=== PATIENT | male | born 1945 | race African-American/Black ===

== ENCOUNTER → 2016-09-30 | Outpatient (CLI) | payer OTHER ==
[2016-09-09 11:54] VITALS: BP 122/80
[~2016-09-30] MED LIST: AMLO5TAB2 PO; ASPI-482 PO; ATOR20TA58 PO; BACL10TA PO; BUPR75TA6 PO; CALC200T23 PO; CHOL-5 PO; DOCU100C PO; FINA5TAB4 PO; FOLI1TAB16 PO; LEVE500T56 PO; LIDO700A27 TP; LOSA100T6 PO; MAGN400T3 PO; OMEP20CA9 PO; ONAB200V IJ; OXYC-244 PO; POTA20TA84 PO; SIME180C16 PO; SIMV20TA3 PO; SOFO400T PO; TERA10CA3 PO; THIA100T8 PO; TRAM50TA PO; [UNRECOGNIZED DRUG - CODE] PO
--- NOTE | 2016-09-30 09:55 | CARD ---
APPROVED REPORT EXAM: Two-dimensional and M-mode echocardiogram with Doppler and color Doppler. Other Information Quality : GoodHR: 55bpm Rhythm : NSRBradycardia INDICATION Precordial pain RISK FACTORS Hypertension Smoking 2D DIMENSIONS RVDd2.5 (2.9-3.5cm)Left Atrium(2D)3.6 (1.6-4.0cm) IVSd0.9 (0.7-1.1cm)Aortic Root(2D)3.5 (2.0-3.7cm) LVDd4.6 (3.9-5.9cm)LVOT Diameter2.3 (1.8-2.4cm) PWd1.0 (0.7-1.1cm)LVDs3.1 (2.5-4.0cm) FS (%) 32.9 %SV59.7 ml LVEF(%)61.4 (>50%) Aortic Valve AoV Peak Peter.136.6cm/sAoV VTI28.9cm AO Peak GR.7.5mmHgLVOT Peak Peter.99.9cm/s AO Mean GR.3mmHgAVA (VMAX)2.92cm2 Mitral Valve MV E Ibqexrdw93.8cm/sMV E Peak Gr.3mmHg MV DECEL [id number] A Ydaaoict65.5cm/s MV E Mean Gr.1mmHgE/A Ratio0.6 MV A [id number] Pulmonary Valve PV Peak Nqdugyba42.5cm/s Tricuspid Valve TR P. Xsjeefet275va/sTR Peak Gr.20mmHg Pulmonary Vein S1 Cmbxxpra82.5cm/sD2 Dgsdjjbw90.1cm/s PVa skjipcjm41pjxg LEFT VENTRICLE The left ventricle is normal size. There is normal left ventricular wall thickness. The left ventricu lar systolic function is normal and the ejection fraction is within normal range. The Ejection Fracti on is 60-65%. There is normal LV segmental wall motion. Transmitral Doppler flow pattern is Grade I-a bnormal relaxation pattern. RIGHT VENTRICLE The right ventricle is normal size. There is normal right ventricular wall thickness. The right ventr icular systolic function is normal. ATRIA The left atrium size is normal. The right atrium size is normal. The interatrial septum is intact wit h no evidence for an atrial septal defect or patent foramen ovale as noted on 2-D or Doppler imaging. AORTIC VALVE The aortic valve is mildly thickened. The aortic valve is trileaflet. Doppler and Color Flow revealed no significant aortic regurgitation. There is no significant aortic valvular stenosis. MITRAL VALVE Mitral annular calcification is mild. The mitral valve leaflets are thickened. There is no evidence o f mitral valve prolapse. There is no mitral valve stenosis. Doppler and Color Flow revealed trace chuyita ral regurgitation. TRICUSPID VALVE The tricuspid valve is normal in structure and function. Doppler and Color Flow revealed mild tricusp id regurgitation. The pulmonary artery systolic pressure is estimated at 25 mmHg. There is no pulmona ry hypertension. There is no tricuspid valve stenosis. PULMONIC VALVE Doppler and Color Flow revealed trace pulmonic valvular regurgitation. There is no pulmonic valvular stenosis. GREAT VESSELS The aortic root is normal in size. The ascending aorta is normal in size. The IVC was not visualized due to bowel gas. PERICARDIAL EFFUSION There is no evidence of significant pericardial effusion. Critical Notification Critical Value: No <Conclusion> The left ventricular systolic function is normal and the ejection fraction is within normal range. Th e Ejection Fraction is 60-65%. There is normal LV segmental wall motion.
== END | disposition home or self-care (01) ==
LOC: ECHO 08:15
PROVIDERS: ATTEND Internal Medicine Cardiovascular Disease
DX: R07.2 Precordial pain (principal)
CPT/HCPCS: 93306

== ENCOUNTER → 2016-10-06 | Outpatient (CLI) | payer OTHER ==
[2016-09-09 11:54] VITALS: BP 122/80
[~2016-10-06] MED LIST changes: +REGADENOSON 0.4 MG/5 ML DISP.SYRIN. IV ONE
--- NOTE | 2016-10-06 13:55 | RAD ---
APPROVED REPORT Test Type: Pharmacological Stress Nurse/Tech: Mayela Torres R.N. Test Indications: sob, c/p Cardiac History: htn,copd Medications: See Electronic Medical Record Medical History: See Electronic Medical Record Resting ECG: SB Resting Heart Rate: 53 bpm Resting Blood Pressure: 126/79mmHg Pretest Chest Pain: No chest pain Nurse/Tech Notes S1S2, lungs CTA Consent: The procedure was explained to the patient in lay terms. Informed consent was witnessed. Morgan eout was entered into [employer]. History and Stress Test performed by RT Kareem (R) (N) Pharm. Details Pharmacologic stress testing was performed using 0.4mg per 5ml of regadenoson given intravenously ove r 7-10 seconds. Stress Symptoms SOB which resolved by the end of recovery period POST EXERCISE Reason for Termination: Infusion complete Max HR: 78 bpm Max Blood Pressure: 134/89mmHg Blood Pressure response to exercise: Normal blood pressure response during stress. Heart Rate response to exercise: wnl Chest Pain: No. Arrhythmia: No. ST Change: No. INTERPRETATION Stress EKG Conclusion: No evidence of stress induced EKG changes. Imaging Protocol IMAGE PROTOCOL: Rest Tc-99m/stress Tc-99m 1 day Rest: Stress: Viability: Radiopharm.Tc99m HzbpcgsqpNb80e Sestamibi Dose11.9mCi 35mCi Duration 17min. 12min. Img Date 10/06/2016 10/06/2016 Inj-Img [id number]. 60min. Rest Admin Site:IV - Left HandAdministrator:GHADA Falcon Stress Admin Site: IV - Left HandAdministrator: RT Kareem (R)(N) STRESS DATA End Diast. Vol.99.0mlAv. Heart Rate63.0bpm LVEDV index BSA2.0mlCardiac Output0.1L/min End Syst. Vol.33.0mlCO Index BSA4.2L/min LVESV index BSA1.0mlMyocardial Ivvo461.0g Eject. Ifopdpmp31.0% Stress Rates Pk. Fill Rate2.94EDV/secLVtime Pk. Fill 147.65msec Pk. Empty Rate3.81ESV/secLVtime Pk. Kpaay211.92msec 1/3 Pk. Fill1.85EDV/sec Stress Scores Regional WT0.00Summed WT5.00 Regional WM0.00Summed WM0.00 The rest and stress images show normal perfusion, normal contraction and thickening. LV Perf. Quant 17 Seg. SSS1.00 17 Seg. SRS11.00 17 Seg. SDS0.00 Stress Defect Extent (% LAD)0.00Rest Defect Extent (% LAD)0.00Rev. Defect Extent (% LAD)0.00 Stress Defect Extent (% LCX) 18.80Rest Defect Extent (% LCX)33.80Rev. Defect Extent (% LCX)0.00 Stress Defect Extent (% RCA)0.00Rest Defect Extent (% RCA)36.70Rev. Defect Extent (% RCA)0.00 Stress Defect Extent (% DMITRY)3.30Rest Defect Extent (% DMITRY)19.30Rev. Defect Extent (% DMITRY)0.00 Other Information Quality:Fair Risk Assessment: Low Risk Conclusion 1. No evidence of stress induced EKG changes 2. Normal myocardial perfusion at stress/rest. 3. Subdiaphragmatic activity noted on rest images. 4. Normal EF at > 70% 5. Low risk study
== END | disposition home or self-care (01) ==
LOC: NM 08:14
PROVIDERS: ATTEND Internal Medicine Cardiovascular Disease
DX: R07.2 Precordial pain (principal); J44.9 Chronic obstructive pulmonary disease, unspecified; I10 Essential (primary) hypertension; Z79.01 Long term (current) use of anticoagulants; Z87.891 Personal history of nicotine dependence; Z86.69 Personal history of other diseases of the nervous system and sense organs; R06.02 Shortness of breath
CPT/HCPCS: 78452; 93017; 96374; A9500; J2785

== ENCOUNTER → 2016-11-11 | Outpatient (CLI) | payer OTHER ==
[2016-09-09 11:54] VITALS: BP 122/80
[~2016-11-11] MED LIST changes: -REGADENOSON 0.4 MG/5 ML DISP.SYRIN. IV ONE
--- NOTE | 2016-11-11 12:19 | RAD ---
Right shoulder, 2 views, 11/11/2016: History: Shoulder weakness No fracture or dislocation is identified. There are mild degenerative changes at the glenohumeral and acromioclavicular articulations. The periarticular soft tissues are unremarkable. IMPRESSION: 1. Mild degenerative change. 2. No acute bony abnormality is detected.
== END | disposition home or self-care (01) ==
LOC: RAD 11:18
PROVIDERS: ATTEND Family Medicine
DX: M19.011 Primary osteoarthritis, right shoulder (principal)
CPT/HCPCS: 73030

== ENCOUNTER → 2017-04-18 | Outpatient (CLI) | payer OTHER ==
[2016-09-09 11:54] VITALS: BP 122/80
[~2017-04-18] MED LIST changes: +BUPIVACAINE MPF 0.25% 10 ML VIAL. ONE; +CALC500T54 PO; +CARB15DR3 EACHEYE; +DOCU-150 PO; -DOCU100C PO; +IOHEXOL 180 MG/ML 10 ML VIAL. ONE; +MINE120C TP; -OXYC-244 PO; +OXYC-327 PO; +PSYL0.4C PO; +methylPREDNISolone ACETATE 40 MG/ML VIAL. ONE; +methylPREDNISolone ACETATE 80 MG/ML VIAL. ONE
--- NOTE | 2017-04-18 23:39 | PAIN ---
DATE OF SERVICE: 04/18/2017 INITIAL CONSULTATION CHIEF COMPLAINT: Low back pain. HISTORY OF PRESENT ILLNESS: This is a 71-year-old male who presents with history of pain in low back for several years, worse over the past 2 years. The patient reports he has been recently at the [facility] and had lumbar medial branch facet blocks done as recently as January of this year with good results and decreased pain significantly; however, he reports that it was going to take about 6 months for him to ____ get radiofrequency performed and he wished to find another clinic closer to the home that might be able to get him in sooner. The patient reports increased pain with standing and walking, changing positions, especially getting out of a chair from a sitting position to standing position and getting out of bed in the morning the pain is significant, once he gets moving, pain decreases a bit, but still very significant across the low back, somewhat worse on the left than the right currently, but it can be just as bad on the right side as well. The patient reports no radiation to the lower extremities currently. The patient reports the pain as throbbing, stabbing, sharp, alternating with dull with the aching and burning sensation, also some weakness in the legs, but no radiating pain to the legs. The patient reports it wakes him from sleep about 4 times at night, affects his bowel and bladder control, but does not cause any incontinence. He has been using a walker for several years that he had a stroke years ago, has braces on both of his feet ____ as well. The patient reports his disability rate from 0-10; 10 being the worst, is at 9 with family home responsibilities, 10 with sexual behavior, 4 with recreation and social activity, 5 with occupation and life support activities, and 7 with self-care. The patient did have MRI scan of the lumbar spine dated 03/19/2017, showing transitional vertebrae, multilevel degenerative change in lumbar spine with advanced neural foraminal stenosis narrowing at L5-S1, not significantly changed since prior exam of 03/18/2016. PAST MEDICAL HISTORY: Significant for hypertension, cigarette smoking, arthritis, strokes about 5 years ago with residual pain in the lower extremities, worse on the left. PREVIOUS SURGERY: Include hernia repair in 08/2016 and cervical surgery in the past as well. CURRENT MEDICATIONS: Include omeprazole, docusate, lidocaine patches, thiamine, atorvastatin, daily baby aspirin, folic acid, calcium carbonate, finasteride, cholecalciferol, losartan, terazosin, amlodipine, eyedrops, Eucerin cream, psyllium husk and calcium. ALLERGIES: THE PATIENT IS ALLERGIC TO PENICILLIN. FAMILY HISTORY: Significant for diabetes and cancer. SOCIAL HISTORY: The patient smokes less than a pack of cigarette a day, but smokes for multiple years. Does not drink alcohol, does not use any other illegal illicit drugs or other substances. Lives with his spouse locally in [place], [place]. REVIEW OF SYSTEMS: The patient's review of systems is positive for those items mentioned in history of present illness. All systems reviewed and otherwise negative. It is complete, full and well documented on the patient's chart. PHYSICAL EXAMINATION: VITAL SIGNS: The patient's blood pressure 107/58, pulse 64, respirations 18, temperature 98.3 degrees Fahrenheit, height is 5 feet 11 inches, weight 195 pounds. GENERAL: The patient is awake, alert, oriented, appropriate, very pleasant demeanor. HEENT: Head shows normocephalic, atraumatic. Extraocular movements are intact and symmetrical. Oral cavity shows mucous membranes moist and pink. Dentition is intact. NECK: Shows anterior throat supple without palpable lymphadenopathy noted. Swallow reflex is symmetrical. Neck shows full rotational motion of the cervical spine without difficulty or tenderness including extension and flexion. CHEST: Shows normal on inspection. Breath sounds are clear to auscultation bilaterally. HEART: Shows S1 and S2 clear. No murmurs auscultated. ABDOMEN: Soft, nontender, nondistended. No palpable organomegaly, no rebound or guarding demonstrated. BACK: The patient's back shows spine grossly in the midline. He has normal appearing thoracic kyphosis and lumbar lordotic curvature. Lumbar paraspinous musculature shows symmetrical on inspection. With palpation shows some moderate tenderness with palpation bilaterally, but only diffusely throughout the upper, middle and lower distribution of paraspinous muscles, but equal right and left as is symmetrical right and left as well. No tenderness over the sacrum and sacroiliac regions with palpation. The patient shows good rotation and motion of the lumbar spine with significant tenderness with rotation posteriorly greater than 10 degrees. Right and left lateral rotation is also tender, but not as significantly with greater than 10 degrees rotation right and left. Forward flexion was performed without difficulty or pain reported. EXTREMITIES: Lower extremities show deep tendon reflexes at 1+ in the patellar and tendo calcaneus tendons. Again, the patient is wearing supportive braces on the ankles and lower extremities inhibiting some good evaluation of patient dorsiflexion, extension, but is intact bilaterally. Quadriceps and hamstring flexion is approximately 4 on a scale of 5, but symmetrical and equal. Peripheral pulses are 1+ and palpable in the posterior tibial and dorsalis pedis pulses. No peripheral edema is noted. No clubbing, no cyanosis is demonstrated in either of the lower extremities. They are equal in color and appearance and symmetrical. The patient is able to stand, but has difficulty standing from a sitting position and uses the chair and walker significantly to support his body while he is standing from a sitting position. The patient is walking with a significant shuffling gait, appears to favor his left lower extremity greater than the right, but again both have braces and he is using the walker significantly to support his ambulatory posture. IMPRESSION: 1. This is a 71-year-old male with many year history of low back pain. 2. Status post cerebrovascular accident with impaired motor function in the bilateral lower extremities. 3. Arthritis. 4. Hypertension. 5. Cigarette smoking. PLAN: Options were discussed with the patient including conservative medical management, physical therapy and interventional technique. He would like to pursue interventional techniques as these were started at an outside facility and he did well with these by his report. We discussed the options and will start with lumbar facet injections today at the L4-L5 and L5-S1 levels bilaterally using fluoroscopic guidance. Risks were discussed including but not limited to bleeding, infection, possibility of intravascular injection sequelae, spread of local anesthetic and numbness, side effects of steroid medication, potential epidural hematoma, subsequent neurologic compromise, dural punctures, headaches, spinal cord and/or nerve damage, side effects of steroid medications, exposure to fluoroscopy and poor results regarding pain control. The patient understands and wishes to proceed. The patient will return to clinic in approximately 1 week and was asked to call with a progress report. If significantly improved, may move on to radiofrequency ablation of the medial branches at the L4-L5 and L5-S1 levels bilaterally as patient has done well with these in an outside facility by his report. We will see how he does with today's injection and ____ that later this week. The patient was given counseling as to activity levels as well as side effects to be aware of and follow up as scheduled. DIAGNOSIS: 1. Lumbar and lumbosacral spondylosis. 2. Spinal stenosis. PROCEDURE: Bilateral facet joint injections at L4-L5 and L5-S1 with fluoroscopic guidance under sterile prep and drape using local anesthetic. Medications injected is a total of 4 mL of 0.25% bupivacaine, total of 120 mg of Depo-Medrol and 2 mL of Isovue for contrast. CONDITION ON DISCHARGE: Stable. The patient tolerated the procedure well, had no complications. KEVYN NICOLE MD DR: OLYA/ruth JOB#: [id number] / [id number] RADHA Purdy MD
== END | disposition home or self-care (01) ==
LOC: PNCL 12:49
PROVIDERS: ATTEND Anesthesiology
DX: M47.817 Spondylosis without myelopathy or radiculopathy, lumbosacral region (principal); M48.06 Spinal stenosis, lumbar region; M19.90 Unspecified osteoarthritis, unspecified site; F17.200 Nicotine dependence, unspecified, uncomplicated; F32.9 Major depressive disorder, single episode, unspecified; Z88.0 Allergy status to penicillin; E78.00 Pure hypercholesterolemia, unspecified; Z86.73 Personal history of transient ischemic attack (TIA), and cerebral infarction without residual deficits; Z87.39 Personal history of other diseases of the musculoskeletal system and connective tissue; Z72.0 Tobacco use
CPT/HCPCS: 64493; 64494; J1030; J1040; J3490

== ENCOUNTER → 2017-05-05 | Outpatient (CLI) | payer OTHER ==
[2016-09-09 11:54] VITALS: BP 122/80
[~2017-05-05] MED LIST changes: -IOHEXOL 180 MG/ML 10 ML VIAL. ONE; +LIDOCAINE 1% PF 2 ML VIAL. ONE; +LIDOCAINE 2% PF Vial for OR 5 ML VIAL. ONE
--- NOTE | 2017-05-05 17:47 | PAIN ---
DATE OF SERVICE: PROGRESS NOTE FOR PAIN CLINIC DIAGNOSES: Lumbar spinal stenosis with lumbar and lumbosacral spondylosis. HISTORY OF PRESENT ILLNESS: The patient is a 71-year-old male, who returns for followup, status post bilateral L4-5 and L5-S1 facet joint injections with very good results, about 80% improvement after the injections ____ at an outside facility with similar results. The patient would like to move on with radiofrequency ablation. We discussed this with him in some detail after his last visit and he has had good results again for about 2 weeks. The pain was reduced significantly. The patient reports that the pain is returning now - right side equal to left in the low back, worse with twisting and bending, and extension. It is an aching, dull pain. It is on and off in intensity, better with sitting, but much worse with walking or standing, especially with extension of the spine. The patient reports no new motor or sensory deficits, no new bowel or bladder incontinence, or other complaints, but still significant pain as noted. The patient rates his pain as an 8 on a scale of 10 at its worst, it is a 7 at least, and reports that it does not awaken him from sleep most nights. He feels much better lying down or sitting down. PHYSICAL EXAMINATION: VITAL SIGNS: The patient's blood pressure is 152/77, pulse 67, respirations 18, temperature 98.2 degrees Fahrenheit, height is 5 feet 11 inches, and weight is 195 pounds. GENERAL: The patient is awake, alert, oriented, and appropriate, has very pleasant demeanor. HEENT: Head shows normocephalic and atraumatic. Extraocular movements are intact and symmetrical. Oral cavity, mucous membranes are moist and pink. Dentition is intact. NECK: Shows anterior throat supple without palpable lymphadenopathy noted. Swallow reflex is symmetrical. CHEST: Shows normal on inspection. Breath sounds are clear to auscultation bilaterally. HEART: Shows S1 and S2 clear. ABDOMEN: Soft, nontender, and nondistended. No palpable organomegaly is noted. BACK: The patient's back shows spine grossly midline with normal-appearing thoracic kyphosis and minor flattening of lumbar lordotic curvature. Lumbar paraspinous musculature shows some moderate tenderness with palpation in the lower lumbar distribution bilaterally, but only diffusely without radiation. No tenderness over the spinous processes, sacrum, or sacroiliac regions. The patient does show good rotational motion with some tenderness, both right and left at about 10 degrees in the low back with extension significantly increased past 10 degrees, forward flexion decreased due to pain, and is able to flex forward at 45 degrees without significant difficulty. LOWER EXTREMITIES: Showed deep tendon reflexes at 1+ in the patellar and tendocalcaneus tendons. Motor exam is approximately 4 on a scale of 5 with bilateral dorsiflexion and extension, but are equal and symmetrical. Options were discussed with the patient. The patient's old chart was reviewed, as well as his current medication regimen updated. Current review of systems updated today as well. We will proceed with radiofrequency ablation of the bilateral L4-5 and L5-S1 levels using C-arm fluoroscopic guidance. Risks were again discussed including, but not limited to bleeding, infection, possibility of epidural hematoma and subsequent neurologic compromise, dural punctures, headaches, spinal cord and/or nerve damage, side effects of steroid medication, and potential thermal injury to tissues surrounding the area of the median branch targets, and exposure to fluoroscopy as well as poor results regarding pain control. The patient understands and wishes to proceed. The patient will return to clinic in approximately 2 weeks for followup. He was counseled on return appointment, activity level, and side effects to be aware of. DIAGNOSIS: Lumbar spinal stenosis with spondylosis, both lumbar and lumbosacral. PROCEDURE: Bilateral radiofrequency ablations of the L4-5 and L5-S1 medial branches using local anesthetic under sterile prep and drape using C-arm fluroscopic guidance. MEDICATIONS: A total of 120 mg of Depo-Medrol, a total of 6 mL of 0.25% bupivacaine after negative aspiration at each injection, and a total of 6 mL of 2% lidocaine after motor-sensory testing, but prior to radiofrequency ablation. Bupivacaine and Depo-Medrol was injected after radiofrequency ablation at each level after negative aspiration as well. Please see radiofrequency ____ for levels, times, impedances, duration of temperature, etc. CONDITION AT DISCHARGE: Stable. The patient tolerated the procedure well, had no complications. KEVYN NICOLE MD DR: OLYA/ruth JOB#: [id number] / [id number]
== END | disposition home or self-care (01) ==
LOC: PNCL 10:43
PROVIDERS: ATTEND Anesthesiology
DX: M47.816 Spondylosis without myelopathy or radiculopathy, lumbar region (principal); M48.06 Spinal stenosis, lumbar region; E78.00 Pure hypercholesterolemia, unspecified; I10 Essential (primary) hypertension; K21.9 Gastro-esophageal reflux disease without esophagitis; M19.90 Unspecified osteoarthritis, unspecified site; F32.9 Major depressive disorder, single episode, unspecified; Z86.69 Personal history of other diseases of the nervous system and sense organs; Z86.73 Personal history of transient ischemic attack (TIA), and cerebral infarction without residual deficits; Z87.39 Personal history of other diseases of the musculoskeletal system and connective tissue; Z72.0 Tobacco use; Z88.0 Allergy status to penicillin
CPT/HCPCS: 64635; 64636; J1030; J1040; J3490; J2001

== ENCOUNTER → 2017-06-02 | Outpatient (CLI) | payer OTHER ==
[2016-09-09 11:54] VITALS: BP 122/80
[~2017-06-02] MED LIST changes: -BUPIVACAINE MPF 0.25% 10 ML VIAL. ONE; -LIDOCAINE 1% PF 2 ML VIAL. ONE; -LIDOCAINE 2% PF Vial for OR 5 ML VIAL. ONE; -methylPREDNISolone ACETATE 40 MG/ML VIAL. ONE; -methylPREDNISolone ACETATE 80 MG/ML VIAL. ONE
--- NOTE | 2017-06-02 18:54 | PAIN ---
DATE OF SERVICE: 06/02/2017 DIAGNOSES: Lumbar spinal stenosis, lumbar spondylosis. HISTORY OF PRESENT ILLNESS: The patient is a 71-year-old male who returns for followup status post radiofrequency ablation of the L4-L5 and L5-S1 bilateral ____. The patient reports he did very well, about 80% improvement in his low back pain, still has some significant tightness in the back, though it is dull and achy, rates it at 8 on a scale of 10 at its worst, 6 on average, and is currently 7 today. The patient reports otherwise is doing very well with increased activity with greater ease and comfort, lifting items with greater ease. He has been sleeping well at night, it does not awaken him from sleep, feels very good when he is sitting or lying down. Only when he on his feet he has the stiffness in his back, which is different than pain. He reports it is a different sensation that is just stiff and tight and not painful significantly. The patient reports no new motor or sensory deficits, no new bowel or bladder incontinence or other complaints. PHYSICAL EXAMINATION: VITAL SIGNS: Today, the patient's blood pressure is 135/75, pulse 66, respirations 16, temperature 98.2 degrees Fahrenheit, height is 5 feet 11 inches, weighs 195 pounds. GENERAL: The patient is awake, alert, oriented, appropriate, very pleasant demeanor. HEENT: Head shows normocephalic, atraumatic. Extraocular movements are intact and symmetrical. Oral cavity shows mucous membranes moist and pink. Dentition is intact. NECK: Shows anterior throat supple without palpable lymphadenopathy noted. Swallow reflex is symmetrical. CHEST: Shows normal on inspection. Breath sounds clear to auscultation bilaterally. HEART: Shows S1 and S2 clear. No murmurs auscultated. ABDOMEN: Soft, nontender, nondistended. BACK: Shows spine grossly midline. Lumbar paraspinous musculature shows symmetrical on inspection with palpation. It was very firm, very stiff musculature throughout the upper, middle and lower distribution of the paraspinous muscles bilaterally, slightly more on the left than the right, but symmetrical and tender bilaterally to a moderate extent with very firm, very tender musculature bilaterally. In the thoracic spine, this is much more supple and less tender significantly. The patient shows good rotation and motion of the lumbar spine as well as good extension and forward flexion. Right and left lateral rotation greater than 10 degrees without significant pain reported on exam today. EXTREMITIES: Lower extremities showed deep tendon reflexes 1+ in the patellar and tendo calcaneus tendons. Motor exam is approximately 4 on a scale of 5 with dorsiflexion and extension, but equal. The patient is ambulating with a walker with significant antalgic gait favoring his left lower extremity over the right but with a very significant limp. Options were discussed with the patient and the patient's old chart was reviewed as his current medication regimen updated. Current review of systems updated today as well and we will refer the patient for physical therapy for strengthening and stretching exercises, massage therapy and musculature re-training with ambulation in the lumbar spine. The patient wishes to use his [facility] benefits for this. We will make arrangements to have him seen through [facility]. The patient will follow up once physical therapy is completed and as needed. KEVYN NICOLE MD DR: OLYA/ruth JOB#: [id number] / [id number]
== END | disposition home or self-care (01) ==
LOC: PNCL 10:10
PROVIDERS: ATTEND Anesthesiology
DX: M48.06 Spinal stenosis, lumbar region (principal); M47.896 Other spondylosis, lumbar region
CPT/HCPCS: 99212

== ENCOUNTER 2017-10-03 07:34 | Outpatient (CLI) | payer BC ==
[2017-10-03 08:18] LABS: HEMATOCRIT 38.3 % (39.0-53.0); MEAN CORPUSCULAR HEMOGLOBIN 32 pg (25-35); MEAN CORPUSCULAR HGB CONC 34 g/dL (31-37); MEAN CORPUSCULAR VOLUME 94 fL (79-100); PLATELET COUNT 155 x10^3/uL (140-400); RED BLOOD COUNT 4.08 x10^6/uL (4.30-5.70); RED CELL DISTRIBUTION WIDTH 13.1 % (11.5-14.5); WHITE BLOOD COUNT 6.4 x10^3/uL (4.0-11.0)
[2017-10-03 08:28] LABS: PROTHROMBIN TIME PATIENT 12.4 SEC (11.7-14.0)
[2017-10-03 09:01] LABS: ANION GAP 13 (6-14); BLOOD UREA NITROGEN 23 mg/dL (8-26); CALCIUM 8.9 mg/dL (8.5-10.1); CARBON DIOXIDE 24 mmol/L (21-32); CHLORIDE 106 mmol/L (98-107); CREATININE 1.4 mg/dL (0.7-1.3); GFR 60.6; GLUCOSE 116 mg/dL (70-99); POTASSIUM 3.5 mmol/L (3.5-5.1); SODIUM 143 mmol/L (136-145)
[2017-10-03] MEDS ORDERED: LIDOCAINE 2% 20 ML VIAL. (09:55)
[2017-10-03] MEDS ORDERED: IODIXANOL 320 MG/ML 100 ML VIAL. (09:55)
[2017-10-03] MEDS ORDERED: MIDAZOLAM HCL/PF 2 MG/2 ML VIAL. (10:16)
[2017-10-03] MEDS ORDERED: fentaNYL PF VIAL 100 MCG/2 ML VIAL (10:16)
[2017-10-03] MEDS ORDERED: NITROGLYCERIN 200 MCG/2 ML SYRINGE FOR CATH/VASC LAB. (10:17)
[2017-10-03] MEDS ORDERED: HEPARIN for IV BOLUS 10,000 UNIT/10 ML VIAL. (10:17)
[2017-10-03] MEDS ORDERED: VERAPAMIL 5 MG/2 ML VIAL. (10:17)
[2017-10-03] MEDS: HEPARIN for IV BOLUS 10,000 UNIT/10 ML VIAL. IART (10:30)
[2017-10-03] MEDS: VERAPAMIL 5 MG/2 ML VIAL. IART (10:30)
[2017-10-03] MEDS: MIDAZOLAM HCL/PF 2 MG/2 ML VIAL. IV (10:30)
[2017-10-03] MEDS: LIDOCAINE 2% 20 ML VIAL. IJ (10:30)
[2017-10-03] MEDS: IODIXANOL 320 MG/ML 100 ML VIAL. IART (10:30)
[2017-10-03] MEDS: fentaNYL PF VIAL 100 MCG/2 ML VIAL IV (10:30)
[2017-10-03] MEDS: NITROGLYCERIN 200 MCG/2 ML SYRINGE FOR CATH/VASC LAB. IART (10:30)
[2017-10-03] MEDS ORDERED: IV 1/2 NORMAL SALINE 1,000 ML IV (10:53)
== END 2017-10-03 14:30 | disposition home or self-care (01) ==
LOC: CCL 07:34
DX: I25.110 Atherosclerotic heart disease of native coronary artery with unstable angina pectoris (principal); E78.00 Pure hypercholesterolemia, unspecified; K21.9 Gastro-esophageal reflux disease without esophagitis; M19.90 Unspecified osteoarthritis, unspecified site; F32.9 Major depressive disorder, single episode, unspecified; F17.200 Nicotine dependence, unspecified, uncomplicated; B19.20 Unspecified viral hepatitis C without hepatic coma; Z87.39 Personal history of other diseases of the musculoskeletal system and connective tissue; Z86.69 Personal history of other diseases of the nervous system and sense organs; Z86.73 Personal history of transient ischemic attack (TIA), and cerebral infarction without residual deficits; Z88.0 Allergy status to penicillin; Z72.0 Tobacco use
CPT/HCPCS: 36415; 80048; 85027; 85610; 93458; 99152; 99153; C1769; C1892; J1644; J2250; J3010; J3490

== ENCOUNTER → 2017-11-02 | Outpatient (CLI) | payer BC ==
[2017-11-02] MEDS: GADOBUTROL 10 MMOL/10 ML VIAL IV ×2 (14:09)
== END | disposition home or self-care (01) ==
LOC: MRI 13:38
DX: M51.36 Other intervertebral disc degeneration, lumbar region (principal); M48.061 Spinal stenosis, lumbar region without neurogenic claudication; M25.78 Osteophyte, vertebrae; R60.0 Localized edema; I10 Essential (primary) hypertension; Z87.891 Personal history of nicotine dependence; Z86.69 Personal history of other diseases of the nervous system and sense organs
CPT/HCPCS: 72158; A9585

== ENCOUNTER 2017-11-03 09:43 | Emergency (ER) | payer BC ==
[2017-11-03] MEDS ORDERED: LIDOCAINE 2% JELLY 6ML IN APPLICATOR. (10:12)
[2017-11-03 10:50] LABS: BILIRUBIN,URINE NEGATIVE (NEG); CLARITY,URINE CLEAR; COLOR,URINE YELLOW; GLUCOSE,URINE 100 mg/dL (NEG); NITRITE,URINE NEGATIVE (NEG); PH,URINE 6.5; PROTEIN,URINE NEGATIVE (NEG-TRACE)
[2017-11-03] MEDS: LIDOCAINE 2% JELLY 6ML IN APPLICATOR. MM (11:00)
[2017-11-03 11:06] LABS: BACTERIA,URINE 0 /HPF (0-FEW); WBC,URINE 0 /HPF (0-4)
== END 2017-11-03 11:28 | disposition home or self-care (01) ==
LOC: ER 09:43
DX: R33.9 Retention of urine, unspecified (principal); K21.9 Gastro-esophageal reflux disease without esophagitis; I10 Essential (primary) hypertension; N40.1 Benign prostatic hyperplasia with lower urinary tract symptoms; Z98.1 Arthrodesis status; Z88.0 Allergy status to penicillin
CPT/HCPCS: 51702; 81001; 99284-25

== ENCOUNTER 2018-07-04 13:33 | Inpatient (IN) | payer BC ==
[~2018-07-04] VITALS: Ht 180.3 cm; Wt 86.2 kg
[~2018-07-04 13:33] MED LIST changes: -AMLO5TAB2 PO; +AMLO5TAB7 PO; +LEVO500T59 PO; -LOSA100T6 PO; +LOSA100T7 PO
[2018-07-04] MEDS ORDERED: KETOROLAC 15 MG/ML VIAL. IV ONE (15:00)
--- NOTE | 2018-07-04 15:23 | RAD ---
EXAM: Left knee, 3 views. HISTORY: Pain. COMPARISON: None. FINDINGS: 2 views of the left knee are obtained. There is slight medial compartment joint space narrowing. There is enthesopathy along the superior patella. There is no joint effusion. There is no fracture, dislocation or subluxation. IMPRESSION: No acute osseous finding. Electronically signed by: Doreen Wong MD (07/04/2018 3:20 PM) [facility]
--- NOTE | 2018-07-04 15:29 | RAD ---
EXAM: Right foot, 3 views. HISTORY: Pain. COMPARISON: None. FINDINGS: 3 views of the right foot are obtained. There is no fracture, dislocation or subluxation. There is mild hallux valgus. IMPRESSION: No acute osseous finding. Electronically signed by: Doreen Wong MD (07/04/2018 3:26 PM) [id number]
[2018-07-04 15:36] LABS: BASO # 0.1 x10^3/uL (0.0-0.2); BASO % 1 % (0-3); EOS # 0.1 x10^3/uL (0.0-0.7); EOS % 1 % (0-3); HEMATOCRIT 36.9 % (39.0-53.0); LYMPH # 1.4 x10^3/uL (1.0-4.8); LYMPH % 16 % (24-48); MEAN CORPUSCULAR HEMOGLOBIN 32 pg (25-35); MEAN CORPUSCULAR HGB CONC 35 g/dL (31-37); MEAN CORPUSCULAR VOLUME 92 fL (79-100); MONO # 1.1 x10^3/uL (0.0-1.1); MONO % 13 % (0-9); NEUT # 5.8 x10^3uL (1.8-7.7); NEUT % 69 % (31-73); PLATELET COUNT 126 x10^3/uL (140-400); RED BLOOD COUNT 4.02 x10^6/uL (4.30-5.70); RED CELL DISTRIBUTION WIDTH 13.8 % (11.5-14.5); WHITE BLOOD COUNT 8.5 x10^3/uL (4.0-11.0)
[2018-07-04 15:47] LABS: GFR 89.4; POTASSIUM 3.8 mmol/L (3.5-5.1)
[2018-07-04 15:53] LABS: ALBUMIN 3.2 g/dL (3.4-5.0); ALBUMIN/GLOBULIN RATIO 0.9 (1.0-1.7); C-REACTIVE PROTEIN 77.3 mg/L (0-3.3); TOTAL BILIRUBIN 1.1 mg/dL (0.2-1.0); TOTAL PROTEIN 6.9 g/dL (6.4-8.2)
--- NOTE | 2018-07-04 16:25 | RAD ---
Left leg venous Doppler study: Clinical indications: Left leg swelling and pain. Findings: Duplex sonography (including perez scale evaluation and color flow and waveform spectral analysis) of the proximal aspect of the greater saphenous vein and the proximal aspect of the profunda femoral vein and the entire length of the common femoral and superficial femoral and popliteal veins and the tibioperoneal trunk and the proximal aspect of the posterior tibial and peroneal veins of the left leg was performed. Partial thrombosis is seen within the left common femoral vein. Occlusive thrombosis is seen throughout the left superficial femoral vein down into the left popliteal vein. Impression: DVT of the left common femoral vein and left superficial femoral vein and left popliteal vein. Electronically signed by: Boom Landrum MD (07/04/2018 4:22 PM) [facility]
[2018-07-04] MEDS ORDERED: ONDANSETRON PF 4 MG/2 ML VIAL. IV PRN ×2 (16:45→17:45)
[2018-07-04] MEDS ORDERED: MORPHINE SULFATE 2 MG/ML VIAL. IV PRN ×2 (16:45→17:45)
--- NOTE | 2018-07-04 16:52 | PHYS DOC ---
Past Medical History Past Medical History: Depression, GERD, Hypertension Additional Past Medical Histor: BPH Past Surgical History: Cervical Fusion, Other Additional Past Surgical Histo: HAND, HERNIA Alcohol Use: Occasionally Drug Use: None Adult General Chief Complaint Chief Complaint: LOWER EXT PAIN HPI HPI Patient is a 72 year old male who presents with pain to the left knee with weightbearing. Patient reports this started 2 days ago. He reports he did not have any injury or trauma to the area. He states he was getting up out of his recliner and when he stood up, he had severe pain in the left knee area. He is currently finishing a course of Cipro for UTI. He denies any other complaints at this time. Review of Systems Review of Systems Constitutional: Denies fever or chills [] Respiratory: Denies cough or shortness of breath [] Cardiovascular: No chest pain or palpitations Musculoskeletal: Reports left knee pain and right foot pain with weightbearing Integument: Denies rash or skin lesions [] Neurologic: Denies headache, focal weakness or sensory changes [] All other systems were reviewed and found to be within normal limits, except as documented in this note. Current Medications Current Medications Current Medications Medications (Trade) Dose Ordered Sig/Karan Start Time Stop Time Status Last Admin Dose Admin Ketorolac Tromethamine (Toradol 15mg Vial) 15 mg 1X ONCE 07/04/18 15:00 07/04/18 15:01 DC 07/04/18 15:19 15 MG Morphine Sulfate (Morphine Sulfate) 2 mg PRN Q2HR PRN 07/04/18 16:45 07/05/18 16:44 UNV Ondansetron HCl (Zofran) 4 mg PRN Q8HRS PRN 07/04/18 16:45 07/05/18 16:44 UNV Allergies Allergies Allergies Coded Allergies Type Severity Reaction Last Updated Verified Penicillins Allergy Intermediate 09/09/16 Yes Physical Exam Physical Exam Constitutional: Well developed, well nourished, no acute distress, non-toxic appearance. [] HENT: Normocephalic, atraumatic Eyes: PERRLA, EOMI, conjunctiva normal, no discharge. [] Neck: Normal range of motion, no tenderness, supple, no stridor. [] Cardiovascular:Heart rate regular rhythm, no murmur [] Lungs & Thorax: Bilateral breath sounds clear to auscultation [] Skin: Warm, dry, no erythema, no rash. [] Extremities: Mild swelling to left knee and calf. Tender to palpation over the posterior left knee. Patient also has tenderness over the medial aspect of the right midfoot without swelling. Neurologic: Alert and oriented X 3, normal motor function, normal sensory function, no focal deficits noted. [] Psychologic: Affect normal, judgement normal, mood normal. [] Current Patient Data Vital Signs Vital Signs Date Time Temp Pulse Resp B/P (MAP) Pulse Ox O2 Delivery O2 Flow Rate FiO2 07/04/18 14:12 97.8 97 16 134/75 (94) 98 Room Air 97.8 Lab Values Laboratory Tests Test 07/04/18 15:18 White Blood Count 8.5 x10^3/uL (4.0-11.0) Red Blood Count 4.02 x10^6/uL (4.30-5.70) L Hemoglobin 13.0 g/dL (13.0-17.5) Hematocrit 36.9 % (39.0-53.0) L Mean Corpuscular Volume 92 fL (79-100) Mean Corpuscular Hemoglobin 32 pg (25-35) Mean Corpuscular Hemoglobin Concent 35 g/dL (31-37) Red Cell Distribution Width 13.8 % (11.5-14.5) Platelet Count 126 x10^3/uL (140-400) L Neutrophils (%) (Auto) 69 % (31-73) Lymphocytes (%) (Auto) 16 % (24-48) L Monocytes (%) (Auto) 13 % (0-9) H Eosinophils (%) (Auto) 1 % (0-3) Basophils (%) (Auto) 1 % (0-3) Neutrophils # (Auto) 5.8 x10^3uL (1.8-7.7) Lymphocytes # (Auto) 1.4 x10^3/uL (1.0-4.8) Monocytes # (Auto) 1.1 x10^3/uL (0.0-1.1) Eosinophils # (Auto) 0.1 x10^3/uL (0.0-0.7) Basophils # (Auto) 0.1 x10^3/uL (0.0-0.2) Sodium Level 144 mmol/L (136-145) Potassium Level 3.8 mmol/L (3.5-5.1) Chloride Level 106 mmol/L (98-107) Carbon Dioxide Level 26 mmol/L (21-32) Anion Gap 12 (6-14) Blood Urea Nitrogen 18 mg/dL (8-26) Creatinine 1.0 mg/dL (0.7-1.3) Estimated GFR (Cockcroft-Gault) 89.4 BUN/Creatinine Ratio 18 (6-20) Glucose Level 97 mg/dL (70-99) Calcium Level 9.0 mg/dL (8.5-10.1) Total Bilirubin 1.1 mg/dL (0.2-1.0) H Aspartate Amino Transferase (AST) 10 U/L (15-37) L Alanine Aminotransferase (ALT) 11 U/L (16-63) L Alkaline Phosphatase 59 U/L (46-116) C-Reactive Protein, Quantitative 77.3 mg/L (0-3.3) H Total Protein 6.9 g/dL (6.4-8.2) Albumin 3.2 g/dL (3.4-5.0) L Albumin/Globulin Ratio 0.9 (1.0-1.7) L Laboratory Tests 07/04/18 15:18 Laboratory Tests 07/04/18 15:18 EKG EKG [] Radiology/Procedures Radiology/Procedures PATIENT: JULIAN BROCK ACCOUNT: [id number] : 1945 LOCATION: ER AGE: 72 SEX: M EXAM STATUS: REG ER ORD. PHYSICIAN: LADAN OCASIO APRN REASON: left leg pain, question tendon rupture, pain at the knee with wt bearing PROCEDURE: VENOUS LOWER EXTREMITY LEFT Left leg venous Doppler study: Clinical indications: Left leg swelling and pain. Findings: Duplex sonography (including perez scale evaluation and color flow and waveform spectral analysis) of the proximal aspect of the greater saphenous vein and the proximal aspect of the profunda femoral vein and the entire length of the common femoral and superficial femoral and popliteal veins and the tibioperoneal trunk and the proximal aspect of the posterior tibial and peroneal veins of the left leg was performed. Partial thrombosis is seen within the left common femoral vein. Occlusive thrombosis is seen throughout the left superficial femoral vein down into the left popliteal vein. Impression: DVT of the left common femoral vein and left superficial femoral vein and left popliteal vein. Electronically signed by: Guilherme Landrum MD (07/04/2018 4:22 PM) [facility] DICTATED and SIGNED BY: GUILHERME LANDRUM MD DATE: 07/04/18 1618 PATIENT: JULIAN BROCK B ACCOUNT: [id number] : 1945 LOCATION: ER AGE: 72 SEX: M EXAM STATUS: REG ER ORD. PHYSICIAN: LADAN OCASIO APRN REASON: pain with weight bearing PROCEDURE: FOOT RIGHT 3V EXAM: Right foot, 3 views. HISTORY: Pain. COMPARISON: None. FINDINGS: 3 views of the right foot are obtained. There is no fracture, dislocation or subluxation. There is mild hallux valgus. IMPRESSION: No acute osseous finding. Electronically signed by: Doreen Abdi MD (07/04/2018 3:26 PM) [place] [id number] DICTATED and SIGNED BY: DOREEN ABDI MD DATE: 07/04/18 1526 PATIENT: JULIAN BORCK BACCOUNT: [id number]#: [id number] : 1945 LOCATION: ER AGE: 72 SEX: M EXAM STATUS: REG ER ORD. PHYSICIAN: LADAN OCASIO APRN REASON: pain with weight bearing PROCEDURE: KNEE LEFT 3V EXAM: Left knee, 3 views. HISTORY: Pain. COMPARISON: None. FINDINGS: 2 views of the left knee are obtained. There is slight medial compartment joint space narrowing. There is enthesopathy along the superior patella. There is no joint effusion. There is no fracture, dislocation or subluxation. IMPRESSION: No acute osseous finding. Electronically signed by: Doreen Abdi MD (07/04/2018 3:20 PM) [place] [id number] DICTATED and SIGNED BY: DOREEN ABDI MD DATE: 07/04/18 1519 [] Course & Med Decision Making Course & Med Decision Making Pertinent Labs and Imaging studies reviewed. (See chart for details) Discussed with Dr. Delaney, who accepts patient for admission. Plan: Admit for pain control and initiation of anticoagulation[] Dragon Disclaimer Dragon Disclaimer This electronic medical record was generated, in whole or in part, using a voice recognition dictation system. Departure Departure Impression: Primary Impression: DVT (deep venous thrombosis) Disposition: ADMITTED INPATIENT Admitting Physician: Other (Rhett) Condition: STABLE Referrals: RADHA MARTELL MD (PCP) Problem Qualifiers Primary Impression: DVT (deep venous thrombosis) DVT location: lower extremity Affected thrombotic vein of extremity: femoral Chronicity: acute Laterality: left Qualified Codes: I82.412 - Acute embolism and thrombosis of left femoral vein LADAN OCASIO [employer] Jul 04, 2018 16:52
--- NOTE | 2018-07-04 17:37 | PDOC1 ---
History and Physical Date of Admission Date of Admission DATE: 07/04/18 TIME: 17:25 Identification/Chief Complaint Chief Complaint Unable to walk Left leg pain Acute LLE DVT Source Source: Patient History of Present Illness History of Present Illness Patient is a 72 year old male w/PMHx BPH, HTN who p/w pain to the left knee with weightbearing. Patient reports this started 2 days ago on Monday and he thought was associated with some right leg pain as well. The right leg improved, but his left leg has gotten progressively more painful to the point of being unable to bear weight. No recent falls or trauma, no history of recent long travel. 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 He is currently finishing a course of Cipro apparently for a UTI. He denies any other complaints at this time. Past Medical History Cardiovascular: HTN Pulmonary: No pertinent hx Heme/Onc: No pertinent hx Hepatobiliary: No pertinent hx Psych: No pertinent hx Rheumatologic: No pertinent hx Infectious disease: No pertinent hx ENT: No pertinent hx Renal/: Benign prostatic enlarg. Endocrine: No pertinent hx Dermatology: No pertinent hx Past Surgical History Past Surgical History: Hernia Repair (Left) Family History Family History: Coronary Artery Disease (Mother), Diabetes (Mother) Family History: Parent (Father - Throat cancer) Social History Smoke: <1 pack per day ALCOHOL: rare Drugs: None Current Problem List Problem List Problems Medical Problems: (1) DVT (deep venous thrombosis) Status: Acute Current Medications Current Medications Current Medications Ketorolac Tromethamine (Toradol 15mg Vial) 15 mg 1X ONCE IV Last administered on 07/04/18at 15:19; Start 07/04/18 at 15:00; Stop 07/04/18 at 15:01; Status DC Ondansetron HCl (Zofran) 4 mg PRN Q8HRS PRN IV NAUSEA/VOMITING; Start at 16:45; Stop 07/05/18 at 16:44 Morphine Sulfate (Morphine Sulfate) 2 mg PRN Q2HR PRN IV PAIN; Start 07/04/18 at 16:45; Stop 07/05/18 at 16:44 Enoxaparin Sodium (Lovenox Per Pharmacy Treatment Dosing) 1 each PRN DAILY PRN MC SEE COMMENTS; Start 07/04/18 at 16:45 Enoxaparin Sodium (Lovenox 100mg Syringe) 90 mg Q12HR SQ Last administered on 07/04/18at 17:16; Start 07/04/18 at 16:50 Active Scripts Active Levaquin (Levofloxacin) 500 Mg Tablet 1 Tab PO DAILY Reported Rhea Moore (Mineral Oil/White Petrolatum) 120 Gm Cream..g. 1 [place]riett TP BID Calcium (Calcium Carbonate) 500 Mg Tab.chew 500 Mg PO Refresh Optive Eye Drops (Carboxymethylcellulos/Glycerin) 15 Ml Drops 1 Drop EACHEYE QID Stool Softener (Docusate Sodium) 100 Mg Capsule 100 Mg PO Thiamine Hcl 100 Mg Tablet 100 Mg PO DAILY Folic Acid 1 Mg Tablet 1 Mg PO DAILY Vitamin D3 (Cholecalciferol (Vitamin D3)) 10,000 Unit Tablet 1,000 Unit PO DAILY Atorvastatin Calcium 20 Mg Tablet 20 Mg PO HS Aspir 81 (Aspirin) 81 Mg Tablet.dr 81 Mg PO DAILY Omeprazole 20 Mg Capsule.dr 20 Mg PO DAILY Finasteride 5 Mg Tablet 5 Mg PO DAILY Terazosin Hcl 10 Mg Capsule 10 Mg PO HS Losartan Potassium 100 Mg Tablet 100 Mg PO DAILY Amlodipine Besylate 5 Mg Tablet 5 Mg PO DAILY Allergies Allergies: Coded Allergies: Penicillins (Verified Allergy, Intermediate, 09/09/16) ROS General: No: Chills, Night Sweats, Fatigue, Malaise, Appetite, Other PSYCHOLOGICAL ROS: No: Anxiety, Behavioral Disorder, Concentration difficultie , Decreased libido, Depression, Disorientation, Hallucinations, Hostility, Irritablity, Memory difficulties, Mood Swings, Obsessive thoughts, Physical abuse, Sexual abuse, Sleep disturbances, Suicidal ideation, Other Eyes: No Blurry vision, No Decreased vision, No Double vision, No Dry eyes, No Excessive tearing, No Eye Pain, No Itchy Eyes, No Loss of vision, No Photophobia , No Scotomata, No Uses contacts, No Uses glasses, No Other HEENT: No: Heacaches, Visual Changes, Hearing change, Nasal congestion, Nasal discharge, Oral lesions, Sinus pain, Sore Throat, Epistaxis, Sneezing, Snoring, Tinnitus, Vertigo, Vocal changes, Other ALLERGY AND IMMUNOLOGY: No: Hives, Insect Bite Sensitivity, Itchy/Watery Eyes, Nasal Congestion, Post Nasal Drip, Seasonal Allergies, Other Hematological and Lymphatic: YES: Blood Clots; No: Bleeding Problems, Blood Transfusions, Brusing, Night Sweats, Pallor, Swollen Lymph Nodes, Other ENDOCRINE: No: Breast Changes, Galactorrhea, Hair Pattern Changes, Hot Flashes , Malaise/lethargy, Mood Swings, Palpitations, Polydipsia/polyuria, Skin Changes , Temperature Intolerance, Unexpected Weight Changes, Other Breast: No New/Changing Breast Lumps, No Nipple changes, No Nipple discharge, No Other Respiratory: No: Cough, Hemoptysis, Orthopnea, Pleuritic Pain, Shortness of breath, SOB with excertion, Sputum Changes, Stridor, Tachypnea, Wheezing, Other Cardiovascular: No Chest Pain, No Palpitations, No Orthopnea, No Paroxysmal Noc. Dyspnea, No Edema, No Lt Headedness, No Other Gastrointestinal: No Nausea, No Vomiting, No Abdominal Pain, No Diarrhea, No Constipation, No Melena, No Hematochezia, No Other Genitourinary: YES Dysuria, YES Frequency, YES Retention, YES Urgency Musculoskeletal: Yes Muscle Pain, Yes Pain In: (Left leg) Neurological: No Behavorial Changes, No Bowel/Bladder ControlChng, No Confusion , No Dizziness, No Gait Disturbance, No Headaches, No Impaired Coord/balance, No Memory Loss, No Numbness/Tingling, No Seizures, No Speech Problems, No Tremors, No Visual Changes, No Weakness, No Other Skin: No Dry Skin, No Eczema, No Hair Changes, No Lumps, No Mole Changes, No Mottling, No Nail Changes, No Pruritus, No Rash, No Skin Lesion Changes, No Other, No Acne Physical Exam General: Alert, Oriented X3, Cooperative, No acute distress HEENT: Atraumatic, PERRLA, EOMI, Mucous membr. moist/pink Lungs: Clear to auscultation, Normal air movement Heart: S1S2, RRR, no gallops, no murmurs Abdomen: Normal bowel sounds, Soft, No tenderness, No hepatosplenomegaly, No masses Rectal Exam: not examined Extremities: No clubbing, No cyanosis, No edema, Normal pulses, Other (LLE tender, palpable cord in popliteal fossa and left groin) Skin: No rashes, No breakdown, No significant lesion Neuro: Normal gait, Normal speech, Strength at 5/5 X4 ext, Normal tone, Sensation intact, Cranial nerves 3-12 NL, Reflexes 2+ Psych/Mental Status: Mental status NL, Mood NL Vitals Vitals Vital Signs Date Time Temp Pulse Resp B/P (MAP) Pulse Ox O2 Delivery O2 Flow Rate FiO2 07/04/18 16:23 72 19 108/55 (72) 99 Room Air 07/04/18 14:12 97.8 97.8 Labs Labs Laboratory Tests Test 07/04/18 15:18 White Blood Count 8.5 x10^3/uL (4.0-11.0) Red Blood Count 4.02 x10^6/uL (4.30-5.70) Hemoglobin 13.0 g/dL (13.0-17.5) Hematocrit 36.9 % (39.0-53.0) Mean Corpuscular Volume 92 fL (79-100) Mean Corpuscular Hemoglobin 32 pg (25-35) Mean Corpuscular Hemoglobin Concent 35 g/dL (31-37) Red Cell Distribution Width 13.8 % (11.5-14.5) Platelet Count 126 x10^3/uL (140-400) Neutrophils (%) (Auto) 69 % (31-73) Lymphocytes (%) (Auto) 16 % (24-48) Monocytes (%) (Auto) 13 % (0-9) Eosinophils (%) (Auto) 1 % (0-3) Basophils (%) (Auto) 1 % (0-3) Neutrophils # (Auto) 5.8 x10^3uL (1.8-7.7) Lymphocytes # (Auto) 1.4 x10^3/uL (1.0-4.8) Monocytes # (Auto) 1.1 x10^3/uL (0.0-1.1) Eosinophils # (Auto) 0.1 x10^3/uL (0.0-0.7) Basophils # (Auto) 0.1 x10^3/uL (0.0-0.2) Sodium Level 144 mmol/L (136-145) Potassium Level 3.8 mmol/L (3.5-5.1) Chloride Level 106 mmol/L (98-107) Carbon Dioxide Level 26 mmol/L (21-32) Anion Gap 12 (6-14) Blood Urea Nitrogen 18 mg/dL (8-26) Creatinine 1.0 mg/dL (0.7-1.3) Estimated GFR (Cockcroft-Gault) 89.4 BUN/Creatinine Ratio 18 (6-20) Glucose Level 97 mg/dL (70-99) Calcium Level 9.0 mg/dL (8.5-10.1) Total Bilirubin 1.1 mg/dL (0.2-1.0) Aspartate Amino Transf (AST/SGOT) 10 U/L (15-37) Alanine Aminotransferase (ALT/SGPT) 11 U/L (16-63) Alkaline Phosphatase 59 U/L (46-116) C-Reactive Protein, Quantitative 77.3 mg/L (0-3.3) Total Protein 6.9 g/dL (6.4-8.2) Albumin 3.2 g/dL (3.4-5.0) Albumin/Globulin Ratio 0.9 (1.0-1.7) Laboratory Tests Test 07/04/18 15:18 White Blood Count 8.5 x10^3/uL (4.0-11.0) Red Blood Count 4.02 x10^6/uL (4.30-5.70) Hemoglobin 13.0 g/dL (13.0-17.5) Hematocrit 36.9 % (39.0-53.0) Mean Corpuscular Volume 92 fL (79-100) Mean Corpuscular Hemoglobin 32 pg (25-35) Mean Corpuscular Hemoglobin Concent 35 g/dL (31-37) Red Cell Distribution Width 13.8 % (11.5-14.5) Platelet Count 126 x10^3/uL (140-400) Neutrophils (%) (Auto) 69 % (31-73) Lymphocytes (%) (Auto) 16 % (24-48) Monocytes (%) (Auto) 13 % (0-9) Eosinophils (%) (Auto) 1 % (0-3) Basophils (%) (Auto) 1 % (0-3) Neutrophils # (Auto) 5.8 x10^3uL (1.8-7.7) Lymphocytes # (Auto) 1.4 x10^3/uL (1.0-4.8) Monocytes # (Auto) 1.1 x10^3/uL (0.0-1.1) Eosinophils # (Auto) 0.1 x10^3/uL (0.0-0.7) Basophils # (Auto) 0.1 x10^3/uL (0.0-0.2) Sodium Level 144 mmol/L (136-145) Potassium Level 3.8 mmol/L (3.5-5.1) Chloride Level 106 mmol/L (98-107) Carbon Dioxide Level 26 mmol/L (21-32) Anion Gap 12 (6-14) Blood Urea Nitrogen 18 mg/dL (8-26) Creatinine 1.0 mg/dL (0.7-1.3) Estimated GFR (Cockcroft-Gault) 89.4 BUN/Creatinine Ratio 18 (6-20) Glucose Level 97 mg/dL (70-99) Calcium Level 9.0 mg/dL (8.5-10.1) Total Bilirubin 1.1 mg/dL (0.2-1.0) Aspartate Amino Transf (AST/SGOT) 10 U/L (15-37) Alanine Aminotransferase (ALT/SGPT) 11 U/L (16-63) Alkaline Phosphatase 59 U/L (46-116) C-Reactive Protein, Quantitative 77.3 mg/L (0-3.3) Total Protein 6.9 g/dL (6.4-8.2) Albumin 3.2 g/dL (3.4-5.0) Albumin/Globulin Ratio 0.9 (1.0-1.7) VTE Prophylaxis Ordered VTE Prophylaxis Devices: Yes VTE Pharmacological Prophylaxi: Yes Assessment/Plan Assessment/Plan A/P: Unable to walk - 2/2 DVT, will work with therapy. pain control Acute LLE DVT - large by imaging, will start on lovenox, have vascular surgery to see due to pain and extent of clotting BPH - ongoing on flomax, will continue UTI - unusual in male, will repeat urine studies, concern for prostatitis as possible etiology of his DVT. Cont cipro HTN - will con meds Diet - regular PPX - therapeutic lovenox FULL CODE Wards for at least 2 midnights for inability to walk secondary to acute DVT SULLY DIAZ MD Jul 04, 2018 17:37
[2018-07-04 17:44] VITALS: BP 127/73
[2018-07-04] MEDS ORDERED: KETOROLAC 30 MG/ML VIAL. IV PRN (17:45)
[2018-07-04] MEDS ORDERED: oxyCODONE IR 5 MG TABLET PO PRN (17:45)
[2018-07-04] MEDS ORDERED: MAGNESIUM HYDROXIDE 2,400 MG/30 ML ORAL.SUSP. PO PRN (17:45)
[2018-07-04] MEDS ORDERED: ACETAMINOPHEN 325 MG TABLET. PO PRN (17:45)
[2018-07-04 19:00] VITALS: BP 117/60
[2018-07-04] MEDS: DOCUSATE SODIUM 100 MG CAPSULE. PO SCH (21:00)
[2018-07-04] MEDS: ATORVASTATIN CALCIUM 20 MG TABLET PO SCH (22:04)
[2018-07-04] MEDS: TERAZOSIN 5 MG CAPSULE. PO SCH (22:04)
[2018-07-04] MEDS: SENNOSIDES/DOCUSATE 8.6/50MG TABLET. PO SCH (22:05)
[2018-07-04 23:00] VITALS: BP 126/69
[2018-07-05 03:00] VITALS: BP 123/79
[2018-07-05 07:00] VITALS: BP 122/76
--- NOTE | 2018-07-05 07:57 | PDOC ---
PROGRESS NOTES Chief Complaint Chief Complaint Unable to walk Acute LLE DVT BPH UTI HTN History of Present Illness History of Present Illness Patient is a 72 year old male w/PMHx BPH, HTN who p/w pain to the left knee with weightbearing. Patient reports this started 2 days ago on Monday and he thought was associated with some right leg pain as well. The right leg improved, but his left leg has gotten progressively more painful to the point of being unable to bear weight. No recent falls or trauma, no history of recent long travel. 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 He is currently finishing a course of Cipro apparently for a UTI. He denies any other complaints at this time Overnight felt his pain improved, still pain with toe touch. On further review he notes a TIA previously in his life and cardiac cath that was clean. No N/V/D , no SOB or CP. No dysuria today A/P: Unable to walk - 2/2 DVT, will work with therapy. pain control Acute LLE DVT - large by imaging, on lovenox, have vascular surgery to see due to pain and extent of clotting - thrombolysis today BPH - ongoing on flomax, will continue UTI - unusual in male, will repeat urine studies, concern for prostatitis as possible etiology of his DVT. Cont cipro HTN - will con meds Diet - regular PPX - therapeutic lovenox FULL CODE Wards for at least 2 midnights for inability to walk secondary to acute DVT Vitals Vitals Vital Signs Date Time Temp Pulse Resp B/P (MAP) Pulse Ox O2 Delivery O2 Flow Rate FiO2 07/05/18 03:00 98.4 67 18 123/79 (94) 99 Room Air 98.4 Physical Exam General: Alert, Oriented X3, Cooperative, No acute distress Abdomen: Normal bowel sounds, Soft, No tenderness, No hepatosplenomegaly, No masses Extremities: No clubbing, No cyanosis, No edema, Normal pulses, Other (LLE tender, palpable cord in popliteal fossa and left groin) Skin: No rashes, No breakdown, No significant lesion Labs LABS Laboratory Tests Test 07/04/18 15:18 White Blood Count 8.5 x10^3/uL (4.0-11.0) Red Blood Count 4.02 x10^6/uL (4.30-5.70) Hemoglobin 13.0 g/dL (13.0-17.5) Hematocrit 36.9 % (39.0-53.0) Mean Corpuscular Volume 92 fL (79-100) Mean Corpuscular Hemoglobin 32 pg (25-35) Mean Corpuscular Hemoglobin Concent 35 g/dL (31-37) Red Cell Distribution Width 13.8 % (11.5-14.5) Platelet Count 126 x10^3/uL (140-400) Neutrophils (%) (Auto) 69 % (31-73) Lymphocytes (%) (Auto) 16 % (24-48) Monocytes (%) (Auto) 13 % (0-9) Eosinophils (%) (Auto) 1 % (0-3) Basophils (%) (Auto) 1 % (0-3) Neutrophils # (Auto) 5.8 x10^3uL (1.8-7.7) Lymphocytes # (Auto) 1.4 x10^3/uL (1.0-4.8) Monocytes # (Auto) 1.1 x10^3/uL (0.0-1.1) Eosinophils # (Auto) 0.1 x10^3/uL (0.0-0.7) Basophils # (Auto) 0.1 x10^3/uL (0.0-0.2) Sodium Level 144 mmol/L (136-145) Potassium Level 3.8 mmol/L (3.5-5.1) Chloride Level 106 mmol/L (98-107) Carbon Dioxide Level 26 mmol/L (21-32) Anion Gap 12 (6-14) Blood Urea Nitrogen 18 mg/dL (8-26) Creatinine 1.0 mg/dL (0.7-1.3) Estimated GFR (Cockcroft-Gault) 89.4 BUN/Creatinine Ratio 18 (6-20) Glucose Level 97 mg/dL (70-99) Calcium Level 9.0 mg/dL (8.5-10.1) Total Bilirubin 1.1 mg/dL (0.2-1.0) Aspartate Amino Transf (AST/SGOT) 10 U/L (15-37) Alanine Aminotransferase (ALT/SGPT) 11 U/L (16-63) Alkaline Phosphatase 59 U/L (46-116) C-Reactive Protein, Quantitative 77.3 mg/L (0-3.3) Total Protein 6.9 g/dL (6.4-8.2) Albumin 3.2 g/dL (3.4-5.0) Albumin/Globulin Ratio 0.9 (1.0-1.7) Assessment and Plan Assessmemt and Plan Problems Medical Problems: (1) DVT (deep venous thrombosis) Status: Acute Comment Review of Relevant I have reviewed the following items prince (where applicable) has been applied. Labs Laboratory Tests Test 18 15:18 White Blood Count 8.5 x10^3/uL (4.0-11.0) Red Blood Count 4.02 x10^6/uL (4.30-5.70) Hemoglobin 13.0 g/dL (13.0-17.5) Hematocrit 36.9 % (39.0-53.0) Mean Corpuscular Volume 92 fL (79-100) Mean Corpuscular Hemoglobin 32 pg (25-35) Mean Corpuscular Hemoglobin Concent 35 g/dL (31-37) Red Cell Distribution Width 13.8 % (11.5-14.5) Platelet Count 126 x10^3/uL (140-400) Neutrophils (%) (Auto) 69 % (31-73) Lymphocytes (%) (Auto) 16 % (24-48) Monocytes (%) (Auto) 13 % (0-9) Eosinophils (%) (Auto) 1 % (0-3) Basophils (%) (Auto) 1 % (0-3) Neutrophils # (Auto) 5.8 x10^3uL (1.8-7.7) Lymphocytes # (Auto) 1.4 x10^3/uL (1.0-4.8) Monocytes # (Auto) 1.1 x10^3/uL (0.0-1.1) Eosinophils # (Auto) 0.1 x10^3/uL (0.0-0.7) Basophils # (Auto) 0.1 x10^3/uL (0.0-0.2) Sodium Level 144 mmol/L (136-145) Potassium Level 3.8 mmol/L (3.5-5.1) Chloride Level 106 mmol/L (98-107) Carbon Dioxide Level 26 mmol/L (21-32) Anion Gap 12 (6-14) Blood Urea Nitrogen 18 mg/dL (8-26) Creatinine 1.0 mg/dL (0.7-1.3) Estimated GFR (Cockcroft-Gault) 89.4 BUN/Creatinine Ratio 18 (6-20) Glucose Level 97 mg/dL (70-99) Calcium Level 9.0 mg/dL (8.5-10.1) Total Bilirubin 1.1 mg/dL (0.2-1.0) Aspartate Amino Transf (AST/SGOT) 10 U/L (15-37) Alanine Aminotransferase (ALT/SGPT) 11 U/L (16-63) Alkaline Phosphatase 59 U/L (46-116) C-Reactive Protein, Quantitative 77.3 mg/L (0-3.3) Total Protein 6.9 g/dL (6.4-8.2) Albumin 3.2 g/dL (3.4-5.0) Albumin/Globulin Ratio 0.9 (1.0-1.7) Laboratory Tests Test 07/04/18 15:18 White Blood Count 8.5 x10^3/uL (4.0-11.0) Red Blood Count 4.02 x10^6/uL (4.30-5.70) Hemoglobin 13.0 g/dL (13.0-17.5) Hematocrit 36.9 % (39.0-53.0) Mean Corpuscular Volume 92 fL (79-100) Mean Corpuscular Hemoglobin 32 pg (25-35) Mean Corpuscular Hemoglobin Concent 35 g/dL (31-37) Red Cell Distribution Width 13.8 % (11.5-14.5) Platelet Count 126 x10^3/uL (140-400) Neutrophils (%) (Auto) 69 % (31-73) Lymphocytes (%) (Auto) 16 % (24-48) Monocytes (%) (Auto) 13 % (0-9) Eosinophils (%) (Auto) 1 % (0-3) Basophils (%) (Auto) 1 % (0-3) Neutrophils # (Auto) 5.8 x10^3uL (1.8-7.7) Lymphocytes # (Auto) 1.4 x10^3/uL (1.0-4.8) Monocytes # (Auto) 1.1 x10^3/uL (0.0-1.1) Eosinophils # (Auto) 0.1 x10^3/uL (0.0-0.7) Basophils # (Auto) 0.1 x10^3/uL (0.0-0.2) Sodium Level 144 mmol/L (136-145) Potassium Level 3.8 mmol/L (3.5-5.1) Chloride Level 106 mmol/L (98-107) Carbon Dioxide Level 26 mmol/L (21-32) Anion Gap 12 (6-14) Blood Urea Nitrogen 18 mg/dL (8-26) Creatinine 1.0 mg/dL (0.7-1.3) Estimated GFR (Cockcroft-Gault) 89.4 BUN/Creatinine Ratio 18 (6-20) Glucose Level 97 mg/dL (70-99) Calcium Level 9.0 mg/dL (8.5-10.1) Total Bilirubin 1.1 mg/dL (0.2-1.0) Aspartate Amino Transf (AST/SGOT) 10 U/L (15-37) Alanine Aminotransferase (ALT/SGPT) 11 U/L (16-63) Alkaline Phosphatase 59 U/L (46-116) C-Reactive Protein, Quantitative 77.3 mg/L (0-3.3) Total Protein 6.9 g/dL (6.4-8.2) Albumin 3.2 g/dL (3.4-5.0) Albumin/Globulin Ratio 0.9 (1.0-1.7) Medications Current Medications Ketorolac Tromethamine (Toradol 15mg Vial) 15 mg 1X ONCE IV Last administered on 07/04/18at 15:19; Start 07/04/18 at 15:00; Stop 07/04/18 at 15:01; Status DC Ondansetron HCl (Zofran) 4 mg PRN Q8HRS PRN IV NAUSEA/VOMITING; Start at 16:45; Stop 07/04/18 at 17:46; Status DC Morphine Sulfate (Morphine Sulfate) 2 mg PRN Q2HR PRN IV PAIN; Start 07/04/18 at 16:45; Stop 07/05/18 at 16:44 Enoxaparin Sodium (Lovenox Per Pharmacy Treatment Dosing) 1 each PRN DAILY PRN [facility] SEE COMMENTS; Start 07/04/18 at 16:45 Enoxaparin Sodium (Lovenox 100mg Syringe) 90 mg Q12HR SQ Last administered on 07/04/18at 17:16; Start 07/04/18 at 16:50 Ondansetron HCl (Zofran) 4 mg PRN Q6HRS PRN IV NAUSEA/VOMITING 1ST CHOICE; Start 07/04/18 at 17:45 Oxycodone HCl (Roxicodone) 5 mg PRN Q3HRS PRN PO SEVERE PAIN; Start 07/04/18 at 17:45 Morphine Sulfate (Morphine Sulfate) 2 mg PRN Q3HRS PRN IV PAIN SEVERE; Start 07/04/18 at 17:45 Ketorolac Tromethamine (Toradol 30mg Vial) 30 mg PRN Q6HRS PRN IV INFLAMMATION ; Start 07/04/18 at 17:45; Stop 07/09/18 at 17:44 Acetaminophen (Tylenol) 650 mg PRN Q6HRS PRN PO Headaches, Temp > 101.5F; Start 07/04/18 at 17:45 Senna/Docusate Sodium (Senna Plus) 1 tab BID PO Last administered on at 22:05; Start 07/04/18 at 21:00 Magnesium Hydroxide (Milk Of Magnesia) 2,400 mg PRN Q12HR PRN PO CONSTIPATION 1ST CHOICE; Start 07/04/18 at 17:45 Amlodipine Besylate (Norvasc) 5 mg DAILY PO ; Start 07/05/18 at 09:00 Aspirin (Ecotrin) 81 mg DAILY08 PO ; Start 07/05/18 at 08:00 Atorvastatin Calcium (Lipitor) 20 mg HS PO Last administered on 07/04/18at 22: 04; Start 07/04/18 at 21:00 Docusate Sodium (Colace) 100 mg BID PO ; Start 07/04/18 at 21:00 Finasteride (Proscar) 5 mg DAILY PO ; Start 07/05/18 at 09:00 Folic Acid (Folic Acid) 1 mg DAILY PO ; Start 07/05/18 at 09:00 Vitamin D (Vitamin D3) 1,000 unit DAILY PO ; Start 07/05/18 at 09:00 Levofloxacin (Levaquin) 500 mg QHS PO Last administered on 07/04/18at 22:05; Start 07/04/18 at 21:00 Losartan Potassium (Cozaar) 100 mg DAILY PO ; Start 07/05/18 at 09:00 Pantoprazole Sodium (Protonix) 40 mg DAILYAC PO ; Start 07/05/18 at 07:30 Terazosin HCl (Hytrin) 10 mg QHS PO Last administered on 07/04/18at 22:04; Start 07/04/18 at 21:00 Thiamine Mononitrate (Vitamin B-1) 100 mg DAILY PO ; Start 07/05/18 at 09:00 Active Scripts Active Levaquin (Levofloxacin) 500 Mg Tablet 1 Tab PO DAILY Reported Calcium (Calcium Carbonate) 500 Mg Tab.chew 500 Mg PO Stool Softener (Docusate Sodium) 100 Mg Capsule 100 Mg PO Thiamine Hcl 100 Mg Tablet 100 Mg PO DAILY Folic Acid 1 Mg Tablet 1 Mg PO DAILY Vitamin D3 (Cholecalciferol (Vitamin D3)) 10,000 Unit Tablet 1,000 Unit PO DAILY Atorvastatin Calcium 20 Mg Tablet 20 Mg PO HS Aspir 81 (Aspirin) 81 Mg Tablet.dr 81 Mg PO DAILY Omeprazole 20 Mg Capsule.dr 20 Mg PO DAILY Finasteride 5 Mg Tablet 5 Mg PO DAILY Terazosin Hcl 10 Mg Capsule 10 Mg PO HS Losartan Potassium 100 Mg Tablet 100 Mg PO DAILY Amlodipine Besylate 5 Mg Tablet 5 Mg PO DAILY Vitals/I & O Vital Sign - Last 24 Hours 07/04/18 07/04/18 07/04/18 07/04/18 14:12 14:53 15:23 15:53 Temp 97.8 97.8 Pulse 97 78 74 72 Resp 16 24 25 28 B/P (MAP) 134/75 (94) 123/64 (83) 104/58 (73) 130/67 (88) Pulse Ox 98 99 99 96 O2 Delivery Room Air Room Air Room Air Room Air 07/04/18 07/04/18 07/04/18 07/04/18 16:23 17:44 18:05 19:00 Temp 98.1 98.1 98.1 98.1 Pulse 72 66 80 Resp 19 20 18 B/P (MAP) 108/55 (72) 127/73 (91) 117/60 (79) Pulse Ox 99 99 99 O2 Delivery Room Air Room Air Room Air Room Air 07/04/18 07/04/18 07/04/18 07/05/18 20:00 22:04 23:00 03:00 Temp 98.1 98.4 98.1 98.4 Pulse 80 66 67 Resp 18 18 B/P (MAP) 117/60 126/69 (88) 123/79 (94) Pulse Ox 98 99 O2 Delivery Room Air Room Air Room Air Intake and Output 07/04/18 07/04/18 07/05/18 15:00 23:00 07:00 Intake Total 150 ml Output Total 0 ml Balance 150 ml SULLY DIAZ MD Jul 05, 2018 07:57
[2018-07-05] MEDS: ASPIRIN ENTERIC COATED 81 MG TABLET.DR. PO SCH (08:17)
[2018-07-05] MEDS: LOSARTAN POTASSIUM 50 MG TABLET. PO SCH (08:17)
[2018-07-05] MEDS: SENNOSIDES/DOCUSATE 8.6/50MG TABLET. PO SCH ×2 (08:18→21:53)
[2018-07-05] MEDS: amLODIPine BESYLATE 5 MG TABLET PO SCH (08:18)
[2018-07-05] MEDS: FOLIC ACID 1 MG TABLET. PO SCH (08:21)
[2018-07-05] MEDS: FINASTERIDE 5 MG TABLET. PO SCH (08:21)
[2018-07-05] MEDS: CHOLECALCIFEROL (VITAMIN D3) 1,000 UNIT TABLET PO SCH (08:21)
[2018-07-05] MEDS: DOCUSATE SODIUM 100 MG CAPSULE. PO SCH ×2 (08:21→21:53)
[2018-07-05] MEDS: PANTOPRAZOLE 40 MG TABLET.DR. PO SCH (08:21)
[2018-07-05] MEDS: THIAMINE 100 MG TABLET. PO SCH (08:23)
--- NOTE | 2018-07-05 09:30 | PDOC ---
Provider Note Provider Note See full consult noted dictated by Dr. oRmero. Assessment/Plan: Pt has unprovoked extensive DVTs in L common femoral, SFV and popliteal veins. We recommend thrombolytic therapy, to be NPO starting now, for IR thrombolysis later today. MICHAEL RAPHAEL Jul 05, 2018 09:30
--- NOTE | 2018-07-05 10:10 | PDOC4 ---
IR NOTE: VIR Consult S: 72 yo male with acute unprovoked DVT in the left leg with symptom onset 2 days ago. Pain rapidly progressed to 'excruciating' about the left knee with standing. Since hospitalization, his pain has improved. He notes that he walked to the bathroom and 'had a little bit of pain when I first stood up, but that got better when I started walkin'. No prior history of DVT or PE. No CP or SOB. Baseline activity includes walking daily. O: A & O x 3, NAD. Mucous membranes are moist. Heart and lung exam is normal. Left leg with mild non-pitting edema to the mid thigh. Both limbs are warm and pink and well perfused. 2+ PT and DP pulses on the right with normal capillary refill. Advanced onychomycosis. Imaging: Venous duplex US study shows occlusive thrombus in the left Popliteal and SFV veins, with non-occlusive thrombus in the left CFV. A: Initial episode unproved LLE DVT with debilitating leg pain now improving s/ p initiation of anticoagulation. P: Given the acuity of this clot, the non-occlusive nature of the CFV component , and his rapid improvement following initiation of anticoagulation, a trial of medical management is encouraged prior to initiating thrombolysis. If this gentleman fails to return to full function within 2 weeks of anticoagulation, or demonstrates clinical deterioration or progression of thrombus in spite of anticoagulation, venography and initiation of pharmacomechanical thrombolysis should then be entertained. Follow-up venous duplex US study in 10-14 days is recommended to evaluate for thrombus propagation. Thank you for the opportunity to participate in the care of this gentleman. MARLON WHITTINGTON MD Jul 05, 2018 10:10
[2018-07-05 11:00] VITALS: BP 115/69
[2018-07-05 11:13] LABS: PROTHROMBIN TIME PATIENT 14.8 SEC (11.7-14.0)
[2018-07-05 15:00] VITALS: BP 123/80
[2018-07-05] MEDS: ANTI-COAG MONITOR BY PHARMACY. MC PRN (15:31)
[2018-07-05 19:00] VITALS: BP 113/61
[2018-07-05] MEDS: LACTOBACILLUS RHAMNOSUS GG 1 CAPSULE. PO SCH (21:51)
[2018-07-05] MEDS: ATORVASTATIN CALCIUM 20 MG TABLET PO SCH (21:52)
[2018-07-05] MEDS: TERAZOSIN 5 MG CAPSULE. PO SCH (21:52)
[2018-07-05 23:00] VITALS: BP 121/66
[2018-07-06] VITALS (8 sets, daily range): BP systolic 124–139; BP diastolic 69–83
--- NOTE | 2018-07-06 00:51 | CONS ---
DATE OF CONSULTATION: 07/05/2018 REASON FOR CONSULTATION: DVT, left leg. REFERRING PHYSICIAN: Onesimo Mcrae MD HISTORY OF PRESENT ILLNESS: This is a 72-year-old, otherwise healthy male who usually takes an aspirin a day who suddenly developed trouble walking because of the left leg pain and some swelling. He came to the emergency room where an ultrasound revealed a left common femoral, superficial femoral, and popliteal DVT in the left leg. The patient has no prior history of blood clots, no prior history of clotting problems in his family. Generally does not have any other medical problems. He has no prolonged trips or dependency of that leg. ALLERGIES: PENICILLIN. MEDICATIONS: See his reconciliation list. He states he is taking an aspirin a day. He has a slight history of some smoking. He was given Lovenox in the emergency room this morning. REVIEW OF SYSTEMS: Negative for diabetes. He states he did have some kind of a heat stroke in the past. No history of coronary artery disease. No history of claudication. PHYSICAL EXAMINATION: GENERAL: Pleasant male in no acute distress, 2+ radial pulses, 2+ carotids. CARDIOVASCULAR: Regular heart rate. LUNGS: Nonlabored respirations. ABDOMEN: Soft. He got strong popliteal and pedal pulses. Slight swelling in left leg without discoloration and minimal tenderness. NEUROLOGIC: Intact. IMPRESSION: Left leg deep venous thrombosis, rather acute. Options were discussed with the patient. My recommendation would be for attempted lysis although he had breakfast this morning. We will make him n.p.o. and I have contacted interventional radiology to see if they can start that today. If they are not able to do lysis or after discussion by them with him he refuses, we will continue Lovenox and we will recheck him in 3 months in our vascular lab with another ultrasound. If he does undergo lysis, we will follow him along while here. Thanks for allowing us to see him. KIMBERLY WU MD DR: AC/ruth JOB#: [id number] / [id number]
[2018-07-06] MEDS: PANTOPRAZOLE 40 MG TABLET.DR. PO SCH (07:39)
[2018-07-06] MEDS: LACTOBACILLUS RHAMNOSUS GG 1 CAPSULE. PO SCH ×2 (08:31→21:16)
[2018-07-06] MEDS: DOCUSATE SODIUM 100 MG CAPSULE. PO SCH ×2 (08:31→21:17)
[2018-07-06] MEDS: ASPIRIN ENTERIC COATED 81 MG TABLET.DR. PO SCH (08:31)
[2018-07-06] MEDS: LOSARTAN POTASSIUM 50 MG TABLET. PO SCH (08:32)
[2018-07-06] MEDS: SENNOSIDES/DOCUSATE 8.6/50MG TABLET. PO SCH ×2 (08:32→21:16)
[2018-07-06] MEDS: amLODIPine BESYLATE 5 MG TABLET PO SCH (08:32)
[2018-07-06] MEDS: CHOLECALCIFEROL (VITAMIN D3) 1,000 UNIT TABLET PO SCH (08:33)
[2018-07-06] MEDS: THIAMINE 100 MG TABLET. PO SCH (08:33)
[2018-07-06] MEDS: FINASTERIDE 5 MG TABLET. PO SCH (08:33)
[2018-07-06] MEDS: FOLIC ACID 1 MG TABLET. PO SCH (08:34)
--- NOTE | 2018-07-06 15:06 | PDOC ---
PROGRESS NOTES Chief Complaint Chief Complaint Unable to walk Acute LLE DVT BPH UTI HTN History of Present Illness History of Present Illness acute DVT left leg, unable to ambulate Unable to walk - 2/2 DVT, will work with therapy. pain control Acute LLE DVT - considered thrombolysis - will continue lovenox, plan DC on xarelto or similar BPH - ongoing on flomax, will continue UTI - unusual in male, will repeat urine studies, concern for prostatitis as possible etiology of his DVT. Cont cipro HTN - will con meds Vitals Vitals Vital Signs Date Time Temp Pulse Resp B/P (MAP) Pulse Ox O2 Delivery O2 Flow Rate FiO2 07/06/18 11:00 97.5 61 16 139/74 (95) 95 Room Air 97.5 Physical Exam General: Alert, Oriented X3, Cooperative, No acute distress Heart: Regular rate Lungs: Clear Abdomen: Normal bowel sounds, Soft, No tenderness, No hepatosplenomegaly, No masses Extremities: No clubbing, No cyanosis, No edema, Normal pulses, Other (LLE tender, palpable cord in popliteal fossa and left groin) Skin: No rashes, No breakdown, No significant lesion Review of Systems Review of Systems no n.v.d Assessment and Plan Assessmemt and Plan Problems Medical Problems: (1) DVT (deep venous thrombosis) Status: Acute Comment Review of Relevant I have reviewed the following items prince (where applicable) has been applied. Labs Laboratory Tests Test 07/04/18 15:18 07/05/18 10:40 White Blood Count 8.5 x10^3/uL (4.0-11.0) Red Blood Count 4.02 x10^6/uL (4.30-5.70) Hemoglobin 13.0 g/dL (13.0-17.5) Hematocrit 36.9 % (39.0-53.0) Mean Corpuscular Volume 92 fL (79-100) Mean Corpuscular Hemoglobin 32 pg (25-35) Mean Corpuscular Hemoglobin Concent 35 g/dL (31-37) Red Cell Distribution Width 13.8 % (11.5-14.5) Platelet Count 126 x10^3/uL (140-400) Neutrophils (%) (Auto) 69 % (31-73) Lymphocytes (%) (Auto) 16 % (24-48) Monocytes (%) (Auto) 13 % (0-9) Eosinophils (%) (Auto) 1 % (0-3) Basophils (%) (Auto) 1 % (0-3) Neutrophils # (Auto) 5.8 x10^3uL (1.8-7.7) Lymphocytes # (Auto) 1.4 x10^3/uL (1.0-4.8) Monocytes # (Auto) 1.1 x10^3/uL (0.0-1.1) Eosinophils # (Auto) 0.1 x10^3/uL (0.0-0.7) Basophils # (Auto) 0.1 x10^3/uL (0.0-0.2) Sodium Level 144 mmol/L (136-145) Potassium Level 3.8 mmol/L (3.5-5.1) Chloride Level 106 mmol/L (98-107) Carbon Dioxide Level 26 mmol/L (21-32) Anion Gap 12 (6-14) Blood Urea Nitrogen 18 mg/dL (8-26) Creatinine 1.0 mg/dL (0.7-1.3) Estimated GFR (Cockcroft-Gault) 89.4 BUN/Creatinine Ratio 18 (6-20) Glucose Level 97 mg/dL (70-99) Calcium Level 9.0 mg/dL (8.5-10.1) Total Bilirubin 1.1 mg/dL (0.2-1.0) Aspartate Amino Transf (AST/SGOT) 10 U/L (15-37) Alanine Aminotransferase (ALT/SGPT) 11 U/L (16-63) Alkaline Phosphatase 59 U/L (46-116) C-Reactive Protein, Quantitative 77.3 mg/L (0-3.3) Total Protein 6.9 g/dL (6.4-8.2) Albumin 3.2 g/dL (3.4-5.0) Albumin/Globulin Ratio 0.9 (1.0-1.7) Prothrombin Time 14.8 SEC (11.7-14.0) Prothromb Time International Ratio 1.2 (0.8-1.1) Fibrinogen 550 mg/dL (200-440) Medications Current Medications Ketorolac Tromethamine (Toradol 15mg Vial) 15 mg 1X ONCE IV Last administered on 07/04/18at 15:19; Start 07/04/18 at 15:00; Stop 07/04/18 at 15:01; Status DC Ondansetron HCl (Zofran) 4 mg PRN Q8HRS PRN IV NAUSEA/VOMITING; Start at 16:45; Stop 07/04/18 at 17:46; Status DC Morphine Sulfate (Morphine Sulfate) 2 mg PRN Q2HR PRN IV PAIN; Start 07/04/18 at 16:45; Stop 07/05/18 at 16:44; Status DC Enoxaparin Sodium (Lovenox Per Pharmacy Treatment Dosing) 1 each PRN DAILY PRN MC SEE COMMENTS; Start 07/04/18 at 16:45 Enoxaparin Sodium (Lovenox 100mg Syringe) 90 mg Q12HR SQ Last administered on 07/06/18at 08:33; Start 07/04/18 at 16:50 Ondansetron HCl (Zofran) 4 mg PRN Q6HRS PRN IV NAUSEA/VOMITING 1ST CHOICE; Start 07/04/18 at 17:45 Oxycodone HCl (Roxicodone) 5 mg PRN Q3HRS PRN PO SEVERE PAIN; Start 07/04/18 at 17:45 Morphine Sulfate (Morphine Sulfate) 2 mg PRN Q3HRS PRN IV PAIN SEVERE Last administered on 07/05/18at 11:51; Start 07/04/18 at 17:45 Ketorolac Tromethamine (Toradol 30mg Vial) 30 mg PRN Q6HRS PRN IV INFLAMMATION Last administered on 07/05/18at 08:24; Start 07/04/18 at 17:45; Stop 07/09/18 at 17:44 Acetaminophen (Tylenol) 650 mg PRN Q6HRS PRN PO Headaches, Temp > 101.5F; Start 07/04/18 at 17:45 Senna/Docusate Sodium (Senna Plus) 1 tab BID PO Last administered on at 08:32; Start 07/04/18 at 21:00 Magnesium Hydroxide (Milk Of Magnesia) 2,400 mg PRN Q12HR PRN PO CONSTIPATION 1ST CHOICE; Start 07/04/18 at 17:45 Amlodipine Besylate (Norvasc) 5 mg DAILY PO Last administered on 07/06/18at 08: 32; Start 07/05/18 at 09:00 Aspirin (Ecotrin) 81 mg DAILY08 PO Last administered on 07/06/18 08:31; Start 07/05/18 at 08:00 Atorvastatin Calcium (Lipitor) 20 mg HS PO Last administered on 07/05/18 21: 52; Start 07/04/18 at 21:00 Docusate Sodium (Colace) 100 mg BID PO Last administered on 07/06/18 08:31; Start 07/04/18 at 21:00 Finasteride (Proscar) 5 mg DAILY PO Last administered on 07/06/18 08:33; Start 07/05/18 at 09:00 Folic Acid (Folic Acid) 1 mg DAILY PO Last administered on 07/06/18 08:34; Start 07/05/18 at 09:00 Vitamin D (Vitamin D3) 1,000 unit DAILY PO Last administered on 07/06/18 08: 33; Start 07/05/18 at 09:00 Levofloxacin (Levaquin) 500 mg QHS PO Last administered on 07/05/18 21:52; Start 07/04/18 at 21:00 Losartan Potassium (Cozaar) 100 mg DAILY PO Last administered on 07/06/18 08: 32; Start 07/05/18 at 09:00 Pantoprazole Sodium (Protonix) 40 mg DAILYAC PO Last administered on at 07:39; Start 07/05/18 at 07:30 Terazosin HCl (Hytrin) 10 mg QHS PO Last administered on 07/05/18 21:52; Start 07/04/18 at 21:00 Thiamine Mononitrate (Vitamin B-1) 100 mg DAILY PO Last administered on 08:33; Start 07/05/18 at 09:00 Info (Anti-Coagulation Monitoring By Pharmacy) 1 each PRN DAILY PRN MC SEE COMMENTS Last administered on 07/05/18 15:31; Start 07/05/18 at 15:30 Lactobacillus Rhamnosus (Culturelle) 1 cap BID PO Last administered on at 08:31; Start 07/05/18 at 21:00 Active Scripts Active Levaquin (Levofloxacin) 500 Mg Tablet 1 Tab PO DAILY Reported Calcium (Calcium Carbonate) 500 Mg Tab.chew 500 Mg PO Stool Softener (Docusate Sodium) 100 Mg Capsule 100 Mg PO Thiamine Hcl 100 Mg Tablet 100 Mg PO DAILY Folic Acid 1 Mg Tablet 1 Mg PO DAILY Vitamin D3 (Cholecalciferol (Vitamin D3)) 10,000 Unit Tablet 1,000 Unit PO DAILY Atorvastatin Calcium 20 Mg Tablet 20 Mg PO HS Aspir 81 (Aspirin) 81 Mg Tablet.dr 81 Mg PO DAILY Omeprazole 20 Mg Capsule.dr 20 Mg PO DAILY Finasteride 5 Mg Tablet 5 Mg PO DAILY Terazosin Hcl 10 Mg Capsule 10 Mg PO HS Losartan Potassium 100 Mg Tablet 100 Mg PO DAILY Amlodipine Besylate 5 Mg Tablet 5 Mg PO DAILY Vitals/I & O Vital Sign - Last 24 Hours 07/05/18 07/05/18 07/05/18 07/05/18 19:00 20:00 21:52 23:00 Temp 97.9 97.7 97.9 97.7 Pulse 63 63 79 Resp 18 18 B/P (MAP) 113/61 (78) 113/61 121/66 (84) Pulse Ox 96 96 O2 Delivery Room Air Room Air Room Air 07/06/18 07/06/18 07/06/18 07/06/18 03:00 07:00 07:42 08:32 Temp 97.9 96.4 97.9 96.4 Pulse 76 60 60 Resp 18 18 B/P (MAP) 127/69 (88) 136/79 (98) 136/79 Pulse Ox 96 100 O2 Delivery Room Air Room Air Room Air 07/06/18 07/06/18 08:32 11:00 Temp 97.5 97.5 Pulse 60 61 Resp 16 B/P (MAP) 136/79 139/74 (95) Pulse Ox 95 O2 Delivery Room Air Intake and Output 07/05/18 07/05/18 07/06/18 15:00 23:00 07:00 Intake Total 200 ml Output Total 125 ml 200 ml Balance -125 ml 0 ml MEKA WARE MD Jul 06, 2018 15:06
[2018-07-06] MEDS: ATORVASTATIN CALCIUM 20 MG TABLET PO SCH (21:16)
[2018-07-06] MEDS: TERAZOSIN 5 MG CAPSULE. PO SCH (21:16)
[2018-07-07 03:00] VITALS: BP 124/80
[2018-07-07 05:19] LABS: CREATININE 0.9 mg/dL (0.7-1.3); GFR 100.9
[2018-07-07] MEDS: PANTOPRAZOLE 40 MG TABLET.DR. PO SCH (06:23)
[2018-07-07 07:00] VITALS: BP 146/77
--- NOTE | 2018-07-07 07:47 | PDOC ---
PROGRESS NOTES Chief Complaint Chief Complaint Unable to walk Acute LLE DVT BPH UTI HTN History of Present Illness History of Present Illness Admitted for acute DVT left leg, unable to ambulate. Was seen by vascular surgery and IR to consider thrombolysis, was started on therapeutic lovenox immediately. Given the acuity of this clot, the non-occlusive nature of the CFV component, and his rapid improvement following initiation of anticoagulation, a trial of medical management is encouraged prior to initiating thrombolysis. If this gentleman fails to return to full function within 2 weeks of anticoagulation, or demonstrates clinical deterioration or progression of thrombus in spite of anticoagulation, venography and initiation of pharmacomechanical thrombolysis should then be entertained. Follow-up venous duplex US study in 10-14 days is recommended to evaluate for thrombus propagation. Feeling much better today, able to walk at his apparent baseline, though difficult with PT. He is insistent he is at his baseline and does not wish for home health services A/P: Unable to walk - Has resolved, was likely 2/2 DVT, will work with therapy. pain control Acute LLE DVT - considered thrombolysis though he improved quickly with lovenox , plan DC on Eliquis 10mg BID for 7 days, then 5mg BID thereafter BPH - ongoing on flomax, will continue UTI - unusual in male, will repeat urine studies, concern for prostatitis as possible etiology of his DVT. Cont quinolone for 14 days total HTN - will con meds Ok for d/c today Vitals Vitals Vital Signs Date Time Temp Pulse Resp B/P (MAP) Pulse Ox O2 Delivery O2 Flow Rate FiO2 07/07/18 03:00 98.1 67 14 124/80 (95) 98 Room Air 98.1 Physical Exam General: Alert, Oriented X3, Cooperative, No acute distress Heart: Regular rate Lungs: Clear Abdomen: Normal bowel sounds, Soft, No tenderness, No hepatosplenomegaly, No masses Extremities: No clubbing, No cyanosis, No edema, Normal pulses, Other (LLE tender, palpable cord in popliteal fossa and left groin) Skin: No rashes, No breakdown, No significant lesion Labs LABS Laboratory Tests Test 07/07/18 03:50 Platelet Count 151 x10^3/uL (140-400) Creatinine 0.9 mg/dL (0.7-1.3) Estimated GFR (Cockcroft-Gault) 100.9 Assessment and Plan Assessmemt and Plan Problems Medical Problems: (1) DVT (deep venous thrombosis) Status: Acute Comment Review of Relevant I have reviewed the following items prince (where applicable) has been applied. Labs Laboratory Tests Test 07/05/18 10:40 07/07/18 03:50 Prothrombin Time 14.8 SEC (11.7-14.0) Prothromb Time International Ratio 1.2 (0.8-1.1) Fibrinogen 550 mg/dL (200-440) Platelet Count 151 x10^3/uL (140-400) Creatinine 0.9 mg/dL (0.7-1.3) Estimated GFR (Cockcroft-Gault) 100.9 Laboratory Tests Test 07/07/18 03:50 Platelet Count 151 x10^3/uL (140-400) Creatinine 0.9 mg/dL (0.7-1.3) Estimated GFR (Cockcroft-Gault) 100.9 Medications Current Medications Ketorolac Tromethamine (Toradol 15mg Vial) 15 mg 1X ONCE IV Last administered on 07/04/18at 15:19; Start 07/04/18 at 15:00; Stop 07/04/18 at 15:01; Status DC Ondansetron HCl (Zofran) 4 mg PRN Q8HRS PRN IV NAUSEA/VOMITING; Start at 16:45; Stop 07/04/18 at 17:46; Status DC Morphine Sulfate (Morphine Sulfate) 2 mg PRN Q2HR PRN IV PAIN; Start 07/04/18 at 16:45; Stop 07/05/18 at 16:44; Status DC Enoxaparin Sodium (Lovenox Per Pharmacy Treatment Dosing) 1 each PRN DAILY PRN MC SEE COMMENTS; Start 07/04/18 at 16:45 Enoxaparin Sodium (Lovenox 100mg Syringe) 90 mg Q12HR SQ Last administered on 07/06/18at 21:16; Start 07/04/18 at 16:50 Ondansetron HCl (Zofran) 4 mg PRN Q6HRS PRN IV NAUSEA/VOMITING 1ST CHOICE; Start 07/04/18 at 17:45 Oxycodone HCl (Roxicodone) 5 mg PRN Q3HRS PRN PO SEVERE PAIN; Start 07/04/18 at 17:45 Morphine Sulfate (Morphine Sulfate) 2 mg PRN Q3HRS PRN IV PAIN SEVERE Last administered on 07/05/18 11:51; Start 07/04/18 at 17:45 Ketorolac Tromethamine (Toradol 30mg Vial) 30 mg PRN Q6HRS PRN IV INFLAMMATION Last administered on 07/05/18 08:24; Start 07/04/18 at 17:45; Stop 07/09/18 at 17:44 Acetaminophen (Tylenol) 650 mg PRN Q6HRS PRN PO Headaches, Temp > 101.5F; Start 07/04/18 at 17:45 Senna/Docusate Sodium (Senna Plus) 1 tab BID PO Last administered on 21:16; Start 07/04/18 at 21:00 Magnesium Hydroxide (Milk Of Magnesia) 2,400 mg PRN Q12HR PRN PO CONSTIPATION 1ST CHOICE; Start 07/04/18 at 17:45 Amlodipine Besylate (Norvasc) 5 mg DAILY PO Last administered on 07/06/18at 08: 32; Start 07/05/18 at 09:00 Aspirin (Ecotrin) 81 mg DAILY08 PO Last administered on 07/06/18 08:31; Start 07/05/18 at 08:00 Atorvastatin Calcium (Lipitor) 20 mg HS PO Last administered on 07/06/18 21: 16; Start 07/04/18 at 21:00 Docusate Sodium (Colace) 100 mg BID PO Last administered on 07/06/18 21:17; Start 07/04/18 at 21:00 Finasteride (Proscar) 5 mg DAILY PO Last administered on 07/06/18 08:33; Start 07/05/18 at 09:00 Folic Acid (Folic Acid) 1 mg DAILY PO Last administered on 07/06/18 08:34; Start 07/05/18 at 09:00 Vitamin D (Vitamin D3) 1,000 unit DAILY PO Last administered on 07/06/18 08: 33; Start 07/05/18 at 09:00 Levofloxacin (Levaquin) 500 mg QHS PO Last administered on 07/06/18 21:16; Start 07/04/18 at 21:00 Losartan Potassium (Cozaar) 100 mg DAILY PO Last administered on 10/19/18at 08: 32; Start 07/05/18 at 09:00 Pantoprazole Sodium (Protonix) 40 mg DAILYAC PO Last administered on at 06:23; Start 07/05/18 at 07:30 Terazosin HCl (Hytrin) 10 mg QHS PO Last administered on 07/06/18at 21:16; Start 07/04/18 at 21:00 Thiamine Mononitrate (Vitamin B-1) 100 mg DAILY PO Last administered on at 08:33; Start 07/05/18 at 09:00 Info (Anti-Coagulation Monitoring By Pharmacy) 1 each PRN DAILY PRN MC SEE COMMENTS Last administered on 07/05/18at 15:31; Start 07/05/18 at 15:30 Lactobacillus Rhamnosus (Culturelle) 1 cap BID PO Last administered on at 21:16; Start 07/05/18 at 21:00 Active Scripts Active Levaquin (Levofloxacin) 500 Mg Tablet 1 Tab PO DAILY Reported Calcium (Calcium Carbonate) 500 Mg Tab.chew 500 Mg PO Stool Softener (Docusate Sodium) 100 Mg Capsule 100 Mg PO Thiamine Hcl 100 Mg Tablet 100 Mg PO DAILY Folic Acid 1 Mg Tablet 1 Mg PO DAILY Vitamin D3 (Cholecalciferol (Vitamin D3)) 10,000 Unit Tablet 1,000 Unit PO DAILY Atorvastatin Calcium 20 Mg Tablet 20 Mg PO HS Aspir 81 (Aspirin) 81 Mg Tablet.dr 81 Mg PO DAILY Omeprazole 20 Mg Capsule.dr 20 Mg PO DAILY Finasteride 5 Mg Tablet 5 Mg PO DAILY Terazosin Hcl 10 Mg Capsule 10 Mg PO HS Losartan Potassium 100 Mg Tablet 100 Mg PO DAILY Amlodipine Besylate 5 Mg Tablet 5 Mg PO DAILY Vitals/I & O Vital Sign - Last 24 Hours 07/06/18 07/06/18 07/06/18 07/06/18 08:32 08:32 11:00 15:00 Temp 97.5 98.1 97.5 98.1 Pulse 60 60 61 69 Resp 16 18 B/P (MAP) 136/79 136/79 139/74 (95) 136/74 (94) Pulse Ox 95 98 O2 Delivery Room Air Room Air 07/06/18 07/06/18 07/06/18 07/06/18 15:05 15:10 19:00 20:00 Temp 98.7 98.7 Pulse 85 91 73 Resp 14 B/P (MAP) 131/83 (99) 124/82 (96) 135/75 (95) Pulse Ox 98 O2 Delivery Room Air Room Air Room Air Room Air 07/06/18 07/06/18 07/07/18 21:16 23:00 03:00 Temp 97.9 98.1 97.9 98.1 Pulse 73 63 67 Resp 14 14 B/P (MAP) 135/75 136/74 (94) 124/80 (95) Pulse Ox 98 98 O2 Delivery Room Air Room Air Intake and Output 07/06/18 07/06/18 07/07/18 15:00 23:00 07:00 Intake Total 100 ml 200 ml 300 ml Output Total 800 ml Balance -700 ml 200 ml 300 ml SULLY DIAZ MD Jul 07, 2018 07:47
[2018-07-07] MEDS: SENNOSIDES/DOCUSATE 8.6/50MG TABLET. PO SCH (09:00)
[2018-07-07] MEDS: DOCUSATE SODIUM 100 MG CAPSULE. PO SCH (09:00)
[2018-07-07] MEDS: ASPIRIN ENTERIC COATED 81 MG TABLET.DR. PO SCH (09:28)
[2018-07-07] MEDS: FINASTERIDE 5 MG TABLET. PO SCH (09:29)
[2018-07-07] MEDS: LACTOBACILLUS RHAMNOSUS GG 1 CAPSULE. PO SCH (09:29)
[2018-07-07] MEDS: FOLIC ACID 1 MG TABLET. PO SCH (09:29)
[2018-07-07] MEDS: LOSARTAN POTASSIUM 50 MG TABLET. PO SCH (09:29)
[2018-07-07] MEDS: amLODIPine BESYLATE 5 MG TABLET PO SCH (09:29)
[2018-07-07] MEDS: THIAMINE 100 MG TABLET. PO SCH (09:30)
[2018-07-07] MEDS: CHOLECALCIFEROL (VITAMIN D3) 1,000 UNIT TABLET PO SCH (09:30)
[2018-07-07 11:00] VITALS: BP 126/68
[2018-07-07] MEDS: ANTI-COAG MONITOR BY PHARMACY. MC PRN (11:40)
[2018-07-07] MEDS ORDERED: APIX5TAB PO (12:58)
[2018-07-07] MEDS ORDERED: APIXABAN 5 MG TABLET. PO SCH (13:00)
[2018-07-07 15:00] VITALS: BP 128/75
--- NOTE | 2018-07-07 15:38 | PDOC3 ---
Discharge Summary Visit Information Date of Admission: Jul 04, 2018 Date of Discharge: Jul 07, 2018 Admitting Diagnosis: LLE DVT, Unable to walk Final Diagnosis Problems Medical Problems: (1) DVT (deep venous thrombosis) Status: Acute Brief Hospital Course Allergies Allergies Coded Allergies Type Severity Reaction Last Updated Verified Penicillins Allergy Intermediate 09/09/16 Yes Vital Signs Vital Signs Date Time Temp Pulse Resp B/P (MAP) Pulse Ox O2 Delivery O2 Flow Rate FiO2 07/07/18 11:00 98.1 64 18 126/68 (87) 98 Room Air 98.1 Lab Results Laboratory Tests Test 07/07/18 03:50 Platelet Count 151 x10^3/uL (140-400) Creatinine 0.9 mg/dL (0.7-1.3) Estimated GFR (Cockcroft-Gault) 100.9 Laboratory Tests Test 07/07/18 03:50 Platelet Count 151 x10^3/uL (140-400) Creatinine 0.9 mg/dL (0.7-1.3) Estimated GFR (Cockcroft-Gault) 100.9 Brief Hospital Course Admitted for acute DVT left leg, unable to ambulate. Was seen by vascular surgery and IR to consider thrombolysis, was started on therapeutic lovenox immediately. Given the acuity of this clot, the non-occlusive nature of the CFV component, and his rapid improvement following initiation of anticoagulation, a trial of medical management is encouraged prior to initiating thrombolysis. If this gentleman fails to return to full function within 2 weeks of anticoagulation, or demonstrates clinical deterioration or progression of thrombus in spite of anticoagulation, venography and initiation of pharmacomechanical thrombolysis should then be entertained. Follow-up venous duplex US study in 10-14 days is recommended to evaluate for thrombus propagation. Feeling much better today, able to walk at his apparent baseline, though difficult with PT. He is insistent he is at his baseline and does not wish for home health services A/P: Unable to walk - Has resolved, was likely 2/2 DVT, will work with therapy. pain control Acute LLE DVT - considered thrombolysis though he improved quickly with lovenox , plan DC on Eliquis 10mg BID for 7 days, then 5mg BID thereafter BPH - ongoing on flomax, will continue UTI - unusual in male, will repeat urine studies, concern for prostatitis as possible etiology of his DVT. Cont quinolone for 14 days total HTN - will con meds Ok for d/c today Discharge Information Condition at Discharge: Improved Follow Up: Weeks (2) Disposition/Orders: D/C to Home Scheduled Amlodipine Besylate (Amlodipine Besylate) 5 Mg Tablet, 5 MG PO DAILY, (Reported) Entered as Reported by: BENEDICTO AMOS on 02/24/141822 Last Action: Continued on 07/04/181742 by SULLY DIAZ MD Apixaban (Eliquis) 5 Mg Tablet, 5 MG PO BID for 30 Days, #74 10mg BID for 7 days, then 5mg BID therafter Prescribed by: SULLY DIAZ MD on 07/07/18 1258 Aspirin (Aspir 81) 81 Mg Tablet.dr, 81 MG PO DAILY, (Reported) Entered as Reported by: FARHEEN BLOCK on 05/06/161530 Last Action: Continued on 07/04/181742 by SULLY DIAZ MD Atorvastatin Calcium (Atorvastatin Calcium) 20 Mg Tablet, 20 MG PO HS for FOR CHOLESTEROL, #30 Ref 0 (Reported) Entered as Reported by: FARHEEN BLOCK on 05/06/161530 Last Action: Continued on 07/04/181742 by SULLY DIAZ MD Cholecalciferol (Vitamin D3) (Vitamin D3) 10,000 Unit Tablet, 1,000 UNIT PO DAILY, (Reported) Entered as Reported by: FARHEEN BLOCK on 05/06/161530 Last Action: Converted on 07/04/181742 by SULLY DIAZ MD Finasteride (Finasteride) 5 Mg Tablet, 5 MG PO DAILY, (Reported) Entered as Reported by: BENEDICTO AMOS on 02/24/141822 Last Action: Continued on 07/04/181742 by SULLY DIAZ MD Folic Acid (Folic Acid) 1 Mg Tablet, 1 MG PO DAILY, (Reported) Entered as Reported by: FARHEEN BLOCK on 05/06/161530 Last Action: Continued on 07/04/181742 by SULLY DIAZ MD Levofloxacin (Levaquin) 500 Mg Tablet, 1 TAB PO DAILY, #7 Prescribed by: SHENG MUNOZ on 11/03/17 1119 Last Action: Converted on 07/04/181742 by SULLY DIAZ MD Losartan Potassium (Losartan Potassium) 100 Mg Tablet, 100 MG PO DAILY, ( Reported) Entered as Reported by: BENEDICTO AMOS on 02/24/141822 Last Action: Converted on 07/04/181742 by SULLY DIAZ MD Omeprazole (Omeprazole) 20 Mg Capsule.dr, 20 MG PO DAILY, (Reported) Entered as Reported by: BENEDICTO AMOS on 02/24/141822 Last Action: Converted on 07/04/181742 by SULLY DIAZ MD Terazosin Hcl (Terazosin Hcl) 10 Mg Capsule, 10 MG PO HS, (Reported) Entered as Reported by: BENEDICTO AMOS on 02/24/141822 Last Action: Converted on 07/04/181742 by SULLY DIAZ MD Thiamine Hcl (Thiamine Hcl) 100 Mg Tablet, 100 MG PO DAILY, (Reported) Entered as Reported by: FARHEEN BLOCK on 05/06/161530 Last Action: Converted on 07/04/181742 by SULLY DIAZ MD Miscellaneous Medications Calcium Carbonate (Calcium) 500 Mg Tab.chew, 500 MG PO, (Reported) Entered as Reported by: KAYCE FONSECA on 04/18/171336 Last Action: HELD on 07/04/181742 by SULLY DIAZ MD Docusate Sodium (Stool Softener) 100 Mg Capsule, 100 MG PO, (Reported) Entered as Reported by: NORMA BLACKBURN RN on 05/16/16 1301 Last Action: Continued on 07/04/181742 by SULLY DIAZ MD Discontinued Medications Carboxymethylcellulos/Glycerin (Refresh Optive Eye Drops) 15 Ml Drops, 1 DROP EACHEYE QID, #30 Ref 6 (Reported) Entered as Reported by: KAYCE FONSECA on 04/18/171336 Last Action: Discontinued on 07/04/181738 by AGNES DONALDSON Mineral Oil/Petrolatum,White (Eucerin Creme ) 120 Gm Cream..g., 1 JUN TP BID for WOUND CARE, #1 (Reported) Entered as Reported by: KAYCE FONSECA on 04/18/171336 Last Action: Discontinued on 07/04/181738 by SULLY GORDON MD Jul 07, 2018 15:38
== END 2018-07-07 16:39 | disposition home or self-care (01) | DRG 300 ==
LOC: ER 13:33 → 4 NORTH 16:45
PROVIDERS: ADMIT Internal Medicine; ATTEND Internal Medicine
PROC: 3E033GC Introduction of Other Therapeutic Substance into Peripheral Vein, Percutaneous Approach (ICD-10-PCS; principal; 2018-07-04)
PROC: B54CZZZ Ultrasonography of Left Lower Extremity Veins (ICD-10-PCS; 2018-07-04)
DX: I82.412 Acute embolism and thrombosis of left femoral vein (principal); N39.0 Urinary tract infection, site not specified; N41.9 Inflammatory disease of prostate, unspecified; I82.432 Acute embolism and thrombosis of left popliteal vein; B35.1 Tinea unguium; F32.9 Major depressive disorder, single episode, unspecified; F17.210 Nicotine dependence, cigarettes, uncomplicated; K21.9 Gastro-esophageal reflux disease without esophagitis; I10 Essential (primary) hypertension; N40.0 Benign prostatic hyperplasia without lower urinary tract symptoms; Z79.899 Other long term (current) drug therapy; Z88.0 Allergy status to penicillin; Z86.73 Personal history of transient ischemic attack (TIA), and cerebral infarction without residual deficits; Z83.3 Family history of diabetes mellitus; Z82.49 Family history of ischemic heart disease and other diseases of the circulatory system; Z80.8 Family history of malignant neoplasm of other organs or systems
CPT/HCPCS: 36415; 73562; 73630; 80053; 82565; 85025; 85049; 85384; 85610; 86140; 93971; 96374; J1650; J1885; J2270; 97110; 97116; 99285-25

== ENCOUNTER → 2018-07-26 | Outpatient (CLI) | payer BC ==
[2018-07-07 15:00] VITALS: BP 128/75
[~2018-07-26] MED LIST changes: +APIX5TAB PO
[2018-07-26 13:30] LABS: BILIRUBIN,URINE NEGATIVE (NEG); CLARITY,URINE CLEAR; COLOR,URINE YELLOW; NITRITE,URINE NEGATIVE (NEG); PROTEIN,URINE NEGATIVE (NEG-TRACE)
[2018-07-26 13:41] LABS: BACTERIA,URINE 0 /HPF (0-FEW); RBC,URINE 0 /HPF (0-2); SQUAMOUS EPITHELIAL CELL,UR FEW /LPF; WBC,URINE 0 /HPF (0-4)
== END | disposition home or self-care (01) ==
LOC: SPEC 13:20
PROVIDERS: ATTEND Family Medicine
DX: Z12.5 Encounter for screening for malignant neoplasm of prostate (principal); I82.412 Acute embolism and thrombosis of left femoral vein; N39.8 Other specified disorders of urinary system; R97.20 Elevated prostate specific antigen [PSA]
CPT/HCPCS: 36415; 81001; G0103

== ENCOUNTER → 2018-08-08 | Outpatient (CLI) | payer BC ==
--- NOTE | 2018-08-08 17:07 | RAD ---
Left leg venous Doppler study: Clinical indications: Follow-up of DVT. Patient on anticoagulant therapy. COMPARISON: July 04, 2018.. Findings: Duplex sonography (including perez scale evaluation and color flow and waveform spectral analysis) of the proximal aspect of the greater saphenous vein and the proximal aspect of the profunda femoral vein and the entire length of the common femoral and superficial femoral and popliteal veins and the tibioperoneal trunk and the proximal aspect of the posterior tibial and peroneal veins of the left leg was performed. Previously seen partial nonocclusive thrombosis of the left femoral vein is not evident today. There is persistent occlusive thrombosis of the superficial femoral vein and popliteal vein. This starts within the inferior aspect of the proximal superficial femoral vein extending throughout the length of the mid and distal superficial femoral vein down into the left popliteal vein. The calf veins appear patent. Impression: Persistent DVT of the left lower extremity. Resolution of previously seen left common femoral vein thrombosis. So, mild improvement since the previous study. Electronically signed by: Boom Landrum MD (08/08/2018 5:03 PM) [facility]
== END | disposition home or self-care (01) ==
LOC: US 15:53
PROVIDERS: ATTEND Family Medicine
DX: I82.412 Acute embolism and thrombosis of left femoral vein (principal); Z79.01 Long term (current) use of anticoagulants; F17.210 Nicotine dependence, cigarettes, uncomplicated
CPT/HCPCS: 93971

== ENCOUNTER 2019-01-19 09:29 | Inpatient (IN) | payer BC ==
[~2019-01-19] VITALS: Ht 180.3 cm; Wt 76.9 kg
[~2019-01-19 09:29] MED LIST changes: +AMLO5TAB10 PO; -AMLO5TAB7 PO; +LOSA100T14 PO; -LOSA100T7 PO; +OMEP20CA10 PO; -OMEP20CA9 PO; -OXYC-327 PO; +OXYC1TAB19 PO
[2019-01-19] MEDS ORDERED: LIDOCAINE 2% VISCOUS 15 ML SOLUTION. ONE (09:45)
[2019-01-19 10:09] LABS: BASO % 1 % (0-3); EOS # 0.2 x10^3/uL (0.0-0.7); EOS % 3 % (0-3); HEMATOCRIT 40.2 % (39.0-53.0); HEMOGLOBIN 13.2 g/dL (13.0-17.5); LYMPH # 1.2 x10^3/uL (1.0-4.8); LYMPH % 16 % (24-48); MEAN CORPUSCULAR HEMOGLOBIN 30 pg (25-35); MEAN CORPUSCULAR HGB CONC 33 g/dL (31-37); MEAN CORPUSCULAR VOLUME 93 fL (79-100); MONO # 0.8 x10^3/uL (0.0-1.1); MONO % 10 % (0-9); NEUT # 5.3 x10^3uL (1.8-7.7); NEUT % 71 % (31-73); PLATELET COUNT 147 x10^3/uL (140-400); RED BLOOD COUNT 4.35 x10^6/uL (4.30-5.70); RED CELL DISTRIBUTION WIDTH 14.5 % (11.5-14.5); WHITE BLOOD COUNT 7.5 x10^3/uL (4.0-11.0)
[2019-01-19] MEDS ORDERED: LIDOCAINE 2% VISCOUS 15 ML SOLUTION. SWSW ONE (10:15)
[2019-01-19 10:19] LABS: CALCIUM 9.8 mg/dL (8.5-10.1); CREATININE 1.3 mg/dL (0.7-1.3); GFR 65.8; POTASSIUM 3.8 mmol/L (3.5-5.1)
[2019-01-19 10:25] LABS: ALBUMIN/GLOBULIN RATIO 1.1 (1.0-1.7); TOTAL PROTEIN 7.5 g/dL (6.4-8.2)
[2019-01-19 10:25] LABS: BILIRUBIN,URINE NEGATIVE (NEG); CLARITY,URINE CLEAR; COLOR,URINE YELLOW; NITRITE,URINE NEGATIVE (NEG); PH,URINE 6.5; PROTEIN,URINE NEGATIVE (NEG-TRACE)
[2019-01-19 10:36] LABS: BACTERIA,URINE FEW /HPF (0-FEW); HYALINE CASTS, URINE OCCASIONAL /HPF; RBC,URINE 20-40 /HPF (0-2); SQUAMOUS EPITHELIAL CELL,UR OCC /LPF; WBC,URINE OCC /HPF (0-4)
--- NOTE | 2019-01-19 10:49 | PHYS DOC ---
Past Medical History Past Medical History: Depression, GERD, Hypertension, Other Additional Past Medical Histor: BPH Past Surgical History: Cervical Fusion, Other Additional Past Surgical Histo: HAND, HERNIA Alcohol Use: None Drug Use: None Adult General Chief Complaint Chief Complaint: URINARY RETENTION HPI HPI 73-year-old male presents to ER via EMS for complaints of urinary retention and abdominal pain. Patient states he was seen by his urologist 2 days ago and they wanted to place a Diamond catheter due urinary dribbling and difficulty urinating. Patient states he has prostate issues which has caused urinary problems. Patient states he did not want the catheter 2 days ago with increased abdominal distention and pain today he came to the ER and is agreeable with the catheter placement. Patient states he also has concerns as he hasn't had bowel movement today. Patient is denying any other symptoms. Patient denies fever, nausea or vomiting, or any blood in his urine yesterday. Patient states yesterday was the last time he voided. Review of Systems Review of Systems Constitutional: Denies fever or chills [] Eyes: Denies change in visual acuity, redness, or eye pain [] HENT: Denies nasal congestion or sore throat [] Respiratory: Denies cough or shortness of breath [] Cardiovascular: No additional information not addressed in HPI [] GI: Denies nausea, vomiting, bloody stools or diarrhea. Reports lower abd pain/distention : Denies hematuria. Reports urinary retention Musculoskeletal: Denies back pain or joint pain [] Integument: Denies rash or skin lesions [] Neurologic: Denies headache, focal weakness or sensory changes [] Endocrine: Denies polyuria or polydipsia [] All other systems were reviewed and found to be within normal limits, except as documented in this note. Current Medications Current Medications Current Medications Medications (Trade) Dose Ordered Sig/Karan Start Time Stop Time Status Last Admin Dose Admin Lidocaine HCl (Viscous Lidocaine) 15 ml 1X ONCE 01/19/19 10:15 01/19/19 10:16 DC 01/19/19 10:15 15 ML Allergies Allergies Allergies Coded Allergies Type Severity Reaction Last Updated Verified Penicillins Allergy Intermediate 09/09/16 Yes Physical Exam Physical Exam Constitutional: Well developed, well nourished, no acute distress, non-toxic appearance. [] HENT: Normocephalic, atraumatic, mucous membranes pink/dry, nose normal. [] Eyes: Pupils equal, conjunctiva normal, no discharge. [] Neck: Normal range of motion, supple, no stridor. [] Cardiovascular: Heart rate regular rhythm, no murmur [] Lungs & Thorax: Bilateral breath sounds clear to auscultation- resp. equal/nonlabored Abdomen: Bowel sounds normal, distended abd diffuse tenderness in all abd, no masses, no pulsatile masses. [] Skin: Warm, dry, no erythema, no rash. [] Back: No tenderness, no CVA tenderness. [] Extremities: No tenderness, no cyanosis, no clubbing, ROM intact, no edema. [] Neurologic: Alert and oriented X 3, normal motor function, normal sensory function, no focal deficits noted. [] Psychologic: Affect normal, judgement normal, mood normal. [] Current Patient Data Vital Signs Vital Signs Date Time Temp Pulse Resp B/P (MAP) Pulse Ox O2 Delivery O2 Flow Rate FiO2 01/19/19 12:00 80 20 97 01/19/19 09:29 97.4 132/78 (96) Room Air 97.4 Lab Values Laboratory Tests Test 01/19/19 09:53 01/19/19 10:15 White Blood Count 7.5 x10^3/uL (4.0-11.0) Red Blood Count 4.35 x10^6/uL (4.30-5.70) Hemoglobin 13.2 g/dL (13.0-17.5) Hematocrit 40.2 % (39.0-53.0) Mean Corpuscular Volume 93 fL (79-100) Mean Corpuscular Hemoglobin 30 pg (25-35) Mean Corpuscular Hemoglobin Concent 33 g/dL (31-37) Red Cell Distribution Width 14.5 % (11.5-14.5) Platelet Count 147 x10^3/uL (140-400) Neutrophils (%) (Auto) 71 % (31-73) Lymphocytes (%) (Auto) 16 % (24-48) L Monocytes (%) (Auto) 10 % (0-9) H Eosinophils (%) (Auto) 3 % (0-3) Basophils (%) (Auto) 1 % (0-3) Neutrophils # (Auto) 5.3 x10^3uL (1.8-7.7) Lymphocytes # (Auto) 1.2 x10^3/uL (1.0-4.8) Monocytes # (Auto) 0.8 x10^3/uL (0.0-1.1) Eosinophils # (Auto) 0.2 x10^3/uL (0.0-0.7) Basophils # (Auto) 0.0 x10^3/uL (0.0-0.2) Sodium Level 141 mmol/L (136-145) Potassium Level 3.8 mmol/L (3.5-5.1) Chloride Level 103 mmol/L (98-107) Carbon Dioxide Level 25 mmol/L (21-32) Anion Gap 13 (6-14) Blood Urea Nitrogen 24 mg/dL (8-26) Creatinine 1.3 mg/dL (0.7-1.3) Estimated GFR (Cockcroft-Gault) 65.8 BUN/Creatinine Ratio 18 (6-20) Glucose Level 90 mg/dL (70-99) Calcium Level 9.8 mg/dL (8.5-10.1) Total Bilirubin 1.0 mg/dL (0.2-1.0) Aspartate Amino Transferase (AST) 15 U/L (15-37) Alanine Aminotransferase (ALT) 13 U/L (16-63) L Alkaline Phosphatase 47 U/L (46-116) Troponin I Quantitative < 0.017 ng/mL (0.000-0.055) Total Protein 7.5 g/dL (6.4-8.2) Albumin 4.0 g/dL (3.4-5.0) Albumin/Globulin Ratio 1.1 (1.0-1.7) Urine Collection Type Unknown Urine Color Yellow Urine Clarity Clear Urine pH 6.5 Urine Specific [place] 1.010 Urine Protein Negative mg/dL (NEG-TRACE) Urine Glucose (UA) Negative mg/dL (NEG) Urine Ketones (Stick) Negative mg/dL (NEG) Urine Blood Moderate (NEG) Urine Nitrite Negative (NEG) Urine Bilirubin Negative (NEG) Urine Urobilinogen Dipstick 1.0 mg/dL (0.2 mg/dL) Urine Leukocyte Esterase Negative (NEG) Urine RBC 20-40 /HPF (0-2) Urine WBC Occ /HPF (0-4) Urine Squamous Epithelial Cells Occ /LPF Urine Bacteria Few /HPF (0-FEW) Urine Hyaline Casts Occasional /HPF Laboratory Tests 01/19/19 09:53 Laboratory Tests 01/19/19 09:53 EKG EKG EKG obtained 01/19/19 at [address] Herrera Sinus rhythm Rate 75 No STEMI Radiology/Procedures Radiology/Procedures PROCEDURE: ACUTE ABDOMEN SERIES EXAM: Abdomen acute complete. HISTORY: Pain. Constipation. COMPARISON: None. FINDINGS: A frontal view of the chest and frontal upright and supine views of abdomen are obtained. There is suspected basilar atelectasis. There is no consolidation, pleural effusion or pneumothorax. The heart is normal in size. There is gas and stool within the colon. There is a large amount stool within the rectal vault. There are nonspecific air-filled loops of small bowel within the midabdomen. There is no free air. There is a catheter overlying the pelvis. IMPRESSION: 1. Large amount of formed stool within the rectal vault. Correlate for constipation or impaction. 2. No acute pulmonary finding. Electronically signed by: Doreen Abdi MD (01/19/2019 11:38 AM) [id number] DICTATED and SIGNED BY: DOREEN ABDI MD DATE: 01/19/19 1138 Course & Med Decision Making Course & Med Decision Making Pertinent Labs and Imaging studies reviewed. (See chart for details) 1030: On arrival patient had abdominal distention reporting he had had urinary retention since yesterday. RN reports following catheter was easily placed and patient had approximately 500 mL of clear yellow urine output. On reexamination patient's abdomen is soft and nontender. Patient states he is feeling better. Patient still voices concerns of constipation so will obtain x-ray prior to discharge home. 1150: Isa patient's arrived to bedside and reports patient had a mechanical fall yesterday in which he struck the back of his head and possibly had short loss of consciousness. Patient reports he did fall and he lost his balance while walking with his walker. Patient denied any prior symptoms. Patient states she did strike the back of his head on the wall as he was falling and feels he did have brief loss of consciousness. Patient denies headache or dizziness currently. Patient is on daily aspirin. Will obtain CT head and C- spine for further evaluation. Discussed x-ray results with patient and his with x-ray reporting patient has stool in rectal vault. Will have pt ambulated to bathroom when he returns from CT. RN reports he has had some BM after diamond cath placed. 1355: She was evaluated in the ER for complaints of urinary retention and after his arrived she added additional information. She had reported patient had fallen yesterday and struck the back of his head and she had concerns for patient being discharged home as he has had increased and generalized weakness. Patient has denied any head or neck pain, chest pain, or palpitations. Patient had improved abdominal distention following Diamond catheter placement with init ial 500cc output. Patient had x-ray of abdomen obtained showing large amount of stool in rectal vault. Patient ambulated to the bathroom with staff assist and had large bowel movement reporting rectal discomfort had subsided. Patient had head and C-spine CT with patient reporting he had brief loss of consciousness he thought during the fall yesterday. Head and C-spine CT negative for acute findings. Pt has remained alert and oriented 3 and has been in no visible distress. Pt states he had increased weakness when he ambulated to the bathroom again voicing concerns of patient's weakness. EKG and troponin were added to tests. Will speak with patient's primary care physician and admit patient for further monitoring and care. 1410: Spoke with Dr. Art, who is logistics loss prevention manager for pt's PCP Dr. Rushing and discussed pt's case and admit plan. Will consult PT/OT with admit orders. EKG with no acute ST elevation/STEMI and troponin was <0.017. Dragon Disclaimer Dragon Disclaimer This electronic medical record was generated, in whole or in part, using a voice recognition dictation system. Departure Departure Impression: Primary Impression: Weakness Additional Impression: Urinary retention Disposition: ADMITTED INPATIENT Admitting Physician: Jessica Rushing Condition: STABLE Referrals: JESSICA RUSHING MD (PCP) Problem Qualifiers CHRISTEL FISHER OUTSEWER January 19, 2019 10:49
--- NOTE | 2019-01-19 11:41 | RAD ---
EXAM: Abdomen acute complete. HISTORY: Pain. Constipation. COMPARISON: None. FINDINGS: A frontal view of the chest and frontal upright and supine views of abdomen are obtained. There is suspected basilar atelectasis. There is no consolidation, pleural effusion or pneumothorax. The heart is normal in size. There is gas and stool within the colon. There is a large amount stool within the rectal vault. There are nonspecific air-filled loops of small bowel within the midabdomen. There is no free air. There is a catheter overlying the pelvis. IMPRESSION: 1. Large amount of formed stool within the rectal vault. Correlate for constipation or impaction. 2. No acute pulmonary finding. Electronically signed by: Doreen Wong MD (01/19/2019 11:38 AM) [facility]
--- NOTE | 2019-01-19 12:58 | RAD ---
EXAM: Head and cervical spine CT without contrast. HISTORY: Fall. TECHNIQUE: Computed tomographic images the head and cervical spine were obtained without contrast. *One or more of the following individualized dose reduction techniques were utilized for this examination: 1. Automated exposure control. 2. Adjustment of the mA and/or kV according to patient size. 3. Use of iterative reconstruction technique. COMPARISON: None. FINDINGS: Head: There is no hemorrhage. There is no mass effect or midline shift. There is no hydrocephalus. There is decreased attenuation within the cerebral white matter, primarily within the posterior distribution. The perez-white matter differentiation pattern is intact. No calvarial lesion is seen. The mastoid air cells are clear. The orbits are unremarkable. Cervical spine: There is instrumented interbody fusion at C3-C4 and noninstrumented interbody fusion at C4-C5 and C5-C6. There is straightening of cervical lordosis at the fused levels. There is minimal retrolisthesis of C2 on C3. There is cervical curvature due to thoracic scoliosis. There is multilevel degenerative endplate remodeling with disc space narrowing and osteophytosis. There is multilevel facet arthropathy. No displaced fracture is seen. At C2-C3, there is a disc bulge and endplate osteophytosis. There is uncovertebral arthropathy. There is moderate bilateral foraminal and central canal stenosis. At C3-C4, there is a left posterior lateral disc osteophyte complex superimposed on endplate osteophytosis. There is mild bilateral facet arthropathy. There is left greater than right uncovertebral arthropathy. There is moderate right and severe left foraminal stenosis. At C4-C5, there is a disc bulge and endplate osteophytosis. There is mild bilateral facet arthropathy. There is bilateral uncovertebral arthropathy. There is hygn-ag-lumpcsus bilateral foraminal stenosis. There is moderate central canal stenosis. At C5-C6, there is a left paracentral disc osteophyte complex superimposed on a disc bulge and endplate osteophytosis. There is mild bilateral facet arthropathy. There is uncovertebral arthropathy. There is moderate bilateral foraminal stenosis. There is moderate central canal stenosis. At C6-C7, there is a left paracentral to foraminal disc osteophyte complex superimposed on a disc bulge and endplate osteophytosis. There is uncovertebral arthropathy. There is mild left greater than right foraminal stenosis. IMPRESSION: 1. No acute intracranial finding or evidence of acute cervical spine trauma. 2. Posterior predominant decreased attenuation within the cerebral white matter. This is a nonspecific finding which is most commonly due to chronic small vessel disease. 3. Multilevel degenerative changes throughout the cervical spine and postoperative changes involving the cervical spine, described in detail above. There is associated stenosis at the aforementioned levels. Electronically signed by: Doreen Wong MD (01/19/2019 12:55 PM) [facility]
[2019-01-19] MEDS ORDERED: IV NORMAL SALINE 500ML BAG 500 ML IV ONE (14:00)
[2019-01-19 15:33] VITALS: BP 149/84
[2019-01-19 19:00] VITALS: BP 131/75
[2019-01-19 23:00] VITALS: BP 144/81
[2019-01-20 03:00] VITALS: BP 142/78
[2019-01-20 07:00] VITALS: BP 131/86
--- NOTE | 2019-01-20 09:55 | EKG ---
[facility] [address] [place] [address] Test Date: 2019-01-19 Test Time: 14:25:07 Pat Name: JULIAN BROCK Department: Room: 646 1 Gender: M Network Support Specialist: : [id number] Requested By: CHRISTEL FISHER Order Number: [id number] Reading MD: Frantz Hurley MD Measurements Intervals [place] Rate: 75 P: 34 OK: 138 QRS: 17 QRSD: 76 T: 41 QT: 370 QTc: 416 Interpretive Statements SINUS RHYTHM Electronically Signed On 01-22-2019 14:09:44 CDT by Frantz Hurley MD
[2019-01-20] MEDS: DICLOFENAC SODIUM 25 MG TABLET.DR PO SCH ×2 (11:00→20:26)
--- NOTE | 2019-01-20 11:09 | HP ---
ADMIT DATE: 01/19/2019 CHIEF COMPLAINT: Abdominal pain. HISTORY OF PRESENT ILLNESS: This patient is a 73-year-old -[place] male who is a very poor historian, brought to the Emergency Room by EMS. He states he had acute pain while watching TV. Reviewing hospital chart, Emergency Room documented that the patient had declined Miner catheter from Urology. The patient denies this. The patient also apparently had a fall, which reported when arriving to the ER after EMS brought the patient in, she states she had a mechanical fall 2 days prior to this. He did strike his head. He had a CAT scan in the Emergency Room with negative findings except for arthritis noted in his C-spine. He also had a CAT scan of his abdomen due to abdominal pain showing significant constipation. The patient did have a bowel movement during ER evaluation and his symptoms improved, but he continued to have significant weakness and was unable to care for himself. The patient also required Miner catheter due to urinary retention. Due to these findings, he was admitted to the hospital for further evaluation, PT and OT modalities, Urology consultation. PAST MEDICAL HISTORY: Significant for: 1. Previous DVT, finishing Eliquis in 11/2018. 2. Benign prostatic hypertrophy with elevated PSA, recently followed by Urology. 3. History of anemia with hemoglobin down to 10.6, now corrected. 4. Vitamin D deficiency. 5. Reflux disease. 6. Hepatitis C, status post treatment. 7. Hypertension. 8. Hyperlipidemia. 9. Osteoarthritis of the C-spine. PAST SURGICAL HISTORY: Significant for left inguinal hernia repair in 1979 and again in 2016. FAMILY HISTORY: His mother with complications of diabetes, alcoholism and hypertension. Father with complications of cancer and alcoholism. SOCIAL HISTORY: The patient continues to smoke 1-1/2 packs per day. The patient does not use alcohol. The patient apparently lives with his . ALLERGIES: PENICILLIN. REVIEW OF SYSTEMS: The patient was doing well until acute abdominal pain and urinary retention. Apparently on the day of admission, the patient did have a fall, which she did not describe to ER, but was documented by , but has no sequela. He has no cough, congestion, nausea, vomiting. He has been constipated with a good bowel movement prior to admission. PHYSICAL EXAMINATION: GENERAL: This is a well-nourished, well-developed -[place] male in no apparent distress on my exam. He is alert and oriented, but a poor historian. HEENT: Benign. NECK: Supple. CARDIAC: Regular rate and rhythm. LUNGS: Clear. ABDOMEN: Soft, nontender, without masses. EXTREMITIES: There are 2+ pulses without significant edema. NEUROLOGIC: Showed no unilateral findings. ASSESSMENT: 1. Urinary retention. 2. Debilitation. 3. Underlying hypertension. 4. Benign prostatic hypertrophy with elevated PSA. PLAN: To proceed with PT and OT modalities, consult Urology. Consider senior care if unable to ambulate and take care of himself. KIMBERLY GALVAN MD DR: ATIYA/ruth JOB#: [id number] / [id number]
[2019-01-20] MEDS: ASPIRIN ENTERIC COATED 81 MG TABLET.DR. PO SCH (13:33)
[2019-01-20] MEDS: POTASSIUM CHLORIDE 20 MEQ TABLET.ER. PO SCH (13:33)
[2019-01-20] MEDS: CYANOCOBALAMIN (VITAMIN B-12) 1,000 MCG TABLET. PO SCH (13:33)
[2019-01-20] MEDS: BACLOFEN 10 MG TABLET. PO SCH ×3 (13:33→20:26)
[2019-01-20] MEDS: FOLIC ACID 1 MG TABLET. PO SCH (13:33)
[2019-01-20] MEDS: FINASTERIDE 5 MG TABLET. PO SCH (13:33)
[2019-01-20] MEDS: CHOLECALCIFEROL (VITAMIN D3) 1,000 UNIT TABLET PO SCH (13:34)
[2019-01-20] MEDS: THIAMINE 100 MG TABLET. PO SCH (13:34)
[2019-01-20] MEDS: PANTOPRAZOLE 40 MG TABLET.DR. PO SCH (13:34)
[2019-01-20] MEDS: DOCUSATE SODIUM 100 MG CAPSULE. PO SCH ×2 (13:34→20:26)
[2019-01-20] MEDS: amLODIPine BESYLATE 5 MG TABLET PO SCH (13:35)
[2019-01-20] MEDS: LOSARTAN POTASSIUM 50 MG TABLET. PO SCH (13:35)
[2019-01-20] MEDS: ENOXAPARIN 40 MG/0.4 ML SYRINGE. SQ SCH (13:36)
[2019-01-20 15:00] VITALS: BP 131/86
[2019-01-20 19:00] VITALS: BP 143/77
[2019-01-20] MEDS ORDERED: TERAZOSIN 5 MG CAPSULE. PO SCH (21:00)
[2019-01-20] MEDS ORDERED: ATORVASTATIN CALCIUM 20 MG TABLET PO SCH (21:00)
[2019-01-20 23:48] VITALS: BP 146/78
[2019-01-21 03:53] VITALS: BP 148/79
[2019-01-21 04:33] LABS: BASO % 0 % (0-3); EOS # 0.3 x10^3/uL (0.0-0.7); EOS % 5 % (0-3); HEMATOCRIT 33.9 % (39.0-53.0); HEMOGLOBIN 11.4 g/dL (13.0-17.5); LYMPH # 1.6 x10^3/uL (1.0-4.8); LYMPH % 29 % (24-48); MEAN CORPUSCULAR HEMOGLOBIN 31 pg (25-35); MEAN CORPUSCULAR HGB CONC 34 g/dL (31-37); MEAN CORPUSCULAR VOLUME 93 fL (79-100); MONO # 0.7 x10^3/uL (0.0-1.1); MONO % 12 % (0-9); NEUT # 3.1 x10^3uL (1.8-7.7); NEUT % 55 % (31-73); PLATELET COUNT 115 x10^3/uL (140-400); RED BLOOD COUNT 3.65 x10^6/uL (4.30-5.70); RED CELL DISTRIBUTION WIDTH 14.2 % (11.5-14.5); WHITE BLOOD COUNT 5.6 x10^3/uL (4.0-11.0)
[2019-01-21 05:26] LABS: GFR 89.1; POTASSIUM 3.4 mmol/L (3.5-5.1)
[2019-01-21 07:00] VITALS: BP 112/74
[2019-01-21] MEDS: POTASSIUM CHLORIDE 20 MEQ TABLET.ER. PO SCH (08:14)
[2019-01-21] MEDS: DOCUSATE SODIUM 100 MG CAPSULE. PO SCH (08:14)
[2019-01-21] MEDS: CYANOCOBALAMIN (VITAMIN B-12) 1,000 MCG TABLET. PO SCH (08:14)
[2019-01-21] MEDS: THIAMINE 100 MG TABLET. PO SCH (08:14)
[2019-01-21] MEDS: CHOLECALCIFEROL (VITAMIN D3) 1,000 UNIT TABLET PO SCH (08:14)
[2019-01-21] MEDS: DICLOFENAC SODIUM 25 MG TABLET.DR PO SCH (08:14)
[2019-01-21] MEDS: BACLOFEN 10 MG TABLET. PO SCH (08:14)
[2019-01-21] MEDS: PANTOPRAZOLE 40 MG TABLET.DR. PO SCH (08:14)
[2019-01-21 08:15] VITALS: BP 112/74
[2019-01-21] MEDS: LOSARTAN POTASSIUM 50 MG TABLET. PO SCH (08:15)
[2019-01-21] MEDS: ASPIRIN ENTERIC COATED 81 MG TABLET.DR. PO SCH (08:15)
[2019-01-21] MEDS: ENOXAPARIN 40 MG/0.4 ML SYRINGE. SQ SCH (08:15)
[2019-01-21] MEDS: amLODIPine BESYLATE 5 MG TABLET PO SCH (08:15)
[2019-01-21] MEDS: FOLIC ACID 1 MG TABLET. PO SCH (08:15)
[2019-01-21] MEDS: FINASTERIDE 5 MG TABLET. PO SCH (08:15)
--- NOTE | 2019-01-21 09:02 | PDOC2 ---
UROLOGY CONSULT Date of Consult Date of Consult DATE: 01/21/19 TIME: 08:57 Reason for Consult Reason for Consult: Urinary Retention Identification/Chief Complaint Chief Complaint Urinary Retention Source Source: Chart review, Patient History of Present Illness Reason for Visit: This pleasant 73 year old male is well known to us and is a patient of Dr. Canales's. He was seen on 01/17/19 for BPH and elevated PSA. At that time Dr. Canales advised a prostate biopsy and cystoscopy be scheduled and the patient thinks he is already set up for the or for both of these procedures at the same time. His PVR at the clinic was just 109, incomplete bladder emptying but no true retention so he did not get a diamond catheter at that time. Then, on 01/19/19 he arrived at the ER with lower abd pain and retention. A Diamond catheter was placed and 500 came out; this stayed in for two days and then was removed yesterday morning. Since then, the patient reports a large BM and the ability to urinate with no problems at all. He also denies abd pain, dysuria or hematuria. He would really like to go home if possible. Past Medical History Cardiovascular: HTN Pulmonary: No pertinent hx Heme/Onc: No pertinent hx Hepatobiliary: No pertinent hx Psych: No pertinent hx Rheumatologic: No pertinent hx Infectious disease: No pertinent hx Renal/: Benign prostatic enlarg. Endocrine: No pertinent hx Past Surgical History Past Surgical History: Hernia Repair Family History Family History: Coronary Artery Disease, Diabetes Social History Social History: Parent ALCOHOL: rare Drugs: None Current Problem List Problems: (1) Urinary retention Current Medications Current Medications Current Medications Amlodipine Besylate (Norvasc) 5 mg DAILY PO Last administered on 01/21/19at 08:15; Start 01/20/19 at 11:00 Aspirin (Ecotrin) 81 mg DAILY PO Last administered on 01/21/19at 08:15; Start 01/20/19 at 11:00 Atorvastatin Calcium (Lipitor) 20 mg HS PO Last administered on 01/20/19at 20:25; Start 01/20/19 at 21:00 Baclofen (Lioresal) 10 mg TID PO Last administered on 01/21/19at 08:14; Start 01/20/19 at 11:00 Cyanocobalamin (Vitamin B-12) 1,000 mcg DAILY PO Last administered on 01/21/19 08:14; Start 01/20/19 at 11:00 Diclofenac Sodium (Voltaren) 75 mg BID PO Last administered on 01/21/19 08:14; Start 01/20/19 at 11:00 Docusate Sodium (Colace) 100 mg BID PO Last administered on 01/21/19 08:14; Start 01/20/19 at 11:00 Enoxaparin Sodium (Lovenox 40mg Syringe) 40 mg Q24H SQ Last administered on 01/21/19 08:15; Start 01/20/19 at 11:00 Finasteride (Proscar) 5 mg DAILY PO Last administered on 01/21/19 08:15; Start 01/20/19 at 11:00 Folic Acid (Folic Acid) 1 mg DAILY PO Last administered on 01/21/19 08:15; Start 01/20/19 at 11:00 Losartan Potassium (Cozaar) 100 mg DAILY PO Last administered on 01/21/19 08:15; Start 01/20/19 at 11:00 Pantoprazole Sodium (Protonix) 40 mg DAILYAC PO Last administered on 01/21/19 08:14; Start 01/20/19 at 11:30 Potassium Chloride (Klor-Con) 20 meq DAILYWBKFT PO Last administered on 01/21/19 08:14; Start 01/20/19 at 11:00 Terazosin HCl (Hytrin) 10 mg QHS PO Last administered on 01/20/19 20:27; Start 01/20/19 at 21:00 Thiamine Mononitrate (Vitamin B-1) 100 mg DAILY PO Last administered on 01/21/19 08:14; Start 01/20/19 at 11:00 Vitamin D (Vitamin D3) 1,000 unit DAILY PO Last administered on 01/21/19 08:14; Start 01/20/19 at 11:00 Allergies Allergies: Coded Allergies: Penicillins (Verified Allergy, Intermediate, 09/09/16) ROS Review Of Systems: CONSTITUTIONAL: No fever or chills EYES: No recent changes SKIN: No rash or itching CARDIOVASCULAR: No chest pain, syncope, palpitations, or edema RESPIRATORY: No SOB or cough GASTROINTESTINAL: No nausea, vomiting or abdominal pain, no constipation. NEUROLOGICAL: No headaches or weakness ENDOCRINE: No cold or heat intolerance GENITOURINARY: + Urinating well , no hematuria, dysuria or retention. MUSCULOSKELETAL: No back pain or joint pain LYMPHATICS: No enlarged lymph nodes PSYCHIATRIC: No anxiety or depression Physical Exam Physical Exam: General: Pleasant, no acute distress, well groomed Eyes: conjunctiva anicteric, eyes full range of motion ENT: moist oral mucosa, normal dentition Neck: Trachea midline, no masses Respiratory: unlabored breathing, not using accessory muscles, Back: no pain bilaterally Abdomen: nontender, nondistended, no hepatosplenomegaly, no masses Skin: no rashes or skin lesions on visualized skin Psych: normal mood, affect. Alert and oriented x 3. Vitals VITALS Vital Signs Date Time Temp Pulse Resp B/P (MAP) Pulse Ox O2 Delivery O2 Flow Rate FiO2 01/21/19 08:15 67 112/74 01/21/19 07:19 Room Air 01/21/19 07:00 98.1 18 96 98.1 Labs Labs Laboratory Tests Test 01/19/19 09:53 01/19/19 10:15 01/21/19 03:15 White Blood Count 7.5 x10^3/uL (4.0-11.0) 5.6 x10^3/uL (4.0-11.0) Red Blood Count 4.35 x10^6/uL (4.30-5.70) 3.65 x10^6/uL (4.30-5.70) Hemoglobin 13.2 g/dL (13.0-17.5) 11.4 g/dL (13.0-17.5) Hematocrit 40.2 % (39.0-53.0) 33.9 % (39.0-53.0) Mean Corpuscular Volume 93 fL (79-100) 93 fL (79-100) Mean Corpuscular Hemoglobin 30 pg (25-35) 31 pg (25-35) Mean Corpuscular Hemoglobin Concent 33 g/dL (31-37) 34 g/dL (31-37) Red Cell Distribution Width 14.5 % (11.5-14.5) 14.2 % (11.5-14.5) Platelet Count 147 x10^3/uL (140-400) 115 x10^3/uL (140-400) Neutrophils (%) (Auto) 71 % (31-73) 55 % (31-73) Lymphocytes (%) (Auto) 16 % (24-48) 29 % (24-48) Monocytes (%) (Auto) 10 % (0-9) 12 % (0-9) Eosinophils (%) (Auto) 3 % (0-3) 5 % (0-3) Basophils (%) (Auto) 1 % (0-3) 0 % (0-3) Neutrophils # (Auto) 5.3 x10^3uL (1.8-7.7) 3.1 x10^3uL (1.8-7.7) Lymphocytes # (Auto) 1.2 x10^3/uL (1.0-4.8) 1.6 x10^3/uL (1.0-4.8) Monocytes # (Auto) 0.8 x10^3/uL (0.0-1.1) 0.7 x10^3/uL (0.0-1.1) Eosinophils # (Auto) 0.2 x10^3/uL (0.0-0.7) 0.3 x10^3/uL (0.0-0.7) Basophils # (Auto) 0.0 x10^3/uL (0.0-0.2) 0.0 x10^3/uL (0.0-0.2) Sodium Level 141 mmol/L (136-145) 144 mmol/L (136-145) Potassium Level 3.8 mmol/L (3.5-5.1) 3.4 mmol/L (3.5-5.1) Chloride Level 103 mmol/L (98-107) 109 mmol/L (98-107) Carbon Dioxide Level 25 mmol/L (21-32) 27 mmol/L (21-32) Anion Gap 13 (6-14) 8 (6-14) Blood Urea Nitrogen 24 mg/dL (8-26) 19 mg/dL (8-26) Creatinine 1.3 mg/dL (0.7-1.3) 1.0 mg/dL (0.7-1.3) Estimated GFR (Cockcroft-Gault) 65.8 89.1 BUN/Creatinine Ratio 18 (6-20) Glucose Level 90 mg/dL (70-99) 109 mg/dL (70-99) Calcium Level 9.8 mg/dL (8.5-10.1) 9.0 mg/dL (8.5-10.1) Total Bilirubin 1.0 mg/dL (0.2-1.0) Aspartate Amino Transf (AST/SGOT) 15 U/L (15-37) Alanine Aminotransferase (ALT/SGPT) 13 U/L (16-63) Alkaline Phosphatase 47 U/L (46-116) Troponin I Quantitative < 0.017 ng/mL (0.000-0.055) Total Protein 7.5 g/dL (6.4-8.2) Albumin 4.0 g/dL (3.4-5.0) Albumin/Globulin Ratio 1.1 (1.0-1.7) Urine Collection Type Unknown Urine Color Yellow Urine Clarity Clear Urine pH 6.5 Urine Specific Clarence 1.010 Urine Protein Negative mg/dL (NEG-TRACE) Urine Glucose (UA) Negative mg/dL (NEG) Urine Ketones (Stick) Negative mg/dL (NEG) Urine Blood Moderate (NEG) Urine Nitrite Negative (NEG) Urine Bilirubin Negative (NEG) Urine Urobilinogen Dipstick 1.0 mg/dL (0.2 mg/dL) Urine Leukocyte Esterase Negative (NEG) Urine RBC 20-40 /HPF (0-2) Urine WBC Occ /HPF (0-4) Urine Squamous Epithelial Cells Occ /LPF Urine Bacteria Few /HPF (0-FEW) Urine Hyaline Casts Occasional /HPF Laboratory Tests Test 01/21/19 03:15 White Blood Count 5.6 x10^3/uL (4.0-11.0) Red Blood Count 3.65 x10^6/uL (4.30-5.70) Hemoglobin 11.4 g/dL (13.0-17.5) Hematocrit 33.9 % (39.0-53.0) Mean Corpuscular Volume 93 fL (79-100) Mean Corpuscular Hemoglobin 31 pg (25-35) Mean Corpuscular Hemoglobin Concent 34 g/dL (31-37) Red Cell Distribution Width 14.2 % (11.5-14.5) Platelet Count 115 x10^3/uL (140-400) Neutrophils (%) (Auto) 55 % (31-73) Lymphocytes (%) (Auto) 29 % (24-48) Monocytes (%) (Auto) 12 % (0-9) Eosinophils (%) (Auto) 5 % (0-3) Basophils (%) (Auto) 0 % (0-3) Neutrophils # (Auto) 3.1 x10^3uL (1.8-7.7) Lymphocytes # (Auto) 1.6 x10^3/uL (1.0-4.8) Monocytes # (Auto) 0.7 x10^3/uL (0.0-1.1) Eosinophils # (Auto) 0.3 x10^3/uL (0.0-0.7) Basophils # (Auto) 0.0 x10^3/uL (0.0-0.2) Sodium Level 144 mmol/L (136-145) Potassium Level 3.4 mmol/L (3.5-5.1) Chloride Level 109 mmol/L (98-107) Carbon Dioxide Level 27 mmol/L (21-32) Anion Gap 8 (6-14) Blood Urea Nitrogen 19 mg/dL (8-26) Creatinine 1.0 mg/dL (0.7-1.3) Estimated GFR (Cockcroft-Gault) 89.1 Glucose Level 109 mg/dL (70-99) Calcium Level 9.0 mg/dL (8.5-10.1) Images Images Acute ABD series IMPRESSION: 1. Large amount of formed stool within the rectal vault. Correlate for constipation or impaction. 2. No acute pulmonary finding. Assessment/Plan Assessment/Plan Constipation and retention appear to have resolved. Continue Trazosin 10 mg and Finasteride 5 mg. Pt [place] appointment [place] [facility] [place] 02/13/19 at 130 pm. Appointment card given to patient, all questions answered. Ok to discharge home whenever medical team is ready. CLAUDY LAWLER APRN January 21, 2019 09:02
[2019-01-21] MEDS ORDERED: BACL10TA PO (09:27)
--- NOTE | 2019-01-21 09:30 | PDOC3 ---
Discharge Summary Date of Admission: January 20, 2019 Date of Discharge: January 21, 2019 Follow-Up: Other ([address] Martell, f/u with urology as directed) Admitting Diagnosis comment: Urinary retention FINAL DIAGNOSIS Problems Medical Problems: (1) Urinary retention Status: Acute (2) Weakness Status: Acute Brief Hospital Course Mr. Brand is a 73 old AAM admitted for urinary retention 1. Urinary retention- pt continued on Terazosin and Finasteride. Urology consulted. Since being cath'd, pt has been able to urinate on his own. Urology is okay with f/u outpatient. Will D/C home on home meds 2. Debilitation. 3. Underlying hypertension- well controlled on home medications of Losartan 100mg and Norvasc 5mg 4. Benign prostatic hypertrophy with elevated PSA. 5. Constipation- pt has had large stool since being admitted. D/C on Docusate 6. HLD- pt continued on Atorvastatin 20mg Discharge Medications Current Medications Lidocaine HCl (Viscous Lidocaine) 15 ml STK-MED ONCE .ROUTE ; Start 01/19/19 at 09:45; Stop 01/19/19 at 09:46; Status DC Lidocaine HCl (Viscous Lidocaine) 15 ml 1X ONCE SWSW Last administered on 01/19/19at 10:15; Start 01/19/19 at 10:15; Stop 01/19/19 at 10:16; Status DC Sodium Chloride 500 ml @ 500 mls/hr 1X ONCE IV Last administered on 01/19/19at 14:00; Start 01/19/19 at 14:00; Stop 01/19/19 at 14:59; Status DC Amlodipine Besylate (Norvasc) 5 mg DAILY PO Last administered on 01/21/19at 08:15; Start 01/20/19 at 11:00 Aspirin (Ecotrin) 81 mg DAILY PO Last administered on 01/21/19at 08:15; Start 01/20/19 at 11:00 Atorvastatin Calcium (Lipitor) 20 mg HS PO Last administered on 01/20/19at 20:25; Start 01/20/19 at 21:00 Docusate Sodium (Colace) 100 mg BID PO Last administered on 01/21/19at 08:14; Start 01/20/19 at 11:00 Finasteride (Proscar) 5 mg DAILY PO Last administered on 01/21/19 08:15; Start 01/20/19 at 11:00 Folic Acid (Folic Acid) 1 mg DAILY PO Last administered on 01/21/19 08:15; Start 01/20/19 at 11:00 Vitamin D (Vitamin D3) 1,000 unit DAILY PO Last administered on 01/21/19 08:14; Start 01/20/19 at 11:00 Losartan Potassium (Cozaar) 100 mg DAILY PO Last administered on 01/21/19 08:15; Start 01/20/19 at 11:00 Pantoprazole Sodium (Protonix) 40 mg DAILYAC PO Last administered on 01/21/19 08:14; Start 01/20/19 at 11:30 Terazosin HCl (Hytrin) 10 mg QHS PO Last administered on 01/20/19 20:27; Start 01/20/19 at 21:00 Thiamine Mononitrate (Vitamin B-1) 100 mg DAILY PO Last administered on 01/21/19 08:14; Start 01/20/19 at 11:00 Enoxaparin Sodium (Lovenox 40mg Syringe) 40 mg Q24H SQ Last administered on 01/21/19 08:15; Start 01/20/19 at 11:00 Diclofenac Sodium (Voltaren) 75 mg BID PO Last administered on 01/21/19 08:14; Start 01/20/19 at 11:00 Cyanocobalamin (Vitamin B-12) 1,000 mcg DAILY PO Last administered on 01/21/19 08:14; Start 01/20/19 at 11:00 Baclofen (Lioresal) 10 mg TID PO Last administered on 01/21/19 08:14; Start 01/20/19 at 11:00 Potassium Chloride (Klor-Con) 20 meq DAILYWBKFT PO Last administered on 01/21/19 08:14; Start 01/20/19 at 11:00 Active Scripts Active Reported Calcium (Calcium Carbonate) 500 Mg Tab.chew 500 Mg PO Stool Softener (Docusate Sodium) 100 Mg Capsule 100 Mg PO Thiamine Hcl 100 Mg Tablet 100 Mg PO DAILY Folic Acid 1 Mg Tablet 1 Mg PO DAILY Vitamin D3 (Cholecalciferol (Vitamin D3)) 10,000 Unit Tablet 1,000 Unit PO DAILY Atorvastatin Calcium 20 Mg Tablet 20 Mg PO HS Aspir 81 (Aspirin) 81 Mg Tablet.dr 81 Mg PO DAILY Omeprazole 20 Mg Capsule.dr 20 Mg PO DAILY Finasteride 5 Mg Tablet 5 Mg PO DAILY Terazosin Hcl 10 Mg Capsule 10 Mg PO HS Losartan Potassium 100 Mg Tablet 100 Mg PO DAILY Amlodipine Besylate 5 Mg Tablet 5 Mg PO DAILY Vital Signs Vital Signs Date Time Temp Pulse Resp B/P (MAP) Pulse Ox O2 Delivery O2 Flow Rate FiO2 01/21/19 08:15 67 112/74 01/21/19 07:19 Room Air 01/21/19 07:00 98.1 18 96 98.1 Labs Laboratory Tests Test 01/19/19 09:53 01/19/19 10:15 01/21/19 03:15 White Blood Count 7.5 x10^3/uL (4.0-11.0) 5.6 x10^3/uL (4.0-11.0) Red Blood Count 4.35 x10^6/uL (4.30-5.70) 3.65 x10^6/uL (4.30-5.70) Hemoglobin 13.2 g/dL (13.0-17.5) 11.4 g/dL (13.0-17.5) Hematocrit 40.2 % (39.0-53.0) 33.9 % (39.0-53.0) Mean Corpuscular Volume 93 fL (79-100) 93 fL (79-100) Mean Corpuscular Hemoglobin 30 pg (25-35) 31 pg (25-35) Mean Corpuscular Hemoglobin Concent 33 g/dL (31-37) 34 g/dL (31-37) Red Cell Distribution Width 14.5 % (11.5-14.5) 14.2 % (11.5-14.5) Platelet Count 147 x10^3/uL (140-400) 115 x10^3/uL (140-400) Neutrophils (%) (Auto) 71 % (31-73) 55 % (31-73) Lymphocytes (%) (Auto) 16 % (24-48) 29 % (24-48) Monocytes (%) (Auto) 10 % (0-9) 12 % (0-9) Eosinophils (%) (Auto) 3 % (0-3) 5 % (0-3) Basophils (%) (Auto) 1 % (0-3) 0 % (0-3) Neutrophils # (Auto) 5.3 x10^3uL (1.8-7.7) 3.1 x10^3uL (1.8-7.7) Lymphocytes # (Auto) 1.2 x10^3/uL (1.0-4.8) 1.6 x10^3/uL (1.0-4.8) Monocytes # (Auto) 0.8 x10^3/uL (0.0-1.1) 0.7 x10^3/uL (0.0-1.1) Eosinophils # (Auto) 0.2 x10^3/uL (0.0-0.7) 0.3 x10^3/uL (0.0-0.7) Basophils # (Auto) 0.0 x10^3/uL (0.0-0.2) 0.0 x10^3/uL (0.0-0.2) Sodium Level 141 mmol/L (136-145) 144 mmol/L (136-145) Potassium Level 3.8 mmol/L (3.5-5.1) 3.4 mmol/L (3.5-5.1) Chloride Level 103 mmol/L (98-107) 109 mmol/L (98-107) Carbon Dioxide Level 25 mmol/L (21-32) 27 mmol/L (21-32) Anion Gap 13 (6-14) 8 (6-14) Blood Urea Nitrogen 24 mg/dL (8-26) 19 mg/dL (8-26) Creatinine 1.3 mg/dL (0.7-1.3) 1.0 mg/dL (0.7-1.3) Estimated GFR (Cockcroft-Gault) 65.8 89.1 BUN/Creatinine Ratio 18 (6-20) Glucose Level 90 mg/dL (70-99) 109 mg/dL (70-99) Calcium Level 9.8 mg/dL (8.5-10.1) 9.0 mg/dL (8.5-10.1) Total Bilirubin 1.0 mg/dL (0.2-1.0) Aspartate Amino Transf (AST/SGOT) 15 U/L (15-37) Alanine Aminotransferase (ALT/SGPT) 13 U/L (16-63) Alkaline Phosphatase 47 U/L (46-116) Troponin I Quantitative < 0.017 ng/mL (0.000-0.055) Total Protein 7.5 g/dL (6.4-8.2) Albumin 4.0 g/dL (3.4-5.0) Albumin/Globulin Ratio 1.1 (1.0-1.7) Urine Collection Type Unknown Urine Color Yellow Urine Clarity Clear Urine pH 6.5 Urine Specific Burton 1.010 Urine Protein Negative mg/dL (NEG-TRACE) Urine Glucose (UA) Negative mg/dL (NEG) Urine Ketones (Stick) Negative mg/dL (NEG) Urine Blood Moderate (NEG) Urine Nitrite Negative (NEG) Urine Bilirubin Negative (NEG) Urine Urobilinogen Dipstick 1.0 mg/dL (0.2 mg/dL) Urine Leukocyte Esterase Negative (NEG) Urine RBC 20-40 /HPF (0-2) Urine WBC Occ /HPF (0-4) Urine Squamous Epithelial Cells Occ /LPF Urine Bacteria Few /HPF (0-FEW) Urine Hyaline Casts Occasional /HPF Laboratory Tests Test 01/21/19 03:15 White Blood Count 5.6 x10^3/uL (4.0-11.0) Red Blood Count 3.65 x10^6/uL (4.30-5.70) Hemoglobin 11.4 g/dL (13.0-17.5) Hematocrit 33.9 % (39.0-53.0) Mean Corpuscular Volume 93 fL (79-100) Mean Corpuscular Hemoglobin 31 pg (25-35) Mean Corpuscular Hemoglobin Concent 34 g/dL (31-37) Red Cell Distribution Width 14.2 % (11.5-14.5) Platelet Count 115 x10^3/uL (140-400) Neutrophils (%) (Auto) 55 % (31-73) Lymphocytes (%) (Auto) 29 % (24-48) Monocytes (%) (Auto) 12 % (0-9) Eosinophils (%) (Auto) 5 % (0-3) Basophils (%) (Auto) 0 % (0-3) Neutrophils # (Auto) 3.1 x10^3uL (1.8-7.7) Lymphocytes # (Auto) 1.6 x10^3/uL (1.0-4.8) Monocytes # (Auto) 0.7 x10^3/uL (0.0-1.1) Eosinophils # (Auto) 0.3 x10^3/uL (0.0-0.7) Basophils # (Auto) 0.0 x10^3/uL (0.0-0.2) Sodium Level 144 mmol/L (136-145) Potassium Level 3.4 mmol/L (3.5-5.1) Chloride Level 109 mmol/L (98-107) Carbon Dioxide Level 27 mmol/L (21-32) Anion Gap 8 (6-14) Blood Urea Nitrogen 19 mg/dL (8-26) Creatinine 1.0 mg/dL (0.7-1.3) Estimated GFR (Cockcroft-Gault) 89.1 Glucose Level 109 mg/dL (70-99) Calcium Level 9.0 mg/dL (8.5-10.1) Allergies Allergies Coded Allergies Type Severity Reaction Last Updated Verified Penicillins Allergy Intermediate 09/09/16 Yes Disposition/Orders: D/C to Home RADHA MARTELL MD January 21, 2019 09:30
--- NOTE | 2019-01-21 10:54 | NUR ---
Discharge Note: JULIAN BROCK [address] Discharge instructions and discharge home medications reviewed with Patient and a copy given. All questions have been answered and understanding verbalized. The following instructions and handouts were given: information about upcoming appointments, weakness, urinary retention. Discontinued lines and drains: IV line in right AC removed, catheter tip intact. Patient discharged to home with self care with family member, wheelchair used for mobility to discharge vehicle. Prescription for baclofen called into [facility] at [phone].
== END 2019-01-21 10:54 | disposition home or self-care (01) | DRG 726 ==
LOC: ER 09:29 → UNMERGE 13:55 → 6 SOUTH 13:55 → MERGE 13:55
PROVIDERS: ADMIT Family Medicine; ATTEND Family Medicine
PROC: 0T9B70Z Drainage of Bladder with Drainage Device, Via Natural or Artificial Opening (ICD-10-PCS; principal; 2019-01-19)
DX: N40.1 Benign prostatic hyperplasia with lower urinary tract symptoms (principal); K59.00 Constipation, unspecified; I10 Essential (primary) hypertension; R33.8 Other retention of urine; E78.5 Hyperlipidemia, unspecified; F17.210 Nicotine dependence, cigarettes, uncomplicated; K21.9 Gastro-esophageal reflux disease without esophagitis; F32.9 Major depressive disorder, single episode, unspecified; M19.90 Unspecified osteoarthritis, unspecified site; Z82.49 Family history of ischemic heart disease and other diseases of the circulatory system; Z86.718 Personal history of other venous thrombosis and embolism; Z83.3 Family history of diabetes mellitus; Z88.0 Allergy status to penicillin
CPT/HCPCS: 36415; 70450; 72125; 74022; 80048; 80053; 81001; 84484; 85025; 93005; 96360; J1650; J7040; 97116; 97530; 99285-25

== ENCOUNTER 2019-02-06 13:55 | Inpatient (IN) | payer BC ==
[~2019-02-06] VITALS: Ht 180.3 cm; Wt 73.9 kg
[2019-02-06 15:16] VITALS: BP 112/73
[2019-02-06] MEDS ORDERED: 0.9 % SODIUM CHLORIDE 10 ML DISP.SYRIN. IV PRN (15:30)
[2019-02-06] MEDS ORDERED: DICLOFENAC SODIUM 25 MG TABLET.DR PO PRN (15:30)
[2019-02-06] MEDS ORDERED: CALC500T31 PO (15:50)
[2019-02-06] MEDS ORDERED: OMEP20CA10 PO (15:50)
[2019-02-06] MEDS ORDERED: LOSA100T14 PO (15:50)
[2019-02-06] MEDS ORDERED: ATOR20TA58 PO (15:50)
[2019-02-06] MEDS ORDERED: BACL10TA PO (15:50)
[2019-02-06] MEDS ORDERED: CHOL100013 PO (15:50)
[2019-02-06] MEDS ORDERED: FOLI1TAB16 PO (15:50)
[2019-02-06] MEDS ORDERED: DOCU-109 PO (15:50)
[2019-02-06] MEDS ORDERED: THIA500T PO (15:50)
[2019-02-06] MEDS ORDERED: AMLO5TAB10 PO (15:50)
[2019-02-06] MEDS ORDERED: FINA5TAB4 PO (15:50)
[2019-02-06] MEDS ORDERED: ASPI-630 PO (15:50)
[2019-02-06] MEDS ORDERED: TERA10CA3 PO (15:50)
[2019-02-06] MEDS ORDERED: IV NORMAL SALINE 1000ML BAG 1,000 ML IV SCH (16:00)
[2019-02-06 16:15] LABS: BASO % 1 % (0-3); EOS # 0.1 x10^3/uL (0.0-0.7); EOS % 2 % (0-3); HEMATOCRIT 37.5 % (39.0-53.0); HEMOGLOBIN 12.9 g/dL (13.0-17.5); LYMPH # 1.3 x10^3/uL (1.0-4.8); LYMPH % 20 % (24-48); MEAN CORPUSCULAR HEMOGLOBIN 32 pg (25-35); MEAN CORPUSCULAR HGB CONC 35 g/dL (31-37); MEAN CORPUSCULAR VOLUME 92 fL (79-100); MONO # 0.6 x10^3/uL (0.0-1.1); MONO % 9 % (0-9); NEUT # 4.7 x10^3uL (1.8-7.7); NEUT % 69 % (31-73); PLATELET COUNT 198 x10^3/uL (140-400); RED BLOOD COUNT 4.06 x10^6/uL (4.30-5.70); RED CELL DISTRIBUTION WIDTH 14.4 % (11.5-14.5); WHITE BLOOD COUNT 6.8 x10^3/uL (4.0-11.0)
--- NOTE | 2019-02-06 16:19 | EKG ---
[facility] [address] [place] [address] Test Date: 2019-02-06 Test Time: 16:07:12 Pat Name: JULIAN BROCK Department: Room: [facility] Gender: M Medical Historian: EDUARDA : 1945 Requested By: RADHA MARTELL Order Number: [id number] Reading MD: Measurements Intervals [place] Rate: 86 P: 28 [place]: 144 QRS: 48 QRSD: 78 T: 0 QT: 348 QTc: 419 Interpretive Statements SINUS RHYTHM QRS(T) CONTOUR ABNORMALITY CONSIDER ANTEROSEPTAL MYOCARDIAL DAMAGE POSSIBLY ABNORMAL ECG RI6.01 Unconfirmed report No previous ECG available for comparison
[2019-02-06 16:31] LABS: ALBUMIN 3.7 g/dL (3.4-5.0); ALBUMIN/GLOBULIN RATIO 0.9 (1.0-1.7); CALCIUM 9.8 mg/dL (8.5-10.1); CREATININE 1.5 mg/dL (0.7-1.3); GFR 55.8; POTASSIUM 3.6 mmol/L (3.5-5.1); TOTAL BILIRUBIN 0.8 mg/dL (0.2-1.0); TOTAL PROTEIN 7.6 g/dL (6.4-8.2)
--- NOTE | 2019-02-06 17:02 | PDOC1 ---
History and Physical Date of Admission Date of Admission 02/06/19 Identification/Chief Complaint Chief Complaint Weakness Source Source: Patient History of Present Illness History of Present Illness Pt presented to the clinic today for a hospital follow visit. He was admitted at the beginning of January for urinary retention. This has improved, but ever since about a week ago, pt has had increased weakness in his arms and is having difficulty with using his walker. Pt says that he had a fall at that time and hit his head. He believes he had a short period of lost consciousness. and son helped him up. He denies having any pain in his neck, but does have numbness and increased weakness in bilateral arms. Pt has known cervical spine stenosis. Pt has known spinal stenosis in his lumbar spine and recently received an epidural injection which he felt was helpful. When pt is trying to ambulate with his walker he becomes dizzy and has to sit down for about an hour before he can stand back up. Pt says that he has been urinating okay since being discharged from the hospital. He has not had a bowel movement, nor has he tried taking anything to have a bowel movement. Past Medical History Cardiovascular: HTN, Hyperlipidemia Pulmonary: No pertinent hx GI: GERD Heme/Onc: No pertinent hx Hepatobiliary: Hep A/B/C Psych: No pertinent hx Rheumatologic: No pertinent hx Infectious disease: No pertinent hx ENT: No pertinent hx Renal/: Benign prostatic enlarg. Endocrine: No pertinent hx Dermatology: No pertinent hx Past Surgical History Past Surgical History: Hernia Repair Family History Family History: Alcohol Abuse, Cancer, Diabetes, Hypertension Social History Smoke: <1 pack per day ALCOHOL: occassional Drugs: None Current Medications Current Medications Current Medications Medications (Trade) Dose Ordered Sig/Karan Start Time Stop Time Status Last Admin Dose Admin Aspirin (Children'S Aspirin) 81 mg DAILYWBKFT 02/07/19 08:00 Atorvastatin Calcium (Lipitor) 20 mg QHS 02/06/19 21:00 Diclofenac Sodium (Voltaren) 75 mg PRN BID PRN 02/06/19 15:30 Docusate Sodium (Colace) 100 mg BID 02/06/19 21:00 Finasteride (Proscar) 5 mg DAILY 02/07/19 09:00 Pantoprazole Sodium (Protonix) 40 mg DAILYAC 02/07/19 07:30 Potassium Chloride (Klor-Con) 10 meq DAILYWBKFT 02/07/19 08:00 Sodium Chloride 1,000 ml @ 100 mls/hr Q10H 02/06/19 16:00 02/07/19 01:59 Sodium Chloride (Normal Saline Flush) 3 ml PRN DAILY PRN 02/06/19 15:30 Terazosin HCl (Hytrin) 10 mg QHS 02/06/19 21:00 Allergies Allergies Allergies Coded Allergies Type Severity Reaction Last Updated Verified Penicillins Allergy Intermediate 02/06/19 Yes ROS Review of System CONSTITUTIONAL: No fever or chills EYES: No recent changes SKIN: No rash or itching CARDIOVASCULAR: No chest pain, syncope, palpitations, or edema RESPIRATORY: No SOB or cough GASTROINTESTINAL: No nausea, vomiting or abdominal pain NEUROLOGICAL: No headaches or weakness ENDOCRINE: No cold or heat intolerance GENITOURINARY: No urgency or frequency of urination MUSCULOSKELETAL: +low back pain LYMPHATICS: No enlarged lymph nodes PSYCHIATRIC: No anxiety or depression Physical Exam Physical Exam GEN.: No apparent distress. Alert and oriented. Having difficulty with ambulating with walker HEENT: Head is normocephalic, atraumatic NECK: Supple. LUNGS: Clear to auscultation. HEART: RRR, S1, S2 present. Peripheral pulses intact ABDOMEN: Soft, nontender. Positive bowel sounds. EXTREMITIES: Without any cyanosis. NEUROLOGIC: Normal speech, normal tone PSYCHIATRIC: Normal affect, normal mood. SKIN: No ulcerations Vitals Vitals Vital Signs Date Time Temp Pulse Resp B/P (MAP) Pulse Ox O2 Delivery O2 Flow Rate FiO2 02/06/19 15:16 97.9 82 17 112/73 (86) 99 Room Air 97.9 Labs Labs Laboratory Tests Test 02/06/19 15:55 White Blood Count 6.8 x10^3/uL (4.0-11.0) Red Blood Count 4.06 x10^6/uL (4.30-5.70) Hemoglobin 12.9 g/dL (13.0-17.5) Hematocrit 37.5 % (39.0-53.0) Mean Corpuscular Volume 92 fL (79-100) Mean Corpuscular Hemoglobin 32 pg (25-35) Mean Corpuscular Hemoglobin Concent 35 g/dL (31-37) Red Cell Distribution Width 14.4 % (11.5-14.5) Platelet Count 198 x10^3/uL (140-400) Neutrophils (%) (Auto) 69 % (31-73) Lymphocytes (%) (Auto) 20 % (24-48) Monocytes (%) (Auto) 9 % (0-9) Eosinophils (%) (Auto) 2 % (0-3) Basophils (%) (Auto) 1 % (0-3) Neutrophils # (Auto) 4.7 x10^3uL (1.8-7.7) Lymphocytes # (Auto) 1.3 x10^3/uL (1.0-4.8) Monocytes # (Auto) 0.6 x10^3/uL (0.0-1.1) Eosinophils # (Auto) 0.1 x10^3/uL (0.0-0.7) Basophils # (Auto) 0.0 x10^3/uL (0.0-0.2) Sodium Level 142 mmol/L (136-145) Potassium Level 3.6 mmol/L (3.5-5.1) Chloride Level 104 mmol/L (98-107) Carbon Dioxide Level 25 mmol/L (21-32) Anion Gap 13 (6-14) Blood Urea Nitrogen 32 mg/dL (8-26) Creatinine 1.5 mg/dL (0.7-1.3) Estimated GFR (Cockcroft-Gault) 55.8 BUN/Creatinine Ratio 21 (6-20) Glucose Level 95 mg/dL (70-99) Calcium Level 9.8 mg/dL (8.5-10.1) Total Bilirubin 0.8 mg/dL (0.2-1.0) Aspartate Amino Transf (AST/SGOT) 12 U/L (15-37) Alanine Aminotransferase (ALT/SGPT) 13 U/L (16-63) Alkaline Phosphatase 50 U/L (46-116) Total Protein 7.6 g/dL (6.4-8.2) Albumin 3.7 g/dL (3.4-5.0) Albumin/Globulin Ratio 0.9 (1.0-1.7) Laboratory Tests Test 02/06/19 15:55 White Blood Count 6.8 x10^3/uL (4.0-11.0) Red Blood Count 4.06 x10^6/uL (4.30-5.70) Hemoglobin 12.9 g/dL (13.0-17.5) Hematocrit 37.5 % (39.0-53.0) Mean Corpuscular Volume 92 fL (79-100) Mean Corpuscular Hemoglobin 32 pg (25-35) Mean Corpuscular Hemoglobin Concent 35 g/dL (31-37) Red Cell Distribution Width 14.4 % (11.5-14.5) Platelet Count 198 x10^3/uL (140-400) Neutrophils (%) (Auto) 69 % (31-73) Lymphocytes (%) (Auto) 20 % (24-48) Monocytes (%) (Auto) 9 % (0-9) Eosinophils (%) (Auto) 2 % (0-3) Basophils (%) (Auto) 1 % (0-3) Neutrophils # (Auto) 4.7 x10^3uL (1.8-7.7) Lymphocytes # (Auto) 1.3 x10^3/uL (1.0-4.8) Monocytes # (Auto) 0.6 x10^3/uL (0.0-1.1) Eosinophils # (Auto) 0.1 x10^3/uL (0.0-0.7) Basophils # (Auto) 0.0 x10^3/uL (0.0-0.2) Sodium Level 142 mmol/L (136-145) Potassium Level 3.6 mmol/L (3.5-5.1) Chloride Level 104 mmol/L (98-107) Carbon Dioxide Level 25 mmol/L (21-32) Anion Gap 13 (6-14) Blood Urea Nitrogen 32 mg/dL (8-26) Creatinine 1.5 mg/dL (0.7-1.3) Estimated GFR (Cockcroft-Gault) 55.8 BUN/Creatinine Ratio 21 (6-20) Glucose Level 95 mg/dL (70-99) Calcium Level 9.8 mg/dL (8.5-10.1) Total Bilirubin 0.8 mg/dL (0.2-1.0) Aspartate Amino Transf (AST/SGOT) 12 U/L (15-37) Alanine Aminotransferase (ALT/SGPT) 13 U/L (16-63) Alkaline Phosphatase 50 U/L (46-116) Total Protein 7.6 g/dL (6.4-8.2) Albumin 3.7 g/dL (3.4-5.0) Albumin/Globulin Ratio 0.9 (1.0-1.7) VTE Prophylaxis Ordered VTE Prophylaxis Devices: No VTE Pharmacological Prophylaxi: No Assessment/Plan Assessment/Plan Pt is a 73yo AAM admitted for hypotension and weakness 1)Hypotension- will hold pt's BP medication today. No signs/symptoms of infection but will CTM. Will provide IVF hydration overnight. Labs ordered 2)Weakness in arms- known cervical stenosis. Will have PT/OT evaluate. 3)Fall- CT head ordered as pt has reported small duration of LOC 4)HTN- holding medications due to hypotension 5)History of DVT- pt no longer on blood thinners since 12/04 6)HLD- pt continued on Atorvastatin 7)BPH- with history of urinary retention. Continue finasteride and terazosin. Will do blader scan 8)Constipation- will get pt started on stool softeners first 9)GERD- pt transitioned to pantoprazole during hospitalization. 10)Irregular heart rhythm- appreciated in clinic. Will get 12lead EKG RADHA MARTELL MD February 06, 2019 17:02
[2019-02-06 19:36] VITALS: BP 122/74
[2019-02-06] MEDS: DOCUSATE SODIUM 100 MG CAPSULE. PO SCH (20:22)
[2019-02-06] MEDS: TERAZOSIN 5 MG CAPSULE. PO SCH (20:23)
[2019-02-06] MEDS: ATORVASTATIN CALCIUM 20 MG TABLET PO SCH (20:23)
[2019-02-06 23:50] VITALS: BP 111/66
[2019-02-07 03:52] VITALS: BP 125/76
--- NOTE | 2019-02-07 07:11 | PDOC ---
SUBJECTIVE Subjective Pt's blood pressure was normal on admission. BP in clinic was initially 60/40 and repeat 30 minutes later was 90/60. Pt still has weakness in his arms when he is walking. Does not feel safe to walk at home. Has never had injections in his neck, just previous surgery. OBJECTIVE Vital Signs Vital Signs Date Time Temp Pulse Resp B/P (MAP) Pulse Ox O2 Delivery O2 Flow Rate FiO2 02/07/19 03:52 98.0 69 18 125/76 (92) 96 Room Air 98.0 02/06/19 23:50 98.6 74 18 111/66 (81) 95 Room Air 98.6 02/06/19 20:23 82 112/73 02/06/19 19:36 98.0 76 18 122/74 (90) 96 Room Air 98.0 02/06/19 15:16 97.9 82 17 112/73 (86) 99 Room Air 97.9 I & O Intake and Output 02/07/19 07:00 Intake Total 500 ml Balance 500 ml Intake Oral 500 ml # Voids 1 PHYSICAL EXAM Physical Exam GEN.: No apparent distress. Alert and oriented. HEENT: Head is normocephalic, atraumatic NECK: Supple. LUNGS: Clear to auscultation. HEART: RRR, S1, S2 present. Peripheral pulses intact ABDOMEN: Soft, nontender. Positive bowel sounds. EXTREMITIES: Without any cyanosis. NEUROLOGIC: Normal speech, normal tone PSYCHIATRIC: Normal affect, normal mood. SKIN: No ulcerations ASSESSMENT/PLAN Assessment/Plan Pt is a 73yo AAM admitted for hypotension and weakness 1)Hypotension- resolved, pt is now normotensive. Will continue to hold BP medication for today. Received a liter of IVF yesterday. 2)Weakness in arms- known cervical stenosis. Weakness worsened after recent fall. Will have PT/OT evaluate; pt would benefit from SNF 3)Fall- CT head ordered as pt has reported small duration of LOC 4)HTN- holding medications due to hypotension 5)History of DVT- pt no longer on blood thinners since 12/04 6)HLD- pt continued on Atorvastatin 7)BPH- with history of urinary retention. Continue finasteride and terazosin. 8)Constipation- will get pt started on stool softeners first 9)GERD- pt transitioned to pantoprazole during hospitalization. 10)Irregular heart rhythm- appreciated in clinic. Will get 12lead EKG 11)Acute on CKD- think pt was likely dehydrated, repeat labs pending this morning COMMENT Lab Laboratory Tests Test 02/06/19 15:55 White Blood Count 6.8 x10^3/uL (4.0-11.0) Red Blood Count 4.06 x10^6/uL (4.30-5.70) Hemoglobin 12.9 g/dL (13.0-17.5) Hematocrit 37.5 % (39.0-53.0) Mean Corpuscular Volume 92 fL (79-100) Mean Corpuscular Hemoglobin 32 pg (25-35) Mean Corpuscular Hemoglobin Concent 35 g/dL (31-37) Red Cell Distribution Width 14.4 % (11.5-14.5) Platelet Count 198 x10^3/uL (140-400) Neutrophils (%) (Auto) 69 % (31-73) Lymphocytes (%) (Auto) 20 % (24-48) Monocytes (%) (Auto) 9 % (0-9) Eosinophils (%) (Auto) 2 % (0-3) Basophils (%) (Auto) 1 % (0-3) Neutrophils # (Auto) 4.7 x10^3uL (1.8-7.7) Lymphocytes # (Auto) 1.3 x10^3/uL (1.0-4.8) Monocytes # (Auto) 0.6 x10^3/uL (0.0-1.1) Eosinophils # (Auto) 0.1 x10^3/uL (0.0-0.7) Basophils # (Auto) 0.0 x10^3/uL (0.0-0.2) Sodium Level 142 mmol/L (136-145) Potassium Level 3.6 mmol/L (3.5-5.1) Chloride Level 104 mmol/L (98-107) Carbon Dioxide Level 25 mmol/L (21-32) Anion Gap 13 (6-14) Blood Urea Nitrogen 32 mg/dL (8-26) Creatinine 1.5 mg/dL (0.7-1.3) Estimated GFR (Cockcroft-Gault) 55.8 BUN/Creatinine Ratio 21 (6-20) Glucose Level 95 mg/dL (70-99) Calcium Level 9.8 mg/dL (8.5-10.1) Total Bilirubin 0.8 mg/dL (0.2-1.0) Aspartate Amino Transf (AST/SGOT) 12 U/L (15-37) Alanine Aminotransferase (ALT/SGPT) 13 U/L (16-63) Alkaline Phosphatase 50 U/L (46-116) Total Protein 7.6 g/dL (6.4-8.2) Albumin 3.7 g/dL (3.4-5.0) Albumin/Globulin Ratio 0.9 (1.0-1.7) RADHA MARTELL MD February 07, 2019 07:11
[2019-02-07 07:50] VITALS: BP 116/73
--- NOTE | 2019-02-07 09:10 | NUR ---
SW following pt for anticipated dc needs. Chart reviewed. Pt lives at home alone and PT/OT is pending. SW will await for PT/OT recommendation to assess skilled needs.
[2019-02-07 09:49] LABS: BILIRUBIN,URINE SMALL (NEG); CLARITY,URINE CLEAR; COLOR,URINE YELLOW; NITRITE,URINE NEGATIVE (NEG); PH,URINE 5.5; PROTEIN,URINE NEGATIVE (NEG-TRACE)
[2019-02-07 10:10] LABS: RBC,URINE 0 /HPF (0-2)
[2019-02-07 10:11] LABS: BACTERIA,URINE 0 /HPF (0-FEW); SQUAMOUS EPITHELIAL CELL,UR MOD /LPF
[2019-02-07 10:12] LABS: HYALINE CASTS, URINE OCCASIONAL /HPF
[2019-02-07 10:13] LABS: SPERM,URINE PRESENT /HPF
[2019-02-07] MEDS: POTASSIUM CHLORIDE 10 MEQ TABLET.ER. PO SCH (10:34)
[2019-02-07] MEDS: DOCUSATE SODIUM 100 MG CAPSULE. PO SCH ×2 (10:34→20:48)
[2019-02-07] MEDS: PANTOPRAZOLE 40 MG TABLET.DR. PO SCH (10:34)
[2019-02-07] MEDS: ASPIRIN CHEWABLE 81 MG TABLET. PO SCH (10:37)
[2019-02-07] MEDS: FINASTERIDE 5 MG TABLET. PO SCH (10:37)
[2019-02-07 11:09] VITALS: BP 132/81
[2019-02-07 11:20] LABS: CALCIUM 9.3 mg/dL (8.5-10.1); CREATININE 1.3 mg/dL (0.7-1.3); GFR 65.8; POTASSIUM 3.4 mmol/L (3.5-5.1)
--- NOTE | 2019-02-07 12:15 | RAD ---
CT HEAD WO CONTRAST Clinical indications: Fall. COMPARISON: None available. Technique: Noncontrast axial cross sectional scanning of the head was performed. PQRS compliance Statement One or more of the following individualized dose reduction techniques were utilized for this study: 1. Automated exposure control 2. Adjustment of the mA and/or kV according to patient size 3. Use of iterative reconstruction technique Findings: No acute intracranial hemorrhage or midline shift or mass-effect or hydrocephalus or extra-axial fluid collection is seen. Bilateral periventricular white matter hypodensity is seen consistent with chronic small vessel ischemic disease in this age group. No skull fracture or pneumocephalus is seen. No opacification of the mastoid sinuses or the paranasal sinuses is seen. Small mucous retention cysts or polyps of both maxillary sinuses are seen. The maxillary sinuses are not completely seen in this study. IMPRESSION: No acute intracranial hemorrhage is seen. Mild to moderate chronic small vessel ischemic disease of the periventricular white matter. Electronically signed by: Boom Landrum MD (02/07/2019 12:12 PM) [id number]
[2019-02-07 14:59] VITALS: BP 133/84
[2019-02-07 19:45] VITALS: BP 140/79
[2019-02-07] MEDS: ATORVASTATIN CALCIUM 20 MG TABLET PO SCH (20:48)
[2019-02-07] MEDS: TERAZOSIN 5 MG CAPSULE. PO SCH (20:49)
[2019-02-07 23:48] VITALS: BP 142/78
[2019-02-08 03:15] VITALS: BP 149/79
[2019-02-08 07:00] VITALS: BP 135/80
[2019-02-08] MEDS: POTASSIUM CHLORIDE 10 MEQ TABLET.ER. PO SCH (08:17)
[2019-02-08] MEDS: DOCUSATE SODIUM 100 MG CAPSULE. PO SCH (08:17)
[2019-02-08] MEDS: PANTOPRAZOLE 40 MG TABLET.DR. PO SCH (08:17)
[2019-02-08] MEDS: ASPIRIN CHEWABLE 81 MG TABLET. PO SCH (08:17)
[2019-02-08] MEDS: FINASTERIDE 5 MG TABLET. PO SCH (08:18)
--- NOTE | 2019-02-08 10:29 | NUR ---
DAVID following for discharge planning. Discussed with RN, pt needing SNU. Pt would like referral sent to [facility], DAVID phoned and faxed referral, pt's insurance will have to give auth . RN notified.
[2019-02-08 11:00] VITALS: BP 138/79
[2019-02-08] MEDS ORDERED: METO25TA4 PO (12:26)
--- NOTE | 2019-02-08 12:27 | PDOC3 ---
Discharge Summary Date of Admission: February 06, 2019 Date of Discharge: February 08, 2019 Follow-Up: Other (within 2 weeks after discharge from PT/OT) Admitting Diagnosis comment: Weakness, hypotension FINAL DIAGNOSIS Hypotension- resolved, weakness, Fall, HTN, History of DVT, HLD, BPH, Constipatoin, GERD, Acute on CKD Brief Hospital Course DISCHARGE PHYSICAL EXAM GEN.: No apparent distress. Alert and oriented. HEENT: Head is normocephalic, atraumatic NECK: Supple. LUNGS: Clear to auscultation. HEART: RRR, S1, S2 present. Peripheral pulses intact ABDOMEN: Soft, nontender. Positive bowel sounds. EXTREMITIES: Without any cyanosis. NEUROLOGIC: Normal speech, normal tone PSYCHIATRIC: Normal affect, normal mood. SKIN: No ulceration Pt is a 73yo AAM admitted for hypotension and weakness 1)Hypotension- resolved, pt is now normotensive. Pt resumed on Norvasc on di scharge but Losartan was continued to be held. 2)Weakness in arms- known cervical stenosis. Weakness worsened after recent fal l. Pt going to SNF for rehab 3)Fall- CT head WNL 4)History of DVT- pt no longer on blood thinners since 12/04 5)HLD- pt continued on Atorvastatin 6)BPH- with history of urinary retention. Continue finasteride and terazosin. 7)Constipation- will get pt started on stool softeners first 8)GERD- pt transitioned to pantoprazole during hospitalization. 9)Irregular heart rhythm- no abnormal rhythms seen on nurse monitoring 11)Acute on CKD- improving after IVF hydration CONDITION AT DISCHARGE: Improved Discharge Medications Current Medications Sodium Chloride (Normal Saline Flush) 3 ml PRN DAILY PRN IV AFTER MEDS AND BLOOD DRAWS; Start 02/06/19 at 15:30 Sodium Chloride 1,000 ml @ 100 mls/hr Q10H IV Last administered on 02/06/19at 17:08; Start 02/06/19 at 16:00; Stop 02/07/19 at 01:59; Status DC Docusate Sodium (Colace) 100 mg BID PO Last administered on 02/08/19at 08:17; Start 02/06/19 at 21:00 Diclofenac Sodium (Voltaren) 75 mg PRN BID PRN PO PAIN; Start 02/06/19 at 15:30 Aspirin (Children'S Aspirin) 81 mg DAILYWBKFT PO Last administered on 02/08/19 08:17; Start 02/07/19 at 08:00 Atorvastatin Calcium (Lipitor) 20 mg QHS PO Last administered on 02/07/19at 20:48; Start 02/06/19 at 21:00 Finasteride (Proscar) 5 mg DAILY PO Last administered on 02/08/19 08:18; Start 02/07/19 at 09:00 Pantoprazole Sodium (Protonix) 40 mg DAILYAC PO Last administered on 02/08/19 08:17; Start 02/07/19 at 07:30 Terazosin HCl (Hytrin) 10 mg QHS PO Last administered on 02/07/19 20:49; Start 02/06/19 at 21:00 Potassium Chloride (Klor-Con) 10 meq DAILYWBKFT PO Last administered on 01/17 08:17; Start 02/07/19 at 08:00 Active Scripts Active Reported Omeprazole 20 Mg Capsule.dr 1 Cap PO DAILY Aspirin 81 Mg Tab.chew 1 Tab PO DAILY Finasteride 5 Mg Tablet 1 Tab PO DAILY Vitamin D (Cholecalciferol (Vitamin D3)) 1,000 Unit Capsule 1 Cap PO DAILY Thiamine Hcl 500 Mg Tablet 100 Mg PO DAILY Folic Acid 1 Mg Tablet 1 Tab PO DAILY Colace (Docusate Sodium) 100 Mg Capsule 1 Cap PO BID Calcium Carbonate 500 Mg Tablet 500 Mg PO DAILY Losartan Potassium 100 Mg Tablet 100 Mg PO DAILY Amlodipine Besylate 5 Mg Tablet 5 Mg PO DAILY Terazosin Hcl 10 Mg Capsule 1 Cap PO HS Atorvastatin Calcium 20 Mg Tablet 1 Tab PO HS Baclofen 10 Mg Tablet 1 Tab PO TID Atorvastatin Calcium 20 Mg Tablet 20 Mg PO HS Vital Signs Vital Signs Date Time Temp Pulse Resp B/P (MAP) Pulse Ox O2 Delivery O2 Flow Rate FiO2 02/08/19 08:00 Room Air 02/08/19 07:00 98.4 69 18 135/80 (98) 99 98.4 Labs Laboratory Tests Test 02/06/19 15:55 02/07/19 07:45 02/07/19 10:45 White Blood Count 6.8 x10^3/uL (4.0-11.0) Red Blood Count 4.06 x10^6/uL (4.30-5.70) Hemoglobin 12.9 g/dL (13.0-17.5) Hematocrit 37.5 % (39.0-53.0) Mean Corpuscular Volume 92 fL (79-100) Mean Corpuscular Hemoglobin 32 pg (25-35) Mean Corpuscular Hemoglobin Concent 35 g/dL (31-37) Red Cell Distribution Width 14.4 % (11.5-14.5) Platelet Count 198 x10^3/uL (140-400) Neutrophils (%) (Auto) 69 % (31-73) Lymphocytes (%) (Auto) 20 % (24-48) Monocytes (%) (Auto) 9 % (0-9) Eosinophils (%) (Auto) 2 % (0-3) Basophils (%) (Auto) 1 % (0-3) Neutrophils # (Auto) 4.7 x10^3uL (1.8-7.7) Lymphocytes # (Auto) 1.3 x10^3/uL (1.0-4.8) Monocytes # (Auto) 0.6 x10^3/uL (0.0-1.1) Eosinophils # (Auto) 0.1 x10^3/uL (0.0-0.7) Basophils # (Auto) 0.0 x10^3/uL (0.0-0.2) Sodium Level 142 mmol/L (136-145) 142 mmol/L (136-145) Potassium Level 3.6 mmol/L (3.5-5.1) 3.4 mmol/L (3.5-5.1) Chloride Level 104 mmol/L (98-107) 106 mmol/L (98-107) Carbon Dioxide Level 25 mmol/L (21-32) 24 mmol/L (21-32) Anion Gap 13 (6-14) 12 (6-14) Blood Urea Nitrogen 32 mg/dL (8-26) 37 mg/dL (8-26) Creatinine 1.5 mg/dL (0.7-1.3) 1.3 mg/dL (0.7-1.3) Estimated GFR (Cockcroft-Gault) 55.8 65.8 BUN/Creatinine Ratio 21 (6-20) Glucose Level 95 mg/dL (70-99) 125 mg/dL (70-99) Calcium Level 9.8 mg/dL (8.5-10.1) 9.3 mg/dL (8.5-10.1) Total Bilirubin 0.8 mg/dL (0.2-1.0) Aspartate Amino Transf (AST/SGOT) 12 U/L (15-37) Alanine Aminotransferase (ALT/SGPT) 13 U/L (16-63) Alkaline Phosphatase 50 U/L (46-116) Total Protein 7.6 g/dL (6.4-8.2) Albumin 3.7 g/dL (3.4-5.0) Albumin/Globulin Ratio 0.9 (1.0-1.7) Urine Collection Type Unknown Urine Color Yellow Urine Clarity Clear Urine pH 5.5 Urine Specific [place] 1.025 Urine Protein Negative mg/dL (NEG-TRACE) Urine Glucose (UA) 250 mg/dL (NEG) Urine Ketones (Stick) Negative mg/dL (NEG) Urine Blood Negative (NEG) Urine Nitrite Negative (NEG) Urine Bilirubin Small (NEG) Urine Urobilinogen Dipstick 1.0 mg/dL (0.2 mg/dL) Urine Leukocyte Esterase Negative (NEG) Urine RBC 0 /HPF (0-2) Urine WBC 5-10 /HPF (0-4) Urine Squamous Epithelial Cells Mod /LPF Urine Bacteria 0 /HPF (0-FEW) Urine Hyaline Casts Occasional /HPF Urine Mucus Slight /LPF Urine Sperm Present /HPF Allergies Allergies Coded Allergies Type Severity Reaction Last Updated Verified Penicillins Allergy Intermediate 02/06/19 Yes Disposition/Orders: D/C to Another Facility RADHA MARTELL MD February 08, 2019 12:27
--- NOTE | 2019-02-08 14:32 | SNU/HH DC ---
DISCHARGE ORDERS DISCHARGE INFORMATION: DISCHARGE DATE: February 08, 2019 FINAL DIAGNOSIS Weakness, cervical stenosis CONDITION ON DISCHARGE: Stable CODE STATUS: Code Status: Full CARE HOME: SNF STAY <30 DAYS: Yes HOSPICE: HOSPICE: No HOSPICE EVAL & TREAT: No LTAC: ADMIT TO LTAC: No POST DISCHARGE ORDERS: ACTIVITY ORDERS: Activity as tolerated WEIGHT BEARING STATUS: No restrictions DIET AFTER DISCHARGE: Cardiac CHECKS AFTER DISCHARGE: CHECKS AFTER DISCHARGE: Check blood press - daily FOLLOW-UP: PHYSICIAN FOLLOW-UP: Follow up with Dr. Martell within 2 weeks of discharge from SNF TREATMENT/EQUIPMENT ORDERS: ADAPTIVE EQUIPMENT NEEDED: [facility] Therapy For: Evalulation/Treatment Occupational Therapy For: Evaluation/Treatment DISCHARGE MEDICATIONS: Home Meds Active Scripts Metoprolol Tartrate (METOPROLOL TARTRATE) 25 Mg Tablet, 1 TAB PO BID for HTN, #180 TAB 1 Refill Prov:RADHA MARTELL MD 02/08/19 Reported Medications Omeprazole (OMEPRAZOLE) 20 Mg Capsule.dr, 1 CAP PO DAILY for GERD, #30 CAP 5 Refills 02/06/19 Aspirin (ASPIRIN) 81 Mg Tab.chew, 1 TAB PO DAILY for HH, #30 TAB 3 Refills 02/06/19 Finasteride (FINASTERIDE) 5 Mg Tablet, 1 TAB PO DAILY for BPH, #30 TAB 11 Refills 02/06/19 Cholecalciferol (Vitamin D3) (VITAMIN D) 1,000 Unit Capsule, 1 CAP PO DAILY for supplement, #30 CAP 3 Refills 02/06/19 Thiamine Hcl (THIAMINE HCL) 500 Mg Tablet, 100 MG PO DAILY for supplement, TAB 02/06/19 Folic Acid (FOLIC ACID) 1 Mg Tablet, 1 TAB PO DAILY for Supplement, #90 TAB 1 Refill 02/06/19 Docusate Sodium (COLACE) 100 Mg Capsule, 1 CAP PO BID for Constipation , #30 CAP 02/06/19 Calcium Carbonate (CALCIUM CARBONATE) 500 Mg Tablet, 500 MG PO DAILY for Supplement, TAB 02/06/19 Terazosin Hcl (TERAZOSIN HCL) 10 Mg Capsule, 1 CAP PO HS for BPH, #90 CAP 1 Refill 02/06/19 Atorvastatin Calcium (ATORVASTATIN CALCIUM) 20 Mg Tablet, 1 TAB PO HS for HLD, #30 TAB 5 Refills 02/06/19 Baclofen (BACLOFEN) 10 Mg Tablet, 1 TAB PO TID for muscle spams , #90 TAB 2 Refills 02/06/19 Atorvastatin Calcium (ATORVASTATIN CALCIUM) 20 Mg Tablet, 20 MG PO HS for FOR CHOLESTEROL, #30 TAB 0 Refills 05/06/16 Discontinued Reported Medications Losartan Potassium (LOSARTAN POTASSIUM) 100 Mg Tablet, 100 MG PO DAILY for HYPERTENSION, TAB 02/06/19 Amlodipine Besylate (AMLODIPINE BESYLATE) 5 Mg Tablet, 5 MG PO DAILY for HTN, TAB 02/06/19 Calcium Carbonate (CALCIUM) 500 Mg Tab.chew, 500 MG PO, TAB.CHEW 04/18/17 Docusate Sodium (STOOL SOFTENER) 100 Mg Capsule, 100 MG PO 05/16/16 Thiamine Hcl (THIAMINE HCL) 100 Mg Tablet, 100 MG PO DAILY 05/06/16 Folic Acid (FOLIC ACID) 1 Mg Tablet, 1 MG PO DAILY, TAB 05/06/16 Cholecalciferol (Vitamin D3) (Vitamin D3) 10,000 Unit Tablet, 1000 UNIT PO DAILY 05/06/16 Aspirin (ASPIR 81) 81 Mg Tablet.dr, 81 MG PO DAILY, TAB 05/06/16 Omeprazole (OMEPRAZOLE) 20 Mg Capsule.dr, 20 MG PO DAILY, CAP 02/24/14 Finasteride (FINASTERIDE) 5 Mg Tablet, 5 MG PO DAILY, TAB 02/24/14 Terazosin Hcl (TERAZOSIN HCL) 10 Mg Capsule, 10 MG PO HS, CAP 02/24/14 Losartan Potassium (LOSARTAN POTASSIUM) 100 Mg Tablet, 100 MG PO DAILY, TAB 02/24/14 Amlodipine Besylate (AMLODIPINE BESYLATE) 5 Mg Tablet, 5 MG PO DAILY, TAB 02/24/14 Discontinued Scripts Baclofen (BACLOFEN) 10 Mg Tablet, 10 MG PO TID for muscle spasms for 30 Days, #90 TAB Prov:RADHA MARTELL MD 01/21/19 RADHA MARTELL MD February 08, 2019 14:32
[2019-02-08 15:00] VITALS: BP 137/74
--- NOTE | 2019-02-08 17:03 | NUR ---
Patient will be discharged to [facility] for rehab. Clarified with Dr. Rushing the thiamine dose, 100 mg daily. This nurse called report to Ruthy TORRES of [facility] at 1650.
--- NOTE | 2019-02-08 17:27 | NUR ---
Discharge Note: RUDY BROCK [facility] Discharge instructions and discharge home medications reviewed with Ruthy RN of [facility] and a copy given. All questions have been answered and understanding verbalized. Discontinued lines and drains: peripheral IV intact, patient tolerated removal, no complications noted. patient is awake, alert oriented x4 with stable VS. he was discharged to [facility] via wheelchair accompanied by transport personnel at 1715.
== END 2019-02-08 17:19 | DRG 684 ==
LOC: 6 SOUTH 14:21 → MERGE 14:21
PROVIDERS: ADMIT Family Medicine; ATTEND Family Medicine
DX: N17.9 Acute kidney failure, unspecified (principal); K21.9 Gastro-esophageal reflux disease without esophagitis; I95.9 Hypotension, unspecified; I12.9 Hypertensive chronic kidney disease with stage 1 through stage 4 chronic kidney disease, or unspecified chronic kidney disease; N18.9 Chronic kidney disease, unspecified; E78.5 Hyperlipidemia, unspecified; F17.210 Nicotine dependence, cigarettes, uncomplicated; K59.00 Constipation, unspecified; M48.02 Spinal stenosis, cervical region; W18.39XA Other fall on same level, initial encounter; N40.1 Benign prostatic hyperplasia with lower urinary tract symptoms; Z82.49 Family history of ischemic heart disease and other diseases of the circulatory system; Z86.718 Personal history of other venous thrombosis and embolism; Z83.3 Family history of diabetes mellitus; Y93.89 Activity, other specified; Y92.89 Other specified places as the place of occurrence of the external cause; Y99.8 Other external cause status; Z88.0 Allergy status to penicillin
CPT/HCPCS: 36415; 70450; 80048; 80053; 81001; 85025; 87040; 93005; J7030; 97110; 97530; 97535

== ENCOUNTER 2019-05-19 17:49 | Emergency (ER) | payer BC ==
[~2019-05-19] VITALS: Ht 180.3 cm; Wt 81.6 kg
[~2019-05-19 17:49] MED LIST changes: +ASPI-630 PO; +CALC500T31 PO; +CHOL100013 PO; +DOCU-109 PO; +METO25TA4 PO; +THIA500T PO
[2019-05-19] MEDS ORDERED: IV NORMAL SALINE 1000ML BAG 1,000 ML IV ONE (18:30)
[2019-05-19] MEDS ORDERED: FAMOTIDINE 20 MG/2 ML VIAL IVP ONE (18:30)
[2019-05-19] MEDS ORDERED: ONDANSETRON PF 4 MG/2 ML VIAL. IV ONE (18:30)
[2019-05-19 19:00] LABS: BASO % 1 % (0-3); EOS # 0.2 x10^3/uL (0.0-0.7); EOS % 3 % (0-3); HEMOGLOBIN 12.5 g/dL (13.0-17.5); LYMPH # 1.4 x10^3/uL (1.0-4.8); LYMPH % 23 % (24-48); MEAN CORPUSCULAR HEMOGLOBIN 32 pg (25-35); MEAN CORPUSCULAR HGB CONC 34 g/dL (31-37); MEAN CORPUSCULAR VOLUME 94 fL (79-100); MONO # 0.5 x10^3/uL (0.0-1.1); MONO % 8 % (0-9); NEUT # 3.9 x10^3/uL (1.8-7.7); NEUT % 65 % (31-73); PLATELET COUNT 154 x10^3/uL (140-400); RED BLOOD COUNT 3.95 x10^6/uL (4.30-5.70); RED CELL DISTRIBUTION WIDTH 13.4 % (11.5-14.5)
[2019-05-19 19:09] LABS: CALCIUM 8.8 mg/dL (8.5-10.1); CREATININE 1.8 mg/dL (0.7-1.3); GFR 45.2; POTASSIUM 3.7 mmol/L (3.5-5.1)
[2019-05-19 19:17] LABS: ALBUMIN 3.9 g/dL (3.4-5.0); ALBUMIN/GLOBULIN RATIO 1.3 (1.0-1.7); MAGNESIUM 1.1 mg/dL (1.8-2.4); TOTAL BILIRUBIN 0.4 mg/dL (0.2-1.0); TOTAL PROTEIN 6.9 g/dL (6.4-8.2)
[2019-05-19 19:24] LABS: CREATINE KINASE 50 U/L (39-308)
[2019-05-19 20:48] LABS: BILIRUBIN,URINE NEGATIVE (NEG); CLARITY,URINE CLEAR; COLOR,URINE YELLOW; NITRITE,URINE NEGATIVE (NEG); PH,URINE 6.5; PROTEIN,URINE NEGATIVE (NEG-TRACE)
[2019-05-19 20:55] LABS: BACTERIA,URINE 0 /HPF (0-FEW); HYALINE CASTS, URINE MANY /HPF; RBC,URINE OCC /HPF (0-2); SQUAMOUS EPITHELIAL CELL,UR FEW /LPF
[2019-05-19] MEDS ORDERED: MAGNESIUM SULFATE 2GM 50 ML IV ONE (21:00)
[2019-05-19] MEDS ORDERED: MAGN400C PO (21:09)
--- NOTE | 2019-05-19 21:09 | PHYS DOC ---
Past Medical History Past Medical History: Depression, GERD, Hypertension, Other Additional Past Medical Histor: BPH Past Surgical History: Cervical Fusion, Other Additional Past Surgical Histo: HAND, HERNIA Alcohol Use: None Additional Information: DRANK ONE BEER TODAY - BEFORE VOMITING Drug Use: None Adult General Chief Complaint Chief Complaint: NAUSEA/VOMITING/DIARRHA HPI HPI Patient is a 73 year old [f__sex] who presents with [] Review of Systems Review of Systems Constitutional: Denies fever or chills [] Eyes: Denies change in visual acuity, redness, or eye pain [] HENT: Denies nasal congestion or sore throat [] Respiratory: Denies cough or shortness of breath [] Cardiovascular: No additional information not addressed in HPI [] GI: Denies abdominal pain, nausea, vomiting, bloody stools or diarrhea [] : Denies dysuria or hematuria [] Musculoskeletal: Denies back pain or joint pain [] Integument: Denies rash or skin lesions [] Neurologic: Denies headache, focal weakness or sensory changes [] Endocrine: Denies polyuria or polydipsia [] All other systems were reviewed and found to be within normal limits, except as documented in this note. Current Medications Current Medications Current Medications Medications (Trade) Dose Ordered Sig/Karan Start Time Stop Time Status Last Admin Dose Admin Famotidine (Pepcid Vial) 20 mg 1X ONCE 05/19/19 18:30 05/19/19 18:43 DC 05/19/19 18:48 20 MG Magnesium Sulfate 50 ml @ 50 mls/hr 1X ONCE 05/19/19 21:00 05/19/19 21:58 DC 05/19/19 20:48 50 MLS/HR Ondansetron HCl (Zofran) 4 mg 1X ONCE 05/19/19 18:30 05/19/19 18:44 DC 05/19/19 18:48 4 MG Sodium Chloride 1,000 ml @ 1,000 mls/hr 1X ONCE 05/19/19 18:30 05/19/19 19:29 DC 05/19/19 18:48 1,000 MLS/HR Allergies Allergies Allergies Coded Allergies Type Severity Reaction Last Updated Verified Penicillins Allergy Intermediate 09/09/16 Yes Physical Exam Physical Exam Constitutional: Well developed, well nourished, no acute distress, non-toxic appearance. [] HENT: Normocephalic, atraumatic, bilateral external ears normal, oropharynx moist, no oral exudates, nose normal. [] Eyes: PERRLA, EOMI, conjunctiva normal, no discharge. [] Neck: Normal range of motion, no tenderness, supple, no stridor. [] Cardiovascular:Heart rate regular rhythm, no murmur [] Lungs & Thorax: Bilateral breath sounds clear to auscultation [] Abdomen: Bowel sounds normal, soft, no tenderness, no masses, no pulsatile masses. [] Skin: Warm, dry, no erythema, no rash. [] Back: No tenderness, no CVA tenderness. [] Extremities: No tenderness, no cyanosis, no clubbing, ROM intact, no edema. [] Neurologic: Alert and oriented X 3, normal motor function, normal sensory function, no focal deficits noted. [] Psychologic: Affect normal, judgement normal, mood normal. [] Current Patient Data Vital Signs Vital Signs Date Time Temp Pulse Resp B/P (MAP) Pulse Ox O2 Delivery O2 Flow Rate FiO2 05/19/19 21:57 66 22 110/72 (85) 98 Room Air 05/19/19 17:49 97.8 97.8 Lab Values Laboratory Tests Test 05/19/19 18:50 05/19/19 20:40 White Blood Count 6.0 x10^3/uL (4.0-11.0) Red Blood Count 3.95 x10^6/uL (4.30-5.70) L Hemoglobin 12.5 g/dL (13.0-17.5) L Hematocrit 37.0 % (39.0-53.0) L Mean Corpuscular Volume 94 fL (79-100) Mean Corpuscular Hemoglobin 32 pg (25-35) Mean Corpuscular Hemoglobin Concent 34 g/dL (31-37) Red Cell Distribution Width 13.4 % (11.5-14.5) Platelet Count 154 x10^3/uL (140-400) Neutrophils (%) (Auto) 65 % (31-73) Lymphocytes (%) (Auto) 23 % (24-48) L Monocytes (%) (Auto) 8 % (0-9) Eosinophils (%) (Auto) 3 % (0-3) Basophils (%) (Auto) 1 % (0-3) Neutrophils # (Auto) 3.9 x10^3/uL (1.8-7.7) Lymphocytes # (Auto) 1.4 x10^3/uL (1.0-4.8) Monocytes # (Auto) 0.5 x10^3/uL (0.0-1.1) Eosinophils # (Auto) 0.2 x10^3/uL (0.0-0.7) Basophils # (Auto) 0.0 x10^3/uL (0.0-0.2) Prothrombin Time 14.0 SEC (11.7-14.0) Prothrombin Time INR 1.1 (0.8-1.1) Activated Partial Thromboplast Time 22 SEC (24-38) L Sodium Level 145 mmol/L (136-145) Potassium Level 3.7 mmol/L (3.5-5.1) Chloride Level 107 mmol/L (98-107) Carbon Dioxide Level 22 mmol/L (21-32) Anion Gap 16 (6-14) H Blood Urea Nitrogen 21 mg/dL (8-26) Creatinine 1.8 mg/dL (0.7-1.3) H Estimated GFR (Cockcroft-Gault) 45.2 BUN/Creatinine Ratio 12 (6-20) Glucose Level 119 mg/dL (70-99) H Calcium Level 8.8 mg/dL (8.5-10.1) Magnesium Level 1.1 mg/dL (1.8-2.4) L Total Bilirubin 0.4 mg/dL (0.2-1.0) Aspartate Amino Transferase (AST) 13 U/L (15-37) L Alanine Aminotransferase (ALT) 11 U/L (16-63) L Alkaline Phosphatase 42 U/L (46-116) L Creatine Kinase 50 U/L (39-308) Creatine Kinase MB (Mass) < 0.5 ng/mL (0.0-3.6) Creatine Kinase MB Relative Index % (0-4) Troponin I Quantitative < 0.017 ng/mL (0.000-0.055) Total Protein 6.9 g/dL (6.4-8.2) Albumin 3.9 g/dL (3.4-5.0) Albumin/Globulin Ratio 1.3 (1.0-1.7) Lipase 100 U/L (73-393) Urine Collection Type Unknown Urine Color Yellow Urine Clarity Clear Urine pH 6.5 Urine Specific [place] 1.020 Urine Protein Negative mg/dL (NEG-TRACE) Urine Glucose (UA) 100 mg/dL (NEG) Urine Ketones (Stick) Negative mg/dL (NEG) Urine Blood Negative (NEG) Urine Nitrite Negative (NEG) Urine Bilirubin Negative (NEG) Urine Urobilinogen Dipstick 1.0 mg/dL (0.2 mg/dL) Urine Leukocyte Esterase Trace (NEG) Urine RBC Occ /HPF (0-2) Urine WBC 1-4 /HPF (0-4) Urine Squamous Epithelial Cells Few /LPF Urine Bacteria 0 /HPF (0-FEW) Urine Hyaline Casts Many /HPF Urine Mucus Marked /LPF Laboratory Tests 05/19/19 18:50 Laboratory Tests 05/19/19 18:50 EKG EKG @1838 NSR at 65bpm, NO ST elevation, baseline artifact noted Radiology/Procedures Radiology/Procedures [] Course & Med Decision Making Course & Med Decision Making Pertinent Labs and Imaging studies reviewed. (See chart for details) [] Dragon Disclaimer Dragon Disclaimer This electronic medical record was generated, in whole or in part, using a voice recognition dictation system. Departure Departure Impression: Primary Impression: Nausea & vomiting Additional Impressions: Hypomagnesemia Renal insufficiency Disposition: 01 HOME, SELF-CARE Condition: STABLE Referrals: RADHA MARTELL MD (PCP) Patient Instructions: Hypomagnesemia, Nausea and Vomiting, [id number] Additional Instructions: Please follow closely with your doctor to have your magnesium and renal function rechecked. Scripts Ondansetron (ONDANSETRON ODT) 4 Mg Tab.rapdis 1 TAB PO PRN Q6-8HRS PRN for NAUSEA, #16 TAB Prov: KIMBERLY ZELAYA DO 05/19/19 Magnesium Oxide (MAGNESIUM) 400 Mg Capsule 1 CAP PO DAILY for 10 Days, #10 CAP Prov: KIMBERLY ZELAYA DO 05/19/19 Problem Qualifiers Primary Impression: Nausea & vomiting Vomiting type: unspecified Vomiting Intractability: non-intractable Qu alified Codes: R11.2 - Nausea with vomiting, unspecified KIMBERLY ZELAYA DO May 19, 2019 21:09
[2019-05-19] MEDS ORDERED: ONDA4TAB12 PO (21:11)
[2019-05-19 21:57] VITALS: BP 110/72
--- NOTE | 2019-05-21 06:34 | EKG ---
[facility] [address] [place] [address] Test Date: 2019-05-19 Test Time: 18:38:01 Pat Name: JULIAN BROCK Department: Room: Gender: M Manager Of Financial: : 1945 Requested By: KIMBERLY ZELAYA Order Number: [id number] Reading MD: Measurements Intervals [place] Rate: 65 P: 26 AR: 152 QRS: -3 QRSD: 80 T: 38 QT: 400 QTc: 421 Interpretive Statements SINUS RHYTHM LEFT ATRIAL ABNORMALITY LEFTWARD AXIS QRS(T) CONTOUR ABNORMALITY CONSIDER INFERIOR MYOCARDIAL DAMAGE ABNORMAL ECG RI6.01 No previous ECG available for comparison
== END 2019-05-19 21:58 | disposition home or self-care (01) ==
LOC: ER 17:49
DX: R11.2 Nausea with vomiting, unspecified (principal); E83.42 Hypomagnesemia; N28.9 Disorder of kidney and ureter, unspecified; I10 Essential (primary) hypertension; K21.9 Gastro-esophageal reflux disease without esophagitis; Z98.890 Other specified postprocedural states; Z88.0 Allergy status to penicillin
CPT/HCPCS: 36415; 80053; 81001; 82553; 83690; 83735; 84484; 85025; 85610; 85730; 87086; 93005; 96361; 96365; 96375; 99285; J2405; J3475; J3490; J7030

== ENCOUNTER → 2019-05-23 | Outpatient (CLI) | payer BC ==
[2019-05-19 21:57] VITALS: BP 110/72
[~2019-05-23] MED LIST changes: +DOXY100T PO; +MAGN400C PO; +ONDA4TAB12 PO
--- NOTE | 2019-05-23 15:33 | CARD ---
MR#: [id number] Date of Study: 05/23/2019 Ordering Physician: LING FERRIS, Referring Physician: LING FERRIS Tech: Sindi Warren RDCS APPROVED REPORT EXAM: Two-dimensional and M-mode echocardiogram with Doppler and color Doppler. Other Information Quality : Fair INDICATION Chest Pain 2D DIMENSIONS RVDd2.4 (2.9-3.5cm)Left Atrium(2D)2.7 (1.6-4.0cm) IVSd1.0 (0.7-1.1cm)Aortic Root(2D)2.9 (2.0-3.7cm) LVDd3.7 (3.9-5.9cm)LVOT Diameter2.2 (1.8-2.4cm) PWd1.0 (0.7-1.1cm)LVDs2.3 (2.5-4.0cm) FS (%) 30.0 %SV20.6 ml LVEF(%)60.0 (>50%) Aortic Valve AoV Peak Peter.90.4cm/sAoV VTI12.5cm AO Peak GR.3.3mmHgLVOT Peak Peter.73.8cm/s LVOT VTI 18.34cmAO Mean GR.2mmHg ASHIA (VMAX)3.18sl3EVA (VTI)5.60cm2 Mitral Valve MV E Axjicfff76.0cm/sMV DECEL [id number] MV A Hyeconul58.6cm/sMV [id number] E/A Ratio0.5MVA (PHT)1.62cm2 TDI E/Lateral E'7.9E/Medial E'10.6 Tricuspid Valve TR P. Fsmodkec262ut/sRAP [id number] TR Peak Gr.46trVdRBTQ36gpMn Pulmonary Vein S1 Mdzscdbx42.4cm/sD2 Cejqyzso92.1cm/s LEFT VENTRICLE The left ventricle is normal size. There is normal left ventricular wall thickness. The left ventricu lar systolic function is normal and the ejection fraction is within normal range. The Ejection Fracti on is 55-60%. There is normal LV segmental wall motion. Transmitral Doppler flow pattern is Grade I-a bnormal relaxation pattern. RIGHT VENTRICLE The right ventricle is normal size. The right ventricular systolic function is normal. ATRIA The left atrium size is normal. The right atrium size is normal. The interatrial septum is intact wit h no evidence for an atrial septal defect or patent foramen ovale as noted on 2-D or Doppler imaging. AORTIC VALVE The aortic valve is calcified but opens well. Doppler and Color Flow revealed no significant aortic r egurgitation. There is no significant aortic valvular stenosis. MITRAL VALVE The mitral valve is calcified but opens well. Mitral annular calcification is mild. There is no evide nce of mitral valve prolapse. There is no mitral valve stenosis. Doppler and Color-flow revealed trac e mitral regurgitation. TRICUSPID VALVE The tricuspid valve is normal in structure and function. Doppler and Color Flow revealed trace tricus pid regurgitation. The PA pressure was estimated at 26 mmHg. There is no tricuspid valve stenosis. PULMONIC VALVE The pulmonic valve is not well visualized. Doppler and Color Flow revealed no pulmonic valvular regur gitation. There is no pulmonic valvular stenosis. GREAT VESSELS The aortic root is normal in size. The ascending aorta is normal in size. The IVC is normal in size a nd collapses >50% with inspiration. PERICARDIAL EFFUSION There is no evidence of significant pericardial effusion. Critical Notification Critical Value: No <Conclusion> The left ventricle is normal size. The left ventricular systolic function is normal and the ejection fraction is within normal range. The Ejection Fraction is 55-60%. There is no significant aortic valvular stenosis. Doppler and Color Flow revealed no significant aortic regurgitation. Doppler and Color-flow revealed trace mitral regurgitation. Doppler and Color Flow revealed trace tricuspid regurgitation. The PA pressure was estimated at 26 mmHg. Signed by : Warner Chen MD Electronically Approved : 05/23/2019 15:33:15
== END | disposition home or self-care (01) ==
LOC: MERGE 13:00 → UNMERGE 13:00 → ECHO 13:28
PROVIDERS: ATTEND Internal Medicine Cardiovascular Disease
DX: I08.0 Rheumatic disorders of both mitral and aortic valves (principal)
CPT/HCPCS: 93306

== ENCOUNTER 2019-05-25 12:08 | Emergency (ER) | payer BC ==
[~2019-05-25] VITALS: Ht 180.3 cm; Wt 81.6 kg
[~2019-05-25 12:08] MED LIST changes: -DOXY100T PO
--- NOTE | 2019-05-25 13:45 | PHYS DOC ---
Past Medical History Past Medical History: Depression, GERD, Hypertension, Other Additional Past Medical Histor: BPH Past Surgical History: Cervical Fusion, Other Additional Past Surgical Histo: HAND, HERNIA Alcohol Use: None Drug Use: None Adult General Chief Complaint Chief Complaint: URINARY RETENTION HPI HPI Patient is a 73 year old male presented to ER today for evaluation of decreased urination, dripping at the end of the stream since yesterday. Patient has urinated prior to arrival here. Patient denied any fever, no pelvic pain, no abdominal pain. He has history of PROSTRATE ENLARGEMENT. Review of Systems Review of Systems Constitutional: Denies fever or chills [] Eyes: Denies change in visual acuity, redness, or eye pain [] HENT: Denies nasal congestion or sore throat [] Respiratory: Denies cough or shortness of breath [] Cardiovascular: No additional information not addressed in HPI [] GI: Denies abdominal pain, nausea, vomiting, bloody stools or diarrhea [] : Denies dysuria or hematuria, DECREASED URINATING WITH DRIPPING AT THE END OF THE STREAM, Musculoskeletal: Denies back pain or joint pain [] Integument: Denies rash or skin lesions [] Neurologic: Denies headache, focal weakness or sensory changes [] Endocrine: Denies polyuria or polydipsia [] All other systems were reviewed and found to be within normal limits, except as documented in this note. Allergies Allergies Allergies Coded Allergies Type Severity Reaction Last Updated Verified Penicillins Allergy Intermediate 09/09/16 Yes Physical Exam Physical Exam Constitutional: Well developed, well nourished, no acute distress, non-toxic appearance. [] HENT: Normocephalic, atraumatic, bilateral external ears normal, oropharynx moist, no oral exudates, nose normal. [] Eyes: PERRLA, EOMI, conjunctiva normal, no discharge. [] Neck: Normal range of motion, no tenderness, supple, no stridor. [] Cardiovascular:Heart rate regular rhythm, no murmur [] Lungs & Thorax: Bilateral breath sounds clear to auscultation [] Abdomen: Bowel sounds normal, soft, no tenderness, no masses, no pulsatile masses. [] Skin: Warm, dry, no erythema, no rash. [] Back: No tenderness, no CVA tenderness. [] Extremities: No tenderness, no cyanosis, no clubbing, ROM intact, no edema. [] Neurologic: Alert and oriented X 3, normal motor function, normal sensory function, no focal deficits noted. [] Psychologic: Affect normal, judgement normal, mood normal. [] : NORMAL CIRCUMZISED PENIS, NO DISCHARGE, NO SWELLING, NO RASH. Current Patient Data Vital Signs Vital Signs Date Time Temp Pulse Resp B/P (MAP) Pulse Ox O2 Delivery O2 Flow Rate FiO2 05/25/19 12:31 98.6 88 16 123/84 (97) 98 Room Air 98.6 Lab Values Laboratory Tests Test 05/25/19 13:59 Urine Collection Type Unknown Urine Color Yellow Urine Clarity Cloudy Urine pH 7.5 Urine Specific [place] 1.015 Urine Protein Negative mg/dL (NEG-TRACE) Urine Glucose (UA) Negative mg/dL (NEG) Urine Ketones (Stick) Negative mg/dL (NEG) Urine Blood Negative (NEG) Urine Nitrite Negative (NEG) Urine Bilirubin Negative (NEG) Urine Urobilinogen Dipstick 1.0 mg/dL (0.2 mg/dL) Urine Leukocyte Esterase Moderate (NEG) Urine RBC 0 /HPF (0-2) Urine WBC 5-10 /HPF (0-4) Urine Amorphous Sediment Present /HPF Urine Bacteria Moderate /HPF (0-FEW) EKG EKG [] Radiology/Procedures Radiology/Procedures [] Course & Med Decision Making Course & Med Decision Making Pertinent Labs and Imaging studies reviewed. (See chart for details) [] Dragon Disclaimer Dragon Disclaimer This electronic medical record was generated, in whole or in part, using a voice recognition dictation system. Departure Departure Impression: Primary Impression: UTI (urinary tract infection) Disposition: 01 HOME, SELF-CARE Condition: STABLE Referrals: RADHA MARTELL MD (PCP) follow up with your family doctor next week. Patient Instructions: Urinary Tract Infection Scripts Doxycycline Hyclate (DOXYCYCLINE HYCLATE) 100 Mg Tablet 1 TAB PO BID, #20 TAB Prov: ERIC BRIZUELA DO 05/25/19 ERIC BRIZUELA DO May 25, 2019 13:45
[2019-05-25 14:05] LABS: BILIRUBIN,URINE NEGATIVE (NEG); CLARITY,URINE CLOUDY; COLOR,URINE YELLOW; NITRITE,URINE NEGATIVE (NEG); PH,URINE 7.5; PROTEIN,URINE NEGATIVE (NEG-TRACE)
[2019-05-25 14:14] LABS: BACTERIA,URINE MODERATE /HPF (0-FEW); RBC,URINE 0 /HPF (0-2)
[2019-05-25 14:15] LABS: AMORPHOUS SEDIMENT,UR PRESENT /HPF
[2019-05-25] MEDS ORDERED: DOXY100T PO (14:23)
[2019-05-25 14:30] VITALS: BP 141/80
== END 2019-05-25 15:08 | disposition home or self-care (01) ==
LOC: ER 12:08
DX: N39.0 Urinary tract infection, site not specified (principal); F32.9 Major depressive disorder, single episode, unspecified; K21.9 Gastro-esophageal reflux disease without esophagitis; I10 Essential (primary) hypertension; Z88.0 Allergy status to penicillin
CPT/HCPCS: 81001; 87086; 99284

== ENCOUNTER 2019-06-10 13:20 | Inpatient (IN) | payer BC ==
[~2019-06-10] VITALS: Ht 180.3 cm; Wt 75.9 kg
[~2019-06-10 13:20] MED LIST changes: +DOXY100T PO
--- NOTE | 2019-06-10 13:51 | PHYS DOC ---
Past Medical History Past Medical History: Depression, GERD, Hypertension, Other Additional Past Medical Histor: BPH Past Surgical History: Cervical Fusion, Other Additional Past Surgical Histo: HAND, HERNIA Alcohol Use: None Drug Use: None Adult General Chief Complaint Chief Complaint: PAIN ON URINATION [facility] HPI Patient is a 73 year old [male] who presents with [urinary dripping and lower back pain. Patient reports for the past several weeks, he has not been able to urinate completely. Reports he frequently has a strong stream for one to two seconds, and then just dripping and leaking. Reports this has been going on bad like this for the past week or so. Reports he has had several issues in the past for this and has had a catheter placed multiple times, reports last catheter was in December 2018. States he seems to do fine for 3-4 months after he has had a catheter but shortly afterwards he has urinary problems again. Reports he does follow a urologist, as his next appointment in June. States he does have some lower back pain, which is had frequently for years. States he thinks his abdomen is a little more swollen usual. Reports last bowel movement this mor ken. Also reports his urine has been darker than usual over the last month or so. Does report he has had problems with his prostate, has been taking his medications] Review of Systems Review of Systems Constitutional: Denies fever or chills [] Respiratory: Denies cough or shortness of breath [] Cardiovascular: No additional information not addressed in [facility] [] GI: Denies abdominal pain, nausea, vomiting, bloody stools or diarrhea [] : Reports inability to urinate completely, reports only a small amount of urine is coming out each time, and has a lot of drooling with his urination. Does report he has some burning when he urinates.[] Musculoskeletal: Denies back pain or joint pain [] All other systems were reviewed and found to be within normal limits, except as documented in this note. Allergies Allergies Allergies Coded Allergies Type Severity Reaction Last Updated Verified Penicillins Allergy Intermediate 09/09/16 Yes Physical Exam Physical Exam Constitutional: Well developed, well nourished, no acute distress, non-toxic appearance. [] Eyes: PERRLA, EOMI, conjunctiva normal, no discharge. [] Neck: Normal range of motion, no tenderness, supple, no stridor. [] Cardiovascular:Heart rate regular rhythm, no murmur [] Lungs & Thorax: Bilateral breath sounds clear to auscultation [] Abdomen: Bowel sounds normal, soft, no tenderness, no masses, no pulsatile masses. [] Skin: Warm, dry, no erythema, no rash. [] Back: No tenderness, no CVA tenderness. [] Extremities: No tenderness, no cyanosis, no clubbing, ROM intact, no edema. [] Neurologic: Alert and oriented X 3, normal motor function, normal sensory function, no focal deficits noted. [] Psychologic: Affect normal, judgement normal, mood normal. [] Current Patient Data Vital Signs Vital Signs Date Time Temp Pulse Resp B/P (MAP) Pulse Ox O2 Delivery O2 Flow Rate FiO2 06/10/19 15:14 67 148/84 (105) 06/10/19 14:44 90 06/10/19 13:28 Room Air 06/10/19 13:22 98.1 16 98.1 Lab Values Laboratory Tests Test 06/10/19 14:20 06/10/19 15:45 White Blood Count 7.7 x10^3/uL (4.0-11.0) Red Blood Count 4.60 x10^6/uL (4.30-5.70) Hemoglobin 14.3 g/dL (13.0-17.5) Hematocrit 42.4 % (39.0-53.0) Mean Corpuscular Volume 92 fL (79-100) Mean Corpuscular Hemoglobin 31 pg (25-35) Mean Corpuscular Hemoglobin Concent 34 g/dL (31-37) Red Cell Distribution Width 13.0 % (11.5-14.5) Platelet Count 199 x10^3/uL (140-400) Neutrophils (%) (Auto) 69 % (31-73) Lymphocytes (%) (Auto) 18 % (24-48) L Monocytes (%) (Auto) 11 % (0-9) H Eosinophils (%) (Auto) 1 % (0-3) Basophils (%) (Auto) 1 % (0-3) Neutrophils # (Auto) 5.4 x10^3/uL (1.8-7.7) Lymphocytes # (Auto) 1.4 x10^3/uL (1.0-4.8) Monocytes # (Auto) 0.8 x10^3/uL (0.0-1.1) Eosinophils # (Auto) 0.1 x10^3/uL (0.0-0.7) Basophils # (Auto) 0.1 x10^3/uL (0.0-0.2) Sodium Level 141 mmol/L (136-145) Potassium Level 3.8 mmol/L (3.5-5.1) Chloride Level 104 mmol/L (98-107) Carbon Dioxide Level 29 mmol/L (21-32) Anion Gap 8 (6-14) Blood Urea Nitrogen 25 mg/dL (8-26) Creatinine 1.9 mg/dL (0.7-1.3) H Estimated GFR (Cockcroft-Gault) 42.5 BUN/Creatinine Ratio 13 (6-20) Glucose Level 115 mg/dL (70-99) H Calcium Level 10.6 mg/dL (8.5-10.1) H Total Bilirubin 0.6 mg/dL (0.2-1.0) Aspartate Amino Transferase (AST) 16 U/L (15-37) Alanine Aminotransferase (ALT) 15 U/L (16-63) L Alkaline Phosphatase 54 U/L (46-116) Total Protein 8.0 g/dL (6.4-8.2) Albumin 4.3 g/dL (3.4-5.0) Albumin/Globulin Ratio 1.2 (1.0-1.7) Urine Collection Type Unknown Urine Color Dk yellow Urine Clarity Turbid Urine pH 7.5 Urine Specific [place] 1.025 Urine Protein 30 mg/dL (NEG-TRACE) Urine Glucose (UA) 100 mg/dL (NEG) Urine Ketones (Stick) Trace mg/dL (NEG) Urine Blood Negative (NEG) Urine Nitrite Negative (NEG) Urine Bilirubin Small (NEG) Urine Urobilinogen Dipstick 0.2 mg/dL (0.2 mg/dL) Urine Leukocyte Esterase Small (NEG) Urine RBC 0 /HPF (0-2) Urine WBC 1-4 /HPF (0-4) Urine Squamous Epithelial Cells Many /LPF Urine Bacteria Few /HPF (0-FEW) Urine Hyaline Casts Moderate /HPF Urine Mucus Marked /LPF Laboratory Tests 06/10/19 14:20 Laboratory Tests 06/10/19 14:20 EKG EKG [] Radiology/Procedures Radiology/Procedures [] Course & Med Decision Making Course & Med Decision Making Pertinent Labs and Imaging studies reviewed. (See chart for details) [On Bladder scan, <100 ml urine noted. Patient only able to urinate small amount of concentrated urine. Patient does report he had completed his antibiotics he had been given 2 weeks ago for his UTI. States he continues to have a little discomfort when he urinates. Discussed findings with patient Discussed admission with Dr jerry, agrees to admit observation, will fluid hydrate and attempt to improve renal function.] Dragon Disclaimer Dragon Disclaimer This electronic medical record was generated, in whole or in part, using a voice recognition dictation system. Departure Departure Impression: Primary Impression: Acute on chronic kidney failure Additional Impression: Urinary retention Disposition: ADMITTED INPATIENT Admitting Physician: AGUS Condition: STABLE Referrals: RADHA MARTELL MD (PCP) Problem Qualifiers Primary Impression: Acute on chronic kidney failure Acute renal failure type: unspecified Chronic kidney disease stage: unspecified stage Qualified Codes: N17.9 - Acute kidney failure, unspecified; N18.9 - Chronic kidney disease, unspecified MARLON BRAMBILA DIRECTOR OF EVENT MANAGEMENT Jun 10, 2019 13:51
[2019-06-10 14:31] LABS: BASO # 0.1 x10^3/uL (0.0-0.2); BASO % 1 % (0-3); EOS # 0.1 x10^3/uL (0.0-0.7); EOS % 1 % (0-3); HEMATOCRIT 42.4 % (39.0-53.0); HEMOGLOBIN 14.3 g/dL (13.0-17.5); LYMPH # 1.4 x10^3/uL (1.0-4.8); LYMPH % 18 % (24-48); MEAN CORPUSCULAR HEMOGLOBIN 31 pg (25-35); MEAN CORPUSCULAR HGB CONC 34 g/dL (31-37); MEAN CORPUSCULAR VOLUME 92 fL (79-100); MONO # 0.8 x10^3/uL (0.0-1.1); MONO % 11 % (0-9); NEUT # 5.4 x10^3/uL (1.8-7.7); NEUT % 69 % (31-73); PLATELET COUNT 199 x10^3/uL (140-400); WHITE BLOOD COUNT 7.7 x10^3/uL (4.0-11.0)
[2019-06-10 14:42] LABS: CALCIUM 10.6 mg/dL (8.5-10.1); CREATININE 1.9 mg/dL (0.7-1.3); GFR 42.5; POTASSIUM 3.8 mmol/L (3.5-5.1)
[2019-06-10 14:48] LABS: ALBUMIN 4.3 g/dL (3.4-5.0); ALBUMIN/GLOBULIN RATIO 1.2 (1.0-1.7); TOTAL BILIRUBIN 0.6 mg/dL (0.2-1.0)
[2019-06-10 15:56] LABS: BILIRUBIN,URINE SMALL (NEG); CLARITY,URINE TURBID; NITRITE,URINE NEGATIVE (NEG); PH,URINE 7.5; PROTEIN,URINE 30 mg/dL (NEG-TRACE); UROBILINOGEN,URINE 0.2 mg/dL (0.2 mg/dL)
[2019-06-10 16:04] LABS: COLOR,URINE DK YELLOW
[2019-06-10 16:07] LABS: BACTERIA,URINE FEW /HPF (0-FEW); RBC,URINE 0 /HPF (0-2); SQUAMOUS EPITHELIAL CELL,UR MANY /LPF
[2019-06-10 16:08] LABS: HYALINE CASTS, URINE MODERATE /HPF
[2019-06-10] MEDS ORDERED: MORPHINE SULFATE 2 MG/ML VIAL. IV PRN (16:30)
[2019-06-10] MEDS ORDERED: ONDANSETRON PF 4 MG/2 ML VIAL. IV PRN (16:30)
[2019-06-10] MEDS: IV NORMAL SALINE 1000ML BAG 1,000 ML IV SCH ×2 (16:40→17:17)
[2019-06-10] MEDS ORDERED: FLU VAX QS 2019-20 (36MOS+)/PF 0.5 ML SYRINGE. VAX IM ONE (18:15)
[2019-06-10 19:00] VITALS: BP 124/80
--- NOTE | 2019-06-10 21:17 | PDOC1 ---
History and Physical Date of Admission Date of Admission DATE: 06/10/19 TIME: 21:16 Source Source: Chart review, Patient History of Present Illness History of Present Illness Mr. Brand, is a 73 year old admit with inability to void completely. He has only small amout of urine when he tries to void, and he has long history of BPH, no known cancer, he cannot recall his outpatient URO team. Patient reports for the past several weeks, he has not been able to urinate completely. Reports he frequently has a strong stream for one to two seconds, and then just dripping and leaking. Recently has had a catheter placed multiple times, reports last catheter was in December 2018. he feels like he has problems every few months. . States he does have some lower back pain, which is had frequently for years, Dr. Toure has helped before. Also reports his urine has been darker than usual over the last month or so. D Past Medical History Cardiovascular: HTN Pulmonary: No pertinent hx Heme/Onc: No pertinent hx Hepatobiliary: No pertinent hx Psych: No pertinent hx Rheumatologic: No pertinent hx Infectious disease: No pertinent hx Renal/: Benign prostatic enlarg. Endocrine: No pertinent hx Past Surgical History Past Surgical History: Hernia Repair Family History Family History: Coronary Artery Disease, Diabetes Family History: Parent Social History Smoke: No ALCOHOL: rare Drugs: None Current Problem List Problem List Problems Medical Problems: (1) Acute on chronic kidney failure Status: Acute (2) Urinary retention Status: Acute Current Medications Current Medications Current Medications Ondansetron HCl (Zofran) 4 mg PRN Q8HRS PRN IV NAUSEA/VOMITING; Start 06/10/19 at 16:30; Stop 06/11/19 at 16:29 Morphine Sulfate (Morphine Sulfate) 2 mg PRN Q2HR PRN IV PAIN; Start 06/10/19 at 16:30; Stop 06/11/19 at 16:29 Sodium Chloride 1,000 ml @ 150 mls/hr Q6H40M IV Last administered on 06/10/19at 17:17; Start 06/10/19 at 16:21; Stop 06/11/19 at 16:20 Influenza Virus Vaccine Quadrival (Afluria Quad 2019-20 (3yr Up) Syringe) 0.5 ml ONCE ONCE VAX IM Last administered on 06/10/19at 20:28; Start 06/10/19 at 18:15; Stop 06/10/19 at 18:18; Status DC Active Scripts Active Magnesium (Magnesium Oxide) 400 Mg Capsule 1 Cap PO DAILY 10 Days Metoprolol Tartrate 25 Mg Tablet 1 Tab PO BID Reported Omeprazole 20 Mg Capsule.dr 1 Cap PO DAILY Aspirin 81 Mg Tab.chew 1 Tab PO DAILY Finasteride 5 Mg Tablet 1 Tab PO DAILY Vitamin D (Cholecalciferol (Vitamin D3)) 1,000 Unit Capsule 1 Cap PO DAILY Thiamine Hcl 500 Mg Tablet 100 Mg PO DAILY Folic Acid 1 Mg Tablet 1 Tab PO DAILY Colace (Docusate Sodium) 100 Mg Capsule 1 Cap PO BID Calcium Carbonate 500 Mg Tablet 500 Mg PO DAILY Terazosin Hcl 10 Mg Capsule 1 Cap PO HS Baclofen 10 Mg Tablet 1 Tab PO TID Atorvastatin Calcium 20 Mg Tablet 20 Mg PO HS Allergies Allergies: Coded Allergies: Penicillins (Verified Allergy, Intermediate, 09/09/16) ROS General: YES: Fatigue, Malaise PSYCHOLOGICAL ROS: YES: Sleep disturbances; No: Anxiety, Behavioral Disorder, Concentration difficultie, Decreased libido, Depression, Disorientation, Hallucinations, Hostility, Irritablity, Memory difficulties, Mood Swings, Obsessive thoughts, Other Cardiovascular: No Chest Pain, No Palpitations, No Orthopnea, No Paroxysmal Noc. Dyspnea, No Edema, No Lt Headedness, No Other Gastrointestinal: Yes Nausea; No Vomiting, No Abdominal Pain, No Diarrhea, No Constipation, No Melena, No Hematochezia, No Other Genitourinary: YES Frequency, YES Retention, YES Pain, YES Other Musculoskeletal: Yes Joint Stiffness, Yes Pain In: (back), Yes Other; No Gait Disturbance, No Joint Pain, No Joint Swelling, No Muscle Pain, No Muscular Weakness, No Swelling In: Neurological: No Behavorial Changes, No Bowel/Bladder ControlChng, No Confusion, No Dizziness, No Gait Disturbance, No Headaches, No Impaired Coord/balance, No Memory Loss, No Numbness/Tingling, No Seizures, No Speech Problems, No Tremors, No Visual Changes, No Weakness, No Other Skin: No Dry Skin, No Eczema, No Hair Changes, No Lumps, No Mole Changes, No Mottling, No Nail Changes, No Pruritus, No Rash, No Skin Lesion Changes, No Other, No Acne Physical Exam General: Alert, Oriented X3, Cooperative, mild distress HEENT: PERRLA, Mucous membr. moist/pink Lungs: Clear to auscultation, Normal air movement Heart: no gallops, no murmurs Abdomen: Normal bowel sounds, Soft Extremities: No clubbing, No edema Skin: No rashes Neuro: Normal speech, Normal tone, Sensation intact, Cranial nerves 3-12 NL Psych/Mental Status: Mental status NL, Mood NL Vitals Vitals Vital Signs Date Time Temp Pulse Resp B/P (MAP) Pulse Ox O2 Delivery O2 Flow Rate FiO2 06/10/19 19:00 97.7 72 18 124/80 (95) 98 Room Air 97.7 Labs Labs Laboratory Tests Test 06/10/19 14:20 06/10/19 15:45 06/10/19 20:20 White Blood Count 7.7 x10^3/uL (4.0-11.0) Red Blood Count 4.60 x10^6/uL (4.30-5.70) Hemoglobin 14.3 g/dL (13.0-17.5) Hematocrit 42.4 % (39.0-53.0) Mean Corpuscular Volume 92 fL (79-100) Mean Corpuscular Hemoglobin 31 pg (25-35) Mean Corpuscular Hemoglobin Concent 34 g/dL (31-37) Red Cell Distribution Width 13.0 % (11.5-14.5) Platelet Count 199 x10^3/uL (140-400) Neutrophils (%) (Auto) 69 % (31-73) Lymphocytes (%) (Auto) 18 % (24-48) Monocytes (%) (Auto) 11 % (0-9) Eosinophils (%) (Auto) 1 % (0-3) Basophils (%) (Auto) 1 % (0-3) Neutrophils # (Auto) 5.4 x10^3/uL (1.8-7.7) Lymphocytes # (Auto) 1.4 x10^3/uL (1.0-4.8) Monocytes # (Auto) 0.8 x10^3/uL (0.0-1.1) Eosinophils # (Auto) 0.1 x10^3/uL (0.0-0.7) Basophils # (Auto) 0.1 x10^3/uL (0.0-0.2) Sodium Level 141 mmol/L (136-145) Potassium Level 3.8 mmol/L (3.5-5.1) Chloride Level 104 mmol/L (98-107) Carbon Dioxide Level 29 mmol/L (21-32) Anion Gap 8 (6-14) Blood Urea Nitrogen 25 mg/dL (8-26) Creatinine 1.9 mg/dL (0.7-1.3) Estimated GFR (Cockcroft-Gault) 42.5 BUN/Creatinine Ratio 13 (6-20) Glucose Level 115 mg/dL (70-99) Calcium Level 10.6 mg/dL (8.5-10.1) Total Bilirubin 0.6 mg/dL (0.2-1.0) Aspartate Amino Transf (AST/SGOT) 16 U/L (15-37) Alanine Aminotransferase (ALT/SGPT) 15 U/L (16-63) Alkaline Phosphatase 54 U/L (46-116) Total Protein 8.0 g/dL (6.4-8.2) Albumin 4.3 g/dL (3.4-5.0) Albumin/Globulin Ratio 1.2 (1.0-1.7) Urine Collection Type Unknown Urine Color Dk yellow Urine Clarity Turbid Urine pH 7.5 Urine Specific [place] 1.025 Urine Protein 30 mg/dL (NEG-TRACE) Urine Glucose (UA) 100 mg/dL (NEG) Urine Ketones (Stick) Trace mg/dL (NEG) Urine Blood Negative (NEG) Urine Nitrite Negative (NEG) Urine Bilirubin Small (NEG) Urine Urobilinogen Dipstick 0.2 mg/dL (0.2 mg/dL) Urine Leukocyte Esterase Small (NEG) Urine RBC 0 /HPF (0-2) Urine WBC 1-4 /HPF (0-4) Urine Squamous Epithelial Cells Many /LPF Urine Bacteria Few /HPF (0-FEW) Urine Hyaline Casts Moderate /HPF Urine Mucus Marked /LPF Glucose (Fingerstick) 109 mg/dL (70-99) Laboratory Tests Test 06/10/19 14:20 06/10/19 15:45 06/10/19 20:20 White Blood Count 7.7 x10^3/uL (4.0-11.0) Red Blood Count 4.60 x10^6/uL (4.30-5.70) Hemoglobin 14.3 g/dL (13.0-17.5) Hematocrit 42.4 % (39.0-53.0) Mean Corpuscular Volume 92 fL (79-100) Mean Corpuscular Hemoglobin 31 pg (25-35) Mean Corpuscular Hemoglobin Concent 34 g/dL (31-37) Red Cell Distribution Width 13.0 % (11.5-14.5) Platelet Count 199 x10^3/uL (140-400) Neutrophils (%) (Auto) 69 % (31-73) Lymphocytes (%) (Auto) 18 % (24-48) Monocytes (%) (Auto) 11 % (0-9) Eosinophils (%) (Auto) 1 % (0-3) Basophils (%) (Auto) 1 % (0-3) Neutrophils # (Auto) 5.4 x10^3/uL (1.8-7.7) Lymphocytes # (Auto) 1.4 x10^3/uL (1.0-4.8) Monocytes # (Auto) 0.8 x10^3/uL (0.0-1.1) Eosinophils # (Auto) 0.1 x10^3/uL (0.0-0.7) Basophils # (Auto) 0.1 x10^3/uL (0.0-0.2) Sodium Level 141 mmol/L (136-145) Potassium Level 3.8 mmol/L (3.5-5.1) Chloride Level 104 mmol/L (98-107) Carbon Dioxide Level 29 mmol/L (21-32) Anion Gap 8 (6-14) Blood Urea Nitrogen 25 mg/dL (8-26) Creatinine 1.9 mg/dL (0.7-1.3) Estimated GFR (Cockcroft-Gault) 42.5 BUN/Creatinine Ratio 13 (6-20) Glucose Level 115 mg/dL (70-99) Calcium Level 10.6 mg/dL (8.5-10.1) Total Bilirubin 0.6 mg/dL (0.2-1.0) Aspartate Amino Transf (AST/SGOT) 16 U/L (15-37) Alanine Aminotransferase (ALT/SGPT) 15 U/L (16-63) Alkaline Phosphatase 54 U/L (46-116) Total Protein 8.0 g/dL (6.4-8.2) Albumin 4.3 g/dL (3.4-5.0) Albumin/Globulin Ratio 1.2 (1.0-1.7) Urine Collection Type Unknown Urine Color Dk yellow Urine Clarity Turbid Urine pH 7.5 Urine Specific [place] 1.025 Urine Protein 30 mg/dL (NEG-TRACE) Urine Glucose (UA) 100 mg/dL (NEG) Urine Ketones (Stick) Trace mg/dL (NEG) Urine Blood Negative (NEG) Urine Nitrite Negative (NEG) Urine Bilirubin Small (NEG) Urine Urobilinogen Dipstick 0.2 mg/dL (0.2 mg/dL) Urine Leukocyte Esterase Small (NEG) Urine RBC 0 /HPF (0-2) Urine WBC 1-4 /HPF (0-4) Urine Squamous Epithelial Cells Many /LPF Urine Bacteria Few /HPF (0-FEW) Urine Hyaline Casts Moderate /HPF Urine Mucus Marked /LPF Glucose (Fingerstick) 109 mg/dL (70-99) VTE Prophylaxis Ordered VTE Prophylaxis Devices: No VTE Pharmacological Prophylaxi: Yes Assessment/Plan Assessment/Plan acute obstructive uropathy bladder scan protocol, ISC PRN, consult uro acute on CKD 2 or 3 back pain, lidoderm, flexeril, consult Dr. Toure, he has seen before. MEKA WARE MD Jun 10, 2019 21:17
[2019-06-10] MEDS ORDERED: CYCLOBENZAPRINE 10 MG TABLET. PO ONE (21:30)
[2019-06-10] MEDS: LIDOCAINE (700MG/PATCH) PATCH. TD SCH (22:21)
[2019-06-10 22:42] VITALS: BP 147/81
--- NOTE | 2019-06-10 22:52 | RAD ---
Single view abdomen dated 06/10/2019. No comparison available. Clinical data indication: Abdominal pain. Constipation. FINDINGS: Single supine portable exam performed. Nondilated gas-filled loops of bowel throughout. No abnormal calcification. Some mild gaseous distention of the stomach. No significant stool within the colon. IMPRESSION: Nonobstructive bowel gas pattern. Electronically signed by: Elmer Isidro MD (06/10/2019 10:49 PM) [id number]
[2019-06-11 02:47] VITALS: BP 131/76
[2019-06-11 05:04] LABS: BASO # 0.1 x10^3/uL (0.0-0.2); BASO % 1 % (0-3); EOS # 0.2 x10^3/uL (0.0-0.7); EOS % 2 % (0-3); HEMATOCRIT 36.8 % (39.0-53.0); HEMOGLOBIN 12.6 g/dL (13.0-17.5); LYMPH # 1.7 x10^3/uL (1.0-4.8); LYMPH % 24 % (24-48); MEAN CORPUSCULAR HEMOGLOBIN 31 pg (25-35); MEAN CORPUSCULAR HGB CONC 34 g/dL (31-37); MEAN CORPUSCULAR VOLUME 92 fL (79-100); MONO # 0.9 x10^3/uL (0.0-1.1); MONO % 12 % (0-9); NEUT # 4.3 x10^3/uL (1.8-7.7); NEUT % 61 % (31-73); PLATELET COUNT 175 x10^3/uL (140-400); RED BLOOD COUNT 4.02 x10^6/uL (4.30-5.70); RED CELL DISTRIBUTION WIDTH 13.2 % (11.5-14.5); WHITE BLOOD COUNT 7.1 x10^3/uL (4.0-11.0)
[2019-06-11 05:25] LABS: ALBUMIN 3.4 g/dL (3.4-5.0); ALBUMIN/GLOBULIN RATIO 1.1 (1.0-1.7); CALCIUM 9.4 mg/dL (8.5-10.1); CREATININE 1.3 mg/dL (0.7-1.3); GFR 65.8; POTASSIUM 3.4 mmol/L (3.5-5.1); TOTAL BILIRUBIN 0.4 mg/dL (0.2-1.0); TOTAL PROTEIN 6.5 g/dL (6.4-8.2)
[2019-06-11 06:31] VITALS: BP 119/68
[2019-06-11] MEDS: LIDOCAINE (700MG/PATCH) PATCH. TD SCH (09:12)
--- NOTE | 2019-06-11 09:16 | PDOC ---
PROGRESS NOTES History of Present Illness History of Present Illness VTE Prophylaxis Ordered VTE Prophylaxis Devices: No VTE Pharmacological Prophylaxi: Yes Assessment/Plan Assessment/Plan acute obstructive uropathy acute renal failure, vasomotor nephropathy bladder scan protocol, ISC PRN, consulted urology back pain, lidoderm, flexeril, consult Dr. Atkins, hydrate iv follow renal fx 28 min pt exam, chart review, > 50% of time spent with exam, chart review, pt care coordination Vitals Vitals Vital Signs Date Time Temp Pulse Resp B/P (MAP) Pulse Ox O2 Delivery O2 Flow Rate FiO2 06/11/19 06:31 97.9 65 17 119/68 (85) 98 Room Air 97.9 Physical Exam Physical Exam Physical Exam General: Alert, Oriented X3, Cooperative, mild distress HEENT: PERRLA, Mucous membr. moist/pink Lungs: Clear to auscultation, Normal air movement Heart: no gallops, no murmurs Abdomen: Normal bowel sounds, Soft Extremities: No clubbing, No edema Skin: No rashes Neuro: Normal speech, Normal tone, Sensation intact, Cranial nerves 3-12 NL Psych/Mental Status: Mental status NL, Mood NL General: Alert, Cooperative Lungs: Clear Extremities: No cyanosis Labs LABS Single view abdomen dated 06/10/2019. No comparison available. Clinical data indication: Abdominal pain. Constipation. FINDINGS: Single supine portable exam performed. Nondilated gas-filled loops of bowel throughout. No abnormal calcification. Some mild gaseous distention of the stomach. No significant stool within the colon. IMPRESSION: Nonobstructive bowel gas pattern. Electronically signed by: Elmer Isidro MD (06/10/2019 10:49 PM) [facility] Laboratory Tests Test 06/10/19 14:20 06/10/19 15:45 06/10/19 20:20 06/11/19 03:45 White Blood Count 7.7 x10^3/uL (4.0-11.0) 7.1 x10^3/uL (4.0-11.0) Red Blood Count 4.60 x10^6/uL (4.30-5.70) 4.02 x10^6/uL (4.30-5.70) Hemoglobin 14.3 g/dL (13.0-17.5) 12.6 g/dL (13.0-17.5) Hematocrit 42.4 % (39.0-53.0) 36.8 % (39.0-53.0) Mean Corpuscular Volume 92 fL (79-100) 92 fL (79-100) Mean Corpuscular Hemoglobin 31 pg (25-35) 31 pg (25-35) Mean Corpuscular Hemoglobin Concent 34 g/dL (31-37) 34 g/dL (31-37) Red Cell Distribution Width 13.0 % (11.5-14.5) 13.2 % (11.5-14.5) Platelet Count 199 x10^3/uL (140-400) 175 x10^3/uL (140-400) Neutrophils (%) (Auto) 69 % (31-73) 61 % (31-73) Lymphocytes (%) (Auto) 18 % (24-48) 24 % (24-48) Monocytes (%) (Auto) 11 % (0-9) 12 % (0-9) Eosinophils (%) (Auto) 1 % (0-3) 2 % (0-3) Basophils (%) (Auto) 1 % (0-3) 1 % (0-3) Neutrophils # (Auto) 5.4 x10^3/uL (1.8-7.7) 4.3 x10^3/uL (1.8-7.7) Lymphocytes # (Auto) 1.4 x10^3/uL (1.0-4.8) 1.7 x10^3/uL (1.0-4.8) Monocytes # (Auto) 0.8 x10^3/uL (0.0-1.1) 0.9 x10^3/uL (0.0-1.1) Eosinophils # (Auto) 0.1 x10^3/uL (0.0-0.7) 0.2 x10^3/uL (0.0-0.7) Basophils # (Auto) 0.1 x10^3/uL (0.0-0.2) 0.1 x10^3/uL (0.0-0.2) Sodium Level 141 mmol/L (136-145) 142 mmol/L (136-145) Potassium Level 3.8 mmol/L (3.5-5.1) 3.4 mmol/L (3.5-5.1) Chloride Level 104 mmol/L (98-107) 105 mmol/L (98-107) Carbon Dioxide Level 29 mmol/L (21-32) 29 mmol/L (21-32) Anion Gap 8 (6-14) 8 (6-14) Blood Urea Nitrogen 25 mg/dL (8-26) 22 mg/dL (8-26) Creatinine 1.9 mg/dL (0.7-1.3) 1.3 mg/dL (0.7-1.3) Estimated GFR (Cockcroft-Gault) 42.5 65.8 BUN/Creatinine Ratio 13 (6-20) 17 (6-20) Glucose Level 115 mg/dL (70-99) 84 mg/dL (70-99) Calcium Level 10.6 mg/dL (8.5-10.1) 9.4 mg/dL (8.5-10.1) Total Bilirubin 0.6 mg/dL (0.2-1.0) 0.4 mg/dL (0.2-1.0) Aspartate Amino Transf (AST/SGOT) 16 U/L (15-37) 16 U/L (15-37) Alanine Aminotransferase (ALT/SGPT) 15 U/L (16-63) 15 U/L (16-63) Alkaline Phosphatase 54 U/L (46-116) 49 U/L (46-116) Total Protein 8.0 g/dL (6.4-8.2) 6.5 g/dL (6.4-8.2) Albumin 4.3 g/dL (3.4-5.0) 3.4 g/dL (3.4-5.0) Albumin/Globulin Ratio 1.2 (1.0-1.7) 1.1 (1.0-1.7) Urine Collection Type Unknown Urine Color Dk yellow Urine Clarity Turbid Urine pH 7.5 Urine Specific [place] 1.025 Urine Protein 30 mg/dL (NEG-TRACE) Urine Glucose (UA) 100 mg/dL (NEG) Urine Ketones (Stick) Trace mg/dL (NEG) Urine Blood Negative (NEG) Urine Nitrite Negative (NEG) Urine Bilirubin Small (NEG) Urine Urobilinogen Dipstick 0.2 mg/dL (0.2 mg/dL) Urine Leukocyte Esterase Small (NEG) Urine RBC 0 /HPF (0-2) Urine WBC 1-4 /HPF (0-4) Urine Squamous Epithelial Cells Many /LPF Urine Bacteria Few /HPF (0-FEW) Urine Hyaline Casts Moderate /HPF Urine Mucus Marked /LPF Glucose (Fingerstick) 109 mg/dL (70-99) Ionized Calcium 1.24 mmol/L (1.13-1.32) Assessment and Plan Assessmemt and Plan Problems Medical Problems: (1) Acute on chronic kidney failure Status: Acute (2) Back pain Status: Chronic (3) Obstructive uropathy Status: Acute (4) Urinary retention Status: Acute Comment Review of Relevant I have reviewed the following items prince (where applicable) has been applied. Labs Laboratory Tests Test 06/10/19 14:20 06/10/19 15:45 06/10/19 20:20 06/11/19 03:45 White Blood Count 7.7 x10^3/uL (4.0-11.0) 7.1 x10^3/uL (4.0-11.0) Red Blood Count 4.60 x10^6/uL (4.30-5.70) 4.02 x10^6/uL (4.30-5.70) Hemoglobin 14.3 g/dL (13.0-17.5) 12.6 g/dL (13.0-17.5) Hematocrit 42.4 % (39.0-53.0) 36.8 % (39.0-53.0) Mean Corpuscular Volume 92 fL (79-100) 92 fL (79-100) Mean Corpuscular Hemoglobin 31 pg (25-35) 31 pg (25-35) Mean Corpuscular Hemoglobin Concent 34 g/dL (31-37) 34 g/dL (31-37) Red Cell Distribution Width 13.0 % (11.5-14.5) 13.2 % (11.5-14.5) Platelet Count 199 x10^3/uL (140-400) 175 x10^3/uL (140-400) Neutrophils (%) (Auto) 69 % (31-73) 61 % (31-73) Lymphocytes (%) (Auto) 18 % (24-48) 24 % (24-48) Monocytes (%) (Auto) 11 % (0-9) 12 % (0-9) Eosinophils (%) (Auto) 1 % (0-3) 2 % (0-3) Basophils (%) (Auto) 1 % (0-3) 1 % (0-3) Neutrophils # (Auto) 5.4 x10^3/uL (1.8-7.7) 4.3 x10^3/uL (1.8-7.7) Lymphocytes # (Auto) 1.4 x10^3/uL (1.0-4.8) 1.7 x10^3/uL (1.0-4.8) Monocytes # (Auto) 0.8 x10^3/uL (0.0-1.1) 0.9 x10^3/uL (0.0-1.1) Eosinophils # (Auto) 0.1 x10^3/uL (0.0-0.7) 0.2 x10^3/uL (0.0-0.7) Basophils # (Auto) 0.1 x10^3/uL (0.0-0.2) 0.1 x10^3/uL (0.0-0.2) Sodium Level 141 mmol/L (136-145) 142 mmol/L (136-145) Potassium Level 3.8 mmol/L (3.5-5.1) 3.4 mmol/L (3.5-5.1) Chloride Level 104 mmol/L (98-107) 105 mmol/L (98-107) Carbon Dioxide Level 29 mmol/L (21-32) 29 mmol/L (21-32) Anion Gap 8 (6-14) 8 (6-14) Blood Urea Nitrogen 25 mg/dL (8-26) 22 mg/dL (8-26) Creatinine 1.9 mg/dL (0.7-1.3) 1.3 mg/dL (0.7-1.3) Estimated GFR (Cockcroft-Gault) 42.5 65.8 BUN/Creatinine Ratio 13 (6-20) 17 (6-20) Glucose Level 115 mg/dL (70-99) 84 mg/dL (70-99) Calcium Level 10.6 mg/dL (8.5-10.1) 9.4 mg/dL (8.5-10.1) Total Bilirubin 0.6 mg/dL (0.2-1.0) 0.4 mg/dL (0.2-1.0) Aspartate Amino Transf (AST/SGOT) 16 U/L (15-37) 16 U/L (15-37) Alanine Aminotransferase (ALT/SGPT) 15 U/L (16-63) 15 U/L (16-63) Alkaline Phosphatase 54 U/L (46-116) 49 U/L (46-116) Total Protein 8.0 g/dL (6.4-8.2) 6.5 g/dL (6.4-8.2) Albumin 4.3 g/dL (3.4-5.0) 3.4 g/dL (3.4-5.0) Albumin/Globulin Ratio 1.2 (1.0-1.7) 1.1 (1.0-1.7) Urine Collection Type Unknown Urine Color Dk yellow Urine Clarity Turbid Urine pH 7.5 Urine Specific [place] 1.025 Urine Protein 30 mg/dL (NEG-TRACE) Urine Glucose (UA) 100 mg/dL (NEG) Urine Ketones (Stick) Trace mg/dL (NEG) Urine Blood Negative (NEG) Urine Nitrite Negative (NEG) Urine Bilirubin Small (NEG) Urine Urobilinogen Dipstick 0.2 mg/dL (0.2 mg/dL) Urine Leukocyte Esterase Small (NEG) Urine RBC 0 /HPF (0-2) Urine WBC 1-4 /HPF (0-4) Urine Squamous Epithelial Cells Many /LPF Urine Bacteria Few /HPF (0-FEW) Urine Hyaline Casts Moderate /HPF Urine Mucus Marked /LPF Glucose (Fingerstick) 109 mg/dL (70-99) Ionized Calcium 1.24 mmol/L (1.13-1.32) Laboratory Tests Test 06/10/19 14:20 06/10/19 15:45 06/10/19 20:20 06/11/19 03:45 White Blood Count 7.7 x10^3/uL (4.0-11.0) 7.1 x10^3/uL (4.0-11.0) Red Blood Count 4.60 x10^6/uL (4.30-5.70) 4.02 x10^6/uL (4.30-5.70) Hemoglobin 14.3 g/dL (13.0-17.5) 12.6 g/dL (13.0-17.5) Hematocrit 42.4 % (39.0-53.0) 36.8 % (39.0-53.0) Mean Corpuscular Volume 92 fL (79-100) 92 fL (79-100) Mean Corpuscular Hemoglobin 31 pg (25-35) 31 pg (25-35) Mean Corpuscular Hemoglobin Concent 34 g/dL (31-37) 34 g/dL (31-37) Red Cell Distribution Width 13.0 % (11.5-14.5) 13.2 % (11.5-14.5) Platelet Count 199 x10^3/uL (140-400) 175 x10^3/uL (140-400) Neutrophils (%) (Auto) 69 % (31-73) 61 % (31-73) Lymphocytes (%) (Auto) 18 % (24-48) 24 % (24-48) Monocytes (%) (Auto) 11 % (0-9) 12 % (0-9) Eosinophils (%) (Auto) 1 % (0-3) 2 % (0-3) Basophils (%) (Auto) 1 % (0-3) 1 % (0-3) Neutrophils # (Auto) 5.4 x10^3/uL (1.8-7.7) 4.3 x10^3/uL (1.8-7.7) Lymphocytes # (Auto) 1.4 x10^3/uL (1.0-4.8) 1.7 x10^3/uL (1.0-4.8) Monocytes # (Auto) 0.8 x10^3/uL (0.0-1.1) 0.9 x10^3/uL (0.0-1.1) Eosinophils # (Auto) 0.1 x10^3/uL (0.0-0.7) 0.2 x10^3/uL (0.0-0.7) Basophils # (Auto) 0.1 x10^3/uL (0.0-0.2) 0.1 x10^3/uL (0.0-0.2) Sodium Level 141 mmol/L (136-145) 142 mmol/L (136-145) Potassium Level 3.8 mmol/L (3.5-5.1) 3.4 mmol/L (3.5-5.1) Chloride Level 104 mmol/L (98-107) 105 mmol/L (98-107) Carbon Dioxide Level 29 mmol/L (21-32) 29 mmol/L (21-32) Anion Gap 8 (6-14) 8 (6-14) Blood Urea Nitrogen 25 mg/dL (8-26) 22 mg/dL (8-26) Creatinine 1.9 mg/dL (0.7-1.3) 1.3 mg/dL (0.7-1.3) Estimated GFR (Cockcroft-Gault) 42.5 65.8 BUN/Creatinine Ratio 13 (6-20) 17 (6-20) Glucose Level 115 mg/dL (70-99) 84 mg/dL (70-99) Calcium Level 10.6 mg/dL (8.5-10.1) 9.4 mg/dL (8.5-10.1) Total Bilirubin 0.6 mg/dL (0.2-1.0) 0.4 mg/dL (0.2-1.0) Aspartate Amino Transf (AST/SGOT) 16 U/L (15-37) 16 U/L (15-37) Alanine Aminotransferase (ALT/SGPT) 15 U/L (16-63) 15 U/L (16-63) Alkaline Phosphatase 54 U/L (46-116) 49 U/L (46-116) Total Protein 8.0 g/dL (6.4-8.2) 6.5 g/dL (6.4-8.2) Albumin 4.3 g/dL (3.4-5.0) 3.4 g/dL (3.4-5.0) Albumin/Globulin Ratio 1.2 (1.0-1.7) 1.1 (1.0-1.7) Urine Collection Type Unknown Urine Color Dk yellow Urine Clarity Turbid Urine pH 7.5 Urine Specific [place] 1.025 Urine Protein 30 mg/dL (NEG-TRACE) Urine Glucose (UA) 100 mg/dL (NEG) Urine Ketones (Stick) Trace mg/dL (NEG) Urine Blood Negative (NEG) Urine Nitrite Negative (NEG) Urine Bilirubin Small (NEG) Urine Urobilinogen Dipstick 0.2 mg/dL (0.2 mg/dL) Urine Leukocyte Esterase Small (NEG) Urine RBC 0 /HPF (0-2) Urine WBC 1-4 /HPF (0-4) Urine Squamous Epithelial Cells Many /LPF Urine Bacteria Few /HPF (0-FEW) Urine Hyaline Casts Moderate /HPF Urine Mucus Marked /LPF Glucose (Fingerstick) 109 mg/dL (70-99) Ionized Calcium 1.24 mmol/L (1.13-1.32) Medications Current Medications Ondansetron HCl (Zofran) 4 mg PRN Q8HRS PRN IV NAUSEA/VOMITING; Start 06/10/19 at 16:30; Stop 06/11/19 at 16:29 Morphine Sulfate (Morphine Sulfate) 2 mg PRN Q2HR PRN IV PAIN Last administered on 06/10/19at 22:12; Start 06/10/19 at 16:30; Stop 06/11/19 at 16:29 Sodium Chloride 1,000 ml @ 150 mls/hr Q6H40M IV Last administered on 06/10/19at 17:17; Start 06/10/19 at 16:21; Stop 06/10/19 at 21:16; Status DC Influenza Virus Vaccine Quadrival (Afluria Quad 2019-20 (3yr Up) Syringe) 0.5 ml ONCE ONCE VAX IM Last administered on 06/10/19at 20:28; Start 06/10/19 at 18:15; Stop 06/10/19 at 18:18; Status DC Lidocaine (Lidoderm) 1 patch DAILY TD Last administered on 06/11/19at 09:12; Start 06/10/19 at 21:15 Miscellaneous (Lidoderm Patch Removal) 1 ea QHS MC ; Start 06/11/19 at 21:00 Cyclobenzaprine HCl (Flexeril) 10 mg 1X ONCE PO Last administered on 06/10/19at 22:12; Start 06/10/19 at 21:30; Stop 06/10/19 at 21:31; Status DC Cyclobenzaprine HCl (Flexeril) 10 mg PRN Q6HRS PRN PO MUSCLE SPASMS; Start 06/10/19 at 21:30 Active Scripts Active Magnesium (Magnesium Oxide) 400 Mg Capsule 1 Cap PO DAILY 10 Days Metoprolol Tartrate 25 Mg Tablet 1 Tab PO BID Reported Omeprazole 20 Mg Capsule. 1 Cap PO DAILY Aspirin 81 Mg Tab.chew 1 Tab PO DAILY Finasteride 5 Mg Tablet 1 Tab PO DAILY Vitamin D (Cholecalciferol (Vitamin D3)) 1,000 Unit Capsule 1 Cap PO DAILY Thiamine Hcl 500 Mg Tablet 100 Mg PO DAILY Folic Acid 1 Mg Tablet 1 Tab PO DAILY Colace (Docusate Sodium) 100 Mg Capsule 1 Cap PO BID Calcium Carbonate 500 Mg Tablet 500 Mg PO DAILY Terazosin Hcl 10 Mg Capsule 1 Cap PO HS Baclofen 10 Mg Tablet 1 Tab PO TID Atorvastatin Calcium 20 Mg Tablet 20 Mg PO HS Vitals/I & O Vital Sign - Last 24 Hours 06/10/19 06/10/19 06/10/19 06/10/19 13:22 13:28 13:44 14:14 Temp 98.1 98.1 Pulse 78 75 73 69 Resp 16 B/P (MAP) 139/79 (99) 139/79 (99) 140/80 (100) 147/90 (109) Pulse Ox 92 84 96 97 O2 Delivery Room Air Room Air 06/10/19 06/10/19 06/10/19 06/10/19 14:44 15:14 15:44 16:14 Pulse 70 67 66 67 B/P (MAP) 132/77 (95) 148/84 (105) 144/86 (105) 151/85 (107) Pulse Ox 90 06/10/19 06/10/19 06/10/19 06/10/19 16:37 16:44 17:14 17:19 Pulse 70 72 76 Resp 14 B/P (MAP) 122/83 (96) 141/82 (101) 143/80 (101) 143/80 (101) Pulse Ox 96 89 O2 Delivery Room Air Room Air 06/10/19 06/10/19 06/10/19 06/10/19 19:00 20:00 22:12 22:42 Temp 97.7 98.1 97.7 98.1 Pulse 72 69 Resp 18 16 B/P (MAP) 124/80 (95) 147/81 (103) Pulse Ox 98 98 O2 Delivery Room Air Room Air Room Air Room Air 9/23/19 9/24/19 9/24/19 23:18 02:47 06:31 Temp 98.1 97.9 98.1 97.9 Pulse 63 65 Resp 17 17 B/P (MAP) 131/76 (94) 119/68 (85) Pulse Ox 97 98 O2 Delivery Room Air Room Air Room Air Intake and Output 06/10/19 06/11/19 06/11/19 16:59 00:59 08:59 Intake Total 300 ml 500 ml Output Total 200 ml 900 ml Balance 100 ml -400 ml LAUREN SINGH MD Jun 11, 2019 09:16
[2019-06-11] MEDS ORDERED: BUPIVACAINE MPF 0.25% 10 ML VIAL. IJ ONE (09:45)
[2019-06-11] MEDS ORDERED: methylPREDNISolone ACETATE 40 MG/ML VIAL. IM ONE (09:45)
[2019-06-11] MEDS ORDERED: methylPREDNISolone ACETATE 40 MG/ML VIAL. ONE (10:00)
[2019-06-11] MEDS ORDERED: BUPIVACAINE MPF 0.25% 10 ML VIAL. ONE (10:00)
--- NOTE | 2019-06-11 10:45 | PDOC2 ---
MISSY WEBBER 06/11/19 1045: UROLOGY CONSULT Date of Consult Date of Consult DATE: 06/11/19 TIME: 10:15 Identification/Chief Complaint Chief Complaint urinary retention Source Source: Caregiver, Chart review, Patient History of Present Illness Reason for Visit: 73yo male presented to ER for low back pain, urinary incontinence and weak urine stream. He was admitted for DAMARIS with Cr of 1.9 yesterday, 1.3 today. He was treated for UTI within the past couple weeks. His PVR in the ER was 63mL and this morning it was 86mL. He states he has burning bladder pain that radiates upward when he urinates. He complains of weak stream when urinating and per RN he has had episodes of incontinence. Denies fevers, nausea, vomiting, hematuria, weight loss. He is known to [facility], having seen Dr. Johnston for BPH and elevated PSA of 8.5 (12/12/18). It was recommended that he undergo cystoscopy and prostate biopsy, but he was unable to keep his appointment. He has still been taking terazosin and finasteride, and states he's been having urinary bother for several months. He states he doesn't have transportation to [facility] offices so he has an appointment next month with Urology at . Past Medical History Cardiovascular: HTN Pulmonary: No pertinent hx Heme/Onc: No pertinent hx Hepatobiliary: No pertinent hx Psych: No pertinent hx Rheumatologic: No pertinent hx Infectious disease: No pertinent hx Renal/: Benign prostatic enlarg. Endocrine: No pertinent hx Past Surgical History Past Surgical History: Hernia Repair Family History Family History: Coronary Artery Disease, Diabetes Social History Social History: Parent ALCOHOL: rare Drugs: None Current Medications Current Medications Current Medications Ascorbic Acid (Vitamin C) 500 mg BID PO ; Start 06/11/19 at 21:00 Bupivacaine HCl (Sensorcaine-Mpf 0.25%) 10 ml 1X ONCE IJ ; Start 06/11/19 at 09:45; Stop 06/11/19 at 09:50; Status DC Cyclobenzaprine HCl (Flexeril) 10 mg 1X ONCE PO Last administered on 06/10/19at 22:12; Start 06/10/19 at 21:30; Stop 06/10/19 at 21:31; Status DC Cyclobenzaprine HCl (Flexeril) 10 mg PRN Q6HRS PRN PO MUSCLE SPASMS; Start 06/10/19 at 21:30 Influenza Virus Vaccine Quadrival (Afluria Quad 2019-20 (3yr Up) Syringe) 0.5 ml ONCE ONCE VAX IM Last administered on 06/10/19at 20:28; Start 06/10/19 at 18:15; Stop 06/10/19 at 18:18; Status DC Lidocaine (Lidoderm) 1 patch DAILY TD Last administered on 06/11/19at 09:12; Start 06/10/19 at 21:15 Methylprednisolone Acetate (DEPO-Medrol 40MG VIAL) 40 mg 1X ONCE IM ; Start 06/11/19 at 09:45; Stop 06/11/19 at 09:50; Status DC Miscellaneous (Lidoderm Patch Removal) 1 ea QHS ; Start 06/11/19 at 21:00 Morphine Sulfate (Morphine Sulfate) 2 mg PRN Q2HR PRN IV PAIN Last administered on 06/10/19at 22:12; Start 06/10/19 at 16:30; Stop 06/11/19 at 16:29 Ondansetron HCl (Zofran) 4 mg PRN Q8HRS PRN IV NAUSEA/VOMITING; Start 06/10/19 at 16:30; Stop 06/11/19 at 16:29 Phenazopyridine HCl (Pyridium) 200 mg PRN TID PRN PO URINARY PAIN; Start 06/11/19 at 09:45 Sodium Chloride 1,000 ml @ 150 mls/hr Q6H40M IV Last administered on 06/10/19at 17:17; Start 06/10/19 at 16:21; Stop 06/10/19 at 21:16; Status DC Trimethoprim/ Sulfamethoxazole (Bactrim Ds) 1 tab BID PO ; Start 06/11/19 at 10:00 Allergies Allergies: Coded Allergies: Penicillins (Verified Allergy, Intermediate, 09/09/16) ROS Review Of Systems: CONSTITUTIONAL: No fever or chills EYES: No recent changes SKIN: No rash or itching CARDIOVASCULAR: No chest pain, syncope, palpitations, or edema RESPIRATORY: No SOB or cough GASTROINTESTINAL: No nausea, vomiting or abdominal pain NEUROLOGICAL: No headaches or weakness ENDOCRINE: No cold or heat intolerance GENITOURINARY: As in HPI MUSCULOSKELETAL: + low back pain LYMPHATICS: No enlarged lymph nodes PSYCHIATRIC: No anxiety or depression Physical Exam Physical Exam: General: Pleasant, no acute distress, well groomed Eyes: conjunctiva anicteric, eyes full range of motion ENT: moist oral mucosa, normal dentition Neck: Trachea midline, no masses Respiratory: unlabored breathing, not using accessory muscles Cardiovascular: Regular rate and rhythm, no peripheral edema Abdomen: nontender, nondistended, no hepatosplenomegaly, no masses : normal penis, urethral meatus Skin: no rashes or skin lesions on visualized skin Psych: normal mood, affect. Alert and oriented x 3. Vitals VITALS Vital Signs Date Time Temp Pulse Resp B/P (MAP) Pulse Ox O2 Delivery O2 Flow Rate FiO2 06/11/19 07:45 Room Air 06/11/19 06:31 97.9 65 17 119/68 (85) 98 97.9 Labs Labs Laboratory Tests Test 06/10/19 14:20 06/10/19 15:45 06/10/19 20:20 06/11/19 03:45 White Blood Count 7.7 x10^3/uL (4.0-11.0) 7.1 x10^3/uL (4.0-11.0) Red Blood Count 4.60 x10^6/uL (4.30-5.70) 4.02 x10^6/uL (4.30-5.70) Hemoglobin 14.3 g/dL (13.0-17.5) 12.6 g/dL (13.0-17.5) Hematocrit 42.4 % (39.0-53.0) 36.8 % (39.0-53.0) Mean Corpuscular Volume 92 fL (79-100) 92 fL (79-100) Mean Corpuscular Hemoglobin 31 pg (25-35) 31 pg (25-35) Mean Corpuscular Hemoglobin Concent 34 g/dL (31-37) 34 g/dL (31-37) Red Cell Distribution Width 13.0 % (11.5-14.5) 13.2 % (11.5-14.5) Platelet Count 199 x10^3/uL (140-400) 175 x10^3/uL (140-400) Neutrophils (%) (Auto) 69 % (31-73) 61 % (31-73) Lymphocytes (%) (Auto) 18 % (24-48) 24 % (24-48) Monocytes (%) (Auto) 11 % (0-9) 12 % (0-9) Eosinophils (%) (Auto) 1 % (0-3) 2 % (0-3) Basophils (%) (Auto) 1 % (0-3) 1 % (0-3) Neutrophils # (Auto) 5.4 x10^3/uL (1.8-7.7) 4.3 x10^3/uL (1.8-7.7) Lymphocytes # (Auto) 1.4 x10^3/uL (1.0-4.8) 1.7 x10^3/uL (1.0-4.8) Monocytes # (Auto) 0.8 x10^3/uL (0.0-1.1) 0.9 x10^3/uL (0.0-1.1) Eosinophils # (Auto) 0.1 x10^3/uL (0.0-0.7) 0.2 x10^3/uL (0.0-0.7) Basophils # (Auto) 0.1 x10^3/uL (0.0-0.2) 0.1 x10^3/uL (0.0-0.2) Sodium Level 141 mmol/L (136-145) 142 mmol/L (136-145) Potassium Level 3.8 mmol/L (3.5-5.1) 3.4 mmol/L (3.5-5.1) Chloride Level 104 mmol/L (98-107) 105 mmol/L (98-107) Carbon Dioxide Level 29 mmol/L (21-32) 29 mmol/L (21-32) Anion Gap 8 (6-14) 8 (6-14) Blood Urea Nitrogen 25 mg/dL (8-26) 22 mg/dL (8-26) Creatinine 1.9 mg/dL (0.7-1.3) 1.3 mg/dL (0.7-1.3) Estimated GFR (Cockcroft-Gault) 42.5 65.8 BUN/Creatinine Ratio 13 (6-20) 17 (6-20) Glucose Level 115 mg/dL (70-99) 84 mg/dL (70-99) Calcium Level 10.6 mg/dL (8.5-10.1) 9.4 mg/dL (8.5-10.1) Total Bilirubin 0.6 mg/dL (0.2-1.0) 0.4 mg/dL (0.2-1.0) Aspartate Amino Transf (AST/SGOT) 16 U/L (15-37) 16 U/L (15-37) Alanine Aminotransferase (ALT/SGPT) 15 U/L (16-63) 15 U/L (16-63) Alkaline Phosphatase 54 U/L (46-116) 49 U/L (46-116) Total Protein 8.0 g/dL (6.4-8.2) 6.5 g/dL (6.4-8.2) Albumin 4.3 g/dL (3.4-5.0) 3.4 g/dL (3.4-5.0) Albumin/Globulin Ratio 1.2 (1.0-1.7) 1.1 (1.0-1.7) Urine Collection Type Unknown Urine Color Dk yellow Urine Clarity Turbid Urine pH 7.5 Urine Specific [place] 1.025 Urine Protein 30 mg/dL (NEG-TRACE) Urine Glucose (UA) 100 mg/dL (NEG) Urine Ketones (Stick) Trace mg/dL (NEG) Urine Blood Negative (NEG) Urine Nitrite Negative (NEG) Urine Bilirubin Small (NEG) Urine Urobilinogen Dipstick 0.2 mg/dL (0.2 mg/dL) Urine Leukocyte Esterase Small (NEG) Urine RBC 0 /HPF (0-2) Urine WBC 1-4 /HPF (0-4) Urine Squamous Epithelial Cells Many /LPF Urine Bacteria Few /HPF (0-FEW) Urine Hyaline Casts Moderate /HPF Urine Mucus Marked /LPF Glucose (Fingerstick) 109 mg/dL (70-99) Ionized Calcium 1.24 mmol/L (1.13-1.32) Laboratory Tests Test 06/10/19 14:20 06/10/19 15:45 06/10/19 20:20 06/11/19 03:45 White Blood Count 7.7 x10^3/uL (4.0-11.0) 7.1 x10^3/uL (4.0-11.0) Red Blood Count 4.60 x10^6/uL (4.30-5.70) 4.02 x10^6/uL (4.30-5.70) Hemoglobin 14.3 g/dL (13.0-17.5) 12.6 g/dL (13.0-17.5) Hematocrit 42.4 % (39.0-53.0) 36.8 % (39.0-53.0) Mean Corpuscular Volume 92 fL (79-100) 92 fL (79-100) Mean Corpuscular Hemoglobin 31 pg (25-35) 31 pg (25-35) Mean Corpuscular Hemoglobin Concent 34 g/dL (31-37) 34 g/dL (31-37) Red Cell Distribution Width 13.0 % (11.5-14.5) 13.2 % (11.5-14.5) Platelet Count 199 x10^3/uL (140-400) 175 x10^3/uL (140-400) Neutrophils (%) (Auto) 69 % (31-73) 61 % (31-73) Lymphocytes (%) (Auto) 18 % (24-48) 24 % (24-48) Monocytes (%) (Auto) 11 % (0-9) 12 % (0-9) Eosinophils (%) (Auto) 1 % (0-3) 2 % (0-3) Basophils (%) (Auto) 1 % (0-3) 1 % (0-3) Neutrophils # (Auto) 5.4 x10^3/uL (1.8-7.7) 4.3 x10^3/uL (1.8-7.7) Lymphocytes # (Auto) 1.4 x10^3/uL (1.0-4.8) 1.7 x10^3/uL (1.0-4.8) Monocytes # (Auto) 0.8 x10^3/uL (0.0-1.1) 0.9 x10^3/uL (0.0-1.1) Eosinophils # (Auto) 0.1 x10^3/uL (0.0-0.7) 0.2 x10^3/uL (0.0-0.7) Basophils # (Auto) 0.1 x10^3/uL (0.0-0.2) 0.1 x10^3/uL (0.0-0.2) Sodium Level 141 mmol/L (136-145) 142 mmol/L (136-145) Potassium Level 3.8 mmol/L (3.5-5.1) 3.4 mmol/L (3.5-5.1) Chloride Level 104 mmol/L (98-107) 105 mmol/L (98-107) Carbon Dioxide Level 29 mmol/L (21-32) 29 mmol/L (21-32) Anion Gap 8 (6-14) 8 (6-14) Blood Urea Nitrogen 25 mg/dL (8-26) 22 mg/dL (8-26) Creatinine 1.9 mg/dL (0.7-1.3) 1.3 mg/dL (0.7-1.3) Estimated GFR (Cockcroft-Gault) 42.5 65.8 BUN/Creatinine Ratio 13 (6-20) 17 (6-20) Glucose Level 115 mg/dL (70-99) 84 mg/dL (70-99) Calcium Level 10.6 mg/dL (8.5-10.1) 9.4 mg/dL (8.5-10.1) Total Bilirubin 0.6 mg/dL (0.2-1.0) 0.4 mg/dL (0.2-1.0) Aspartate Amino Transf (AST/SGOT) 16 U/L (15-37) 16 U/L (15-37) Alanine Aminotransferase (ALT/SGPT) 15 U/L (16-63) 15 U/L (16-63) Alkaline Phosphatase 54 U/L (46-116) 49 U/L (46-116) Total Protein 8.0 g/dL (6.4-8.2) 6.5 g/dL (6.4-8.2) Albumin 4.3 g/dL (3.4-5.0) 3.4 g/dL (3.4-5.0) Albumin/Globulin Ratio 1.2 (1.0-1.7) 1.1 (1.0-1.7) Urine Collection Type Unknown Urine Color Dk yellow Urine Clarity Turbid Urine pH 7.5 Urine Specific [place] 1.025 Urine Protein 30 mg/dL (NEG-TRACE) Urine Glucose (UA) 100 mg/dL (NEG) Urine Ketones (Stick) Trace mg/dL (NEG) Urine Blood Negative (NEG) Urine Nitrite Negative (NEG) Urine Bilirubin Small (NEG) Urine Urobilinogen Dipstick 0.2 mg/dL (0.2 mg/dL) Urine Leukocyte Esterase Small (NEG) Urine RBC 0 /HPF (0-2) Urine WBC 1-4 /HPF (0-4) Urine Squamous Epithelial Cells Many /LPF Urine Bacteria Few /HPF (0-FEW) Urine Hyaline Casts Moderate /HPF Urine Mucus Marked /LPF Glucose (Fingerstick) 109 mg/dL (70-99) Ionized Calcium 1.24 mmol/L (1.13-1.32) Assessment/Plan Assessment/Plan BPH with LUTS, Elevated PSA Continue terazosin and finasteride Discussed importance of following up with [facility] after discharge for eval of elevated PSA UA contaminated, recheck with straight cath specimen Will add oxybutynin for bladder spasms MARLON JOHNSTON MD 06/13/19 1637: UROLOGY CONSULT Assessment/Plan Assessment/Plan Agree with assessment and plan. MISSY WEBBER Jun 11, 2019 10:45 MARLON JOHNSTON MD Jun 13, 2019 16:37
[2019-06-11 11:00] VITALS: BP 136/66
[2019-06-11 11:17] LABS: BILIRUBIN,URINE NEGATIVE (NEG); CLARITY,URINE CLOUDY; COLOR,URINE YELLOW; NITRITE,URINE NEGATIVE (NEG); PH,URINE 7.5; PROTEIN,URINE NEGATIVE (NEG-TRACE); UROBILINOGEN,URINE 0.2 mg/dL (0.2 mg/dL)
[2019-06-11 11:35] LABS: AMORPHOUS SEDIMENT,UR PRESENT /HPF; HYALINE CASTS, URINE MANY /HPF
[2019-06-11 11:36] LABS: BACTERIA,URINE FEW /HPF (0-FEW)
[2019-06-11] MEDS: CYCLOBENZAPRINE 10 MG TABLET. PO PRN (12:40)
[2019-06-11] MEDS: SMZ/TMP 800/160MG TABLET. PO SCH ×2 (12:40→22:56)
[2019-06-11] MEDS ORDERED: ALBUTEROL SULFATE 2.5 MG/3 ML NEBU. NEB PRN (13:15)
[2019-06-11] MEDS ORDERED: cloNIDine HCL 0.1 MG TABLET PO PRN (13:15)
[2019-06-11] MEDS ORDERED: DOCUSATE SODIUM 100 MG CAPSULE. PO PRN (13:15)
[2019-06-11] MEDS ORDERED: ONDANSETRON PF 4 MG/2 ML VIAL. IV PRN (13:15)
[2019-06-11] MEDS ORDERED: ACETAMINOPHEN 325 MG TABLET. PO PRN (13:15)
[2019-06-11] MEDS ORDERED: 0.9 % SODIUM CHLORIDE 10 ML DISP.SYRIN. IV PRN (13:15)
--- NOTE | 2019-06-11 14:31 | PDOC4 ---
PROCEDURE Procedure At his request,I have injected painful left sacroiliac joint under aseptic skin technique with alcohol skin prep using 2 ml of 0.25% bupivacaine solution mixed with 1 ml of methylprednisone 40 mg?1 ml solution and he tolerated the procedure satisfactorily without any side effects. SANTINO WICK MD Jun 11, 2019 14:31
[2019-06-11 15:00] VITALS: BP 134/71
[2019-06-11] MEDS: OXYBUTYNIN CHLORIDE 5 MG TABLET PO SCH (17:25)
[2019-06-11 19:00] VITALS: BP 147/75
[2019-06-11] MEDS: PATCH REMOVAL. MC SCH (21:00)
[2019-06-11] MEDS: ASCORBIC ACID 500 MG TABLET PO SCH (22:56)
[2019-06-11] MEDS: LACTOBACILLUS RHAMNOSUS GG 1 CAPSULE. PO SCH (22:56)
[2019-06-11 23:00] VITALS: BP 142/85
--- NOTE | 2019-06-11 23:11 | CONS ---
DATE OF CONSULTATION: 06/11/2019 ATTENDING PHYSICIAN: Dr. Gonzales. REASON FOR CONSULTATION: The patient was seen at the request of Dr. Gonzales for rehabilitation evaluation. HISTORY OF PRESENT ILLNESS: This is a 73-year-old right-handed male, known to me, admitted on 06/10/2019 with urine dripping and lower back pain. He is having difficulty to urinate. He feels like he is not emptying the bladder completely. He frequently has strong stream for 1 or 2 seconds, then just dripping and leaking. This is an ongoing problem. He had these issues before requiring indwelling Miner catheter placement multiple times, last time in December of this year. The patient is being followed by Urology. The patient admits some lower back pain. He admits burning sensation while trying to urinate. The patient had problems with prostate. PAST MEDICAL/SURGICAL HISTORY: Includes hypertension, status post hernia repair. FAMILY HISTORY: Coronary artery disease and diabetes with parents. ALLERGIES: HE IS KNOWN ALLERGIC TO PENICILLIN. SOCIAL HISTORY: He lives with his ; nurse stays for him to manage. He uses a walker to get around. PHYSICAL EXAMINATION: Today revealed an elderly male. He is alert and oriented to time, place, person, and circumstance; follows commands appropriately; moves all 4 extremities voluntarily. He had 4+/5 grade muscle strength with relatively increased weakness in hand intrinsic muscles and dorsiflexor muscles of both feet. Deep tendon reflexes are absent at both ankles. He had equal perception of touch and pinprick sensation bilaterally. He had crepitus on range of motion of his knee joints, some stiffness of his hip joints. He had painful limited movements of lumbar spine without any paraspinal muscle spasm and tenderness to palpation over left sacroiliac joint area and straight leg raising test is negative bilaterally. His skin is intact at this time. He is independent with rolling from side to side. I have not tested his ambulation skills at this time. ASSESSMENT: An elderly male with recent onset increased problems with urinary hesitation. Apparently, post-voiding residual is 80 mL; that means, he is emptying the bladder well. The patient probably had some urinary tract infection. He also had chronic lower back pain from degenerative disk disease of lumbar vertebrae and degenerative joint disease of his knees and clinical evidence of peripheral neuropathy; the patient with known hypertension. RECOMMENDATIONS: To proceed with injecting painful left sacroiliac joint area; to start him on Levaquin, Pyridium, and vitamin C; home when medically stable with outpatient followup. Dr. Gonzales, I appreciate asking me to participate in the care of this interesting patient. I will be glad to see him for followup with you on as needed basis. SANTINO WICK MD DR: ALEXEI/ruth JOB#: [id number] / [id number]
[2019-06-12 02:31] VITALS: BP 136/77
[2019-06-12 04:04] LABS: BASO % 0 % (0-3); EOS # 0.1 x10^3/uL (0.0-0.7); EOS % 2 % (0-3); HEMATOCRIT 35.2 % (39.0-53.0); HEMOGLOBIN 12.1 g/dL (13.0-17.5); LYMPH # 1.2 x10^3/uL (1.0-4.8); LYMPH % 19 % (24-48); MEAN CORPUSCULAR HEMOGLOBIN 32 pg (25-35); MEAN CORPUSCULAR HGB CONC 34 g/dL (31-37); MEAN CORPUSCULAR VOLUME 92 fL (79-100); MONO # 0.7 x10^3/uL (0.0-1.1); MONO % 11 % (0-9); NEUT # 4.4 x10^3/uL (1.8-7.7); NEUT % 68 % (31-73); PLATELET COUNT 167 x10^3/uL (140-400); RED BLOOD COUNT 3.82 x10^6/uL (4.30-5.70); RED CELL DISTRIBUTION WIDTH 12.9 % (11.5-14.5); WHITE BLOOD COUNT 6.5 x10^3/uL (4.0-11.0)
[2019-06-12] MEDS: OXYBUTYNIN CHLORIDE 5 MG TABLET PO SCH (04:52)
[2019-06-12 05:08] LABS: ALBUMIN 3.2 g/dL (3.4-5.0); ALBUMIN/GLOBULIN RATIO 0.9 (1.0-1.7); CALCIUM 9.3 mg/dL (8.5-10.1); CREATININE 1.4 mg/dL (0.7-1.3); GFR 60.4; POTASSIUM 3.9 mmol/L (3.5-5.1); TOTAL BILIRUBIN 0.3 mg/dL (0.2-1.0); TOTAL PROTEIN 6.6 g/dL (6.4-8.2)
[2019-06-12 07:00] VITALS: BP 123/74
[2019-06-12] MEDS: LIDOCAINE (700MG/PATCH) PATCH. TD SCH (08:52)
[2019-06-12] MEDS: ASCORBIC ACID 500 MG TABLET PO SCH ×2 (08:53→21:21)
[2019-06-12] MEDS: LACTOBACILLUS RHAMNOSUS GG 1 CAPSULE. PO SCH ×2 (08:53→21:20)
[2019-06-12] MEDS: SMZ/TMP 800/160MG TABLET. PO SCH ×2 (08:53→21:20)
[2019-06-12] MEDS: ENOXAPARIN 40 MG/0.4 ML SYRINGE. SQ SCH (08:57)
[2019-06-12] MEDS: PHENAZOPYRIDINE 200 MG TABLET. PO PRN ×3 (08:57→21:21)
[2019-06-12] MEDS ORDERED: OXYB5TAB7 PO (09:01)
[2019-06-12] MEDS ORDERED: LIDO700A21 TD (09:01)
[2019-06-12] MEDS ORDERED: SULF-143 PO (09:01)
[2019-06-12] MEDS ORDERED: PHEN-444 PO (09:01)
[2019-06-12] MEDS ORDERED: ALBU2.5V8 NEB (09:01)
--- NOTE | 2019-06-12 09:02 | SNU/HH DC ---
DISCHARGE ORDERS DISCHARGE INFORMATION: DISCHARGE DATE: Jun 12, 2019 FINAL DIAGNOSIS Problems Medical Problems: (1) Acute on chronic kidney failure Status: Acute (2) Back pain Status: Chronic (3) Obstructive uropathy Status: Acute (4) Urinary retention Status: Acute CONDITION ON DISCHARGE: Stable CODE STATUS: Code Status: Full FCI: SNF STAY <30 DAYS: Yes HOSPICE: HOSPICE: No HOSPICE EVAL & TREAT: No LTAC: ADMIT TO LTAC: No POST DISCHARGE ORDERS: ACTIVITY ORDERS: Activity as tolerated WEIGHT BEARING STATUS: As tolerated BATHING ORDERS: Shower-keep dressing dry DIET AFTER DISCHARGE: Regular WOUND/INCISION CARE: No wound care needed CHECKS AFTER DISCHARGE: CHECKS AFTER DISCHARGE: Check blood press - daily, Check your Temp as needed FOLLOW-UP: PHYSICIAN FOLLOW-UP: [facility] PSA TREATMENT/EQUIPMENT ORDERS: ADAPTIVE EQUIPMENT NEEDED: None, Brace/splint Physical Therapy For: Evalulation/Treatment Occupational Therapy For: Evaluation/Treatment DISCHARGE MEDICATIONS: Home Meds Active Scripts Oxybutynin Chloride (OXYBUTYNIN CHLORIDE) 5 Mg Tablet, 5 MG PO [id number] for urinary issues, #60 TAB Prov:EFRA MADRIGAL MD 06/12/19 Phenazopyridine Hcl (PHENAZOPYRIDINE HCL) 200 Mg Tablet, 200 MG PO PRN TID PRN for URINARY PAIN, #30 TAB Prov:EFRA MADRIGAL MD 06/12/19 Lidocaine (Lidocaine PATCH ) 1 Each Adh..patch, 1 PATCH TD DAILY for back pain, #14 PATCH Prov:EFRA MADRIGAL MD 06/12/19 Albuterol Sulfate (Proair Hfa) 8.5 Gm Hfa.aer.ad, 2.5 MG NEB PRN Q4HRS PRN for SHORTNESS OF BREATH for 30 Days, INHALER Prov:EFRA MADRIGAL MD 06/12/19 Sulfamethoxazole/Trimethoprim (SULFAMETHOXAZOLE-TMP DS TABLET) 1 Each Tablet, 1 TAB PO BID for uti for 7 Days, #14 TAB Prov:EFRA MADRIGAL MD 06/12/19 Magnesium Oxide (MAGNESIUM) 400 Mg Capsule, 1 CAP PO DAILY for 10 Days, #10 CAP Prov:KIMBERLY ZELAYA DO 05/19/19 Metoprolol Tartrate (METOPROLOL TARTRATE) 25 Mg Tablet, 1 TAB PO BID for HTN, #180 TAB 1 Refill Prov:RADHA MARTELL MD 02/08/19 Reported Medications Omeprazole (OMEPRAZOLE) 20 Mg Capsule.dr, 1 CAP PO DAILY for GERD, #30 CAP 5 Refills 02/06/19 Aspirin (ASPIRIN) 81 Mg Tab.chew, 1 TAB PO DAILY for HH, #30 TAB 3 Refills 02/06/19 Finasteride (FINASTERIDE) 5 Mg Tablet, 1 TAB PO DAILY for BPH, #30 TAB 11 R efills 02/06/19 Cholecalciferol (Vitamin D3) (VITAMIN D) 1,000 Unit Capsule, 1 CAP PO DAILY for supplement, #30 CAP 3 Refills 02/06/19 Thiamine Hcl (THIAMINE HCL) 500 Mg Tablet, 100 MG PO DAILY for supplement, TAB 02/06/19 Folic Acid (FOLIC ACID) 1 Mg Tablet, 1 TAB PO DAILY for Supplement, #90 TAB 1 Refill 02/06/19 Docusate Sodium (COLACE) 100 Mg Capsule, 1 CAP PO BID for Constipation , #30 CAP 02/06/19 Calcium Carbonate (CALCIUM CARBONATE) 500 Mg Tablet, 500 MG PO DAILY for Supplement, TAB 02/06/19 Terazosin Hcl (TERAZOSIN HCL) 10 Mg Capsule, 1 CAP PO HS for BPH, #90 CAP 1 Refill 02/06/19 Baclofen (BACLOFEN) 10 Mg Tablet, 1 TAB PO TID for muscle spams , #90 TAB 2 Refills 02/06/19 Atorvastatin Calcium (ATORVASTATIN CALCIUM) 20 Mg Tablet, 20 MG PO HS for FOR CHOLESTEROL, #30 TAB 0 Refills 05/06/16 EFRA MADRIGAL MD Jun 12, 2019 09:02
--- NOTE | 2019-06-12 09:41 | PDOC ---
PROGRESS NOTES Subjective Subjective He c/o continued radicular pain and low back pain is less from injection. Objective Objective Vital Signs Date Time Temp Pulse Resp B/P (MAP) Pulse Ox O2 Delivery O2 Flow Rate FiO2 06/12/19 07:00 98.6 69 19 123/74 (90) 95 Room Air 98.6 Intake and Output 06/12/19 06:59 Intake Total 960 ml Output Total 700 ml Balance 260 ml Intake Oral 960 ml Output Urine Total 700 ml # Voids 2 Physical Exam Physical Exam He is alert,comfortable in bed and he continues with urinary incontinence.Physical and occupational therapy are working with him. Assessment Assessment Problems Medical Problems: (1) Acute on chronic kidney failure Status: Acute (2) Back pain Status: Chronic (3) Obstructive uropathy Status: Acute (4) Urinary retention Status: Acute Plan Plan of Care He agrees to go to SNF. Comment Review of Relevant I have reviewed the following items prince (where applicable) has been applied. Labs Laboratory Tests Test 06/10/19 14:20 06/10/19 15:45 06/10/19 20:20 06/11/19 03:45 White Blood Count 7.7 x10^3/uL (4.0-11.0) 7.1 x10^3/uL (4.0-11.0) Red Blood Count 4.60 x10^6/uL (4.30-5.70) 4.02 x10^6/uL (4.30-5.70) Hemoglobin 14.3 g/dL (13.0-17.5) 12.6 g/dL (13.0-17.5) Hematocrit 42.4 % (39.0-53.0) 36.8 % (39.0-53.0) Mean Corpuscular Volume 92 fL (79-100) 92 fL (79-100) Mean Corpuscular Hemoglobin 31 pg (25-35) 31 pg (25-35) Mean Corpuscular Hemoglobin Concent 34 g/dL (31-37) 34 g/dL (31-37) Red Cell Distribution Width 13.0 % (11.5-14.5) 13.2 % (11.5-14.5) Platelet Count 199 x10^3/uL (140-400) 175 x10^3/uL (140-400) Neutrophils (%) (Auto) 69 % (31-73) 61 % (31-73) Lymphocytes (%) (Auto) 18 % (24-48) 24 % (24-48) Monocytes (%) (Auto) 11 % (0-9) 12 % (0-9) Eosinophils (%) (Auto) 1 % (0-3) 2 % (0-3) Basophils (%) (Auto) 1 % (0-3) 1 % (0-3) Neutrophils # (Auto) 5.4 x10^3/uL (1.8-7.7) 4.3 x10^3/uL (1.8-7.7) Lymphocytes # (Auto) 1.4 x10^3/uL (1.0-4.8) 1.7 x10^3/uL (1.0-4.8) Monocytes # (Auto) 0.8 x10^3/uL (0.0-1.1) 0.9 x10^3/uL (0.0-1.1) Eosinophils # (Auto) 0.1 x10^3/uL (0.0-0.7) 0.2 x10^3/uL (0.0-0.7) Basophils # (Auto) 0.1 x10^3/uL (0.0-0.2) 0.1 x10^3/uL (0.0-0.2) Sodium Level 141 mmol/L (136-145) 142 mmol/L (136-145) Potassium Level 3.8 mmol/L (3.5-5.1) 3.4 mmol/L (3.5-5.1) Chloride Level 104 mmol/L (98-107) 105 mmol/L (98-107) Carbon Dioxide Level 29 mmol/L (21-32) 29 mmol/L (21-32) Anion Gap 8 (6-14) 8 (6-14) Blood Urea Nitrogen 25 mg/dL (8-26) 22 mg/dL (8-26) Creatinine 1.9 mg/dL (0.7-1.3) 1.3 mg/dL (0.7-1.3) Estimated GFR (Cockcroft-Gault) 42.5 65.8 BUN/Creatinine Ratio 13 (6-20) 17 (6-20) Glucose Level 115 mg/dL (70-99) 84 mg/dL (70-99) Calcium Level 10.6 mg/dL (8.5-10.1) 9.4 mg/dL (8.5-10.1) Total Bilirubin 0.6 mg/dL (0.2-1.0) 0.4 mg/dL (0.2-1.0) Aspartate Amino Transf (AST/SGOT) 16 U/L (15-37) 16 U/L (15-37) Alanine Aminotransferase (ALT/SGPT) 15 U/L (16-63) 15 U/L (16-63) Alkaline Phosphatase 54 U/L (46-116) 49 U/L (46-116) Total Protein 8.0 g/dL (6.4-8.2) 6.5 g/dL (6.4-8.2) Albumin 4.3 g/dL (3.4-5.0) 3.4 g/dL (3.4-5.0) Albumin/Globulin Ratio 1.2 (1.0-1.7) 1.1 (1.0-1.7) Urine Collection Type Unknown Urine Color Dk yellow Urine Clarity Turbid Urine pH 7.5 Urine Specific [place] 1.025 Urine Protein 30 mg/dL (NEG-TRACE) Urine Glucose (UA) 100 mg/dL (NEG) Urine Ketones (Stick) Trace mg/dL (NEG) Urine Blood Negative (NEG) Urine Nitrite Negative (NEG) Urine Bilirubin Small (NEG) Urine Urobilinogen Dipstick 0.2 mg/dL (0.2 mg/dL) Urine Leukocyte Esterase Small (NEG) Urine RBC 0 /HPF (0-2) Urine WBC 1-4 /HPF (0-4) Urine Squamous Epithelial Cells Many /LPF Urine Bacteria Few /HPF (0-FEW) Urine Hyaline Casts Moderate /HPF Urine Mucus Marked /LPF Glucose (Fingerstick) 109 mg/dL (70-99) Ionized Calcium 1.24 mmol/L (1.13-1.32) Test 06/11/19 10:20 06/12/19 03:05 Urine Collection Type U cath Urine Color Yellow Urine Clarity Cloudy Urine pH 7.5 Urine Specific [place] 1.015 Urine Protein Negative mg/dL (NEG-TRACE) Urine Glucose (UA) 250 mg/dL (NEG) Urine Ketones (Stick) Negative mg/dL (NEG) Urine Blood Negative (NEG) Urine Nitrite Negative (NEG) Urine Bilirubin Negative (NEG) Urine Urobilinogen Dipstick 0.2 mg/dL (0.2 mg/dL) Urine Leukocyte Esterase Negative (NEG) Urine RBC 1-2 /HPF (0-2) Urine WBC 1-4 /HPF (0-4) Urine Renal Epithelial Cells Occ /LPF Urine Amorphous Sediment Present /HPF Urine Bacteria Few /HPF (0-FEW) Urine Hyaline Casts Many /HPF Urine Mucus Marked /LPF White Blood Count 6.5 x10^3/uL (4.0-11.0) Red Blood Count 3.82 x10^6/uL (4.30-5.70) Hemoglobin 12.1 g/dL (13.0-17.5) Hematocrit 35.2 % (39.0-53.0) Mean Corpuscular Volume 92 fL (79-100) Mean Corpuscular Hemoglobin 32 pg (25-35) Mean Corpuscular Hemoglobin Concent 34 g/dL (31-37) Red Cell Distribution Width 12.9 % (11.5-14.5) Platelet Count 167 x10^3/uL (140-400) Neutrophils (%) (Auto) 68 % (31-73) Lymphocytes (%) (Auto) 19 % (24-48) Monocytes (%) (Auto) 11 % (0-9) Eosinophils (%) (Auto) 2 % (0-3) Basophils (%) (Auto) 0 % (0-3) Neutrophils # (Auto) 4.4 x10^3/uL (1.8-7.7) Lymphocytes # (Auto) 1.2 x10^3/uL (1.0-4.8) Monocytes # (Auto) 0.7 x10^3/uL (0.0-1.1) Eosinophils # (Auto) 0.1 x10^3/uL (0.0-0.7) Basophils # (Auto) 0.0 x10^3/uL (0.0-0.2) Sodium Level 141 mmol/L (136-145) Potassium Level 3.9 mmol/L (3.5-5.1) Chloride Level 105 mmol/L (98-107) Carbon Dioxide Level 28 mmol/L (21-32) Anion Gap 8 (6-14) Blood Urea Nitrogen 25 mg/dL (8-26) Creatinine 1.4 mg/dL (0.7-1.3) Estimated GFR (Cockcroft-Gault) 60.4 BUN/Creatinine Ratio 18 (6-20) Glucose Level 104 mg/dL (70-99) Calcium Level 9.3 mg/dL (8.5-10.1) Total Bilirubin 0.3 mg/dL (0.2-1.0) Aspartate Amino Transf (AST/SGOT) 13 U/L (15-37) Alanine Aminotransferase (ALT/SGPT) 11 U/L (16-63) Alkaline Phosphatase 60 U/L (46-116) Total Protein 6.6 g/dL (6.4-8.2) Albumin 3.2 g/dL (3.4-5.0) Albumin/Globulin Ratio 0.9 (1.0-1.7) Laboratory Tests Test 06/11/19 10:20 06/12/19 03:05 Urine Collection Type U cath Urine Color Yellow Urine Clarity Cloudy Urine pH 7.5 Urine Specific [place] 1.015 Urine Protein Negative mg/dL (NEG-TRACE) Urine Glucose (UA) 250 mg/dL (NEG) Urine Ketones (Stick) Negative mg/dL (NEG) Urine Blood Negative (NEG) Urine Nitrite Negative (NEG) Urine Bilirubin Negative (NEG) Urine Urobilinogen Dipstick 0.2 mg/dL (0.2 mg/dL) Urine Leukocyte Esterase Negative (NEG) Urine RBC 1-2 /HPF (0-2) Urine WBC 1-4 /HPF (0-4) Urine Renal Epithelial Cells Occ /LPF Urine Amorphous Sediment Present /HPF Urine Bacteria Few /HPF (0-FEW) Urine Hyaline Casts Many /HPF Urine Mucus Marked /LPF White Blood Count 6.5 x10^3/uL (4.0-11.0) Red Blood Count 3.82 x10^6/uL (4.30-5.70) Hemoglobin 12.1 g/dL (13.0-17.5) Hematocrit 35.2 % (39.0-53.0) Mean Corpuscular Volume 92 fL (79-100) Mean Corpuscular Hemoglobin 32 pg (25-35) Mean Corpuscular Hemoglobin Concent 34 g/dL (31-37) Red Cell Distribution Width 12.9 % (11.5-14.5) Platelet Count 167 x10^3/uL (140-400) Neutrophils (%) (Auto) 68 % (31-73) Lymphocytes (%) (Auto) 19 % (24-48) Monocytes (%) (Auto) 11 % (0-9) Eosinophils (%) (Auto) 2 % (0-3) Basophils (%) (Auto) 0 % (0-3) Neutrophils # (Auto) 4.4 x10^3/uL (1.8-7.7) Lymphocytes # (Auto) 1.2 x10^3/uL (1.0-4.8) Monocytes # (Auto) 0.7 x10^3/uL (0.0-1.1) Eosinophils # (Auto) 0.1 x10^3/uL (0.0-0.7) Basophils # (Auto) 0.0 x10^3/uL (0.0-0.2) Sodium Level 141 mmol/L (136-145) Potassium Level 3.9 mmol/L (3.5-5.1) Chloride Level 105 mmol/L (98-107) Carbon Dioxide Level 28 mmol/L (21-32) Anion Gap 8 (6-14) Blood Urea Nitrogen 25 mg/dL (8-26) Creatinine 1.4 mg/dL (0.7-1.3) Estimated GFR (Cockcroft-Gault) 60.4 BUN/Creatinine Ratio 18 (6-20) Glucose Level 104 mg/dL (70-99) Calcium Level 9.3 mg/dL (8.5-10.1) Total Bilirubin 0.3 mg/dL (0.2-1.0) Aspartate Amino Transf (AST/SGOT) 13 U/L (15-37) Alanine Aminotransferase (ALT/SGPT) 11 U/L (16-63) Alkaline Phosphatase 60 U/L (46-116) Total Protein 6.6 g/dL (6.4-8.2) Albumin 3.2 g/dL (3.4-5.0) Albumin/Globulin Ratio 0.9 (1.0-1.7) Medications Current Medications Ondansetron HCl (Zofran) 4 mg PRN Q8HRS PRN IV NAUSEA/VOMITING; Start 06/10/19 at 16:30; Stop 06/11/19 at 16:29; Status DC Morphine Sulfate (Morphine Sulfate) 2 mg PRN Q2HR PRN IV PAIN Last administered on 06/10/19 22:12; Start 06/10/19 at 16:30; Stop 06/11/19 at 16:29; Status DC Sodium Chloride 1,000 ml @ 150 mls/hr Q6H40M IV Last administered on 06/10/19at 17:17; Start 06/10/19 at 16:21; Stop 06/10/19 at 21:16; Status DC Influenza Virus Vaccine Quadrival (Afluria Quad 2019-20 (3yr Up) Syringe) 0.5 ml ONCE ONCE VAX IM Last administered on 06/10/19 20:28; Start 06/10/19 at 18:15; Stop 06/10/19 at 18:18; Status DC Lidocaine (Lidoderm) 1 patch DAILY TD Last administered on 06/12/19 09:02; Start 06/10/19 at 21:15 Miscellaneous (Lidoderm Patch Removal) 1 ea QHS MC Last administered on 06/11/19 22:57; Start 06/11/19 at 21:00 Cyclobenzaprine HCl (Flexeril) 10 mg 1X ONCE PO Last administered on 06/10/19at 22:12; Start 06/10/19 at 21:30; Stop 06/10/19 at 21:31; Status DC Cyclobenzaprine HCl (Flexeril) 10 mg PRN Q6HRS PRN PO MUSCLE SPASMS Last administered on 06/11/19at 12:42; Start 06/10/19 at 21:30 Methylprednisolone Acetate (DEPO-Medrol 40MG VIAL) 40 mg 1X ONCE IM ; Start 06/11/19 at 09:45; Stop 06/11/19 at 09:50; Status DC Bupivacaine HCl (Sensorcaine-Mpf 0.25%) 10 ml 1X ONCE IJ ; Start 06/11/19 at 09:45; Stop 06/11/19 at 09:50; Status DC Ascorbic Acid (Vitamin C) 500 mg BID PO Last administered on 06/12/19at 09:02; Start 06/11/19 at 21:00 Phenazopyridine HCl (Pyridium) 200 mg PRN TID PRN PO URINARY PAIN Last administered on 06/12/19 09:02; Start 06/11/19 at 09:45 Trimethoprim/ Sulfamethoxazole (Bactrim Ds) 1 tab BID PO Last administered on 06/12/19 09:02; Start 06/11/19 at 10:00 Oxybutynin Chloride (Ditropan) 5 mg BID66 PO Last administered on 06/12/19at 04:52; Start 06/11/19 at 18:00 Lactobacillus Rhamnosus (Culturelle) 1 cap BID PO Last administered on 06/12/19at 09:02; Start 06/11/19 at 21:00 Sodium Chloride (Normal Saline Flush) 3 ml QSHIFT PRN IV AFTER MEDS AND BLOOD DRAWS; Start 06/11/19 at 13:15 Ondansetron HCl (Zofran) 4 mg PRN Q4HRS PRN IV NAUSEA/VOMITING; Start 06/11/19 at 13:15 Acetaminophen (Tylenol) 650 mg PRN Q4HRS PRN PO TEMP OVER 100.4F OR MILD PAIN; Start 06/11/19 at 13:15 Clonidine HCl (Catapres) 0.1 mg PRN Q6HRS PRN PO SBP>160 OR DBP>90; Start 06/11/19 at 13:15 Docusate Sodium (Colace) 100 mg PRN BID PRN PO CONSTIPATION; Start 06/11/19 at 13:15 Albuterol Sulfate (Ventolin Neb Soln) 2.5 mg PRN Q4HRS PRN NEB SHORTNESS OF BREATH; Start 06/11/19 at 13:15 Lorazepam (Ativan) 0.5 mg PRN Q4HRS PRN PO ANXIETY / AGITATION; Start 06/11/19 at 13:15 Enoxaparin Sodium (Lovenox 40mg Syringe) 40 mg DAILY SQ Last administered on 06/12/19at 09:02; Start 06/12/19 at 09:00 Active Scripts Active Oxybutynin Chloride 5 Mg Tablet 5 Mg PO BID66 Phenazopyridine Hcl 200 Mg Tablet 200 Mg PO PRN TID PRN Lidocaine PATCH (Lidocaine) 1 Each Adh..patch 1 Patch TD DAILY Proair Hfa (Albuterol Sulfate) 8.5 Gm Hfa.aer.ad 2.5 Mg NEB PRN Q4HRS PRN 30 Days Sulfamethoxazole-Tmp Ds Tablet (Sulfamethoxazole/Trimethoprim) 1 Each Tablet 1 Tab PO BID 7 Days Magnesium (Magnesium Oxide) 400 Mg Capsule 1 Cap PO DAILY 10 Days Metoprolol Tartrate 25 Mg Tablet 1 Tab PO BID Reported Omeprazole 20 Mg Capsule.dr 1 Cap PO DAILY Aspirin 81 Mg Tab.chew 1 Tab PO DAILY Finasteride 5 Mg Tablet 1 Tab PO DAILY Vitamin D (Cholecalciferol (Vitamin D3)) 1,000 Unit Capsule 1 Cap PO DAILY Thiamine Hcl 500 Mg Tablet 100 Mg PO DAILY Folic Acid 1 Mg Tablet 1 Tab PO DAILY Colace (Docusate Sodium) 100 Mg Capsule 1 Cap PO BID Calcium Carbonate 500 Mg Tablet 500 Mg PO DAILY Terazosin Hcl 10 Mg Capsule 1 Cap PO HS Baclofen 10 Mg Tablet 1 Tab PO TID Atorvastatin Calcium 20 Mg Tablet 20 Mg PO HS Vitals/I & O Vital Sign - Last 24 Hours 06/11/19 06/11/19 06/11/19 06/11/19 11:00 15:00 19:00 20:00 Temp 98.4 98.3 98.2 98.4 98.3 98.2 Pulse 68 66 71 Resp B/P (MAP) 136/66 (89) 134/71 (92) 147/75 (99) Pulse Ox 99 98 96 O2 Delivery Room Air Room Air Room Air Room Air 06/11/19 06/12/19 06/12/19 23:00 02:31 07:00 Temp 98.4 98.2 98.6 98.4 98.2 98.6 Pulse 65 66 69 Resp 18 B/P (MAP) 142/85 (104) 136/77 (96) 123/74 (90) Pulse Ox 97 98 95 O2 Delivery Room Air Room Air Room Air Intake and Output 06/11/19 06/11/19 06/12/19 14:59 22:59 06:59 Intake Total 540 ml 180 ml 240 ml Output Total 350 ml 350 ml Balance 190 ml 180 ml -110 ml SANTINO WICK MD Jun 12, 2019 09:40
--- NOTE | 2019-06-12 10:38 | PDOC ---
MISSY WEBBER 06/12/19 1038: SUBJECTIVE Subjective States the pain/burning over his bladder is still consistent, no improvement Still having episodes of incontinence mostly unaware of leakage, some urge incontinence States he came to the hospital because he wanted his weak stream fixed OBJECTIVE Objective Physical Exam Alert, NAD, Pleasant Unlabored breathing Abdomen nontender nondistended Vital Signs Vital Signs Date Time Temp Pulse Resp B/P (MAP) Pulse Ox O2 Delivery O2 Flow Rate FiO2 06/12/19 07:00 98.6 69 19 123/74 (90) 95 Room Air 98.6 06/12/19 02:31 98.2 66 19 136/77 (96) 98 Room Air 98.2 06/11/19 23:00 98.4 65 18 142/85 (104) 97 Room Air 98.4 06/11/19 20:00 Room Air 06/11/19 19:00 98.2 71 18 147/75 (99) 96 Room Air 98.2 06/11/19 15:00 98.3 66 16 134/71 (92) 98 Room Air 98.3 06/11/19 11:00 98.4 68 18 136/66 (89) 99 Room Air 98.4 I & O Intake and Output 06/12/19 07:00 Intake Total 960 ml Output Total 700 ml Balance 260 ml Intake Oral 960 ml Output Urine Total 700 ml # Voids 2 ASSESSMENT/PLAN Assessment/Plan UA neg leuk est, neg nitrite, few bacteria BPH with LUTS, Elevated PSA Continue terazosin and finasteride from home medications D/c oxybutynin, PVR 268 this AM Discussed importance of following up with [facility] after discharge for eval of elevated PSA and obstructive urinary symptoms - medications not effective COMMENT Lab Laboratory Tests Test 06/12/19 03:05 White Blood Count 6.5 x10^3/uL (4.0-11.0) Red Blood Count 3.82 x10^6/uL (4.30-5.70) Hemoglobin 12.1 g/dL (13.0-17.5) Hematocrit 35.2 % (39.0-53.0) Mean Corpuscular Volume 92 fL (79-100) Mean Corpuscular Hemoglobin 32 pg (25-35) Mean Corpuscular Hemoglobin Concent 34 g/dL (31-37) Red Cell Distribution Width 12.9 % (11.5-14.5) Platelet Count 167 x10^3/uL (140-400) Neutrophils (%) (Auto) 68 % (31-73) Lymphocytes (%) (Auto) 19 % (24-48) Monocytes (%) (Auto) 11 % (0-9) Eosinophils (%) (Auto) 2 % (0-3) Basophils (%) (Auto) 0 % (0-3) Neutrophils # (Auto) 4.4 x10^3/uL (1.8-7.7) Lymphocytes # (Auto) 1.2 x10^3/uL (1.0-4.8) Monocytes # (Auto) 0.7 x10^3/uL (0.0-1.1) Eosinophils # (Auto) 0.1 x10^3/uL (0.0-0.7) Basophils # (Auto) 0.0 x10^3/uL (0.0-0.2) Sodium Level 141 mmol/L (136-145) Potassium Level 3.9 mmol/L (3.5-5.1) Chloride Level 105 mmol/L (98-107) Carbon Dioxide Level 28 mmol/L (21-32) Anion Gap 8 (6-14) Blood Urea Nitrogen 25 mg/dL (8-26) Creatinine 1.4 mg/dL (0.7-1.3) Estimated GFR (Cockcroft-Gault) 60.4 BUN/Creatinine Ratio 18 (6-20) Glucose Level 104 mg/dL (70-99) Calcium Level 9.3 mg/dL (8.5-10.1) Total Bilirubin 0.3 mg/dL (0.2-1.0) Aspartate Amino Transf (AST/SGOT) 13 U/L (15-37) Alanine Aminotransferase (ALT/SGPT) 11 U/L (16-63) Alkaline Phosphatase 60 U/L (46-116) Total Protein 6.6 g/dL (6.4-8.2) Albumin 3.2 g/dL (3.4-5.0) Albumin/Globulin Ratio 0.9 (1.0-1.7) MARLON JOHNSTON MD 06/13/19 1638: ASSESSMENT/PLAN Assessment/Plan Agree with assessment and plan. MISSY WEBBER Jun 12, 2019 10:38 MARLON JOHNSTON MD Jun 13, 2019 16:38
[2019-06-12 11:46] VITALS: BP 142/80
--- NOTE | 2019-06-12 12:43 | PDOC ---
PROGRESS NOTES Chief Complaint Chief Complaint acute obstructive uropathy acute renal failure, vasomotor nephropathy back pain GEn weakness - SNU candidate History of Present Illness History of Present Illness Seen by physiatry Also urology, levaquin, pyroidum, bladder scan protocol PT recs SNU - I consulted SW - dc tmr, I had to help him cut his lunch food today PLAN: Pyridium, levaquin, bladder scan protocol DNR Medically ready All rx on chart MAR done electronically pt seen and examined Vitals Vitals Vital Signs Date Time Temp Pulse Resp B/P (MAP) Pulse Ox O2 Delivery O2 Flow Rate FiO2 06/12/19 11:46 97.5 64 21 142/80 (100) 96 97.5 06/12/19 08:00 Room Air Physical Exam Physical Exam Physical Exam General: Alert, Oriented X3, Cooperative, mild distress HEENT: PERRLA, Mucous membr. moist/pink Lungs: Clear to auscultation, Normal air movement Heart: no gallops, no murmurs Abdomen: Normal bowel sounds, Soft Extremities: No clubbing, No edema Skin: No rashes Neuro: Normal speech, Normal tone, Sensation intact, Cranial nerves 3-12 NL Psych/Mental Status: Mental status NL, Mood NL General: Alert, Cooperative Heart: Regular rate, Normal S1 Lungs: Clear Abdomen: Normal bowel sounds, Soft Extremities: No cyanosis Skin: No rashes Labs LABS Laboratory Tests Test 06/12/19 03:05 White Blood Count 6.5 x10^3/uL (4.0-11.0) Red Blood Count 3.82 x10^6/uL (4.30-5.70) Hemoglobin 12.1 g/dL (13.0-17.5) Hematocrit 35.2 % (39.0-53.0) Mean Corpuscular Volume 92 fL (79-100) Mean Corpuscular Hemoglobin 32 pg (25-35) Mean Corpuscular Hemoglobin Concent 34 g/dL (31-37) Red Cell Distribution Width 12.9 % (11.5-14.5) Platelet Count 167 x10^3/uL (140-400) Neutrophils (%) (Auto) 68 % (31-73) Lymphocytes (%) (Auto) 19 % (24-48) Monocytes (%) (Auto) 11 % (0-9) Eosinophils (%) (Auto) 2 % (0-3) Basophils (%) (Auto) 0 % (0-3) Neutrophils # (Auto) 4.4 x10^3/uL (1.8-7.7) Lymphocytes # (Auto) 1.2 x10^3/uL (1.0-4.8) Monocytes # (Auto) 0.7 x10^3/uL (0.0-1.1) Eosinophils # (Auto) 0.1 x10^3/uL (0.0-0.7) Basophils # (Auto) 0.0 x10^3/uL (0.0-0.2) Sodium Level 141 mmol/L (136-145) Potassium Level 3.9 mmol/L (3.5-5.1) Chloride Level 105 mmol/L (98-107) Carbon Dioxide Level 28 mmol/L (21-32) Anion Gap 8 (6-14) Blood Urea Nitrogen 25 mg/dL (8-26) Creatinine 1.4 mg/dL (0.7-1.3) Estimated GFR (Cockcroft-Gault) 60.4 BUN/Creatinine Ratio 18 (6-20) Glucose Level 104 mg/dL (70-99) Calcium Level 9.3 mg/dL (8.5-10.1) Total Bilirubin 0.3 mg/dL (0.2-1.0) Aspartate Amino Transf (AST/SGOT) 13 U/L (15-37) Alanine Aminotransferase (ALT/SGPT) 11 U/L (16-63) Alkaline Phosphatase 60 U/L (46-116) Total Protein 6.6 g/dL (6.4-8.2) Albumin 3.2 g/dL (3.4-5.0) Albumin/Globulin Ratio 0.9 (1.0-1.7) Review of Systems Review of Systems neg 14 pt reviewed with him Assessment and Plan Assessmemt and Plan Problems Medical Problems: (1) Acute on chronic kidney failure Status: Acute (2) Back pain Status: Chronic (3) Obstructive uropathy Status: Acute (4) Urinary retention Status: Acute Comment Review of Relevant I have reviewed the following items prince (where applicable) has been applied. Labs Laboratory Tests Test 06/10/19 14:20 06/10/19 15:45 06/10/19 20:06/11/19 03:45 White Blood Count 7.7 x10^3/uL (4.0-11.0) 7.1 x10^3/uL (4.0-11.0) Red Blood Count 4.60 x10^6/uL (4.30-5.70) 4.02 x10^6/uL (4.30-5.70) Hemoglobin 14.3 g/dL (13.0-17.5) 12.6 g/dL (13.0-17.5) Hematocrit 42.4 % (39.0-53.0) 36.8 % (39.0-53.0) Mean Corpuscular Volume 92 fL (79-100) 92 fL (79-100) Mean Corpuscular Hemoglobin 31 pg (25-35) 31 pg (25-35) Mean Corpuscular Hemoglobin Concent 34 g/dL (31-37) 34 g/dL (31-37) Red Cell Distribution Width 13.0 % (11.5-14.5) 13.2 % (11.5-14.5) Platelet Count 199 x10^3/uL (140-400) 175 x10^3/uL (140-400) Neutrophils (%) (Auto) 69 % (31-73) 61 % (31-73) Lymphocytes (%) (Auto) 18 % (24-48) 24 % (24-48) Monocytes (%) (Auto) 11 % (0-9) 12 % (0-9) Eosinophils (%) (Auto) 1 % (0-3) 2 % (0-3) Basophils (%) (Auto) 1 % (0-3) 1 % (0-3) Neutrophils # (Auto) 5.4 x10^3/uL (1.8-7.7) 4.3 x10^3/uL (1.8-7.7) Lymphocytes # (Auto) 1.4 x10^3/uL (1.0-4.8) 1.7 x10^3/uL (1.0-4.8) Monocytes # (Auto) 0.8 x10^3/uL (0.0-1.1) 0.9 x10^3/uL (0.0-1.1) Eosinophils # (Auto) 0.1 x10^3/uL (0.0-0.7) 0.2 x10^3/uL (0.0-0.7) Basophils # (Auto) 0.1 x10^3/uL (0.0-0.2) 0.1 x10^3/uL (0.0-0.2) Sodium Level 141 mmol/L (136-145) 142 mmol/L (136-145) Potassium Level 3.8 mmol/L (3.5-5.1) 3.4 mmol/L (3.5-5.1) Chloride Level 104 mmol/L (98-107) 105 mmol/L (98-107) Carbon Dioxide Level 29 mmol/L (21-32) 29 mmol/L (21-32) Anion Gap 8 (6-14) 8 (6-14) Blood Urea Nitrogen 25 mg/dL (8-26) 22 mg/dL (8-26) Creatinine 1.9 mg/dL (0.7-1.3) 1.3 mg/dL (0.7-1.3) Estimated GFR (Cockcroft-Gault) 42.5 65.8 BUN/Creatinine Ratio 13 (6-20) 17 (6-20) Glucose Level 115 mg/dL (70-99) 84 mg/dL (70-99) Calcium Level 10.6 mg/dL (8.5-10.1) 9.4 mg/dL (8.5-10.1) Total Bilirubin 0.6 mg/dL (0.2-1.0) 0.4 mg/dL (0.2-1.0) Aspartate Amino Transf (AST/SGOT) 16 U/L (15-37) 16 U/L (15-37) Alanine Aminotransferase (ALT/SGPT) 15 U/L (16-63) 15 U/L (16-63) Alkaline Phosphatase 54 U/L (46-116) 49 U/L (46-116) Total Protein 8.0 g/dL (6.4-8.2) 6.5 g/dL (6.4-8.2) Albumin 4.3 g/dL (3.4-5.0) 3.4 g/dL (3.4-5.0) Albumin/Globulin Ratio 1.2 (1.0-1.7) 1.1 (1.0-1.7) Urine Collection Type Unknown Urine Color Dk yellow Urine Clarity Turbid Urine pH 7.5 Urine Specific [place] 1.025 Urine Protein 30 mg/dL (NEG-TRACE) Urine Glucose (UA) 100 mg/dL (NEG) Urine Ketones (Stick) Trace mg/dL (NEG) Urine Blood Negative (NEG) Urine Nitrite Negative (NEG) Urine Bilirubin Small (NEG) Urine Urobilinogen Dipstick 0.2 mg/dL (0.2 mg/dL) Urine Leukocyte Esterase Small (NEG) Urine RBC 0 /HPF (0-2) Urine WBC 1-4 /HPF (0-4) Urine Squamous Epithelial Cells Many /LPF Urine Bacteria Few /HPF (0-FEW) Urine Hyaline Casts Moderate /HPF Urine Mucus Marked /LPF Glucose (Fingerstick) 109 mg/dL (70-99) Ionized Calcium 1.24 mmol/L (1.13-1.32) Test 06/11/19 10:20 06/12/19 03:05 Urine Collection Type U cath Urine Color Yellow Urine Clarity Cloudy Urine pH 7.5 Urine Specific [place] 1.015 Urine Protein Negative mg/dL (NEG-TRACE) Urine Glucose (UA) 250 mg/dL (NEG) Urine Ketones (Stick) Negative mg/dL (NEG) Urine Blood Negative (NEG) Urine Nitrite Negative (NEG) Urine Bilirubin Negative (NEG) Urine Urobilinogen Dipstick 0.2 mg/dL (0.2 mg/dL) Urine Leukocyte Esterase Negative (NEG) Urine RBC 1-2 /HPF (0-2) Urine WBC 1-4 /HPF (0-4) Urine Renal Epithelial Cells Occ /LPF Urine Amorphous Sediment Present /HPF Urine Bacteria Few /HPF (0-FEW) Urine Hyaline Casts Many /HPF Urine Mucus Marked /LPF White Blood Count 6.5 x10^3/uL (4.0-11.0) Red Blood Count 3.82 x10^6/uL (4.30-5.70) Hemoglobin 12.1 g/dL (13.0-17.5) Hematocrit 35.2 % (39.0-53.0) Mean Corpuscular Volume 92 fL (79-100) Mean Corpuscular Hemoglobin 32 pg (25-35) Mean Corpuscular Hemoglobin Concent 34 g/dL (31-37) Red Cell Distribution Width 12.9 % (11.5-14.5) Platelet Count 167 x10^3/uL (140-400) Neutrophils (%) (Auto) 68 % (31-73) Lymphocytes (%) (Auto) 19 % (24-48) Monocytes (%) (Auto) 11 % (0-9) Eosinophils (%) (Auto) 2 % (0-3) Basophils (%) (Auto) 0 % (0-3) Neutrophils # (Auto) 4.4 x10^3/uL (1.8-7.7) Lymphocytes # (Auto) 1.2 x10^3/uL (1.0-4.8) Monocytes # (Auto) 0.7 x10^3/uL (0.0-1.1) Eosinophils # (Auto) 0.1 x10^3/uL (0.0-0.7) Basophils # (Auto) 0.0 x10^3/uL (0.0-0.2) Sodium Level 141 mmol/L (136-145) Potassium Level 3.9 mmol/L (3.5-5.1) Chloride Level 105 mmol/L (98-107) Carbon Dioxide Level 28 mmol/L (21-32) Anion Gap 8 (6-14) Blood Urea Nitrogen 25 mg/dL (8-26) Creatinine 1.4 mg/dL (0.7-1.3) Estimated GFR (Cockcroft-Gault) 60.4 BUN/Creatinine Ratio 18 (6-20) Glucose Level 104 mg/dL (70-99) Calcium Level 9.3 mg/dL (8.5-10.1) Total Bilirubin 0.3 mg/dL (0.2-1.0) Aspartate Amino Transf (AST/SGOT) 13 U/L (15-37) Alanine Aminotransferase (ALT/SGPT) 11 U/L (16-63) Alkaline Phosphatase 60 U/L (46-116) Total Protein 6.6 g/dL (6.4-8.2) Albumin 3.2 g/dL (3.4-5.0) Albumin/Globulin Ratio 0.9 (1.0-1.7) Laboratory Tests Test 06/12/19 03:05 White Blood Count 6.5 x10^3/uL (4.0-11.0) Red Blood Count 3.82 x10^6/uL (4.30-5.70) Hemoglobin 12.1 g/dL (13.0-17.5) Hematocrit 35.2 % (39.0-53.0) Mean Corpuscular Volume 92 fL (79-100) Mean Corpuscular Hemoglobin 32 pg (25-35) Mean Corpuscular Hemoglobin Concent 34 g/dL (31-37) Red Cell Distribution Width 12.9 % (11.5-14.5) Platelet Count 167 x10^3/uL (140-400) Neutrophils (%) (Auto) 68 % (31-73) Lymphocytes (%) (Auto) 19 % (24-48) Monocytes (%) (Auto) 11 % (0-9) Eosinophils (%) (Auto) 2 % (0-3) Basophils (%) (Auto) 0 % (0-3) Neutrophils # (Auto) 4.4 x10^3/uL (1.8-7.7) Lymphocytes # (Auto) 1.2 x10^3/uL (1.0-4.8) Monocytes # (Auto) 0.7 x10^3/uL (0.0-1.1) Eosinophils # (Auto) 0.1 x10^3/uL (0.0-0.7) Basophils # (Auto) 0.0 x10^3/uL (0.0-0.2) Sodium Level 141 mmol/L (136-145) Potassium Level 3.9 mmol/L (3.5-5.1) Chloride Level 105 mmol/L (98-107) Carbon Dioxide Level 28 mmol/L (21-32) Anion Gap 8 (6-14) Blood Urea Nitrogen 25 mg/dL (8-26) Creatinine 1.4 mg/dL (0.7-1.3) Estimated GFR (Cockcroft-Gault) 60.4 BUN/Creatinine Ratio 18 (6-20) Glucose Level 104 mg/dL (70-99) Calcium Level 9.3 mg/dL (8.5-10.1) Total Bilirubin 0.3 mg/dL (0.2-1.0) Aspartate Amino Transf (AST/SGOT) 13 U/L (15-37) Alanine Aminotransferase (ALT/SGPT) 11 U/L (16-63) Alkaline Phosphatase 60 U/L (46-116) Total Protein 6.6 g/dL (6.4-8.2) Albumin 3.2 g/dL (3.4-5.0) Albumin/Globulin Ratio 0.9 (1.0-1.7) Medications Current Medications Ondansetron HCl (Zofran) 4 mg PRN Q8HRS PRN IV NAUSEA/VOMITING; Start 06/10/19 at 16:30; Stop 06/11/19 at 16:29; Status DC Morphine Sulfate (Morphine Sulfate) 2 mg PRN Q2HR PRN IV PAIN Last administered on 06/10/19at 22:12; Start 06/10/19 at 16:30; Stop 06/11/19 at 16:29; Status DC Sodium Chloride 1,000 ml @ 150 mls/hr Q6H40M IV Last administered on 06/10/19at 17:17; Start 06/10/19 at 16:21; Stop 06/10/19 at 21:16; Status DC Influenza Virus Vaccine Quadrival (Afluria Quad 2019-20 (3yr Up) Syringe) 0.5 ml ONCE ONCE VAX IM Last administered on 06/10/19at 20:28; Start 06/10/19 at 18:15; Stop 06/10/19 at 18:18; Status DC Lidocaine (Lidoderm) 1 patch DAILY TD Last administered on 06/12/19at 09:02; Start 06/10/19 at 21:15 Miscellaneous (Lidoderm Patch Removal) 1 ea QHS MC Last administered on 06/11/19at 22:57; Start 06/11/19 at 21:00 Cyclobenzaprine HCl (Flexeril) 10 mg 1X ONCE PO Last administered on 06/10/19at 22:12; Start 06/10/19 at 21:30; Stop 06/10/19 at 21:31; Status DC Cyclobenzaprine HCl (Flexeril) 10 mg PRN Q6HRS PRN PO MUSCLE SPASMS Last administered on 06/11/19at 12:42; Start 06/10/19 at 21:30 Methylprednisolone Acetate (DEPO-Medrol 40MG VIAL) 40 mg 1X ONCE IM ; Start 06/11/19 at 09:45; Stop 06/11/19 at 09:50; Status DC Bupivacaine HCl (Sensorcaine-Mpf 0.25%) 10 ml 1X ONCE IJ ; Start 06/11/19 at 09:45; Stop 06/11/19 at 09:50; Status DC Ascorbic Acid (Vitamin C) 500 mg BID PO Last administered on 06/12/19at 09:02; Start 06/11/19 at 21:00 Phenazopyridine HCl (Pyridium) 200 mg PRN TID PRN PO URINARY PAIN Last administered on 06/12/19at 09:02; Start 06/11/19 at 09:45 Trimethoprim/ Sulfamethoxazole (Bactrim Ds) 1 tab BID PO Last administered on 06/12/19at 09:02; Start 06/11/19 at 10:00 Oxybutynin Chloride (Ditropan) 5 mg [id number] PO Last administered on 06/12/19at 04:52; Start 06/11/19 at 18:00; Stop 06/12/19 at 11:06; Status DC Lactobacillus Rhamnosus (Culturelle) 1 cap BID PO Last administered on 06/12/19at 09:02; Start 06/11/19 at 21:00 Sodium Chloride (Normal Saline Flush) 3 ml QSHIFT PRN IV AFTER MEDS AND BLOOD DRAWS; Start 06/11/19 at 13:15 Ondansetron HCl (Zofran) 4 mg PRN Q4HRS PRN IV NAUSEA/VOMITING; Start 06/11/19 at 13:15 Acetaminophen (Tylenol) 650 mg PRN Q4HRS PRN PO TEMP OVER 100.4F OR MILD PAIN; Start 06/11/19 at 13:15 Clonidine HCl (Catapres) 0.1 mg PRN Q6HRS PRN PO SBP>160 OR DBP>90; Start 06/11/19 at 13:15 Docusate Sodium (Colace) 100 mg PRN BID PRN PO CONSTIPATION; Start 06/11/19 at 13:15 Albuterol Sulfate (Ventolin Neb Soln) 2.5 mg PRN Q4HRS PRN NEB SHORTNESS OF BREATH; Start 06/11/19 at 13:15 Lorazepam (Ativan) 0.5 mg PRN Q4HRS PRN PO ANXIETY / AGITATION; Start 06/11/19 at 13:15 Enoxaparin Sodium (Lovenox 40mg Syringe) 40 mg DAILY SQ Last administered on 06/12/19at 09:02; Start 06/12/19 at 09:00 Terazosin HCl (Hytrin) 10 mg QHS PO ; Start 06/12/19 at 21:00 Finasteride (Proscar) 5 mg DAILY PO ; Start 06/12/19 at 11:00 Active Scripts Active Oxybutynin Chloride 5 Mg Tablet 5 Mg PO [id number] Phenazopyridine Hcl 200 Mg Tablet 200 Mg PO PRN TID PRN Lidocaine PATCH (Lidocaine) 1 Each Adh..patch 1 Patch TD DAILY Proair Hfa (Albuterol Sulfate) 8.5 Gm Hfa.aer.ad 2.5 Mg NEB PRN Q4HRS PRN 30 Days Sulfamethoxazole-Tmp Ds Tablet (Sulfamethoxazole/Trimethoprim) 1 Each Tablet 1 Tab PO BID 7 Days Magnesium (Magnesium Oxide) 400 Mg Capsule 1 Cap PO DAILY 10 Days Metoprolol Tartrate 25 Mg Tablet 1 Tab PO BID Reported Omeprazole 20 Mg Capsule.dr 1 Cap PO DAILY Aspirin 81 Mg Tab.chew 1 Tab PO DAILY Finasteride 5 Mg Tablet 1 Tab PO DAILY Vitamin D (Cholecalciferol (Vitamin D3)) 1,000 Unit Capsule 1 Cap PO DAILY Thiamine Hcl 500 Mg Tablet 100 Mg PO DAILY Folic Acid 1 Mg Tablet 1 Tab PO DAILY Colace (Docusate Sodium) 100 Mg Capsule 1 Cap PO BID Calcium Carbonate 500 Mg Tablet 500 Mg PO DAILY Terazosin Hcl 10 Mg Capsule 1 Cap PO HS Baclofen 10 Mg Tablet 1 Tab PO TID Atorvastatin Calcium 20 Mg Tablet 20 Mg PO HS Vitals/I & O Vital Sign - Last 24 Hours 06/11/19 06/11/19 06/11/19 06/11/19 15:00 19:00 20:00 23:00 Temp 98.3 98.2 98.4 98.3 98.2 98.4 Pulse 66 71 65 Resp 16 18 18 B/P (MAP) 134/71 (92) 147/75 (99) 142/85 (104) Pulse Ox 98 96 97 O2 Delivery Room Air Room Air Room Air Room Air 06/12/19 06/12/19 06/12/19 06/12/19 02:31 07:00 08:00 11:46 Temp 98.2 98.6 97.5 98.2 98.6 97.5 Pulse 66 69 64 Resp 19 19 21 B/P (MAP) 136/77 (96) 123/74 (90) 142/80 (100) Pulse Ox 98 95 96 O2 Delivery Room Air Room Air Room Air Intake and Output 06/11/19 06/11/19 06/12/19 15:00 23:00 07:00 Intake Total 540 ml 180 ml 240 ml Output Total 350 ml 350 ml Balance 190 ml 180 ml -110 ml EFRA MADRIGAL MD Jun 12, 2019 12:42
[2019-06-12 14:58] VITALS: BP 145/81
[2019-06-12] MEDS: FINASTERIDE 5 MG TABLET. PO SCH (17:23)
[2019-06-12] MEDS: LORazepam 0.5 MG TABLET PO PRN ×2 (17:23→21:20)
[2019-06-12] MEDS: CYCLOBENZAPRINE 10 MG TABLET. PO PRN ×2 (17:31→21:20)
[2019-06-12 19:00] VITALS: BP 146/75
[2019-06-12] MEDS ORDERED: TERAZOSIN 5 MG CAPSULE. PO SCH (21:00)
[2019-06-12] MEDS: PATCH REMOVAL. MC SCH (21:00)
[2019-06-12 22:47] VITALS: BP 131/70
[2019-06-13 03:00] VITALS: BP 152/86
[2019-06-13] MEDS: LORazepam 0.5 MG TABLET PO PRN (03:53)
[2019-06-13 07:43] VITALS: BP 126/86
[2019-06-13] MEDS ORDERED: PHENAZOPYRIDINE 200 MG TABLET. PO SCH (09:00)
--- NOTE | 2019-06-13 09:40 | PDOC ---
MISSY WEBBER 06/13/19 0940: SUBJECTIVE Subjective Pt asleep, confused upon waking OBJECTIVE Objective PVR 06/13/2019 - 500mL, straight cath initial output 600mL Physical Exam Asleep, NAD Unlabored breathing Abdomen nontender nondistended Catheter draining clear orange urine Vital Signs Vital Signs Date Time Temp Pulse Resp B/P (MAP) Pulse Ox O2 Delivery O2 Flow Rate FiO2 06/13/19 07:43 97.9 99 21 126/86 (99) Room Air 97.9 06/13/19 03:00 98.2 69 17 152/86 (108) 95 Room Air 98.2 06/12/19 22:47 98.3 71 17 131/70 (90) 95 Room Air 98.3 06/12/19 21:21 76 146/75 06/12/19 19:30 Room Air 06/12/19 19:00 98.2 76 18 146/75 (98) 96 Room Air 98.2 06/12/19 14:58 98.1 102 20 145/81 (102) 98 Room Air 98.1 06/12/19 11:46 97.5 64 21 142/80 (100) 96 97.5 I & O Intake and Output 06/13/19 06:59 Output Total 660 ml Balance -660 ml Output Urine Total 660 ml Bladder Scan Volume Amount # Voids 7 ASSESSMENT/PLAN Assessment/Plan BPH, Elevated PSA, Urinary retention continue terazosin and finasteride. continue pyridium for dysuria Placed catheter today after PVR of 500mL Maintain until voiding trial in 5 days at long term facility Recommend f/u with Urology as pt states he does [place] [facility] [place] He states he is able to get to and has an appointment next month for evaluation. UTI - culture >100K E. coli on Bactrim MARLON JOHNSTON MD 06/14/19 1654: ASSESSMENT/PLAN Assessment/Plan Agree with assessment and plan. MISSY WEBBER Jun 13, 2019 09:40 MARLON JOHNSTON MD Jun 14, 2019 16:54
[2019-06-13] MEDS: SMZ/TMP 800/160MG TABLET. PO SCH (09:43)
[2019-06-13] MEDS: LACTOBACILLUS RHAMNOSUS GG 1 CAPSULE. PO SCH (09:45)
[2019-06-13] MEDS: FINASTERIDE 5 MG TABLET. PO SCH ×2 (09:46→11:34)
[2019-06-13] MEDS: ASCORBIC ACID 500 MG TABLET PO SCH (09:46)
[2019-06-13] MEDS: LIDOCAINE (700MG/PATCH) PATCH. TD SCH ×2 (09:47→11:35)
[2019-06-13] MEDS: ENOXAPARIN 40 MG/0.4 ML SYRINGE. SQ SCH (09:48)
--- NOTE | 2019-06-13 10:01 | PDOC3 ---
Discharge Summary Visit Information Date of Admission: Jun 10, 2019 Date of Discharge: Jun 13, 2019 Admitting Diagnosis Comment: acute obstructive uropathy acute renal failure, vasomotor nephropathy back pain GEn weakness - SNU candidate Final Diagnosis Problems Medical Problems: (1) Acute on chronic kidney failure Status: Acute (2) Back pain Status: Chronic (3) Obstructive uropathy Status: Acute (4) Urinary retention Status: Acute Brief Hospital Course Allergies Allergies Coded Allergies Type Severity Reaction Last Updated Verified Penicillins Allergy Intermediate 09/09/16 Yes Vital Signs Vital Signs Date Time Temp Pulse Resp B/P (MAP) Pulse Ox O2 Delivery O2 Flow Rate FiO2 06/13/19 07:43 97.9 99 21 126/86 (99) Room Air 97.9 06/13/19 03:00 95 Lab Results Laboratory Tests Test 06/11/19 10:20 06/12/19 03:05 Urine Collection Type U cath Urine Color Yellow Urine Clarity Cloudy Urine pH 7.5 Urine Specific [place] 1.015 Urine Protein Negative mg/dL (NEG-TRACE) Urine Glucose (UA) 250 mg/dL (NEG) Urine Ketones (Stick) Negative mg/dL (NEG) Urine Blood Negative (NEG) Urine Nitrite Negative (NEG) Urine Bilirubin Negative (NEG) Urine Urobilinogen Dipstick 0.2 mg/dL (0.2 mg/dL) Urine Leukocyte Esterase Negative (NEG) Urine RBC 1-2 /HPF (0-2) Urine WBC 1-4 /HPF (0-4) Urine Renal Epithelial Cells Occ /LPF Urine Amorphous Sediment Present /HPF Urine Bacteria Few /HPF (0-FEW) Urine Hyaline Casts Many /HPF Urine Mucus Marked /LPF White Blood Count 6.5 x10^3/uL (4.0-11.0) Red Blood Count 3.82 x10^6/uL (4.30-5.70) Hemoglobin 12.1 g/dL (13.0-17.5) Hematocrit 35.2 % (39.0-53.0) Mean Corpuscular Volume 92 fL (79-100) Mean Corpuscular Hemoglobin 32 pg (25-35) Mean Corpuscular Hemoglobin Concent 34 g/dL (31-37) Red Cell Distribution Width 12.9 % (11.5-14.5) Platelet Count 167 x10^3/uL (140-400) Neutrophils (%) (Auto) 68 % (31-73) Lymphocytes (%) (Auto) 19 % (24-48) Monocytes (%) (Auto) 11 % (0-9) Eosinophils (%) (Auto) 2 % (0-3) Basophils (%) (Auto) 0 % (0-3) Neutrophils # (Auto) 4.4 x10^3/uL (1.8-7.7) Lymphocytes # (Auto) 1.2 x10^3/uL (1.0-4.8) Monocytes # (Auto) 0.7 x10^3/uL (0.0-1.1) Eosinophils # (Auto) 0.1 x10^3/uL (0.0-0.7) Basophils # (Auto) 0.0 x10^3/uL (0.0-0.2) Sodium Level 141 mmol/L (136-145) Potassium Level 3.9 mmol/L (3.5-5.1) Chloride Level 105 mmol/L (98-107) Carbon Dioxide Level 28 mmol/L (21-32) Anion Gap 8 (6-14) Blood Urea Nitrogen 25 mg/dL (8-26) Creatinine 1.4 mg/dL (0.7-1.3) Estimated GFR (Cockcroft-Gault) 60.4 BUN/Creatinine Ratio 18 (6-20) Glucose Level 104 mg/dL (70-99) Calcium Level 9.3 mg/dL (8.5-10.1) Total Bilirubin 0.3 mg/dL (0.2-1.0) Aspartate Amino Transf (AST/SGOT) 13 U/L (15-37) Alanine Aminotransferase (ALT/SGPT) 11 U/L (16-63) Alkaline Phosphatase 60 U/L (46-116) Total Protein 6.6 g/dL (6.4-8.2) Albumin 3.2 g/dL (3.4-5.0) Albumin/Globulin Ratio 0.9 (1.0-1.7) Brief Hospital Course Mr. Beach is a 73 old aa male who came from home and admitted with BPH sxs, co managed with urology. Urinary pain and spasms was his biggest sxs. NOw on pyridium and oxybutynin and pT recs SNU so we are sending to snu today FULL CODE FF up urology upon snu dc Discharge Information Condition at Discharge: Improved, Stable Disposition/Orders: Other (SNU) Scheduled Aspirin (Aspirin) 81 Mg Tab.chew, 1 TAB PO DAILY for HH, #30 Ref 3 (Reported) Entered as Reported by: HAKAN GOMES on 02/06/191549 Last Action: Reviewed on 06/10/191821 by HAKAN GOMES Atorvastatin Calcium (Atorvastatin Calcium) 20 Mg Tablet, 20 MG PO HS for FOR CHOLESTEROL, #30 Ref 0 (Reported) Entered as Reported by: FARHEEN BLOCK on 05/06/161530 Last Action: Reviewed on 06/10/191821 by HAKAN GOMES Baclofen (Baclofen) 10 Mg Tablet, 1 TAB PO TID for muscle spams , #90 Ref 2 (Reported) Entered as Reported by: HAKAN GOMES on 02/06/191549 Last Action: Reviewed on 06/10/191821 by HAKAN GOMES Calcium Carbonate (Calcium Carbonate) 500 Mg Tablet, 500 MG PO DAILY for Supplement, (Reported) Entered as Reported by: HAKAN GOMES on 02/06/191549 Last Action: Reviewed on 06/10/191821 by HAKAN GOMES Cholecalciferol (Vitamin D3) (Vitamin D) 1,000 Unit Capsule, 1 CAP PO DAILY for supplement, #30 Ref 3 (Reported) Entered as Reported by: HAKAN GOMES on 02/06/191549 Last Action: Reviewed on 06/10/191821 by HAKAN GOMES Docusate Sodium (Colace) 100 Mg Capsule, 1 CAP PO BID for Constipation , #30 (Reported) Entered as Reported by: HAKAN GOMES on 02/06/191549 Last Action: Reviewed on 06/10/191821 by HAKAN GOMES Finasteride (Finasteride) 5 Mg Tablet, 1 TAB PO DAILY for BPH, #30 Ref 11 (Reported) Entered as Reported by: HAKAN GOMES on 02/06/191549 Last Action: Reviewed on 06/10/191821 by HAKAN GOMES Folic Acid (Folic Acid) 1 Mg Tablet, 1 TAB PO DAILY for Supplement, #90 Ref 1 (Reported) Entered as Reported by: HAKAN GOMES on 02/06/191549 Last Action: Reviewed on 06/10/191821 by HAKAN GOMES Lidocaine (Lidocaine PATCH ) 1 Each Adh..patch, 1 PATCH TD DAILY for back pain, #14 Prescribed by: EFRA MADRIGAL on 06/12/19900 Magnesium Oxide (Magnesium) 400 Mg Capsule, 1 CAP PO DAILY for 10 Days, #10 Prescribed by: KIMBERLY ZELAYA D.O. on 05/19/192108 Last Action: Reviewed on 06/10/191821 by HAKAN GOMES Metoprolol Tartrate (Metoprolol Tartrate) 25 Mg Tablet, 1 TAB PO BID for HTN, #180 Ref 1 Prescribed by: RADHA MARTELL MD on 02/08/191225 Last Action: Reviewed on 06/10/191821 by HAKAN GOMES Omeprazole (Omeprazole) 20 Mg Capsule.dr, 1 CAP PO DAILY for GERD, #30 Ref 5 (Reported) Entered as Reported by: HAKAN GOMES on 02/06/191549 Last Action: Reviewed on 06/10/191821 by HAKAN GOMES Oxybutynin Chloride (Oxybutynin Chloride) 5 Mg Tablet, 5 MG PO [id number] for urinary issues, #60 Prescribed by: EFRA MADRIGAL on 06/12/19 09 Sulfamethoxazole/Trimethoprim (Sulfamethoxazole-Tmp Ds Tablet) 1 Each Tablet, 1 TAB PO BID for uti for 7 Days, #14 Prescribed by: EFRA MADRIGAL on 06/12/19 0901 Terazosin Hcl (Terazosin Hcl) 10 Mg Capsule, 1 CAP PO HS for BPH, #90 Ref 1 (Reported) Entered as Reported by: HAKAN GOMES on 02/06/191549 Last Action: Reviewed on 06/10/191821 by HAKAN GOMES Thiamine Hcl (Thiamine Hcl) 500 Mg Tablet, 100 MG PO DAILY for supplement, (Reported) Entered as Reported by: HAKAN GOMES on 02/06/191549 Last Action: Reviewed on 06/10/191821 by HAKAN GOMES Scheduled PRN Albuterol Sulfate (Proair Hfa) 8.5 Gm Hfa.aer.ad, 2.5 MG NEB PRN Q4HRS PRN for SHORTNESS OF BREATH for 30 Days Prescribed by: EFRA MADRIGAL on 06/12/19900 Phenazopyridine Hcl (Phenazopyridine Hcl) 200 Mg Tablet, 200 MG PO PRN TID PRN for URINARY PAIN, #30 Prescribed by: EFRA MADRIGAL on 06/12/19900 EFRA MADRIGAL MD Jun 13, 2019 10:00
[2019-06-13 11:23] VITALS: BP 109/73
--- NOTE | 2019-06-13 12:01 | PDOC ---
PROGRESS NOTES Subjective Subjective He had no new complaints and actually admits less low back pain. Objective Objective Vital Signs Date Time Temp Pulse Resp B/P (MAP) Pulse Ox O2 Delivery O2 Flow Rate FiO2 06/13/19 11:23 97.9 85 21 109/73 (85) 97 Room Air 97.9 l Intake and Output 06/13/19 07:00 Output Total 660 ml Balance -660 ml Output Urine Total 660 ml Bladder Scan Volume Amount # Voids 7 Physical Exam Physical Exam He is awake,supine in bed with breakfast tray in lap but he only drank juice and other parts of food on the tray was not even touched. Physical and occupational therapy felt him being more confused today. Assessment Assessment Problems Medical Problems: (1) Acute on chronic kidney failure Status: Acute (2) Back pain Status: Chronic (3) Obstructive uropathy Status: Acute (4) Urinary retention Status: Acute Plan Plan of Care To SNF when medically stable. Comment Review of Relevant I have reviewed the following items prince (where applicable) has been applied. Labs Laboratory Tests Test 06/12/19 03:05 White Blood Count 6.5 x10^3/uL (4.0-11.0) Red Blood Count 3.82 x10^6/uL (4.30-5.70) Hemoglobin 12.1 g/dL (13.0-17.5) Hematocrit 35.2 % (39.0-53.0) Mean Corpuscular Volume 92 fL (79-100) Mean Corpuscular Hemoglobin 32 pg (25-35) Mean Corpuscular Hemoglobin Concent 34 g/dL (31-37) Red Cell Distribution Width 12.9 % (11.5-14.5) Platelet Count 167 x10^3/uL (140-400) Neutrophils (%) (Auto) 68 % (31-73) Lymphocytes (%) (Auto) 19 % (24-48) Monocytes (%) (Auto) 11 % (0-9) Eosinophils (%) (Auto) 2 % (0-3) Basophils (%) (Auto) 0 % (0-3) Neutrophils # (Auto) 4.4 x10^3/uL (1.8-7.7) Lymphocytes # (Auto) 1.2 x10^3/uL (1.0-4.8) Monocytes # (Auto) 0.7 x10^3/uL (0.0-1.1) Eosinophils # (Auto) 0.1 x10^3/uL (0.0-0.7) Basophils # (Auto) 0.0 x10^3/uL (0.0-0.2) Sodium Level 141 mmol/L (136-145) Potassium Level 3.9 mmol/L (3.5-5.1) Chloride Level 105 mmol/L (98-107) Carbon Dioxide Level 28 mmol/L (21-32) Anion Gap 8 (6-14) Blood Urea Nitrogen 25 mg/dL (8-26) Creatinine 1.4 mg/dL (0.7-1.3) Estimated GFR (Cockcroft-Gault) 60.4 BUN/Creatinine Ratio 18 (6-20) Glucose Level 104 mg/dL (70-99) Calcium Level 9.3 mg/dL (8.5-10.1) Total Bilirubin 0.3 mg/dL (0.2-1.0) Aspartate Amino Transf (AST/SGOT) 13 U/L (15-37) Alanine Aminotransferase (ALT/SGPT) 11 U/L (16-63) Alkaline Phosphatase 60 U/L (46-116) Total Protein 6.6 g/dL (6.4-8.2) Albumin 3.2 g/dL (3.4-5.0) Albumin/Globulin Ratio 0.9 (1.0-1.7) Microbiology 06/10/19 Urine Culture - Final, Complete 06/10/19 Urine Culture Result 1 (PASTOR) - Final, Complete 06/10/19 Urine Culture Result 2 (PASTOR) - Final, Complete 06/10/19 Antimicrobic Susceptibility - Final, Complete Medications Current Medications Ondansetron HCl (Zofran) 4 mg PRN Q8HRS PRN IV NAUSEA/VOMITING; Start 06/10/19 at 16:30; Stop 06/11/19 at 16:29; Status DC Morphine Sulfate (Morphine Sulfate) 2 mg PRN Q2HR PRN IV PAIN Last administered on 06/10/19at 22:12; Start 06/10/19 at 16:30; Stop 06/11/19 at 16:29; Status DC Sodium Chloride 1,000 ml @ 150 mls/hr Q6H40M IV Last administered on 06/10/19at 17:17; Start 06/10/19 at 16:21; Stop 06/10/19 at 21:16; Status DC Influenza Virus Vaccine Quadrival (Afluria Quad 2019-20 (3yr Up) Syringe) 0.5 ml ONCE ONCE VAX IM Last administered on 06/10/19 20:28; Start 06/10/19 at 18:15; Stop 06/10/19 at 18:18; Status DC Lidocaine (Lidoderm) 1 patch DAILY TD Last administered on 06/12/19 09:02; Start 06/10/19 at 21:15 Miscellaneous (Lidoderm Patch Removal) 1 ea QHS MC Last administered on 06/12/19 21:00; Start 06/11/19 at 21:00 Cyclobenzaprine HCl (Flexeril) 10 mg 1X ONCE PO Last administered on 06/10/19 22:12; Start 06/10/19 at 21:30; Stop 06/10/19 at 21:31; Status DC Cyclobenzaprine HCl (Flexeril) 10 mg PRN Q6HRS PRN PO MUSCLE SPASMS Last administered on 06/12/19 21:20; Start 06/10/19 at 21:30 Methylprednisolone Acetate (DEPO-Medrol 40MG VIAL) 40 mg 1X ONCE IM ; Start 06/11/19 at 09:45; Stop 06/11/19 at 09:50; Status DC Bupivacaine HCl (Sensorcaine-Mpf 0.25%) 10 ml 1X ONCE IJ ; Start 06/11/19 at 09:45; Stop 06/11/19 at 09:50; Status DC Ascorbic Acid (Vitamin C) 500 mg BID PO Last administered on 06/13/19at 09:46; Start 06/11/19 at 21:00 Phenazopyridine HCl (Pyridium) 200 mg PRN TID PRN PO URINARY PAIN Last administered on 06/12/19 21:21; Start 06/11/19 at 09:45; Stop 06/13/19 at 08:57; Status DC Trimethoprim/ Sulfamethoxazole (Bactrim Ds) 1 tab BID PO Last administered on 06/13/19 09:43; Start 06/11/19 at 10:00 Oxybutynin Chloride (Ditropan) 5 mg BID66 PO Last administered on 9/25/19at 04:52; Start 06/11/19 at 18:00; Stop 06/12/19 at 11:06; Status DC Lactobacillus Rhamnosus (Culturelle) 1 cap BID PO Last administered on 06/13/19at 09:45; Start 06/11/19 at 21:00 Sodium Chloride (Normal Saline Flush) 3 ml QSHIFT PRN IV AFTER MEDS AND BLOOD DRAWS; Start 06/11/19 at 13:15 Ondansetron HCl (Zofran) 4 mg PRN Q4HRS PRN IV NAUSEA/VOMITING; Start 06/11/19 at 13:15 Acetaminophen (Tylenol) 650 mg PRN Q4HRS PRN PO TEMP OVER 100.4F OR MILD PAIN Last administered on 06/12/19at 17:23; Start 06/11/19 at 13:15 Clonidine HCl (Catapres) 0.1 mg PRN Q6HRS PRN PO SBP>160 OR DBP>90; Start 06/11/19 at 13:15 Docusate Sodium (Colace) 100 mg PRN BID PRN PO CONSTIPATION; Start 06/11/19 at 13:15 Albuterol Sulfate (Ventolin Neb Soln) 2.5 mg PRN Q4HRS PRN NEB SHORTNESS OF BREATH; Start 06/11/19 at 13:15 Lorazepam (Ativan) 0.5 mg PRN Q4HRS PRN PO ANXIETY / AGITATION Last administered on 06/13/19at 03:53; Start 06/11/19 at 13:15 Enoxaparin Sodium (Lovenox 40mg Syringe) 40 mg DAILY SQ Last administered on 06/13/19at 09:48; Start 06/12/19 at 09:00 Terazosin HCl (Hytrin) 10 mg QHS PO Last administered on 06/12/19at 21:21; Start 06/12/19 at 21:00 Finasteride (Proscar) 5 mg DAILY PO Last administered on 06/12/19at 17:23; Start 06/12/19 at 11:00 Phenazopyridine HCl (Pyridium) 200 mg TID PO ; Start 06/13/19 at 09:00 Active Scripts Active Oxybutynin Chloride 5 Mg Tablet 5 Mg PO [id number] Phenazopyridine Hcl 200 Mg Tablet 200 Mg PO PRN TID PRN Lidocaine PATCH (Lidocaine) 1 Each Adh..patch 1 Patch TD DAILY Proair Hfa (Albuterol Sulfate) 8.5 Gm Hfa.aer.ad 2.5 Mg NEB PRN Q4HRS PRN 30 Days Sulfamethoxazole-Tmp Ds Tablet (Sulfamethoxazole/Trimethoprim) 1 Each Tablet 1 Tab PO BID 7 Days Magnesium (Magnesium Oxide) 400 Mg Capsule 1 Cap PO DAILY 10 Days Metoprolol Tartrate 25 Mg Tablet 1 Tab PO BID Reported Omeprazole 20 Mg Capsule.dr 1 Cap PO DAILY Aspirin 81 Mg Tab.chew 1 Tab PO DAILY Finasteride 5 Mg Tablet 1 Tab PO DAILY Vitamin D (Cholecalciferol (Vitamin D3)) 1,000 Unit Capsule 1 Cap PO DAILY Thiamine Hcl 500 Mg Tablet 100 Mg PO DAILY Folic Acid 1 Mg Tablet 1 Tab PO DAILY Colace (Docusate Sodium) 100 Mg Capsule 1 Cap PO BID Calcium Carbonate 500 Mg Tablet 500 Mg PO DAILY Terazosin Hcl 10 Mg Capsule 1 Cap PO HS Baclofen 10 Mg Tablet 1 Tab PO TID Atorvastatin Calcium 20 Mg Tablet 20 Mg PO HS Vitals/I & O Vital Sign - Last 24 Hours 06/12/19 06/12/19 06/12/19 06/12/19 14:58 19:00 19:30 21:21 Temp 98.1 98.2 98.1 98.2 Pulse 102 76 76 Resp 20 18 B/P (MAP) 145/81 (102) 146/75 (98) 146/75 Pulse Ox 98 96 O2 Delivery Room Air Room Air Room Air 06/12/19 06/13/19 06/13/19 06/13/19 22:47 03:00 07:43 08:00 Temp 98.3 98.2 97.9 98.3 98.2 97.9 Pulse 71 69 99 Resp 17 17 21 B/P (MAP) 131/70 (90) 152/86 (108) 126/86 (99) Pulse Ox 95 95 O2 Delivery Room Air Room Air Room Air Room Air 06/13/19 11:23 Temp 97.9 97.9 Pulse 85 Resp 21 B/P (MAP) 109/73 (85) Pulse Ox 97 O2 Delivery Room Air Intake and Output 06/12/19 06/12/19 06/13/19 15:00 23:00 07:00 Output Total 60 ml 600 ml Balance -60 ml -600 ml SANTINO WICK MD Jun 13, 2019 12:00
== END 2019-06-13 13:15 | DRG 725 ==
LOC: ER 13:20 → OBSVTOIN 16:10 → 5 SOUTH 16:10
PROVIDERS: ADMIT Internal Medicine; ATTEND Internal Medicine
PROC: 3E0U33Z Introduction of Anti-inflammatory into Joints, Percutaneous Approach (ICD-10-PCS; principal; 2019-06-11)
PROC: 3E0U3BZ Introduction of Anesthetic Agent into Joints, Percutaneous Approach (ICD-10-PCS; 2019-06-11)
DX: N40.1 Benign prostatic hyperplasia with lower urinary tract symptoms (principal); N17.0 Acute kidney failure with tubular necrosis; N13.8 Other obstructive and reflux uropathy; N39.0 Urinary tract infection, site not specified; G62.9 Polyneuropathy, unspecified; G89.29 Other chronic pain; I12.9 Hypertensive chronic kidney disease with stage 1 through stage 4 chronic kidney disease, or unspecified chronic kidney disease; K21.9 Gastro-esophageal reflux disease without esophagitis; K59.00 Constipation, unspecified; M51.16 Intervertebral disc disorders with radiculopathy, lumbar region; N18.2 Chronic kidney disease, stage 2 (mild); N32.89 Other specified disorders of bladder; R32 Unspecified urinary incontinence; F32.9 Major depressive disorder, single episode, unspecified; R33.8 Other retention of urine; Z79.82 Long term (current) use of aspirin; Z79.899 Other long term (current) drug therapy; Z82.49 Family history of ischemic heart disease and other diseases of the circulatory system; Z83.3 Family history of diabetes mellitus; Z88.0 Allergy status to penicillin
CPT/HCPCS: 36415; 74018; 80053; 81001; 82310; 82962; 85025; 87086; 87186; 90471; 90686; J1030; J1650; J2270; J3490; J7030; 97530; 97535; 99285-25; G0378

== ENCOUNTER 2019-07-20 07:36 | Inpatient (IN) | payer BC ==
[~2019-07-20] VITALS: Ht 180.3 cm; Wt 74.8 kg
[~2019-07-20 07:36] MED LIST changes: +ALBU2.5V8 NEB; +LIDO700A21 TD; -MAGN400T3 PO; +MAGN400T5 PO; +OXYB5TAB10 PO; +PHEN-444 PO; +SIMV20TA18 PO; -SIMV20TA3 PO; +SULF-143 PO
[2019-07-20] MEDS ORDERED: fentaNYL PF VIAL 100 MCG/2 ML VIAL IV ONE (08:15)
[2019-07-20] MEDS ORDERED: ONDANSETRON PF 4 MG/2 ML VIAL. IV ONE (08:15)
[2019-07-20 08:36] LABS: BASO # 0.1 x10^3/uL (0.0-0.2); BASO % 0 % (0-3); EOS % 0 % (0-3); HEMATOCRIT 33.7 % (39.0-53.0); HEMOGLOBIN 11.5 g/dL (13.0-17.5); LYMPH # 0.5 x10^3/uL (1.0-4.8); LYMPH % 3 % (24-48); MEAN CORPUSCULAR HEMOGLOBIN 31 pg (25-35); MEAN CORPUSCULAR HGB CONC 34 g/dL (31-37); MEAN CORPUSCULAR VOLUME 90 fL (79-100); MONO # 1.7 x10^3/uL (0.0-1.1); MONO % 10 % (0-9); NEUT # 14.8 x10^3/uL (1.8-7.7); NEUT % 86 % (31-73); PLATELET COUNT 325 x10^3/uL (140-400); RED BLOOD COUNT 3.77 x10^6/uL (4.30-5.70); RED CELL DISTRIBUTION WIDTH 13.1 % (11.5-14.5); WHITE BLOOD COUNT 17.1 x10^3/uL (4.0-11.0)
[2019-07-20 08:39] LABS: BILIRUBIN,URINE NEGATIVE (NEG); CLARITY,URINE TURBID; COLOR,URINE YELLOW; NITRITE,URINE POSITIVE (NEG); PROTEIN,URINE 100 mg/dL (NEG-TRACE)
[2019-07-20 08:43] LABS: PROTHROMBIN TIME PATIENT 13.7 SEC (11.7-14.0)
[2019-07-20 08:46] LABS: BACTERIA,URINE MANY /HPF (0-FEW); RBC,URINE 20-40 /HPF (0-2); WBC,URINE TNTC /HPF (0-4)
[2019-07-20 09:08] LABS: ANION GAP 13 (6-14); BLOOD UREA NITROGEN 23 mg/dL (8-26); BUN/CREATININE RATIO 19 (6-20); CALCIUM 9.3 mg/dL (8.5-10.1); CARBON DIOXIDE 28 mmol/L (21-32); CHLORIDE 100 mmol/L (98-107); CREATININE 1.2 mg/dL (0.7-1.3); GFR 72.2; GLUCOSE 159 mg/dL (70-99); POTASSIUM 3.1 mmol/L (3.5-5.1); SODIUM 141 mmol/L (136-145)
[2019-07-20 09:13] LABS: ALBUMIN 3.2 g/dL (3.4-5.0); ALBUMIN/GLOBULIN RATIO 0.6 (1.0-1.7); ALK PHOS 60 U/L (46-116); AST (SGOT) 14 U/L (15-37); LIPASE 69 U/L (73-393); TOTAL BILIRUBIN 0.7 mg/dL (0.2-1.0); TOTAL PROTEIN 8.3 g/dL (6.4-8.2)
[2019-07-20 09:14] LABS: ALT (SGPT) < 6 U/L (16-63)
--- NOTE | 2019-07-20 09:20 | PHYS DOC ---
Past Medical History Past Medical History: Depression, GERD, Hypertension, Other Additional Past Medical Histor: BPH Past Surgical History: Cervical Fusion, Other Additional Past Surgical Histo: HAND, HERNIA Alcohol Use: None Drug Use: None Adult General Chief Complaint Chief Complaint: ABDOMINAL PAIN HPI HPI Patient is a 73 year old male with indwelling Miner catheter who presents via EMS with with complaining of abdominal pain catheter problem. Patient complaining of severe lower abdominal pain since 1 AM today and rated his pain 10 over 10 associated with nausea without vomiting. Patient had Miner catheter placement in his previous hospitalization in June 10. Patient denies chest pain, fever and chills, focal neuro deficit, diarrhea. Patient complaining of chronic constipation. Review of Systems Review of Systems Constitutional: Denies fever or chills [] Eyes: Denies change in visual acuity, redness, or eye pain [] HENT: Denies nasal congestion or sore throat [] Respiratory: Denies cough or shortness of breath [] Cardiovascular: No additional information not addressed in HPI [] GI: Reports abdominal pain, nausea, denies vomiting, bloody stools or diarrhea [] : Denies dysuria or hematuria [] Musculoskeletal: Denies back pain or joint pain [] Integument: Denies rash or skin lesions [] Neurologic: Denies headache, focal weakness or sensory changes [] Endocrine: Denies polyuria or polydipsia [] All other systems were reviewed and found to be within normal limits, except as documented in this note. Current Medications Current Medications Current Medications Medications (Trade) Dose Ordered Sig/Karan Start Time Stop Time Status Last Admin Dose Admin Fentanyl Citrate (Fentanyl 2ml Vial) 50 mcg 1X ONCE 07/20/19 08:15 07/20/19 08:16 DC 07/20/19 08:26 50 MCG Ondansetron HCl (Zofran) 4 mg 1X ONCE 07/20/19 08:15 07/20/19 08:16 DC 07/20/19 08:26 4 MG Allergies Allergies Allergies Coded Allergies Type Severity Reaction Last Updated Verified Penicillins Allergy Intermediate 09/09/16 Yes Physical Exam Physical Exam Constitutional: Well developed, well nourished, mild distress, non-toxic appearance. [] HENT: Normocephalic, atraumatic. Eyes: PERRLA, EOMI, conjunctiva normal, no discharge. [] Neck: Normal range of motion, no tenderness, supple, no stridor. [] Cardiovascular:Heart rate regular rhythm, no murmur [] Lungs & Thorax: Bilateral breath sounds clear to auscultation [] Abdomen: Bowel sounds normal, soft, no tenderness, suprapubic guarding, no masses, no pulsatile masses, Miner catheter in place with urine in the tube. Skin: Warm, dry, no erythema, no rash. [] Back: No tenderness, no CVA tenderness. [] Extremities: No tenderness, no cyanosis, no clubbing, ROM intact, no edema. [] Neurologic: Alert and oriented X 3, no focal deficits noted. [] Psychologic: Affect normal, judgement normal, mood normal. [] Current Patient Data Vital Signs Vital Signs Date Time Temp Pulse Resp B/P (MAP) Pulse Ox O2 Delivery O2 Flow Rate FiO2 07/20/19 08:26 16 07/20/19 07:43 98.7 104 183/97 (125) 98 Room Air 98.7 Lab Values Laboratory Tests Test 07/20/19 08:15 07/20/19 08:17 White Blood Count 17.1 x10^3/uL (4.0-11.0) H Red Blood Count 3.77 x10^6/uL (4.30-5.70) L Hemoglobin 11.5 g/dL (13.0-17.5) L Hematocrit 33.7 % (39.0-53.0) L Mean Corpuscular Volume 90 fL (79-100) Mean Corpuscular Hemoglobin 31 pg (25-35) Mean Corpuscular Hemoglobin Concent 34 g/dL (31-37) Red Cell Distribution Width 13.1 % (11.5-14.5) Platelet Count 325 x10^3/uL (140-400) Neutrophils (%) (Auto) 86 % (31-73) H Lymphocytes (%) (Auto) 3 % (24-48) L Monocytes (%) (Auto) 10 % (0-9) H Eosinophils (%) (Auto) 0 % (0-3) Basophils (%) (Auto) 0 % (0-3) Neutrophils # (Auto) 14.8 x10^3/uL (1.8-7.7) H Lymphocytes # (Auto) 0.5 x10^3/uL (1.0-4.8) L Monocytes # (Auto) 1.7 x10^3/uL (0.0-1.1) H Eosinophils # (Auto) 0.0 x10^3/uL (0.0-0.7) Basophils # (Auto) 0.1 x10^3/uL (0.0-0.2) Segmented Neutrophils % 76 % (35-66) H Band Neutrophils % 11 % (0-9) H Lymphocytes % 5 % (24-48) L Monocytes % 8 % (0-10) Platelet Estimate Adequate (ADEQUATE) Ovalocytes Few Prothrombin Time 13.7 SEC (11.7-14.0) Prothrombin Time INR 1.1 (0.8-1.1) Sodium Level 141 mmol/L (136-145) Potassium Level 3.1 mmol/L (3.5-5.1) L Chloride Level 100 mmol/L (98-107) Carbon Dioxide Level 28 mmol/L (21-32) Anion Gap 13 (6-14) Blood Urea Nitrogen 23 mg/dL (8-26) Creatinine 1.2 mg/dL (0.7-1.3) Estimated GFR (Cockcroft-Gault) 72.2 BUN/Creatinine Ratio 19 (6-20) Glucose Level 159 mg/dL (70-99) H Calcium Level 9.3 mg/dL (8.5-10.1) Magnesium Level 1.4 mg/dL (1.8-2.4) L Total Bilirubin 0.7 mg/dL (0.2-1.0) Aspartate Amino Transferase (AST) 14 U/L (15-37) L Alanine Aminotransferase (ALT) < 6 U/L (16-63) L Alkaline Phosphatase 60 U/L (46-116) Troponin I Quantitative < 0.017 ng/mL (0.000-0.055) Total Protein 8.3 g/dL (6.4-8.2) H Albumin 3.2 g/dL (3.4-5.0) L Albumin/Globulin Ratio 0.6 (1.0-1.7) L Lipase 69 U/L (73-393) L Urine Collection Type Unknown Urine Color Yellow Urine Clarity Turbid Urine pH 8.0 Urine Specific [place] 1.015 Urine Protein 100 mg/dL (NEG-TRACE) Urine Glucose (UA) Negative mg/dL (NEG) Urine Ketones (Stick) Trace mg/dL (NEG) Urine Blood Large (NEG) Urine Nitrite Positive (NEG) Urine Bilirubin Negative (NEG) Urine Urobilinogen Dipstick 2.0 mg/dL (0.2 mg/dL) Urine Leukocyte Esterase Large (NEG) Urine RBC 20-40 /HPF (0-2) Urine WBC Tntc /HPF (0-4) Urine Bacteria Many /HPF (0-FEW) Urine Mucus Marked /LPF Laboratory Tests 07/20/19 08:15 Laboratory Tests 07/20/19 08:15 EKG EKG EKG interpreted by me. EKG at 0941 showed normal sinus rhythm at rate of 89, T- wave abnormalities in anterolateral lateral leads, no acute ST-T wave elevation Radiology/Procedures Radiology/Procedures [][facility] [address] [place] [address] IMAGING REPORT Signed PATIENT: JULIAN DAVIS BACCOUNT: [id number] : 1945 LOCATION: [address] [place] [address] AGE: 73 SEX: M EXAM STATUS: ADM IN ORD. PHYSICIAN: SIMRAN COURTNEY MD REASON: lower abdominal pain PROCEDURE: CT ABDOMEN PELVIS WO CONTRAST CT abdomen and pelvis without contrast PQRS statement: CT scans at this facility use dose reduction including either automated exposure control, iterative reconstructions, and /or weight based radiation dosing via mA and kV modification when appropriate to reduce radiation dose to as low as reasonably achievable. HISTORY: Lower abdominal pain. History of ventral abdominal wall hernia and left inguinal hernia. Abdomen findings: Left coronary calcified plaque. Hiatal hernia of the gastric cardia. Liver, gallbladder, pancreas, adrenal glands unremarkable. Indeterminate 2 cm round hypodense lesion of the inferior spleen image 41 density 23 units. Right renal calculi largest measuring 8 mm. Mild bilateral renal hydronephrosis no obstructing ureteral calculi. 2 center fatty umbilical abdominal wall hernia. Appendix is negative. No obstruction or inflammation the GI tract. Aortoiliac calcified plaque. No abdominal fluid. Lower lumbar disc disease. Pelvis findings: Prostate prominent and nodular hyperplasia or mass at the base of the prostate protruding into the bladder trigone. No bladder calculi. Miner catheter balloon tip inflated within the penile urethra should be advanced at least 10 cm to reach the bladder. Rectum and bones are unremarkable. Prior left inguinal hernia repair with mesh plug. There is a small right fatty inguinal hernia. There may be mild bladder wall edema. IMPRESSION: 1. Miner catheter balloon tip is inflated in the penile urethra. Advancement of the catheter at least 10 cm should reach the bladder. 2. Moderate distention of the urinary bladder and edema which could indicate cystitis. There is prominence of the prostate and nodular hyperplasia or mass at the base of the prostate protruding into the floor of the bladder. 3. Mild bilateral renal hydronephrosis likely due to obstructive uropathy at the bladder. No obstructing urinary calculi. There are nonobstructing right renal calculi. 4. Appendix is negative. 5. Indeterminate 2 cm hypodense lesion of the spleen. 6. Small fatty umbilical abdominal wall hernia. Small fatty right inguinal hernia. Prior left inguinal hernia repair. FOR INTERNAL CODING PURPOSES Critical result: Findings discussed with SIMRAN COURTNEY at 07/20/2019 9:45 AM. Course & Med Decision Making Course & Med Decision Making Pertinent Labs and Imaging studies reviewed. (See chart for details) Evaluation of patient in ER showed 73-year-old male patient brought in because of suprapubic and penile pain with Miner catheter in place. Patient had more than 500 mL residual in bladder scan but there was drainage of urine in the catheter. CT showed inflated balloon in the urethra and after deflation of the wound it was advanced about 10 cm and inflated again and patient felt better. Patient had leukocytosis without elevation of lactic acid and IV fluid and antibiotic was started. UA showed UTI. Patient requiring admission for further evaluation and treatment. Discussed with Dr. Gonzales who is in agreement with admission. Discussed findings and plan with patient and family, who acknowledge understanding and agreement. Dragon Disclaimer Dragon Disclaimer This electronic medical record was generated, in whole or in part, using a voice recognition dictation system. Departure Departure Impression: Primary Impression: Abdominal pain Additional Impressions: Urinary tract infection Urinary retention Weakness Constipation Dislodged Miner catheter Disposition: ADMITTED INPATIENT (at 904) [facility]Dr. Gonzales accepted admission at 903) Condition: IMPROVED Referrals: RADHA MARTELL MD (PCP) Problem Qualifiers Primary Impression: Abdominal pain Abdominal location: upper abdomen, unspecified Qualified Codes: R10.10 - Upper abdominal pain, unspecified Additional Impressions: Urinary tract infection Urinary tract infection type: site unspecified Hematuria presence: with hematuria Qualified Codes: N39.0 - Urinary tract infection, site not specified; R31.9 - Hematuria, unspecified Constipation Constipation type: unspecified constipation type Qualified Codes: K59.00 - Constipation, unspecified Dislodged Miner catheter Encounter type: subsequent encounter Qualified Codes: T83.021D - Di splacement of indwelling urethral catheter, subsequent encounter SIMRAN COURTNEY MD Jul 20, 2019 09:20
[2019-07-20] MEDS ORDERED: fentaNYL PF VIAL 100 MCG/2 ML VIAL IVP ONE (09:30)
[2019-07-20 09:31] LABS: % BANDS 11 % (0-9); % LYMPHS 5 % (24-48); % MONOS 8 % (0-10); % SEGS 76 % (35-66); PLT ESTIMATE ADEQUATE (ADEQUATE)
[2019-07-20 09:32] LABS: OVALOCYTES FEW
--- NOTE | 2019-07-20 09:48 | RAD ---
CT abdomen and pelvis without contrast PQRS statement: CT scans at this facility use dose reduction including either automated exposure control, iterative reconstructions, and /or weight based radiation dosing via mA and kV modification when appropriate to reduce radiation dose to as low as reasonably achievable. HISTORY: Lower abdominal pain. History of ventral abdominal wall hernia and left inguinal hernia. Abdomen findings: Left coronary calcified plaque. Hiatal hernia of the gastric cardia. Liver, gallbladder, pancreas, adrenal glands unremarkable. Indeterminate 2 cm round hypodense lesion of the inferior spleen image 41 density 23 units. Right renal calculi largest measuring 8 mm. Mild bilateral renal hydronephrosis no obstructing ureteral calculi. 2 center fatty umbilical abdominal wall hernia. Appendix is negative. No obstruction or inflammation the GI tract. Aortoiliac calcified plaque. No abdominal fluid. Lower lumbar disc disease. Pelvis findings: Prostate prominent and nodular hyperplasia or mass at the base of the prostate protruding into the bladder trigone. No bladder calculi. Miner catheter balloon tip inflated within the penile urethra should be advanced at least 10 cm to reach the bladder. Rectum and bones are unremarkable. Prior left inguinal hernia repair with mesh plug. There is a small right fatty inguinal hernia. There may be mild bladder wall edema. IMPRESSION: 1. Miner catheter balloon tip is inflated in the penile urethra. Advancement of the catheter at least 10 cm should reach the bladder. 2. Moderate distention of the urinary bladder and edema which could indicate cystitis. There is prominence of the prostate and nodular hyperplasia or mass at the base of the prostate protruding into the floor of the bladder. 3. Mild bilateral renal hydronephrosis likely due to obstructive uropathy at the bladder. No obstructing urinary calculi. There are nonobstructing right renal calculi. 4. Appendix is negative. 5. Indeterminate 2 cm hypodense lesion of the spleen. 6. Small fatty umbilical abdominal wall hernia. Small fatty right inguinal hernia. Prior left inguinal hernia repair. FOR INTERNAL CODING PURPOSES Critical result: Findings discussed with SIMRAN COURTNEY at 07/20/2019 9:45 AM. RESULT CODE: (C) Electronically signed by: Nathanael Wilkes MD (07/20/2019 9:45 AM) [facility]
[2019-07-20] MEDS ORDERED: POTASSIUM CHLORIDE 20 MEQ TABLET.ER. PO ONE (10:00)
[2019-07-20] MEDS ORDERED: cefTRIAXone IV Push 1 GM VIAL. IVP ONE (10:00)
[2019-07-20] MEDS: IV NORMAL SALINE 1000ML BAG 1,000 ML IV SCH ×2 (10:12→17:54)
[2019-07-20 11:00] VITALS: BP 143/76
[2019-07-20] MEDS ORDERED: MAGNESIUM SULFATE 2GM 50 ML IV ONE (14:00)
[2019-07-20 15:00] VITALS: BP 139/80
--- NOTE | 2019-07-20 16:25 | PDOC1 ---
History and Physical Date of Admission Date of Admission DATE: 07/20/19 TIME: 16:24 History of Present Illness History of Present Illness Mr. Brand, is a 73 year old male, admit here 2 months ago with obstructive uropathy from new BPH. diamond placed and DC he returns today with fever, and acute abd pain, . Patient complaining of severe lower abdominal pain since 1 AM today, 06/27, with nausea. I saw him after abx started, and he reported feeling much better already Past Medical History Cardiovascular: HTN Pulmonary: No pertinent hx Heme/Onc: No pertinent hx Hepatobiliary: No pertinent hx Psych: No pertinent hx Rheumatologic: No pertinent hx Infectious disease: No pertinent hx Renal/: Benign prostatic enlarg. Endocrine: No pertinent hx Past Surgical History Past Surgical History: Hernia Repair Family History Family History: Coronary Artery Disease, Diabetes Family History: Parent Social History Smoke: No ALCOHOL: rare Drugs: None Current Problem List Problem List Problems Medical Problems: (1) Abdominal pain Status: Acute (2) Constipation Status: Acute (3) Dislodged Diamond catheter Status: Acute (4) Urinary retention Status: Acute (5) Urinary tract infection Status: Acute Current Medications Current Medications Current Medications Fentanyl Citrate (Fentanyl 2ml Vial) 50 mcg 1X ONCE IV Last administered on 07/20/19at 08:26; Start 07/20/19 at 08:15; Stop 07/20/19 at 08:16; Status DC Ondansetron HCl (Zofran) 4 mg 1X ONCE IV Last administered on 07/20/19at 08:26; Start 07/20/19 at 08:15; Stop 07/20/19 at 08:16; Status DC Fentanyl Citrate (Fentanyl 2ml Vial) 50 mcg 1X ONCE IVP Last administered on 07/20/19at 09:33; Start 07/20/19 at 09:30; Stop 07/20/19 at 09:31; Status DC Potassium Chloride (Klor-Con) 40 meq 1X ONCE PO Last administered on 07/20/19at 10:11; Start 07/20/19 at 10:00; Stop 07/20/19 at 10:01; Status DC Ceftriaxone Sodium (Rocephin) 1 gm 1X ONCE IVP Last administered on 07/20/19at 10:11; Start 07/20/19 at 10:00; Stop 07/20/19 at 10:01; Status DC Sodium Chloride 1,000 ml @ 125 mls/hr Q8H IV Last administered on 07/20/19at 10:12; Start 07/20/19 at 10:00; Stop 07/21/19 at 09:59 Magnesium Sulfate 50 ml @ 25 mls/hr 1X ONCE IV Last administered on 07/20/19at 14:51; Start 07/20/19 at 14:00; Stop 07/20/19 at 15:59; Status DC Potassium Chloride (Klor-Con) 20 meq DAILYWBKFT PO ; Start 07/21/19 at 08:00 Active Scripts Active Oxybutynin Chloride 5 Mg Tablet 5 Mg PO [id number] Phenazopyridine Hcl 200 Mg Tablet 200 Mg PO PRN TID PRN Lidocaine PATCH (Lidocaine) 1 Each Adh..patch 1 Patch TD DAILY Proair Hfa (Albuterol Sulfate) 8.5 Gm Hfa.aer.ad 2.5 Mg NEB PRN Q4HRS PRN 30 Days Magnesium (Magnesium Oxide) 400 Mg Capsule 1 Cap PO DAILY 10 Days Metoprolol Tartrate 25 Mg Tablet 1 Tab PO BID Reported Omeprazole 20 Mg Capsule.dr 1 Cap PO DAILY Aspirin 81 Mg Tab.chew 1 Tab PO DAILY Finasteride 5 Mg Tablet 1 Tab PO DAILY Vitamin D (Cholecalciferol (Vitamin D3)) 1,000 Unit Capsule 1 Cap PO DAILY Thiamine Hcl 500 Mg Tablet 100 Mg PO DAILY Folic Acid 1 Mg Tablet 1 Tab PO DAILY Colace (Docusate Sodium) 100 Mg Capsule 1 Cap PO BID Calcium Carbonate 500 Mg Tablet 500 Mg PO DAILY Terazosin Hcl 10 Mg Capsule 1 Cap PO HS Baclofen 10 Mg Tablet 1 Tab PO TID Atorvastatin Calcium 20 Mg Tablet 20 Mg PO HS Allergies Allergies: Coded Allergies: Penicillins (Verified Allergy, Intermediate, 09/09/16) ROS General: YES: Chills, Fatigue PSYCHOLOGICAL ROS: YES: Irritablity, Sleep disturbances Eyes: No Blurry vision, No Decreased vision, No Double vision, No Dry eyes, No Excessive tearing, No Eye Pain, No Itchy Eyes, No Loss of vision, No Photophobia, No Scotomata, No Uses contacts, No Uses glasses, No Other HEENT: No: Heacaches, Visual Changes, Hearing change, Nasal congestion, Nasal discharge, Oral lesions, Sinus pain, Sore Throat, Epistaxis, Sneezing, Snoring, Tinnitus, Vertigo, Vocal changes, Other Respiratory: No: Cough, Hemoptysis, Orthopnea, Pleuritic Pain, Shortness of breath, SOB with excertion, Sputum Changes, Stridor, Tachypnea, Wheezing, Other Cardiovascular: No Chest Pain, No Palpitations, No Orthopnea, No Paroxysmal Noc. Dyspnea, No Edema, No Lt Headedness, No Other Gastrointestinal: Yes Nausea; No Vomiting, No Abdominal Pain, No Diarrhea, No Constipation, No Melena, No Hematochezia, No Other Genitourinary: YES Dysuria, YES Pain Musculoskeletal: No Gait Disturbance, No Joint Pain, No Joint Stiffness, No Joint Swelling, No Muscle Pain, No Muscular Weakness, No Pain In:, No Swelling In:, No Other Neurological: No Behavorial Changes, No Bowel/Bladder ControlChng, No Confusion, No Dizziness, No Gait Disturbance, No Headaches, No Impaired Coord/balance, No Memory Loss, No Numbness/Tingling, No Seizures, No Speech Problems, No Tremors, No Visual Changes, No Weakness, No Other Skin: No Dry Skin, No Eczema, No Hair Changes, No Lumps, No Mole Changes, No Mottling, No Nail Changes, No Pruritus, No Rash, No Skin Lesion Changes, No Other, No Acne Physical Exam General: Alert, Oriented X3, Cooperative, mild distress HEENT: Atraumatic, Mucous membr. moist/pink Lungs: Clear to auscultation, Normal air movement Heart: S1S2, RRR, no murmurs Abdomen: Normal bowel sounds, Soft Extremities: No cyanosis, No edema Skin: No breakdown, No significant lesion Neuro: Normal gait, Sensation intact, Cranial nerves 3-12 NL Psych/Mental Status: Mood NL Vitals Vitals Vital Signs Date Time Temp Pulse Resp B/P (MAP) Pulse Ox O2 Delivery O2 Flow Rate FiO2 07/20/19 15:00 98.2 78 16 139/80 (99) 98 Room Air 98.2 Labs Labs Laboratory Tests Test 07/20/19 08:15 07/20/19 08:17 07/20/19 09:07 White Blood Count 17.1 x10^3/uL (4.0-11.0) Red Blood Count 3.77 x10^6/uL (4.30-5.70) Hemoglobin 11.5 g/dL (13.0-17.5) Hematocrit 33.7 % (39.0-53.0) Mean Corpuscular Volume 90 fL (79-100) Mean Corpuscular Hemoglobin 31 pg (25-35) Mean Corpuscular Hemoglobin Concent 34 g/dL (31-37) Red Cell Distribution Width 13.1 % (11.5-14.5) Platelet Count 325 x10^3/uL (140-400) Neutrophils (%) (Auto) 86 % (31-73) Lymphocytes (%) (Auto) 3 % (24-48) Monocytes (%) (Auto) 10 % (0-9) Eosinophils (%) (Auto) 0 % (0-3) Basophils (%) (Auto) 0 % (0-3) Neutrophils # (Auto) 14.8 x10^3/uL (1.8-7.7) Lymphocytes # (Auto) 0.5 x10^3/uL (1.0-4.8) Monocytes # (Auto) 1.7 x10^3/uL (0.0-1.1) Eosinophils # (Auto) 0.0 x10^3/uL (0.0-0.7) Basophils # (Auto) 0.1 x10^3/uL (0.0-0.2) Segmented Neutrophils % 76 % (35-66) Band Neutrophils % 11 % (0-9) Lymphocytes % 5 % (24-48) Monocytes % 8 % (0-10) Platelet Estimate Adequate (ADEQUATE) Ovalocytes Few Prothrombin Time 13.7 SEC (11.7-14.0) Prothromb Time International Ratio 1.1 (0.8-1.1) Sodium Level 141 mmol/L (136-145) Potassium Level 3.1 mmol/L (3.5-5.1) Chloride Level 100 mmol/L (98-107) Carbon Dioxide Level 28 mmol/L (21-32) Anion Gap 13 (6-14) Blood Urea Nitrogen 23 mg/dL (8-26) Creatinine 1.2 mg/dL (0.7-1.3) Estimated GFR (Cockcroft-Gault) 72.2 BUN/Creatinine Ratio 19 (6-20) Glucose Level 159 mg/dL (70-99) Calcium Level 9.3 mg/dL (8.5-10.1) Magnesium Level 1.4 mg/dL (1.8-2.4) Total Bilirubin 0.7 mg/dL (0.2-1.0) Aspartate Amino Transf (AST/SGOT) 14 U/L (15-37) Alanine Aminotransferase (ALT/SGPT) < 6 U/L (16-63) Alkaline Phosphatase 60 U/L (46-116) Troponin I Quantitative < 0.017 ng/mL (0.000-0.055) Total Protein 8.3 g/dL (6.4-8.2) Albumin 3.2 g/dL (3.4-5.0) Albumin/Globulin Ratio 0.6 (1.0-1.7) Lipase 69 U/L (73-393) Urine Collection Type Unknown Urine Color Yellow Urine Clarity Turbid Urine pH 8.0 Urine Specific [place] 1.015 Urine Protein 100 mg/dL (NEG-TRACE) Urine Glucose (UA) Negative mg/dL (NEG) Urine Ketones (Stick) Trace mg/dL (NEG) Urine Blood Large (NEG) Urine Nitrite Positive (NEG) Urine Bilirubin Negative (NEG) Urine Urobilinogen Dipstick 2.0 mg/dL (0.2 mg/dL) Urine Leukocyte Esterase Large (NEG) Urine RBC 20-40 /HPF (0-2) Urine WBC Tntc /HPF (0-4) Urine Bacteria Many /HPF (0-FEW) Urine Mucus Marked /LPF Lactic Acid Level 1.3 mmol/L (0.4-2.0) Laboratory Tests Test 07/20/19 08:15 07/20/19 08:17 07/20/19 09:07 White Blood Count 17.1 x10^3/uL (4.0-11.0) Red Blood Count 3.77 x10^6/uL (4.30-5.70) Hemoglobin 11.5 g/dL (13.0-17.5) Hematocrit 33.7 % (39.0-53.0) Mean Corpuscular Volume 90 fL (79-100) Mean Corpuscular Hemoglobin 31 pg (25-35) Mean Corpuscular Hemoglobin Concent 34 g/dL (31-37) Red Cell Distribution Width 13.1 % (11.5-14.5) Platelet Count 325 x10^3/uL (140-400) Neutrophils (%) (Auto) 86 % (31-73) Lymphocytes (%) (Auto) 3 % (24-48) Monocytes (%) (Auto) 10 % (0-9) Eosinophils (%) (Auto) 0 % (0-3) Basophils (%) (Auto) 0 % (0-3) Neutrophils # (Auto) 14.8 x10^3/uL (1.8-7.7) Lymphocytes # (Auto) 0.5 x10^3/uL (1.0-4.8) Monocytes # (Auto) 1.7 x10^3/uL (0.0-1.1) Eosinophils # (Auto) 0.0 x10^3/uL (0.0-0.7) Basophils # (Auto) 0.1 x10^3/uL (0.0-0.2) Segmented Neutrophils % 76 % (35-66) Band Neutrophils % 11 % (0-9) Lymphocytes % 5 % (24-48) Monocytes % 8 % (0-10) Platelet Estimate Adequate (ADEQUATE) Ovalocytes Few Prothrombin Time 13.7 SEC (11.7-14.0) Prothromb Time International Ratio 1.1 (0.8-1.1) Sodium Level 141 mmol/L (136-145) Potassium Level 3.1 mmol/L (3.5-5.1) Chloride Level 100 mmol/L (98-107) Carbon Dioxide Level 28 mmol/L (21-32) Anion Gap 13 (6-14) Blood Urea Nitrogen 23 mg/dL (8-26) Creatinine 1.2 mg/dL (0.7-1.3) Estimated GFR (Cockcroft-Gault) 72.2 BUN/Creatinine Ratio 19 (6-20) Glucose Level 159 mg/dL (70-99) Calcium Level 9.3 mg/dL (8.5-10.1) Magnesium Level 1.4 mg/dL (1.8-2.4) Total Bilirubin 0.7 mg/dL (0.2-1.0) Aspartate Amino Transf (AST/SGOT) 14 U/L (15-37) Alanine Aminotransferase (ALT/SGPT) < 6 U/L (16-63) Alkaline Phosphatase 60 U/L (46-116) Troponin I Quantitative < 0.017 ng/mL (0.000-0.055) Total Protein 8.3 g/dL (6.4-8.2) Albumin 3.2 g/dL (3.4-5.0) Albumin/Globulin Ratio 0.6 (1.0-1.7) Lipase 69 U/L (73-393) Urine Collection Type Unknown Urine Color Yellow Urine Clarity Turbid Urine pH 8.0 Urine Specific [place] 1.015 Urine Protein 100 mg/dL (NEG-TRACE) Urine Glucose (UA) Negative mg/dL (NEG) Urine Ketones (Stick) Trace mg/dL (NEG) Urine Blood Large (NEG) Urine Nitrite Positive (NEG) Urine Bilirubin Negative (NEG) Urine Urobilinogen Dipstick 2.0 mg/dL (0.2 mg/dL) Urine Leukocyte Esterase Large (NEG) Urine RBC 20-40 /HPF (0-2) Urine WBC Tntc /HPF (0-4) Urine Bacteria Many /HPF (0-FEW) Urine Mucus Marked /LPF Lactic Acid Level 1.3 mmol/L (0.4-2.0) VTE Prophylaxis Ordered VTE Prophylaxis Devices: No VTE Pharmacological Prophylaxi: Yes Assessment/Plan Assessment/Plan sepsis UTI recent diamond for BPH weakness hypokalemia hypomag dmit may try to pull and replace diamond MEKA WARE MD Jul 20, 2019 16:25
[2019-07-20] MEDS ORDERED: PHENAZOPYRIDINE 200 MG TABLET. PO PRN (16:30)
[2019-07-20] MEDS ORDERED: ALBUTEROL SULFATE 2.5 MG/3 ML NEBU. NEB PRN (16:30)
[2019-07-20] MEDS: LIDOCAINE (700MG/PATCH) PATCH. TD SCH (17:00)
[2019-07-20] MEDS: FINASTERIDE 5 MG TABLET. PO SCH (17:00)
[2019-07-20] MEDS: CYCLOBENZAPRINE 10 MG TABLET. PO SCH ×2 (17:00→20:57)
[2019-07-20] MEDS: PANTOPRAZOLE 40 MG TABLET.DR. PO SCH (17:00)
--- NOTE | 2019-07-20 17:20 | NUR ---
PATIENT STATES HE HAS BEEN AT [facility] SINCE PREVIOUS DISCHARGE UNTIL 07/18/19. HE HAS BEEN HOME WITH HIS FOR THE LAST 2 DAYS WHO IS NOT WELL AND UNABLE TO PROVIDE CARES FOR HIM. PATIENT DESCRIBES THAT HE HAS BEEN INCONTINENT OF BOWEL IN BRIEF SINCE HE HAD BEEN HOME AND UNABLE TO CLEAN HIMSELF AND ALSO UNABLE TO TAKE HIS MEDICATIONS BECAUSE HE WAS NOT ABLE TO GET UP FROM BED TO ACCESS THEM AND HAD POOR NUTRITIONAL INTAKE.
[2019-07-20] MEDS: THIAMINE 100 MG TABLET. PO SCH (17:51)
[2019-07-20] MEDS: FOLIC ACID 1 MG TABLET. PO SCH (17:51)
[2019-07-20] MEDS: OXYBUTYNIN CHLORIDE 5 MG TABLET PO SCH (17:51)
[2019-07-20] MEDS: CHOLECALCIFEROL (VITAMIN D3) 1,000 UNIT TABLET PO SCH (17:52)
[2019-07-20] MEDS: ASPIRIN CHEWABLE 81 MG TABLET. PO SCH (17:52)
[2019-07-20] MEDS: MAGNESIUM OXIDE 400 MG TABLET PO SCH (17:52)
[2019-07-20] MEDS: CALCIUM CARBONATE 500 MG TABLET PO SCH (17:52)
--- NOTE | 2019-07-20 17:56 | NUR ---
Bladder scanned with 120cc residual at this time.
[2019-07-20 19:00] VITALS: BP 137/70
[2019-07-20] MEDS: ATORVASTATIN CALCIUM 20 MG TABLET PO SCH (20:56)
[2019-07-20] MEDS: METOPROLOL TART IMMED RELEASE 25 MG TABLET. PO SCH (20:56)
[2019-07-20] MEDS: TERAZOSIN 5 MG CAPSULE. PO SCH (20:56)
[2019-07-20] MEDS: DOCUSATE SODIUM 100 MG CAPSULE. PO SCH (20:57)
[2019-07-20] MEDS ORDERED: PATCH REMOVAL. MC SCH (21:00)
--- NOTE | 2019-07-20 21:00 | NUR ---
Patient did not have a lidoderm patch in place to remove
[2019-07-20 23:00] VITALS: BP 147/83
[2019-07-21] VITALS (7 sets, daily range): BP systolic 137–167; BP diastolic 70–81
[2019-07-21] MEDS: IV NORMAL SALINE 1000ML BAG 1,000 ML IV SCH (02:00)
[2019-07-21] MEDS: OXYBUTYNIN CHLORIDE 5 MG TABLET PO SCH ×2 (06:41→17:33)
[2019-07-21] MEDS: PANTOPRAZOLE 40 MG TABLET.DR. PO SCH (06:42)
[2019-07-21] MEDS: POTASSIUM CHLORIDE 20 MEQ TABLET.ER. PO SCH (08:49)
[2019-07-21] MEDS: FOLIC ACID 1 MG TABLET. PO SCH (08:49)
[2019-07-21] MEDS: FINASTERIDE 5 MG TABLET. PO SCH (08:49)
[2019-07-21] MEDS: CALCIUM CARBONATE 500 MG TABLET PO SCH (08:49)
[2019-07-21] MEDS: CHOLECALCIFEROL (VITAMIN D3) 1,000 UNIT TABLET PO SCH (08:49)
[2019-07-21] MEDS: MAGNESIUM OXIDE 400 MG TABLET PO SCH (08:49)
[2019-07-21] MEDS: DOCUSATE SODIUM 100 MG CAPSULE. PO SCH ×2 (08:49→21:33)
[2019-07-21] MEDS: CYCLOBENZAPRINE 10 MG TABLET. PO SCH ×3 (08:50→21:33)
[2019-07-21] MEDS: THIAMINE 100 MG TABLET. PO SCH (08:50)
[2019-07-21] MEDS: ASPIRIN CHEWABLE 81 MG TABLET. PO SCH (08:50)
[2019-07-21] MEDS: METOPROLOL TART IMMED RELEASE 25 MG TABLET. PO SCH ×2 (08:51→21:34)
[2019-07-21] MEDS: LIDOCAINE (700MG/PATCH) PATCH. TD SCH (09:00)
--- NOTE | 2019-07-21 10:00 | PDOC ---
PROGRESS NOTES Chief Complaint Chief Complaint COmplicated UTI s/p Indwelling diamond x 2 mos for urinary retention BPH sxs NOn obstructing renal calculi, rt History of Present Illness History of Present Illness Urinating a lot he says Came from home Does have UTI on UA PCN allergy - hives, but tolerated a dose of rocephin Cant tell me the name of urologist he sees PLAn: Start levaquin per pharmacy Waiting for urine C and S in this complicated UTI BLadder scan protocol but seems to be voiding a lot actually FULL CODE Vitals Vitals Vital Signs Date Time Temp Pulse Resp B/P (MAP) Pulse Ox O2 Delivery O2 Flow Rate FiO2 07/21/19 08:51 60 137/74 07/21/19 07:00 98.1 18 96 Room Air 98.1 Physical Exam General: Alert, Oriented X3, Cooperative, mild distress Lungs: Clear Abdomen: Normal bowel sounds, Soft Extremities: No cyanosis, No edema Skin: No breakdown, No significant lesion Review of Systems Review of Systems neg 14 pt reviewed with him Assessment and Plan Assessmemt and Plan Problems Medical Problems: (1) Abdominal pain Status: Acute (2) Constipation Status: Acute (3) Dislodged Diamond catheter Status: Acute (4) Urinary retention Status: Acute (5) Urinary tract infection Status: Acute Comment Review of Relevant I have reviewed the following items prince (where applicable) has been applied. Labs Laboratory Tests Test 07/20/19 08:15 07/20/19 08:17 07/20/19 09:07 White Blood Count 17.1 x10^3/uL (4.0-11.0) Red Blood Count 3.77 x10^6/uL (4.30-5.70) Hemoglobin 11.5 g/dL (13.0-17.5) Hematocrit 33.7 % (39.0-53.0) Mean Corpuscular Volume 90 fL (79-100) Mean Corpuscular Hemoglobin 31 pg (25-35) Mean Corpuscular Hemoglobin Concent 34 g/dL (31-37) Red Cell Distribution Width 13.1 % (11.5-14.5) Platelet Count 325 x10^3/uL (140-400) Neutrophils (%) (Auto) 86 % (31-73) Lymphocytes (%) (Auto) 3 % (24-48) Monocytes (%) (Auto) 10 % (0-9) Eosinophils (%) (Auto) 0 % (0-3) Basophils (%) (Auto) 0 % (0-3) Neutrophils # (Auto) 14.8 x10^3/uL (1.8-7.7) Lymphocytes # (Auto) 0.5 x10^3/uL (1.0-4.8) Monocytes # (Auto) 1.7 x10^3/uL (0.0-1.1) Eosinophils # (Auto) 0.0 x10^3/uL (0.0-0.7) Basophils # (Auto) 0.1 x10^3/uL (0.0-0.2) Segmented Neutrophils % 76 % (35-66) Band Neutrophils % 11 % (0-9) Lymphocytes % 5 % (24-48) Monocytes % 8 % (0-10) Platelet Estimate Adequate (ADEQUATE) Ovalocytes Few Prothrombin Time 13.7 SEC (11.7-14.0) Prothromb Time International Ratio 1.1 (0.8-1.1) Sodium Level 141 mmol/L (136-145) Potassium Level 3.1 mmol/L (3.5-5.1) Chloride Level 100 mmol/L (98-107) Carbon Dioxide Level 28 mmol/L (21-32) Anion Gap 13 (6-14) Blood Urea Nitrogen 23 mg/dL (8-26) Creatinine 1.2 mg/dL (0.7-1.3) Estimated GFR (Cockcroft-Gault) 72.2 BUN/Creatinine Ratio 19 (6-20) Glucose Level 159 mg/dL (70-99) Calcium Level 9.3 mg/dL (8.5-10.1) Magnesium Level 1.4 mg/dL (1.8-2.4) Total Bilirubin 0.7 mg/dL (0.2-1.0) Aspartate Amino Transf (AST/SGOT) 14 U/L (15-37) Alanine Aminotransferase (ALT/SGPT) < 6 U/L (16-63) Alkaline Phosphatase 60 U/L (46-116) Troponin I Quantitative < 0.017 ng/mL (0.000-0.055) Total Protein 8.3 g/dL (6.4-8.2) Albumin 3.2 g/dL (3.4-5.0) Albumin/Globulin Ratio 0.6 (1.0-1.7) Lipase 69 U/L (73-393) Urine Collection Type Unknown Urine Color Yellow Urine Clarity Turbid Urine pH 8.0 Urine Specific [place] 1.015 Urine Protein 100 mg/dL (NEG-TRACE) Urine Glucose (UA) Negative mg/dL (NEG) Urine Ketones (Stick) Trace mg/dL (NEG) Urine Blood Large (NEG) Urine Nitrite Positive (NEG) Urine Bilirubin Negative (NEG) Urine Urobilinogen Dipstick 2.0 mg/dL (0.2 mg/dL) Urine Leukocyte Esterase Large (NEG) Urine RBC 20-40 /HPF (0-2) Urine WBC Tntc /HPF (0-4) Urine Bacteria Many /HPF (0-FEW) Urine Mucus Marked /LPF Lactic Acid Level 1.3 mmol/L (0.4-2.0) Medications Current Medications Fentanyl Citrate (Fentanyl 2ml Vial) 50 mcg 1X ONCE IV Last administered on 07/20/19at 08:26; Start 07/20/19 at 08:15; Stop 07/20/19 at 08:16; Status DC Ondansetron HCl (Zofran) 4 mg 1X ONCE IV Last administered on 07/20/19at 08:26; Start 07/20/19 at 08:15; Stop 07/20/19 at 08:16; Status DC Fentanyl Citrate (Fentanyl 2ml Vial) 50 mcg 1X ONCE IVP Last administered on 07/20/19at 09:33; Start 07/20/19 at 09:30; Stop 07/20/19 at 09:31; Status DC Potassium Chloride (Klor-Con) 40 meq 1X ONCE PO Last administered on 07/20/19at 10:11; Start 07/20/19 at 10:00; Stop 07/20/19 at 10:01; Status DC Ceftriaxone Sodium (Rocephin) 1 gm 1X ONCE IVP Last administered on 07/20/19at 10:11; Start 07/20/19 at 10:00; Stop 07/20/19 at 10:01; Status DC Sodium Chloride 1,000 ml @ 125 mls/hr Q8H IV Last administered on 07/21/19at 02:00; Start 07/20/19 at 10:00; Stop 07/21/19 at 09:59 Magnesium Sulfate 50 ml @ 25 mls/hr 1X ONCE IV Last administered on 07/20/19 14:51; Start 07/20/19 at 14:00; Stop 07/20/19 at 15:59; Status DC Potassium Chloride (Klor-Con) 20 meq DAILYWBKFT PO Last administered on 07/21/19 08:49; Start 07/21/19 at 08:00 Albuterol Sulfate (Ventolin Neb Soln) 2.5 mg PRN Q4HRS PRN NEB SHORTNESS OF BREATH; Start 07/20/19 at 16:30 Aspirin (Children'S Aspirin) 81 mg DAILY PO Last administered on 07/21/19 08:50; Start 07/20/19 at 17:00 Atorvastatin Calcium (Lipitor) 20 mg HS PO Last administered on 07/20/19 20:56; Start 07/20/19 at 21:00 Calcium Carbonate/ Glycine (Oscal) 500 mg DAILY PO Last administered on 07/21/19 08:49; Start 07/20/19 at 17:00 Docusate Sodium (Colace) 100 mg BID PO Last administered on 07/21/19 08:49; Start 07/20/19 at 21:00 Finasteride (Proscar) 5 mg DAILY PO Last administered on 07/21/19 08:49; Start 07/20/19 at 17:00 Folic Acid (Folic Acid) 1 mg DAILY PO Last administered on 07/21/19 08:49; Start 07/20/19 at 17:00 Lidocaine (Lidoderm) 1 patch DAILY TD ; Start 07/20/19 at 17:00 Metoprolol Tartrate (Lopressor) 25 mg BID PO Last administered on 07/21/19 08:51; Start 07/20/19 at 21:00 Oxybutynin Chloride (Ditropan) 5 mg [id number] PO Last administered on 07/21/19 06:41; Start 07/20/19 at 18:00 Phenazopyridine HCl (Pyridium) 200 mg PRN TID PRN PO URINARY PAIN; Start at 16:30 Cyclobenzaprine HCl (Flexeril) 10 mg TID PO Last administered on 07/21/19 08:50; Start 07/20/19 at 17:00 Vitamin D (Vitamin D3) 1,000 unit DAILY PO Last administered on 07/21/19at 08:49; Start 07/20/19 at 17:00 Magnesium Oxide (Magnesium Oxide) 400 mg DAILY PO Last administered on 07/21/19at 08:49; Start 07/20/19 at 17:00 Pantoprazole Sodium (Protonix) 40 mg DAILYAC PO Last administered on 07/21/19at 06:42; Start 07/20/19 at 17:00 Terazosin HCl (Hytrin) 10 mg QHS PO Last administered on 07/20/19at 20:56; Start 07/20/19 at 21:00 Thiamine Mononitrate (Vitamin B-1) 100 mg DAILY PO Last administered on 07/21/19at 08:50; Start 07/20/19 at 17:00 Miscellaneous (Lidoderm Patch Removal) 1 ea QHS MC ; Start 07/20/19 at 21:00 Levofloxacin/ Dextrose 100 ml @ 100 mls/hr Q24H IV Last administered on 07/21/19at 08:48; Start 07/21/19 at 09:00 Active Scripts Active Oxybutynin Chloride 5 Mg Tablet 5 Mg PO [id number] Phenazopyridine Hcl 200 Mg Tablet 200 Mg PO PRN TID PRN Lidocaine PATCH (Lidocaine) 1 Each Adh..patch 1 Patch TD DAILY Proair Hfa (Albuterol Sulfate) 8.5 Gm Hfa.aer.ad 2.5 Mg NEB PRN Q4HRS PRN 30 Days Magnesium (Magnesium Oxide) 400 Mg Capsule 1 Cap PO DAILY 10 Days Metoprolol Tartrate 25 Mg Tablet 1 Tab PO BID Reported Omeprazole 20 Mg Capsule.dr 1 Cap PO DAILY Aspirin 81 Mg Tab.chew 1 Tab PO DAILY Finasteride 5 Mg Tablet 1 Tab PO DAILY Vitamin D (Cholecalciferol (Vitamin D3)) 1,000 Unit Capsule 1 Cap PO DAILY Thiamine Hcl 500 Mg Tablet 100 Mg PO DAILY Folic Acid 1 Mg Tablet 1 Tab PO DAILY Colace (Docusate Sodium) 100 Mg Capsule 1 Cap PO BID Calcium Carbonate 500 Mg Tablet 500 Mg PO DAILY Terazosin Hcl 10 Mg Capsule 1 Cap PO HS Baclofen 10 Mg Tablet 1 Tab PO TID Atorvastatin Calcium 20 Mg Tablet 20 Mg PO HS Vitals/I & O Vital Sign - Last 24 Hours 07/20/19 07/20/19 07/20/19 07/20/19 10:17 10:35 11:00 13:45 Temp 98.2 98.2 Pulse 87 72 Resp 16 16 B/P (MAP) 124/75 (91) 143/76 (98) Pulse Ox 97 98 98 O2 Delivery Room Air Room Air Room Air 07/20/19 07/20/19 07/20/19 07/20/19 13:45 15:00 19:00 20:00 Temp 98.2 98.3 98.2 98.3 Pulse 78 70 Resp 16 18 B/P (MAP) 139/80 (99) 137/70 (92) Pulse Ox 98 98 96 O2 Delivery Room Air Room Air Room Air 07/20/19 07/20/19 07/20/19 07/21/19 20:56 20:56 23:00 03:00 Temp 98.2 97.9 98.2 97.9 Pulse 70 70 64 60 Resp 18 18 B/P (MAP) 137/70 137/70 147/83 (104) 137/74 (95) Pulse Ox 94 95 O2 Delivery Room Air Room Air 07/21/19 07/21/19 07:00 08:51 Temp 98.1 98.1 Pulse 68 60 Resp 18 B/P (MAP) 137/76 (96) 137/74 Pulse Ox 96 O2 Delivery Room Air Intake and Output 07/20/19 07/20/19 07/21/19 15:00 23:00 07:00 Intake Total 200 ml 0 ml Balance 200 ml 0 ml EFRA MADRIGAL MD Jul 21, 2019 10:00
[2019-07-21 10:02] LABS: BASO # 0.1 x10^3/uL (0.0-0.2); BASO % 1 % (0-3); EOS # 0.1 x10^3/uL (0.0-0.7); EOS % 1 % (0-3); HEMATOCRIT 27.3 % (39.0-53.0); HEMOGLOBIN 9.2 g/dL (13.0-17.5); LYMPH # 1.4 x10^3/uL (1.0-4.8); LYMPH % 10 % (24-48); MEAN CORPUSCULAR HEMOGLOBIN 31 pg (25-35); MEAN CORPUSCULAR HGB CONC 34 g/dL (31-37); MEAN CORPUSCULAR VOLUME 91 fL (79-100); MONO % 8 % (0-9); NEUT # 10.9 x10^3/uL (1.8-7.7); NEUT % 81 % (31-73); PLATELET COUNT 250 x10^3/uL (140-400); RED BLOOD COUNT 3.02 x10^6/uL (4.30-5.70); RED CELL DISTRIBUTION WIDTH 13.3 % (11.5-14.5); WHITE BLOOD COUNT 13.5 x10^3/uL (4.0-11.0)
[2019-07-21 10:06] LABS: CALCIUM 8.4 mg/dL (8.5-10.1); GFR 89.1; POTASSIUM 3.5 mmol/L (3.5-5.1)
[2019-07-21] MEDS: ATORVASTATIN CALCIUM 20 MG TABLET PO SCH (21:33)
[2019-07-21] MEDS: LACTOBACILLUS RHAMNOSUS GG 1 CAPSULE. PO SCH (21:33)
[2019-07-21] MEDS: TERAZOSIN 5 MG CAPSULE. PO SCH (21:34)
[2019-07-22 03:00] VITALS: BP 173/84
[2019-07-22] MEDS: PANTOPRAZOLE 40 MG TABLET.DR. PO SCH (05:58)
[2019-07-22] MEDS: OXYBUTYNIN CHLORIDE 5 MG TABLET PO SCH (05:58)
[2019-07-22 07:00] VITALS: BP 171/86
[2019-07-22] MEDS: POTASSIUM CHLORIDE 20 MEQ TABLET.ER. PO SCH (08:00)
[2019-07-22] MEDS: FINASTERIDE 5 MG TABLET. PO SCH (08:26)
[2019-07-22] MEDS: CALCIUM CARBONATE 500 MG TABLET PO SCH (08:26)
[2019-07-22] MEDS: CYCLOBENZAPRINE 10 MG TABLET. PO SCH ×2 (08:26→14:06)
[2019-07-22] MEDS: METOPROLOL TART IMMED RELEASE 25 MG TABLET. PO SCH (08:26)
[2019-07-22] MEDS: LACTOBACILLUS RHAMNOSUS GG 1 CAPSULE. PO SCH (08:26)
[2019-07-22] MEDS: CHOLECALCIFEROL (VITAMIN D3) 1,000 UNIT TABLET PO SCH (08:26)
[2019-07-22] MEDS: FOLIC ACID 1 MG TABLET. PO SCH (08:27)
[2019-07-22] MEDS: THIAMINE 100 MG TABLET. PO SCH (08:27)
[2019-07-22] MEDS: ASPIRIN CHEWABLE 81 MG TABLET. PO SCH (08:27)
[2019-07-22] MEDS: MAGNESIUM OXIDE 400 MG TABLET PO SCH (08:27)
[2019-07-22] MEDS: DOCUSATE SODIUM 100 MG CAPSULE. PO SCH (08:27)
[2019-07-22 08:34] LABS: BASO # 0.1 x10^3/uL (0.0-0.2); BASO % 1 % (0-3); EOS # 0.1 x10^3/uL (0.0-0.7); EOS % 1 % (0-3); HEMATOCRIT 29.7 % (39.0-53.0); HEMOGLOBIN 10.1 g/dL (13.0-17.5); LYMPH # 1.6 x10^3/uL (1.0-4.8); LYMPH % 14 % (24-48); MEAN CORPUSCULAR HEMOGLOBIN 31 pg (25-35); MEAN CORPUSCULAR HGB CONC 34 g/dL (31-37); MEAN CORPUSCULAR VOLUME 90 fL (79-100); MONO % 8 % (0-9); NEUT # 8.6 x10^3/uL (1.8-7.7); NEUT % 76 % (31-73); PLATELET COUNT 272 x10^3/uL (140-400); RED CELL DISTRIBUTION WIDTH 13.3 % (11.5-14.5); WHITE BLOOD COUNT 11.4 x10^3/uL (4.0-11.0)
--- NOTE | 2019-07-22 09:15 | NUR ---
wound care patient seen per wound care consult. wound assessment completed at this time. patient has no open wounds. patient has 2 scabbed peeling areas on bilateral buttocks, recommendations of Calazime cream, prn. applied Calazime at this time. wound care turned patient to the right side a this time. patient needs to be turning every 2 hours. patient assessed from head to toe and no other wounds noted at this time. wound care will continue to f/u for changes.
--- NOTE | 2019-07-22 09:21 | EKG ---
[facility] [address] [place] [address] Test Date: 2019-07-20 Test Time: 09:41:41 Pat Name: JULIAN DAVIS Department: Room: 440 1 Gender: M Magazine Filler: [id number] : 1945 Requested By: MEKA WARE Order Number: [id number] Reading MD: Measurements Intervals [place] Rate: 89 P: 35 RI: 138 QRS: 6 QRSD: 76 T: 48 QT: 338 QTc: 417 Interpretive Statements SINUS RHYTHM T ABNORMALITY IN ANTEROLATERAL LEADS ABNORMAL ECG RI6.01 No previous ECG available for comparison
[2019-07-22] MEDS ORDERED: ASCORBIC ACID 500 MG TABLET PO SCH (09:30)
[2019-07-22] MEDS ORDERED: MULTIVITAMIN with MINERAL TABLET. PO SCH (09:30)
[2019-07-22 11:00] VITALS: BP 167/81
[2019-07-22] MEDS ORDERED: LEVO500T59 PO (11:19)
--- NOTE | 2019-07-22 11:21 | PDOC3 ---
Discharge Summary Visit Information Date of Admission: Jul 20, 2019 Date of Discharge: Jul 22, 2019 Admitting Diagnosis Comment: COmplicated UTI s/p Indwelling agee x 2 mos for urinary retention BPH sxs NOn obstructing renal calculi, rt Final Diagnosis Problems Medical Problems: (1) Abdominal pain Status: Acute (2) Constipation Status: Acute (3) Dislodged Agee catheter Status: Acute (4) Urinary retention Status: Acute (5) Urinary tract infection Status: Acute Brief Hospital Course Allergies Allergies Coded Allergies Type Severity Reaction Last Updated Verified Penicillins Allergy Intermediate 09/09/16 Yes Vital Signs Vital Signs Date Time Temp Pulse Resp B/P (MAP) Pulse Ox O2 Delivery O2 Flow Rate FiO2 07/22/19 08:26 60 171/86 07/22/19 08:00 Room Air 07/22/19 07:00 97.9 18 98 97.9 Lab Results Laboratory Tests Test 07/21/19 09:30 07/22/19 08:23 White Blood Count 13.5 x10^3/uL (4.0-11.0) 11.4 x10^3/uL (4.0-11.0) Red Blood Count 3.02 x10^6/uL (4.30-5.70) 3.30 x10^6/uL (4.30-5.70) Hemoglobin 9.2 g/dL (13.0-17.5) 10.1 g/dL (13.0-17.5) Hematocrit 27.3 % (39.0-53.0) 29.7 % (39.0-53.0) Mean Corpuscular Volume 91 fL (79-100) 90 fL (79-100) Mean Corpuscular Hemoglobin 31 pg (25-35) 31 pg (25-35) Mean Corpuscular Hemoglobin Concent 34 g/dL (31-37) 34 g/dL (31-37) Red Cell Distribution Width 13.3 % (11.5-14.5) 13.3 % (11.5-14.5) Platelet Count 250 x10^3/uL (140-400) 272 x10^3/uL (140-400) Neutrophils (%) (Auto) 81 % (31-73) 76 % (31-73) Lymphocytes (%) (Auto) 10 % (24-48) 14 % (24-48) Monocytes (%) (Auto) 8 % (0-9) 8 % (0-9) Eosinophils (%) (Auto) 1 % (0-3) 1 % (0-3) Basophils (%) (Auto) 1 % (0-3) 1 % (0-3) Neutrophils # (Auto) 10.9 x10^3/uL (1.8-7.7) 8.6 x10^3/uL (1.8-7.7) Lymphocytes # (Auto) 1.4 x10^3/uL (1.0-4.8) 1.6 x10^3/uL (1.0-4.8) Monocytes # (Auto) 1.0 x10^3/uL (0.0-1.1) 1.0 x10^3/uL (0.0-1.1) Eosinophils # (Auto) 0.1 x10^3/uL (0.0-0.7) 0.1 x10^3/uL (0.0-0.7) Basophils # (Auto) 0.1 x10^3/uL (0.0-0.2) 0.1 x10^3/uL (0.0-0.2) Sodium Level 142 mmol/L (136-145) Potassium Level 3.5 mmol/L (3.5-5.1) Chloride Level 107 mmol/L (98-107) Carbon Dioxide Level 29 mmol/L (21-32) Anion Gap 6 (6-14) Blood Urea Nitrogen 20 mg/dL (8-26) Creatinine 1.0 mg/dL (0.7-1.3) Estimated GFR (Cockcroft-Gault) 89.1 Glucose Level 129 mg/dL (70-99) Calcium Level 8.4 mg/dL (8.5-10.1) Magnesium Level 2.0 mg/dL (1.8-2.4) Laboratory Tests Test 07/22/19 08:23 White Blood Count 11.4 x10^3/uL (4.0-11.0) Red Blood Count 3.30 x10^6/uL (4.30-5.70) Hemoglobin 10.1 g/dL (13.0-17.5) Hematocrit 29.7 % (39.0-53.0) Mean Corpuscular Volume 90 fL (79-100) Mean Corpuscular Hemoglobin 31 pg (25-35) Mean Corpuscular Hemoglobin Concent 34 g/dL (31-37) Red Cell Distribution Width 13.3 % (11.5-14.5) Platelet Count 272 x10^3/uL (140-400) Neutrophils (%) (Auto) 76 % (31-73) Lymphocytes (%) (Auto) 14 % (24-48) Monocytes (%) (Auto) 8 % (0-9) Eosinophils (%) (Auto) 1 % (0-3) Basophils (%) (Auto) 1 % (0-3) Neutrophils # (Auto) 8.6 x10^3/uL (1.8-7.7) Lymphocytes # (Auto) 1.6 x10^3/uL (1.0-4.8) Monocytes # (Auto) 1.0 x10^3/uL (0.0-1.1) Eosinophils # (Auto) 0.1 x10^3/uL (0.0-0.7) Basophils # (Auto) 0.1 x10^3/uL (0.0-0.2) Brief Hospital Course Mr. Beach is a 73 old AA male who had an indwelling agee x 2 mos and has a uti, Agee removed and voiding freely. Doing clinically well on IV levaquin, PCN listed as allergy (hives) but tolerated a dose rocephin ok, TAking time for urine cx to come back, We decided to dc on PO levaquin x 7 days and tcb anytime fevers, chills, pain etc NO PT needs Rx on chart dc < 30 consults/proc: none Discharge Information Condition at Discharge: Improved, Stable Follow Up: Weeks (tcb anytime with fever,c hills, flank pain or urinary sxs) Disposition/Orders: D/C to Home Scheduled Aspirin (Aspirin) 81 Mg Tab.chew, 1 TAB PO DAILY for HH, #30 Ref 3 (Reported) Entered as Reported by: HAKAN GOMES on 02/06/19 1550 Last Action: Continued on 07/20/19 1627 by MEKA WARE Atorvastatin Calcium (Atorvastatin Calcium) 20 Mg Tablet, 20 MG PO HS for FOR CHOLESTEROL, #30 Ref 0 (Reported) Entered as Reported by: FARHEEN BLOCK on 05/06/16 1531 Last Action: Continued on 07/20/191626 by MEKA WARE Baclofen (Baclofen) 10 Mg Tablet, 1 TAB PO TID for muscle spams , #90 Ref 2 (Reported) Entered as Reported by: HAKAN GOMES on 02/06/19 155 Last Action: Converted on 07/20/191626 by MEKA WARE Calcium Carbonate (Calcium Carbonate) 500 Mg Tablet, 500 MG PO DAILY for Supplement, (Reported) Entered as Reported by: HAKAN GOMES on 02/06/191549 Last Action: Continued on 07/20/191626 by MEKA WARE Cholecalciferol (Vitamin D3) (Vitamin D) 1,000 Unit Capsule, 1 CAP PO DAILY for supplement, #30 Ref 3 (Reported) Entered as Reported by: HAKAN GOMES on 02/06/191549 Last Action: Converted on 07/20/191626 by MEKA WARE Docusate Sodium (Colace) 100 Mg Capsule, 1 CAP PO BID for Constipation , #30 (Reported) Entered as Reported by: HAKAN GOMES on 02/06/191549 Last Action: Continued on 07/20/191626 by MEKA WARE Finasteride (Finasteride) 5 Mg Tablet, 1 TAB PO DAILY for BPH, #30 Ref 11 (Reported) Entered as Reported by: HAKAN GOMES on 02/06/191549 Last Action: Continued on 07/20/191626 by MEKA WARE Folic Acid (Folic Acid) 1 Mg Tablet, 1 TAB PO DAILY for Supplement, #90 Ref 1 (Reported) Entered as Reported by: HAKAN GOMES on 02/06/191549 Last Action: Continued on 07/20/191626 by MEKA WARE Levofloxacin (Levaquin) 500 Mg Tablet, 1 TAB PO DAILY for uti for 7 Days, #7 Ref 0 Prescribed by: EFRA MADRIGAL on 07/22/19 1119 Magnesium Oxide (Magnesium) 400 Mg Capsule, 1 CAP PO DAILY for 10 Days, #10 Prescribed by: KIMBERLY ZELAYA D.O. on 05/19/192108 Last Action: Converted on 07/20/191626 by MEKA WARE Metoprolol Tartrate (Metoprolol Tartrate) 25 Mg Tablet, 1 TAB PO BID for HTN, #180 Ref 1 Prescribed by: RADHA MARTELL MD on 02/08/19 1226 Last Action: Continued on 07/20/191626 by MEKA WARE Omeprazole (Omeprazole) 20 Mg Capsule.dr, 1 CAP PO DAILY for GERD, #30 Ref 5 (Reported) Entered as Reported by: HAKAN GOMES on 02/06/19 155 Last Action: Converted on 07/20/191626 by MEKA WARE Oxybutynin Chloride (Oxybutynin Chloride) 5 Mg Tablet, 5 MG PO BID66 for urinary issues, #60 Prescribed by: EFRA MADRIGAL on 06/12/19900 Last Action: Continued on 07/20/191626 by MEKA WARE Terazosin Hcl (Terazosin Hcl) 10 Mg Capsule, 1 CAP PO HS for BPH, #90 Ref 1 (Reported) Entered as Reported by: HAKAN GOMES on 02/06/19 155 Last Action: Converted on 07/20/191626 by MEKA WARE Thiamine Hcl (Thiamine Hcl) 500 Mg Tablet, 100 MG PO DAILY for supplement, (Reported) Entered as Reported by: HAKAN GOMES on 02/06/19 155 Last Action: Converted on 07/20/191626 by MEKA WARE Scheduled PRN Albuterol Sulfate (Proair Hfa) 8.5 Gm Hfa.aer.ad, 2.5 MG NEB PRN Q4HRS PRN for SHORTNESS OF BREATH for 30 Days Prescribed by: EFRA MADRIGAL on 06/12/19900 Last Action: Continued on 07/20/191626 by MEKA WARE Phenazopyridine Hcl (Phenazopyridine Hcl) 200 Mg Tablet, 200 MG PO PRN TID PRN for URINARY PAIN, #30 Prescribed by: EFRA MADRIGAL on 06/12/19900 Last Action: Continued on 07/20/191626 by EFRA DUKE MD Jul 22, 2019 11:21
--- NOTE | 2019-07-22 11:33 | SNU/HH DC ---
DISCHARGE WITH HOME HEALTH DISCHARGE INFORMATION: Discharge Date: Jul 22, 2019 Final Diagnosis: Problems Medical Problems: (1) Abdominal pain Status: Acute (2) Constipation Status: Acute (3) Dislodged Miner catheter Status: Acute (4) Urinary retention Status: Acute (5) Urinary tract infection Status: Acute Condition on Discharge: Stable CODE STATUS: Code Status: Full HOME HEALTH: Face to Face: I certify this patient is under my care and that I, or a nurse practitioner or physician's seismic survey assistant working with me, had a face to face encounter that meets the physician face to face encounter requirements with this patient on []. RN For Eval/Treatment: Yes Physical Therapy For: Evalulation/Treatment Occupational Therapy For: Evaluation/Treatment Speech Language Pathology For: Evaluation/Treatment Home Health Aide For: Self-care EMISSIONS ENGINEER For: Community Resources Pt Meets Homebound Status: Unsteady balance w/ amb, POST DISCHARGE ORDERS: Activity Instructions for Disc: Activity as tolerated Weight Bearing Status after Di: As tolerated Bathing Instructions: Shower-keep dressing dry DIET AFTER DISCHARGE: Regular Wound/Incision Care: No wound care needed CHECKS AFTER DISCHARGE: Checks after discharge: Check blood press - daily, Check your Temp as needed FOLLOW-UP: PCP to follow Home Health: wof: chills, fever, flank pain or signs of UTI - we could not wait for urine cx and sensitivities before he was dcd TREATMENT/EQUIPMENT ORDERS: Adaptive Equipment Issued: None, Brace/splint CERTIFICATION STATEMENT: Certification Statement: Certification Statement: Based on the above finding, I certify that this patient is confined to the home and needs intermittent penitentiary care, physical therapy and/or speech therapy, or continues to need occupational therapy.~ This patient is under my care, and I have initiated the establishment of the plan of care.~ This patient will be followed by myself or a community physician who will periodically review the plan of care. Home Meds Active Scripts Levofloxacin (LEVAQUIN) 500 Mg Tablet, 1 TAB PO DAILY for uti for 7 Days, #7 TAB 0 Refills Prov:EFRA MADRIGAL MD 07/22/19 Oxybutynin Chloride (OXYBUTYNIN CHLORIDE) 5 Mg Tablet, 5 MG PO BID66 for urinary issues, #60 TAB Prov:EFRA MADRIGAL MD 06/12/19 Phenazopyridine Hcl (PHENAZOPYRIDINE HCL) 200 Mg Tablet, 200 MG PO PRN TID PRN for URINARY PAIN, #30 TAB Prov:EFRA MADRIGAL MD 06/12/19 Albuterol Sulfate (Proair Hfa) 8.5 Gm Hfa.aer.ad, 2.5 MG NEB PRN Q4HRS PRN for SHORTNESS OF BREATH for 30 Days, INHALER Prov:EFRA MADRIGAL MD 06/12/19 Magnesium Oxide (MAGNESIUM) 400 Mg Capsule, 1 CAP PO DAILY for 10 Days, #10 CAP Prov:KIMBERLY ZELAYA DO 05/19/19 Metoprolol Tartrate (METOPROLOL TARTRATE) 25 Mg Tablet, 1 TAB PO BID for HTN, #180 TAB 1 Refill Prov:RADHA MARTELL MD 02/08/19 Reported Medications Omeprazole (OMEPRAZOLE) 20 Mg Capsule.dr, 1 CAP PO DAILY for GERD, #30 CAP 5 Refills 02/06/19 Aspirin (ASPIRIN) 81 Mg Tab.chew, 1 TAB PO DAILY for HH, #30 TAB 3 Refills 02/06/19 Finasteride (FINASTERIDE) 5 Mg Tablet, 1 TAB PO DAILY for BPH, #30 TAB 11 Refills 02/06/19 Cholecalciferol (Vitamin D3) (VITAMIN D) 1,000 Unit Capsule, 1 CAP PO DAILY for supplement, #30 CAP 3 Refills 02/06/19 Thiamine Hcl (THIAMINE HCL) 500 Mg Tablet, 100 MG PO DAILY for supplement, TAB 02/06/19 Folic Acid (FOLIC ACID) 1 Mg Tablet, 1 TAB PO DAILY for Supplement, #90 TAB 1 Refill 02/06/19 Docusate Sodium (COLACE) 100 Mg Capsule, 1 CAP PO BID for Constipation , #30 CAP 02/06/19 Calcium Carbonate (CALCIUM CARBONATE) 500 Mg Tablet, 500 MG PO DAILY for Supplement, TAB 02/06/19 Terazosin Hcl (TERAZOSIN HCL) 10 Mg Capsule, 1 CAP PO HS for BPH, #90 CAP 1 Refill 02/06/19 Baclofen (BACLOFEN) 10 Mg Tablet, 1 TAB PO TID for muscle spams , #90 TAB 2 Refills 02/06/19 Atorvastatin Calcium (ATORVASTATIN CALCIUM) 20 Mg Tablet, 20 MG PO HS for FOR CHOLESTEROL, #30 TAB 0 Refills 05/06/16 EFRA MADRIGAL MD Jul 22, 2019 11:33
--- NOTE | 2019-07-22 12:37 | NUR ---
SW following for discharge planning. Chart reviewed, discussed with RN. Pt is was discharged from [facility] on Monday07/19/19. Discharge order in chart for home with home health. [facility] advised pt does not have any more skillable needs. SW met with pt, pt agreeable to home health and would like referral sent to [facility] (ph: [phone], fax: [phone]). RN notified. SW awaiting acceptance decision.
--- NOTE | 2019-07-22 14:42 | NUR ---
Discharge instructions and belongings reviewed with patient, verbalized understanding. Patient was escorted out via wheelchair by Marianne ROMANO
== END 2019-07-22 15:18 | disposition home health service (06) | DRG 872 ==
LOC: ER 07:36 → 4 NORTH 08:49
PROVIDERS: ADMIT Internal Medicine; ATTEND Internal Medicine
DX: A41.9 Sepsis, unspecified organism (principal); N13.6 Pyonephrosis; E87.6 Hypokalemia; E83.42 Hypomagnesemia; I10 Essential (primary) hypertension; K40.90 Unilateral inguinal hernia, without obstruction or gangrene, not specified as recurrent; M51.9 Unspecified thoracic, thoracolumbar and lumbosacral intervertebral disc disorder; K43.9 Ventral hernia without obstruction or gangrene; K44.9 Diaphragmatic hernia without obstruction or gangrene; F32.9 Major depressive disorder, single episode, unspecified; K59.09 Other constipation; N32.89 Other specified disorders of bladder; N40.0 Benign prostatic hyperplasia without lower urinary tract symptoms; Z82.49 Family history of ischemic heart disease and other diseases of the circulatory system; Z83.3 Family history of diabetes mellitus; Z88.0 Allergy status to penicillin; K21.9 Gastro-esophageal reflux disease without esophagitis
CPT/HCPCS: 36415; 74176; 80048; 80053; 81001; 83605; 83690; 83735; 84484; 85007; 85025; 85610; 87086; 87186; 93005; 96374; 96375; 96376; J0696; J1956; J2405; J3010; J3475; J7030; 97110; 97530; 97535; 99285-25; G0378

== ENCOUNTER 2019-10-01 18:23 | Emergency (ER) | payer BC, OTHER ==
[~2019-10-01] VITALS: Ht 180.3 cm; Wt 74.8 kg
[~2019-10-01 18:23] MED LIST changes: -OMEP20CA10 PO; +OMEP20CA16 PO
[2019-10-01] MEDS ORDERED: NITR100C62 PO (21:26)
--- NOTE | 2019-10-01 21:26 | PHYS DOC ---
Past Medical History Past Medical History: Depression, GERD, Hypertension, Other Additional Past Medical Histor: BPH Past Surgical History: Cervical Fusion, Other Additional Past Surgical Histo: HAND, HERNIA Alcohol Use: None Drug Use: None Adult General Chief Complaint Chief Complaint: URINARY RETENTION HPI HPI Patient is a 74 year old AA male with history of benign prostate hypertrophy presents with urinating for the past 10 days. Patient was evaluated by his PCP and placed on antibiotics which she has needed. He contact his PCP today and inform his PCP that he was still having difficulty urinating. The patient was referred to the ED for further evaluation. Patient states he is able to dribble urine. He denies abdominal flank pain. Hematuria. No fever chills nausea vomiting or sweats. No other acute symptoms or complaints. Patient is currently awaiting an outpatient urology appointment at [facility].[] Review of Systems Review of Systems Review of symptoms as per history of present illness. All other review symptoms are negative All other systems were reviewed and found to be within normal limits, except as documented in this note. Allergies Allergies Allergies Coded Allergies Type Severity Reaction Last Updated Verified Penicillins Allergy Intermediate 09/09/16 Yes Physical Exam Physical Exam Constitutional: Well developed, well nourished, no acute distress, non-toxic appearance. [] HENT: Normocephalic, atraumatic, bilateral external ears normal, nose normal. [] Eyes: PERRLA, EOMI, conjunctiva normal, no discharge. [] Neck: Normal range of motion, no tenderness. [] Cardiovascular:Heart rate regular rhythm, no murmur. [] Lungs & Thorax: Bilateral breath sounds clear to auscultation. [] Abdomen: Bowel sounds normal, soft, no tenderness. [] Skin: Warm, dry. [] Back: No tenderness. [] Extremities: No tenderness, no edema. [] Neurologic: Alert and oriented X 3, normal motor function, normal sensory function, no focal deficits noted. [] Psychologic: Affect normal, judgement normal, mood normal. [] Current Patient Data Vital Signs Vital Signs Date Time Temp Pulse Resp B/P (MAP) Pulse Ox O2 Delivery O2 Flow Rate FiO2 10/01/19 19:06 98.5 16 16 130/84 (99) 96 Room Air 98.5 EKG EKG [] Radiology/Procedures Radiology/Procedures [] Course & Med Decision Making Course & Med Decision Making Pertinent Labs and Imaging studies reviewed. (See chart for details) [Patient has a post void residual of 400 ML's of urine on bladder scan. Denies abdominal pain or fullness. Unfortunately, nursing was able to successfully advance a cudae catheter on the prostate despite multiple attempts. There is no urologist on-call at this facility. We'll place on antibiotic in case of residual urinary tract infection. Given that this is an ongoing process, the patient was referred to his PCP tomorrow for further management. The patient is instructed that should his symptoms worsen that he should go to the closest ER that has a urology service and this was communicated patient are to departure. Verbalizes understanding and agreement with discharge instructions prior to departure] Dragon Disclaimer Dragon Disclaimer This electronic medical record was generated, in whole or in part, using a voice recognition dictation system. Departure Departure Impression: Primary Impression: BPH (benign prostatic hyperplasia) Additional Impression: Urinary retention Disposition: 01 HOME, SELF-CARE Condition: GOOD Referrals: JENNY MCINTOSH DO (PCP) Patient Instructions: Urinary Retention, Acute, Male, [id number] Additional Instructions: Please take antibiotics as directed and follow-up with your PCP tomorrow to review urine culture results from 2 weeks ago. Follow-up with local urologist as soon as possible for treatment of urinary retention. Return to the closest ER Hospital with urology coverage if you develop new or worsening symptoms Scripts Nitrofurantoin Monohyd/M-Cryst (MACROBID 100 MG CAPSULE) 100 Mg Capsule 1 CAP PO BID for 7 Days, #14 CAP 0 Refills Prov: ANGELA CHASE DO 10/01/19 Problem Qualifiers ANGELA CHASE DO Oct 01, 2019 21:26
[2019-10-01 21:36] VITALS: BP 149/79
== END 2019-10-01 21:58 | disposition home or self-care (01) ==
LOC: ER 18:23
DX: N40.1 Benign prostatic hyperplasia with lower urinary tract symptoms (principal); R33.8 Other retention of urine; I10 Essential (primary) hypertension; K21.9 Gastro-esophageal reflux disease without esophagitis; F32.9 Major depressive disorder, single episode, unspecified; Z98.890 Other specified postprocedural states; Z88.0 Allergy status to penicillin
CPT/HCPCS: 51702; 99284

== ENCOUNTER → 2020-05-27 | Outpatient (CLI) | payer OTHER ==
[~2020-05-27] MED LIST changes: +NITR100C62 PO
--- NOTE | 2020-05-28 13:28 | CARD ---
MR#: [id number] Date of Study: 05/27/2020 Ordering Physician: LING FERRIS, Referring Physician: LING FERRIS Tech: Sindi Warren RDCS APPROVED REPORT EXAM: Two-dimensional and M-mode echocardiogram with Doppler and color Doppler. Other Information Quality : Good INDICATION Hypertension/HCVD 2D DIMENSIONS RVDd2.5 (2.9-3.5cm)Left Atrium(2D)2.8 (1.6-4.0cm) IVSd1.2 (0.7-1.1cm)Aortic Root(2D)3.2 (2.0-3.7cm) LVDd3.9 (3.9-5.9cm)LVOT Diameter2.1 (1.8-2.4cm) PWd1.0 (0.7-1.1cm)LVDs2.8 (2.5-4.0cm) FS (%) 27.3 %SV34.9 ml LVEF(%)53.8 (>50%) Aortic Valve AoV Peak Peter.103.9cm/sAoV VTI15.6cm AO Peak GR.4.3mmHgLVOT Peak Peter.86.0cm/s LVOT VTI 14.27cmAO Mean GR.2mmHg ASHIA (VMAX)2.20sg3OSH (VTI)3.12cm2 Mitral Valve MV E Zbselmoc54.3cm/sMV DECEL [id number] MV A Kuzvlxun02.1cm/sMV WBO24xr E/A Ratio0.6MVA (PHT)3.23cm2 TDI E/Lateral E'6.3E/Medial E'9.3 LEFT VENTRICLE The left ventricle is normal size. There is normal left ventricular wall thickness. The left ventricu lar systolic function is normal and the ejection fraction is within normal range. The Ejection Fracti on is 55-60%. There is normal LV segmental wall motion. Transmitral Doppler flow pattern is Grade I-a bnormal relaxation pattern. RIGHT VENTRICLE The right ventricle is normal size. The right ventricular systolic function is normal. ATRIA The left atrium size is normal. The right atrium size is normal. The interatrial septum is intact wit h no evidence for an atrial septal defect or patent foramen ovale as noted on 2-D or Doppler imaging. AORTIC VALVE The aortic valve is calcified but opens well. Doppler and Color Flow revealed no significant aortic r egurgitation. There is no significant aortic valvular stenosis. MITRAL VALVE The mitral valve is calcified but opens well. There is no evidence of mitral valve prolapse. There is no mitral valve stenosis. Doppler and Color Flow revealed no mitral valve regurgitation noted. TRICUSPID VALVE The tricuspid valve is normal in structure and function. Doppler and Color Flow revealed no tricuspid valve regurgitation noted. There is no tricuspid valve stenosis. PULMONIC VALVE The pulmonic valve is not well visualized. Doppler and Color Flow revealed no pulmonic valvular regur gitation. There is no pulmonic valvular stenosis. GREAT VESSELS The aortic root is normal in size. The ascending aorta is normal in size. The IVC was not visualized. PERICARDIAL EFFUSION There is no evidence of significant pericardial effusion. Critical Notification Critical Value: No <Conclusion> The left ventricular systolic function is normal and the ejection fraction is within normal range. Th e Ejection Fraction is 55-60%. There is normal LV segmental wall motion. Signed by : Frantz Hurley, Electronically Approved : 05/28/2020 13:28:12
== END | disposition home or self-care (01) ==
LOC: ECHO 13:05
PROVIDERS: ATTEND Internal Medicine Cardiovascular Disease
DX: I08.0 Rheumatic disorders of both mitral and aortic valves (principal); I10 Essential (primary) hypertension
CPT/HCPCS: 93306

== ENCOUNTER 2021-11-17 12:15 | Emergency (ER) | payer MEDICARE, OTHER ==
[~2021-11-17] VITALS: Ht 180.3 cm; Wt 72.7 kg
[~2021-11-17 12:15] MED LIST changes: +AMLO-186 PO; -AMLO5TAB10 PO; -DOCU-150 PO; +DOCU-158 PO; +MAGN400T48 PO; -MAGN400T5 PO; -SIME180C16 PO; +SIME180C61 PO; +[UNRECOGNIZED DRUG - CODE] PO; -[UNRECOGNIZED DRUG - CODE] PO
--- NOTE | 2021-11-17 15:06 | RAD ---
Supine and upright abdomen. HISTORY: Constipation Supine and upright views were taken of the abdomen. Visualized lung bases are clear. There is mild evelina wel distention without obstruction. There is bowel under the right hemidiaphragm. There are right terry al calculi. There is degenerative change and degenerative disc disease in the lower lumbar spine. The re is atherosclerotic change in the aorta without an aneurysm. There is increased stool in the rectum with possible fecal impaction. IMPRESSION: 1. Right renal calculi. 2. Increased stool at the rectum possible fecal impaction. 3. No small bowel obstruction. Electronically signed by: Jimbo Vasquez MD (11/17/2021 3:03 PM) [facility]
--- NOTE | 2021-11-17 15:32 | PHYS DOC ---
Past Medical History Past Medical History: Cancer (prostate), Depression, GERD, Hypertension, Other Additional Past Medical Histor: BPH, prostate CA Past Surgical History: Cervical Fusion, Other Additional Past Surgical Histo: HAND, HERNIA Smoking Status: Current Every Day Smoker Alcohol Use: None Drug Use: None General Adult EDM: Chief Complaint: CONSTIPATION HPI: HPI: Patient is a 76 year old male patient with history of hypertension, depression, prostate cancer currently not on chemo or radiation, suprapubic catheter presenting today complaining constipation, patient states he has not had a normal bowel movement for a week. He states he has been using stool softeners. He states today he started having a bowel movement but he was unable to push down the stool because it was hard. Denies any abdominal pain. Denies any nausea or vomiting. Review of Systems: Review of Systems: Constitutional: Denies fever or chills. [] Eyes: Denies change in visual acuity. [] HENT: Denies nasal congestion or sore throat. [] Respiratory: Denies cough or shortness of breath. [] Cardiovascular: Denies chest pain or edema. [] GI: Reports constipation. Denies abdominal pain, nausea, vomiting, bloody stools or diarrhea. [] : Denies dysuria. [] Musculoskeletal: Denies back pain or joint pain. [] Integument: Denies rash. [] Neurologic: Denies headache, focal weakness or sensory changes. [] Psychiatric: Denies depression or anxiety. [] Heart Score: C/O Chest Pain: N/A Risk Factors: Risk Factors: DM, Current or recent (<one month) smoker, HTN, HLP, family history of CAD, obesity. Risk Scores: Score 0 - 3: 2.5% MACE over next 6 weeks - Discharge Home Score 4 - 6: 20.3% MACE over next 6 weeks - Admit for Clinical Observation Score 7 - 10: 72.7% MACE over next 6 weeks - Early Invasive Strategies Allergies: Allergies: Allergies Coded Allergies Type Severity Reaction Last Updated Verified Penicillins Allergy Intermediate 09/09/16 Yes Physical Exam: PE: Constitutional: Well developed, well nourished, no acute distress, non-toxic appearance. [] HENT: Normocephalic, atraumatic, bilateral external ears normal, oropharynx moist, no oral exudates, nose normal. [] Eyes: PERRLA, EOMI, conjunctiva normal, no discharge. [] Neck: Normal range of motion, no tenderness, supple, no stridor. [] Cardiovascular:Heart rate regular rhythm, no murmur [] Lungs & Thorax: Bilateral breath sounds clear to auscultation [] Abdomen: Flat abdomen. Bowel sounds normal, soft, no tenderness, no masses, no pulsatile masses. [] Male : Suprapubic catheter in place, cloudy urine noted Rectal exam-palpable ball of stool noted in the lower rectum region, I pulled out some stool though my fingers are much shorter than location of stool Skin: Warm, dry, no erythema, no rash. [] Back: No tenderness, no CVA tenderness. [] Extremities: No tenderness, no cyanosis, no clubbing, ROM intact, no edema. [] Neurologic: Alert and oriented X 3, normal motor function, normal sensory function, no focal deficits noted. [] Psychologic: Affect normal, judgement normal, mood normal. [] Current Patient Data: Vital Signs: Vital Signs Date Time Temp Pulse Resp B/P (MAP) Pulse Ox O2 Delivery O2 Flow Rate FiO2 11/17/21 12:54 98.7 100 21 96/52 (67) 97 Room Air 98.7 EKG: EKG: [] Radiology/Procedures: Radiology/Procedures: []PROCEDURE: ABDOMEN SUPINE & UPRIGHT Supine and upright abdomen. HISTORY: Constipation Supine and upright views were taken of the abdomen. Visualized lung bases are clear. There is mild bowel distention without obstruction. There is bowel under the right hemidiaphragm. There are right renal calculi. There is degenerative change and degenerative disc disease in the lower lumbar spine. There is atherosclerotic change in the aorta without an aneurysm. There is increased stool in the rectum with possible fecal impaction. IMPRESSION: 1. Right renal calculi. 2. Increased stool at the rectum possible fecal impaction. 3. No small bowel obstruction. Electronically signed by: Jake Roldan MD (11/17/2021 3:03 PM) [facility] DICTATED and SIGNED BY: JAKE ROLDAN MD DATE: 11/17/21 [id number] 0 Course & Med Decision Making: Course & Med Decision Making Pertinent Labs and Imaging studies reviewed. (See chart for details) This is a 76-year-old male patient presenting to the ED today complaining of constipation, reports no significant bowel movement for a week. Rectal exam noted for fecal impaction unfortunately my fingers are too short to pull out the stool Abdomen supine and upright x-ray noted for right renal calculi. Increased stool at the rectum possible fecal impaction. No small bowel obstruction. Milk of molasses enema done with good amount of stool. Patient feeling better, discharge to home. Dragon Disclaimer: Dragon Disclaimer: This electronic medical record was generated, in whole or in part, using a voice recognition dictation system. Departure Departure Impression: Primary Impression: Constipation Qualified Codes: K59.00 - Constipation, unspecified Disposition: HOME / SELF CARE / HOMELESS Condition: STABLE Referrals: UNKNOWN PCP NAME (PCP) follow up with your doctor in one week Patient Instructions: Constipation, Adult, [id number] Additional Instructions: You were seen for constipation. Increase your dietary fiber intake, increase your water intake, use a suppository or enema anytime you go 3 days without a bowel movement. Take magnesium citrate anytime you are constipated. Continue using a stool softener and Mira[employer]s Polyethylene Glycol 3350 (MIRALAX) 17 Gm Powd.pack 1 PACKET PO DAILY for constipation for 2 Days, #2 PACKET 0 Refills dissolve in water Prov: BRIANNA MARTINS APRN 11/17/21 BRIANNA MARTINS APRN Nov 17, 2021 15:32
[2021-11-17 16:39] VITALS: BP 136/81
[2021-11-17] MEDS ORDERED: POLY17PO29 PO (18:26)
[2021-11-17] MEDS ORDERED: MAGNESIUM CITRATE 296 ML SOLUTION. PO ONE (18:30)
== END 2021-11-17 18:40 | disposition home or self-care (01) ==
LOC: ER 12:15
DX: K59.00 Constipation, unspecified (principal); K21.9 Gastro-esophageal reflux disease without esophagitis; I10 Essential (primary) hypertension; F17.200 Nicotine dependence, unspecified, uncomplicated; Z88.0 Allergy status to penicillin
CPT/HCPCS: 74021; 99285-25